=== PATIENT | male | born 1945 | race Caucasian/White ===

== ENCOUNTER 2021-12-29 10:48 | Inpatient (IN) | payer OTHER, MEDICARE, SELFPAY ==
[2021-12-29] VITALS (47 sets, daily range): BP systolic 83–152; BP diastolic 56–104; PULSE 66–148; RESP 14–34; TEMP 35.6–36.2; O2SAT 84–100; BMI 26.4
--- NOTE | 2021-12-29 10:59 | XR_ITS ---
WS: [id number] Portable AP upright chest, 12/29/2021 Clinical Data: dyspnea Comparison: None. Findings: There is a patchy opacity in the left lower lobe which may represent consolidation, atelect asis and pleural reaction. There are small bilateral pleural effusions. The upper lobes are clear. Th e heart is normal. Monitor leads are on the chest wall. The pulmonary vascularity is not increased. XR/XR chest 1V portable [id number] Impression: 1. Patchy opacity in left lower lobe which may represent consolidation, atelect asis and pleural reaction. 2. Small bilateral pleural effusions.
--- NOTE | 2021-12-29 11:02 | ECG_ITS ---
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 Measurements Intervals [place] Rate: 77 P: MA: QRS: 51 QRSD: 131 T: -41 QT: 419 QTc: 474 Interpretive Statements ATRIAL FIBRILLATION INTRAVENTRICULAR CONDUCTION DELAY [130+ ms QRS DURATION] POSSIBLE LATERAL MYOCARDIAL INFARCTION , OF INDETERMINATE AGE [30 ms Q WAVE IN I/aVL/V5/V6] No previous ECG available for comparison Electronically Signed On 12-31-2021 15:49:11 CDT by Jeff Andres M.D. [id number]
[2021-12-29] MEDS: dexamethasone 4 mg/mL INJ 6 MG IVP (11:06)
[2021-12-29 11:18] LABS: Basophils % 0.2 %; Eosinophils % 0.1 %; Hematocrit 45.2 % (42.0-52.0); Hemoglobin 15.1 g/dL (11.7-16.6); Lymphocytes % 5.1 %; Mean Corpuscular HGB Conc 33.4 g/dL (30.0-36.0); Mean Corpuscular Hemoglobin 30.9 pg (28.0-34.0); Mean Corpuscular Volume 92.4 fl (80-94); Monocytes # 1.5 10^3/uL (0.2-0.9); Monocytes % 7.8 %; Neutrophils # 16.36 10^3/uL (1.8-7.7); Neutrophils % 86.2 %; Nucleated Red Blood Cells % 0 %; Platelet Count 719 10^3/cmm (130-400); Red Blood Count 4.89 10^6/uL (4.1-5.3); Red Cell Distribution Width 12.8 % (12.1-15.1)
[2021-12-29 11:24] LABS: ABG PCO2 44.4 mmHg (35-45); ABG PH Result 7.37 (7.35-7.45); Arterial Blood Gas Hematocrit 44.3 % (42-52); Base Excess ABG 0.3 mmol/L (-2.0-2.0); Blood Gas Allen Test Pos; Blood Gas Operator Identificat glc; Blood Gas Sample Site Radial, right; Blood Gas Sample Type Arterial; HCO3 ABG 25.9 mmol/L (22-26); Oxygen Device BIPAP
[2021-12-29 11:42] LABS: Lactic Sepsis W/Reflex 5.8 mmol/L (0.5-2.2)
--- NOTE | 2021-12-29 11:42 | PC.PHAR ---
pt states he takes care of his own medications-[place] metoprol[place] tartrate 100mg take 50mg po bid-pt states he just takes 50mg (half-tab)qam-notes are made in the pharmacy comments
[2021-12-29 11:44] LABS: Troponin(5th) Baseline 117 ng/L (0-15)
[2021-12-29 11:47] LABS: D Dimer 2.85 ug/mIFEU (0-0.59)
--- NOTE | 2021-12-29 11:52 | CT_ITS ---
WS: [id number] CT CHEST ANGIOGRAPHY WITH REFORMATS HISTORY: elevated d dimer, hypoxia TECHNIQUE: Contiguous axial images are obtained through the chest during arterial injection of intrav enous contrast. Images are reconstructed to evaluate the pulmonary arteries. MIP imaging also reviewe d. All CT scans at [facility] use at least one of these dose optimization techniques: automat ed exposure control; mA and/or kV adjustment per patient size (includes targeted exams where dose is matched to clinical indication); or iterative reconstruction. CONTRAST: Omnipaque 300; 86 mL IV. DLP: 625.88 mGy.cm COMPARISON: None available. Good opacification of the pulmonary arteries. No filling defect or pulmonary embolism. Pulmonary kristin ry size is normal. Atherosclerosis of the thoracic aorta with no aneurysm. No pericardial effusion. N o RIGHT heart strain. There is mild enlargement of all 4 chambers. Tricuspid regurgitation into hepat ic veins. Mild to moderate layering bilateral pleural effusions. No significant mediastinal or hilar adenopathy . Partial atelectasis at the lung bases due to the effusions. Very mild groundglass attenuation in th e RIGHT upper, RIGHT middle and RIGHT lower lobes probably due to pneumonitis. Partial atelectasis at the lingula. No pneumothorax. No adrenal mass. No abnormality noted in the visualized upper abdominal structures. CT/CT angio chest PE protcl [id number] IMPRESSION: 1. No pulmonary embolism. 2. Small to moderate bilateral pleural effusions. 3. Very mild subsegmental pneumonitis in the RIGHT middle, upper and lower lob es. 4. Partial atelectasis lingula. 5. Tricuspid regurgitation into hepatic veins.
[2021-12-29 11:57] LABS: NT Pro B Type Natriuretic Pept 4947 pg/mL (0-450); Procalcitonin 0.06 ng/mL (0-0.5)
[2021-12-29 12:08] LABS: Alanine Aminotransferase 35 U/L (0-41); Albumin Level 4.3 g/dL (3.5-5.2); Alkaline Phosphatase 84 IU/L (40-130); Anion Gap 26.9 (5-19); Aspartate Amino Transferase 63 U/L (0-40); Blood Urea Nitrogen 26 mg/dL (8-23); Calcium 10.2 mg/dL (8.5-10.5); Carbon Dioxide 21 mmol/L (22-29); Chloride 82 mmol/L (98-107); Glucose 150 mg/dL (65-115); Osmolality Calculated 268 mOsm/kg (285-295); Potassium 4.9 mmol/L (3.5-5.1); Sodium 125 mmol/L (136-145); Total Bilirubin 1.2 mg/dL (0.15-1.2); Total Protein 7.3 g/dL (6.6-8.7)
--- NOTE | 2021-12-29 12:13 | ED_ITS ---
HPI - SOB/Dyspnea General: Chief Complaint: Shortness of Breath/Dyspnea Stated Complaint: Diff breathing taking heart meds Time Seen by Provider: 12/29/21 10:59 Source: patient Mode of arrival: EMS History of Present Illness: HPI Narrative: 68-year-old male presents emergency room complaining of significant shortness of breath nonproductive cough. States his symptoms began about 9 days ago progressively worse in the last 2 days have gotten very severe. He denies any diarrhea he has not had any fever sweats chills or myalgias. Denies any anosmia. He is not having any chest pain at this time he does states he has a sensation of palpitations and rapid heart rate. No vomiting or diarrhea no dysuria urgency or frequency. He has generally felt very weak. He has a history of COPD and congestive heart failure. On arrival here his oxygen sats are in the 70% range on 2 L improved with a simple mask at 6 L/min. MD elicited complaint: shortness of breath and cough Pertinent past history: COPD and congestive heart failure Timing: constant Severity: severe Exacerbating factors: nothing Relieving factors: nothing Known history of: COPD and congestive heart failure Associated symptoms: Deny abdominal pain, chest congestion, chest pain, cough, diaphoresis, dizziness, extremity pain, fever(s), hemoptysis, lightheadedness, myalgias, nausea, orthopnea, palpitations, paresthesias, polydipsia, polyuria, rash, sense of impending doom, syncope or vomiting Treatment prior to arrival: none Review of Systems Const: Denies: fever(s) or diaphoresis ENMT: Denies: throat pain, ear or mastoid pain, nasal discharge or nasal congestion Card: Denies: chest pain, palpitations, lightheadedness, syncope or orthopnea Resp: Denies: hemoptysis or chest congestion GI: Denies: abdominal pain, nausea or vomiting : Denies: flank pain, dysuria, urinary frequency or urinary urgency Musc: Denies: extremity pain Skin/Breast: Denies: rash or pruritus Neuro: Denies: dizziness Endo: Denies: polyuria or polydipsia PFS ED PFSH: Medical History CAD (coronary artery disease) Congestive heart failure COPD (chronic obstructive pulmonary disease) Obesity Surgical History History of heart artery stent History of hernia surgery Family History Father CAD (coronary artery disease) Mother Old age Social History Smoking and tobacco status: current every day smoker cigarettes [ Other cigarette details: Patient reports quitting smoking with onset of symptoms of this illness] Alcohol intake: never Physical Exam Const: COMMON NORMALS: patient oriented x3 GENERAL APPEARANCE: cooperative and comfortable NUTRITIONAL APPEARANCE: overweight ORIENTATION/CONSCIOUSNESS: Yes awake, Yes oriented to person, Yes oriented to place and Yes oriented to time HENMT: COMMON NORMALS: normocephalic, atraumatic and hearing grossly normal bi laterally HEAD & SCALP: normocephalic and atraumatic Resp: AUSCULTATION: crackles, rhonchi and wheezes Cardio: RATE: tachycardic RHYTHM: abnormal rhythm irregularly irregular GI: COMMON NORMALS: Soft to palpation and No hepatosplenomegaly present AUSCULTATION: Yes normoactive bowel sounds PALPATION: Yes Soft to palpation, No Tenderness to palpation present (GI), No Guarding due to palpation present (GI) and Yes No hepatosplenomegaly present Extremity: COMMON NORMALS: normal to inspection, capillary refill normal, no clubbing, cyanosis or edema, no calf tenderness and no pedal edema GENERAL: Yes edema Neuro: COMMON NORMALS: patient oriented x3 SENSORIUM/ORIENTATION: Yes oriented to person, Yes oriented to place and Yes oriented to time Skin: COMMON NORMALS: no rashes or lesions noted GENERAL SKIN EXAM: no rashes or lesions noted Course Vital Signs: Vital signs: Vital Signs Temperature 96.7 F L 01/02/22 07:00 Pulse Rate 96 01/02/22 14:00 Respiratory Rate 19 H 01/02/22 12:00 Blood Pressure 136/93 01/02/22 12:00 Pulse Oximetry 86 L 01/02/22 12:00 MDM - SOB/Dyspnea Medical Decision Making Positive delta troponin of 75. Symptoms could be strain from heart failure and A. fib but will admit him to evaluate further. He may have an underlying cardiac cause he does have a history of previous stenting. He is currently on a Cardizem drip and his rate has become controlled. His D-dimer is elevated but we have cannot perform a CTA of his chest because of his creatinine. Discussed with hospitalist orders written will admit he has been charted on Lovenox. Medical Records I reviewed the patient's medical records. Lab Data I reviewed the patient's lab results. : 01/02/22 03:30 01/02/22 03:30 Labs/Radiology: Radiology Impressions Chest CTA 12/29/21 11:52 IMPRESSION: 1. No pulmonary embolism. 2. Small to moderate bilateral pleural effusions. 3. Very mild subsegmental pneumonitis in the RIGHT middle, upper and lower lobes. 4. Partial atelectasis lingula. 5. Tricuspid regurgitation into hepatic veins. Venous Duplex 12/29/21 14:48 IMPRESSION: 1. No evidence for deep vein thrombosis. 2. Subcutaneous soft tissue edema in the bilateral lower legs. Thoracentesis Ultrasound 01/01/22 00:00 IMPRESSION: Uncomplicated ultrasound-guided thoracentesis. Chest X-Ray 01/02/22 13:51 Impression: Placement of a small left chest tube at base of left pleural space with improvement of basilar left pneumothorax. Laboratory Results WBC 19.0 10^3/uL (4.0-10.0) H 12/29/21 11:04 RBC 4.89 10^6/uL (4.1-5.3) 12/29/21 11:04 Hgb 15.1 g/dL (11.7-16.6) 12/29/21 11:04 Hct 45.2 % (42.0-52.0) 12/29/21 11:04 MCV 92.4 fl (80-94) 12/29/21 11:04 MCH 30.9 pg (28.0-34.0) 12/29/21 11:04 MCHC 33.4 g/dL (30.0-36.0) 12/29/21 11:04 RDW 12.8 % (12.1-15.1) 12/29/21 11:04 Plt Count 719 10^3/cmm (130-400) H 12/29/21 11:04 MPV 9.0 fL (7.4-10.4) 12/29/21 11:04 Neut % (Auto) 86.2 % 12/29/21 11:04 Lymph % (Auto) 5.1 % 12/29/21 11:04 [place] % (Auto) 7.8 % 12/29/21 11:04 Eos % (Auto) 0.1 % 12/29/21 11:04 Baso % (Auto) 0.2 % 12/29/21 11:04 Neut # (Auto) 16.36 10^3/uL (1.8-7.7) H 12/29/21 11:04 Lymph # (Auto) 1.0 10^3/uL (0.8-4.8) 12/29/21 11:04 [place] # (Auto) 1.5 10^3/uL (0.2-0.9) H 12/29/21 11:04 Eos # (Auto) 0.0 10^3/uL (0.0-0.8) 12/29/21 11:04 Baso # (Auto) 0.0 10^3/uL (0.0-0.1) 12/29/21 11:04 Nucleated RBC % (auto) 0 % 12/29/21 11:04 Nucleated RBCs # 0.0 /100WBC 12/29/21 11:04 D-Dimer 2.85 ug/mIFEU (0-0.59) H 12/29/21 11:04 Specimen Type Arterial 12/29/21 11:15 Sample Site Radial, right 12/29/21 11:15 ABG pH 7.37 (7.35-7.45) 12/29/21 11:15 ABG pCO2 44.4 mmHg (35-45) 12/29/21 11:15 ABG pO2 323.0 mmHg (80.0-100.0) H 12/29/21 11:15 ABG HCO3 25.9 mmol/L (22-26) 12/29/21 11:15 ABG Base Excess 0.3 mmol/L (-2.0-2.0) 12/29/21 11:15 Damon Test Pos 12/29/21 11:15 Hematocrit 44.3 % (42-52) 12/29/21 11:15 O2 Delivery Device Bipap 12/29/21 11:15 FiO2 70.0 % 12/29/21 11:15 Operation Shift Supervisor ID glc 12/29/21 11:15 Sodium 125 mmol/L (136-145) L 12/29/21 10:59 Potassium 4.9 mmol/L (3.5-5.1) 12/29/21 10:59 Chloride 82 mmol/L (98-107) L 12/29/21 10:59 Carbon Dioxide 21 mmol/L (22-29) L 12/29/21 10:59 Anion Gap 26.9 (5-19) H 12/29/21 10:59 BUN 26 mg/dL (8-23) H 12/29/21 10:59 Creatinine 0.9 mg/dL (0.7-1.2) 12/29/21 10:59 GFR Calculation Not Reportable 12/29/21 10:59 Glucose 150 mg/dL (65-115) H 12/29/21 10:59 Estimat Average Glucose 105 12/29/21 11:04 Hemoglobin A1c 5.3 % (4.0-6.0) 12/29/21 11:04 Calculated Osmolality 268 mOsm/kg (285-295) L 12/29/21 10:59 Lactic Acid 5.8 mmol/L (0.5-2.2) H* 12/29/21 11:04 Lactic Acid (Sepsis) 2.4 mmol/L (0.5-2.2) H 12/29/21 13:43 Calcium 10.2 mg/dL (8.5-10.5) 12/29/21 10:59 Magnesium 1.9 mg/dL (1.7-2.3) 12/29/21 13:05 Total Bilirubin 1.2 mg/dL (0.15-1.2) 12/29/21 10:59 AST 63 U/L (0-40) H 12/29/21 10:59 ALT 35 U/L (0-41) 12/29/21 10:59 Alkaline Phosphatase 84 IU/L (40-130) 12/29/21 10:59 Troponin T Baseline 117 ng/L (0-15) H* 12/29/21 11:04 Troponin T 120 Minute 192.6 ng/L (0-15) H 12/29/21 13:05 Delta Troponin T 75.6 ABS# (0-10) H* 12/29/21 13:05 C-Reactive Protein 52.0 mg/L (0.0-4.9) H 12/29/21 10:59 NT-Pro-B Natriuret Pep 4947 pg/mL (0-450) H 12/29/21 10:59 Total Protein 7.3 g/dL (6.6-8.7) 12/29/21 10:59 Albumin 4.3 g/dL (3.5-5.2) 12/29/21 10:59 Globulin 3.0 g/dL (1.3-4.6) 12/29/21 10:59 Triglycerides 52 mg/dL (0-150) 12/29/21 13:05 Cholesterol 136 mg/dL (0-200) 12/29/21 13:05 LDL Cholesterol, Calc 84 mg/dL (50-129) 12/29/21 13:05 HDL Cholesterol 42 mg/dL (60-100) L 12/29/21 13:05 LDL/HDL Ratio 2.00 RATIO (0.00-3.22) 12/29/21 13:05 Cholesterol/HDL Ratio 3.24 mg/dL (1.0-5.00) 12/29/21 13:05 Procalcitonin 0.06 ng/mL (0-0.5) 12/29/21 10:59 TSH 1.09 uIU/mL (0.27-4.20) 12/29/21 13:05 Coronavirus 229E (PCR) Not detected (NOT DETECT) 12/29/21 11:04 SARS-CoV-2 (PCR) Not detected (NOT DETECT) 12/29/21 11:04 Discharge Plan Discharge Patient Disposition: Admitted As Inpatient Admit Provider: Jaun Felix Clinical Impression: Acute and chronic respiratory failure with hypoxia, NSTEMI (non-ST elevated myocardial infarction), Atrial fibrillation, Acute kidney failure, Congestive heart failure, COPD (chronic obstructive pulmonary disease), CAD (coronary artery disease), Hyponatremia Condition: Stable Coding Level of Care Code ED Web Master for Ayang Fwd Exam Detailed
[2021-12-29] MEDS: levofloxacin-dextrose 5 % 750 MG/150 ML PREMIX 100 MG IV (12:28)
[2021-12-29 12:56] LABS: Reflex Lactate Order REFLEX LACTIC ORDERD
--- NOTE | 2021-12-29 13:02 | ECG_ITS ---
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 Measurements Intervals [place] Rate: 78 P: NC: QRS: 53 QRSD: 130 T: 265 QT: 401 QTc: 457 Interpretive Statements ATRIAL FIBRILLATION POSSIBLE LATERAL MYOCARDIAL INFARCTION , PROBABLY OLD [30 ms Q WAVE IN I/aVL/V5/V6] ST DEVIATION AND MODERATE T-WAVE ABNORMALITY, CONSIDER INFERIOR ISCHEMIA [-0.1+ mV T-WAVE IN II/aVF] Compared to ECG 12/29/2021 12:08:49 T-wave abnormality now present Possible ischemia now present Intraventricular conduction delay no longer present Myocardial infarct finding still present Electronically Signed On 12-31-2021 15:56:13 CDT by Jeff Andres M.D. [id number]
[2021-12-29 13:53] LABS: Troponin 5 2HR 192.6 ng/L (0-15); Troponin 5 2HR Delta 75.6 ABS# (0-10)
[2021-12-29 14:07] LABS: Lactic Acid level (Lactate) 2.4 mmol/L (0.5-2.2)
[2021-12-29] MEDS: enoxaparin 100 mg/mL Syringe 90 MG SUBCUT (14:12)
[2021-12-29 14:13] LABS: Adenovirus Not Detected (NOT DETECT); Chlamydia Pneumoniae Not Detected (NOT DETECT); Coronavirus 229E,HKU1,NL63,OC4 Not Detected (NOT DETECT); Human Metapneumovirus Not Detected (NOT DETECT); Human Rhinovirus/Enterovirus Not Detected (NOT DETECT); Influenza A Not Detected (NOT DETECT); Influenza A H1 Not Detected (NOT DETECT); Influenza A H1-2009 Not Detected (NOT DETECT); Influenza A H3 Not Detected (NOT DETECT); Influenza B Not Detected (NOT DETECT); Mycoplasma Pneumoniae Not Detected (NOT DETECT); Parainfluenza Virus Type 1 Not Detected (NOT DETECT); Parainfluenza Virus Type 2 Not Detected (NOT DETECT); Parainfluenza Virus Type 3 Not Detected (NOT DETECT); Parainfluenza Virus Type 4 Not Detected (NOT DETECT); Respiratory Syncytial Virus A Not Detected (NOT DETECT); Respiratory Syncytial Virus B Not Detected (NOT DETECT); SARS-COV-2 Not Detected (NOT DETECT)
--- NOTE | 2021-12-29 14:48 | USR_ITS ---
PROCEDURE INFORMATION: Exam: US Duplex Lower Extremity Veins, Bilateral Exam date and time: 12/29/2021 2:48 PM Age: 76 years old Clinical indication: Edema, localized and other: SOB; Lower extremity, bilateral; Additional info: Dvt TECHNIQUE: Imaging protocol: Real-time Duplex ultrasound of the bilateral extremities with 2-D hernandez scale, color Doppler flow and spectral waveform analysis with image documentation. Complete exam focused on the bilateral lower extremity veins. COMPARISON: No relevant prior studies available. FINDINGS: Right deep veins: Unremarkable. The common femoral, femoral, proximal profunda femoral and popliteal veins are patent without thrombus. Normal Doppler waveforms. Normal compressibility and/or augmentation response. Right superficial veins: Saphenofemoral junction is patent without thrombus. Left deep veins: Unremarkable. The common femoral, femoral, proximal profunda femoral and popliteal veins are patent without thrombus. Normal Doppler waveforms. Normal compressibility and/or augmentation response. Left superficial veins: Saphenofemoral junction is patent without thrombus. Soft tissues: Soft tissue edema in the right and left calves. US/[place] [id number] IMPRESSION: 1. No evidence for deep vein thrombosis. 2. Subcutaneous soft tissue edema in the bilateral lower legs.
--- NOTE | 2021-12-29 14:48 | USCV_ITS ---
Nitin Florentino Age: 76 Gender: M : 1945 Exam Date: 12/29/2021 16:04 Ordering Phys: Jaun Felix MD Technologist: Nell Pascual Exam Location: [facility] Indication: SOB WITH SWOLLEN LEGS BP: / HR: 107 Rhythm: Sinus Technical Quality: Adequate MEASUREMENTS (Male / Female) Normal Values 2D ECHO LV Chamber Size 3.5 cm RV Chamber Size 4.3 cm LVOT Diameter 2.0 cm LV Ejection Fraction MOD 2C 61.0 % LV Ejection Fraction 2C AL 61.6 % LA Diameter 5.2 cm LA Width 3.3 cm LA Height 5.1 cm RA Width 4.2 cm RA Height 5.6 cm Aorta at Sinotubular Diameter 3.5 cm M-MODE Aortic Annulus Diameter 2.2 cm LA Ao Ratio MM 2.6 MV E Point Septal Separation 0.6 cm DOPPLER AV Peak Velocity 236.0 cm/s LVOT Peak Velocity 74.0 cm/s AV Area Cont Eq vti 1.1 cm squared AV Area Cont Eq pk 1.0 cm squared MV Area PHT 5.6 cm squared MV E' Velocity 59.0 cm/s Mitral E to MV E' Ratio 10.0 Mitral E to LV E' Lateral Ratio 7.8 Mitral E to LV E' Septal Ratio 13.8 TR Peak Velocity 260.6 cm/s TR Peak Gradient 27.2 mmHg TR Mean Velocity 192.8 cm/s TR Mean Gradient 16.6 mmHg TR Velocity Time Integral 59.6 cm TV Peak E Velocity 81.0 cm/s PV Peak Velocity 105.0 cm/s RV Acceleration Time 0.2 s RV Ejection Time 0.3 s RV AcT/ET 0.5 FINDINGS Left Ventricle Normal LV systolic size. LV systolic function is grossly mildly reduced. Diastolic function is indeterminate because of atrial fibrillation Right Ventricle The right ventricle is normal in size and function. Right Atrium The right atrium is normal in size. Left Atrium The left atrium is normal in size. Mitral Valve Moderate mitral annular calcification without significant stenosis or prolapse. There is no mitral regurgitation. Aortic Valve Aortic valve is thickened. Mild aortic stenosis is seen. Aortic valve area is 1.06 cm squared with mean gradient across the aortic valve of 12.1 mmHg. There is no aortic regurgitation. Tricuspid Valve Structurally normal tricuspid valve without significant stenosis. Mild tricuspid regurgitation. Pulmonary artery systolic pressure is normal. Pulmonic Valve Not well-visualized Pericardium Normal pericardium without effusion. Aorta Aortic root was mildly dilated CONCLUSIONS Technically limited quality echocardiogram because of poor ultrasonic windows. Grossly LV systolic function is mildly reduced Diastolic function is indeterminate because of atrial fibrillation Moderate mitral annular calcification is seen. Aortic valve is thickened. Mild aortic stenosis is noted. Aortic valve area is 1.06 cm squared with mean gradient across the aortic valve of 12.1 mmHg. Mild tricuspid regurgitation. Aortic root is dilated No comparison studies are available. Recommend repeating limited echo with contrast once heart rate is better controlled to accurately assess LV systolic function and wall motion Jeff Andres MD (Electronically Signed) Final Date: 29 December 2021 17:12 S
--- NOTE | 2021-12-29 14:57 | P.HP_ITS ---
Providers/Chief Complaint Chief Complaint: Diff breathing taking heart meds History of Present Illness Nitin Florentino is a 76 year old male with a past medical history of CAD status post stenting, history of COPD, history of smoking, history of hypertension, who presents to [facility] from the [place] due to complaints of shortness of breath. Patient tells that he lives near [place], for about [place] of [facility], recently he has been noticing that he is been experiencing increased shortness of breath with exertion, with bilateral extremity edema, he tells me he has chronic lower extreme edema but recently it has been worsening, reports orthopnea, paroxysmal nocturnal dyspnea, has not received COVID vaccines, denies any fevers, does have a cough, no known exposure to COVID-19, in the emergency room he was noted to have acute hypoxic respiratory failure, placed on 70% BiPAP, elevated troponins, elevated D-dimer, who was supposed to have a CT angiogram, when they tried to lie him back flat for CT angio he became short of breath, the chest was aborted, he is back in the emergency room, Covid came back negative, on 50% BiPAP, telling me that he feels a lot better, he also had A. fib with RVR, placed on Cardizem drip, currently at 5, heart rates in the 100s, normotensive, tell me that he feels a lot better he is also received Lasix therapy, hospitalist team was called for admission Review of Systems Const: Denies: fever(s), chills, fatigue or malaise Eyes: Denies: blurry vision ENMT: Denies: nasal congestion Resp: Denies: productive cough GI: Denies: abdominal pain, nausea, vomiting, hematemesis or hematochezia : Denies: flank pain, difficulty urinating, dysuria or urinary frequency Musc: Denies: neck pain or back pain Skin/Breast: Denies: rash Neuro: Denies: headache(s) or vertigo Medications/Allergies Home Medications Medication Instructions Recorded Confirmed Last Taken Type Vitamin B-12 1 tab PO .OCCASIONALLY 12/29/21 12/29/21 Unknown History albuterol sulfate 90 mcg/actuation 2 puff INHALATION QID PRN 12/29/21 12/29/21 Unknown History aerosol inhaler (ProAir HFA) aspirin 325 mg tablet 325 mg PO QAM 12/29/21 12/29/21 12/29/21 07:00 History calcium carbonate 550 mg-magnesium 2 tab PO Q4H PRN 12/29/21 12/29/21 Unknown History hydroxide 110 mg chewable tablet cholecalciferol (vitamin D3) 25 25 mcg PO QAM 12/29/21 12/29/21 12/29/21 07:00 History mcg (1,000 unit) tablet (Vitamin D3) hydrochlorothiazide 25 mg tablet 25 mg PO QAM 12/29/21 12/29/21 12/29/21 07:00 History metoprolol tartrate 100 mg tablet 50 mg PO QAM 12/29/21 12/29/21 12/29/21 07:00 History see pharmacy comment sildenafil 100 mg tablet 50 mg PO PRN PRN 12/29/21 12/29/21 Unknown History Allergies Allergy/AdvReac Type Severity Reaction Status Date / Time lisinopril Allergy Unknown Verified 12/29/21 11:34 PFSH Acute PFSH: Medical History (Updated 12/29/21 @ 15:10 by Jaun Felix MD) CAD (coronary artery disease) Congestive heart failure COPD (chronic obstructive pulmonary disease) Obesity Surgical History (Updated 12/29/21 @ 15:01 by Jaun Felix MD) History of heart artery stent History of hernia surgery Family History (Updated 12/29/21 @ 15:02 by Jaun Felix MD) Father CAD (coronary artery disease) Mother Old age Social History (Updated 12/29/21 @ 12:16 by Pedro Linn DO) Smoking and tobacco status: current every day smoker cigarettes [ Other cigarette details: Patient reports quitting smoking with onset of symptoms of this illness] Alcohol intake: never Vitals/I&O/Wt Last Vital Signs Temp 96.0 F L 12/29/21 11:03 Pulse 80 12/29/21 13:48 Resp 18 12/29/21 13:48 BP 117/97 12/29/21 13:48 Pulse Ox 100 12/29/21 13:48 Weight last 48 hrs Weight 90.718 kg Physical Exam Const: COMMON NORMALS: no acute distress and patient oriented x3 HENMT: COMMON NORMALS: normocephalic HEAD & SCALP: normocephalic Eye: COMMON NORMALS: Equal, round and reactive pupils present and EOMs intact bilaterally Neck/C-Spine: COMMON NORMALS: no lymphadenopathy OTHER: JVD, 7 cm Lymph: LYMPHATIC: no lymphadenopathy noted Chest: COMMONS NORMALS: normal inspection of the chest Resp: COMMON NORMALS: normal respiratory effort, No retractions and No use of accessory muscles AUSCULTATION: diminished lung sounds diffuse Cardio: COMMON NORMALS: no JVD, S1 normal heart sound present and S2 normal heart sound present RATE: tachycardic RHYTHM: regular rhythm and abnormal rhythm irregularly irregular HEART SOUNDS: S1 normal heart sound present and S2 normal heart sound present GI: COMMON NORMALS: Normal to inspection, nondistended, normoactive bowel sounds present, Soft to palpation, non-tender, No hepatosplenomegaly present, no masses and no bruits PALPATION: Yes Soft to palpation and Yes No hepatosplenomegaly present Extremity: COMMON NORMALS: capillary refill normal and no calf tenderness NARRATIVE EXTREMITY EXAM: 2+ pitting edema Neuro: COMMON NORMALS: patient oriented x3 Psych: COMMON NORMALS: mental status grossly normal Skin: COMMON NORMALS: no jaundice Data : 12/29/21 11:04 12/29/21 10:59 Micro: Microbiology 12/29/21 11:13 Blood Culture - Preliminary Blood SPECIMEN COLLECTED 12/29/21 11:13 Blood Culture - Preliminary Blood SPECIMEN COLLECTED A&P Assessment and plan (1) CAD (coronary artery disease): Status: Acute (2) Obesity: Status: Acute (3) Congestive heart failure: Status: Acute (4) COPD (chronic obstructive pulmonary disease): Status: Acute (5) Acute and chronic respiratory failure with hypoxia: Status: Acute (6) NSTEMI (non-ST elevated myocardial infarction): Status: Acute (7) Pneumonia: Status: Acute (8) Acute heart failure: Status: Acute (9) Pulmonary edema: Status: Acute (10) Hyponatremia: Status: Acute (11) Lactic acidosis: Status: Acute (12) Sepsis: Status: Acute Plan Acute hypoxic respiratory failure -Multifactorial from CHF, pneumonia, atrial fibrillation Plan -Admit to ICU -Continue BiPAP, BiPAP schedule during the night -Monitor respiratory status closely -Bumex 1 mg every 12 hours, metolazone therapy -Patel catheter placement, monitor I's and O's -Fluid restrictions 1200 cc -Blood cultures, urine bacterial antigens, MRSA -Zosyn for pneumonia -Vancomycin for pneumonia, de-escalate based on MRSA -Cardiac echocardiogram -Does have elevated D-dimer, cannot perform CT angiogram, venous ultrasound for DVT, for now cover for possible pulmonary emboli, Lovenox 1 mg/kg every 12 hours -Full code -Lovenox for DVT prophylaxis A. fib with RVR -New onset -Continue Cardizem drip, transition to Cardizem 30 every 6 -Add metoprolol 25 twice daily -Lovenox as above -Cardiac echocardiogram -TSH, mag NSTEMI -Elevated troponin likely secondary to respiratory failure, A. fib, however cannot rule out underlying cardiac etiology -Underlying CAD status post stenting x1 -No chest pain complaints -Baseline troponin 117, 120-minute 192, 75.6 -EKG A. fib with RVR, nonspecific ST-T wave changes -Aspirin, statin, therapeutic Lovenox, metoprolol -Cardiac echocardiogram -Serial troponin, serial EKGs, telemetry monitoring -We will consider consulting cardiology based on clinical progress History of heart failure, unknown if systolic or diastolic, will do cardiac echocardiogram History of COPD, not in exacerbation, DuoNeb, budesonide Pneumonia, with sepsis, as above, leukocytosis elevated lactic acid Hyponatremia likely secondary to heart failure, continue diuresis Lactic acidosis secondary to pneumonia, Attestations Medical Necessity Statement*: Patient requires hospitalization, inpatient, greater than 2 midnights, for acute hypoxic respiratory failure, CHF exacerbation, elevated troponins, elevated D-dimer, pneumonia Coding Level of Care Code Acute 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
[2021-12-29] MEDS: iohexol 350 mg/mL 100 mL Btl IV (15:28)
[2021-12-29 15:36] LABS: Chol HDL Ratio 3.24 mg/dL (1.0-5.00); Cholesterol 136 mg/dL (0-200); HDL Cholesterol 42 mg/dL (60-100); LDL Cholesterol Calculated 84 mg/dL (50-129); Magnesium 1.9 mg/dL (1.7-2.3); Thyroid Stimulating Hormone 1.09 uIU/mL (0.27-4.20); Triglycerides 52 mg/dL (0-150)
[2021-12-29] MEDS: pantoprazole 40 mg SDV IVP (15:50)
[2021-12-29] MEDS: piperacillin-tazobactam 3.375 GM in sodium chloride 0.9% (plus) 50 ML IV (15:50)
[2021-12-29] MEDS: dilTIAZem 30 mg Tablet PO ×2 (15:53→22:08)
[2021-12-29] MEDS: metOLazone 5 MG Tablet 10 MG PO (15:53)
[2021-12-29 16:09] LABS: Estmated Average Glucose 105; Hemoglobin A1C 5.3 % (4.0-6.0)
[2021-12-29] MEDS: ipratropium-albuterol 3 mL Neb INHALATION ×2 (17:02→21:06)
--- NOTE | 2021-12-29 17:02 | ECG_ITS ---
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 Measurements Intervals [place] Rate: 127 P: [place]: QRS: 28 QRSD: 134 T: 242 QT: 329 QTc: 479 Interpretive Statements ATRIAL FIBRILLATION WITH RAPID VENTRICULAR RESPONSE INTRAVENTRICULAR CONDUCTION DELAY [130+ ms QRS DURATION] ANTEROLATERAL MYOCARDIAL INFARCTION , OF INDETERMINATE AGE [40+ ms Q WAVE IN I/aVL/V3-V6] No previous ECG available for comparison Electronically Signed On 12-31-2021 15:56:20 CDT by Jeff Andres M.D. [id number]
--- NOTE | 2021-12-29 17:15 | PC.NURSE ---
report to Wilfrid nurse in ICU
[2021-12-29 17:28] LABS: Troponin 5 6HR 200.2 ng/L (0-15); Troponin 5 6HR Delta 83.2 ng/L (0-12)
[2021-12-29] MEDS: bumetanide 0.25 mg/mL SDV 10 mL 1 MG IVP (18:24)
[2021-12-29] MEDS: metoprolol tartrate 25 mg Tablet PO (20:36)
[2021-12-29] MEDS: vancomycin 1,250 MG/250 ML PIGGYBACK 200 MG IV (20:36)
[2021-12-29] MEDS: atorvastatin 40 mg Tablet PO (20:36)
[2021-12-29] MEDS: budesonide 0.5 mg/2 mL Neb INHALATION (21:06)
--- NOTE | 2021-12-29 21:58 | ECG_ITS ---
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 Measurements Intervals [place] Rate: 91 P: DC: QRS: 16 QRSD: 126 T: -13 QT: 422 QTc: 521 Interpretive Statements ATRIAL FIBRILLATION WITH ABERRANT CONDUCTION OR VENTRICULAR PREMATURE COMPLEXES PROBABLE SEPTAL MYOCARDIAL INFARCTION , PROBABLY OLD [35 ms Q WAVE IN V1/V2] INTERPRETATION BASED ON A DEFAULT AGE OF 40 YEARS Compared to ECG 12/29/2021 13:01:35 Ventricular premature complex(es) now present Aberrant conduction of supraventricular beat(s) now present T-wave abnormality no longer present Possible ischemia no longer present Myocardial infarct finding still present Electronically Signed On 12-31-2021 15:55:25 CDT by Jeff Andres M.D. [id number]
[2021-12-30] VITALS (48 sets, daily range): BP systolic 86–134; BP diastolic 56–87; PULSE 63–113; RESP 14–24; TEMP 36.3–36.9; O2SAT 93–100
[2021-12-30] MEDS: piperacillin-tazobactam 3.375 GM in sodium chloride 0.9% (plus) 50 ML IV ×4 (00:51→23:56)
[2021-12-30] MEDS: enoxaparin 100 mg/mL Syringe 90 MG SUBCUT ×2 (02:22→15:19)
[2021-12-30] MEDS: dilTIAZem 30 mg Tablet PO ×4 (04:18→22:01)
[2021-12-30 05:18] LABS: ABG PCO2 40.5 mmHg (35-45); ABG PH Result 7.47 (7.35-7.45); Arterial Blood Gas Hematocrit 37.8 % (42-52); Base Excess ABG 5.5 mmol/L (-2.0-2.0); Blood Gas Allen Test Pos; Blood Gas Sample Site Radial, right; Blood Gas Sample Type Arterial; HCO3 ABG 29.6 mmol/L (22-26); Oxygen Device BIPAP; PO2 ABG 83.5 mmHg (80.0-100.0)
[2021-12-30 05:32] LABS: Basophils % 0.1 %; Hematocrit 36.1 % (42.0-52.0); Hemoglobin 12.5 g/dL (11.7-16.6); Lymphocytes % 6.1 %; Mean Corpuscular HGB Conc 34.6 g/dL (30.0-36.0); Mean Corpuscular Hemoglobin 30.8 pg (28.0-34.0); Mean Corpuscular Volume 88.9 fl (80-94); Mean Platelet Volume 8.9 fL (7.4-10.4); Neutrophils # 13.16 10^3/uL (1.8-7.7); Neutrophils % 81.1 %; Nucleated Red Blood Cells % 0 %; Platelet Count 572 10^3/cmm (130-400); Red Blood Count 4.06 10^6/uL (4.1-5.3); Red Cell Distribution Width 12.7 % (12.1-15.1); White Blood Count 16.2 10^3/uL (4.0-10.0)
[2021-12-30 05:48] LABS: Lactic Sepsis W/Reflex 1.2 mmol/L (0.5-2.2)
[2021-12-30 05:52] LABS: D Dimer 1.17 ug/mIFEU (0-0.59)
[2021-12-30 06:05] LABS: Alanine Aminotransferase 26 U/L (0-41); Albumin Level 3.3 g/dL (3.5-5.2); Alkaline Phosphatase 57 IU/L (40-130); Anion Gap 16.1 (5-19); Aspartate Amino Transferase 53 U/L (0-40); Blood Urea Nitrogen 28 mg/dL (8-23); Calcium 9.2 mg/dL (8.5-10.5); Carbon Dioxide 28 mmol/L (22-29); Chloride 88 mmol/L (98-107); Globulin 2.8 g/dL (1.3-4.6); Glucose 111 mg/dL (65-115); Magnesium 1.8 mg/dL (1.7-2.3); NT Pro B Type Natriuretic Pept 4551 pg/mL (0-450); Osmolality Calculated 272 mOsm/kg (285-295); Phosphorus 3.3 mg/dL (2.5-4.5); Potassium 4.1 mmol/L (3.5-5.1); Sodium 128 mmol/L (136-145); Total Bilirubin 0.9 mg/dL (0.15-1.2); Total Protein 6.1 g/dL (6.6-8.7)
[2021-12-30 06:12] LABS: Troponin T (5th) Once 366 ng/L (0-15)
--- NOTE | 2021-12-30 07:00 | XRR_ITS ---
PROCEDURE INFORMATION: Exam: XR Chest Exam date and time: 12/30/2021 7:00 AM Age: 76 years old Clinical indication: Shortness of breath; Patient HX: F/u for pneumonia. History of copd and chf. ; Additional info: SOB TECHNIQUE: Imaging protocol: XR of the chest. Views: 1 view. COMPARISON: CR XR chest 1V portable [id number] 12/29/2021 11:12 AM FINDINGS: Lungs: Left lower lobe airspace opacity. Pleural spaces: Small bilateral pleural effusions, left greater than right. No pneumothorax. Heart/Mediastinum: Unremarkable. No cardiomegaly. Bones/joints: Unremarkable. XR/XR chest 1V portable [id number] IMPRESSION: Small bilateral pleural effusions with left lower lobe airspace opacity, which may reflect atelectasis versus pneumonia.
[2021-12-30] MEDS: bumetanide 0.25 mg/mL SDV 10 mL 1 MG IVP ×2 (07:11→20:00)
[2021-12-30] MEDS: vancomycin 1,250 MG/250 ML PIGGYBACK 200 MG IV ×2 (07:50→20:00)
--- NOTE | 2021-12-30 07:54 | USCV_ITS ---
Nitin Florentino Age: 76 Gender: M : 1945 Exam Date: 12/30/2021 10:13 Ordering Phys: Jaun Felix MD Technologist: Lilian Parra [place] [facility] [place]: Ejection fraction BP: 100 / 72 HR: 92 Rhythm: Sinus Technical Quality: Adequate MEASUREMENTS (Male / Female) Normal Values 2D ECHO LV Ejection Fraction MOD 2C 28.5 % LV Ejection Fraction 2C AL 27.3 % FINDINGS Left Ventricle Right Ventricle Right Atrium Left Atrium Mitral Valve Aortic Valve Tricuspid Valve Pulmonic Valve Pericardium Aorta CONCLUSIONS This is a limited echocardiogram performed to assess LV systolic function Limited echocardiogenic windows LV systolic function is grossly normal. Regional wall motion abnormalities can not be assessed accurately Jeff Andres MD (Electronically Signed) Final Date: 30 December 2021 12:02 S
[2021-12-30] MEDS: budesonide 0.5 mg/2 mL Neb INHALATION ×2 (08:24→20:20)
[2021-12-30] MEDS: ipratropium-albuterol 3 mL Neb INHALATION ×4 (08:24→20:20)
[2021-12-30] MEDS: metoprolol tartrate 25 mg Tablet PO ×2 (09:01→20:00)
[2021-12-30] MEDS: aspirin 81 mg EC Tablet PO (09:01)
[2021-12-30] MEDS: midodrine 5 mg TABLET 10 MG PO ×3 (09:01→20:00)
[2021-12-30] MEDS: perflutren protein-a microsphr 0.22 mg/mL SDV 3 mL IV (10:26)
[2021-12-30 10:54] LABS: Bacillus cereus group Not Detected (NOT DETECT); Bacillus subtillis group Not Detected (NOT DETECT); Corynebacterium Not Detected (NOT DETECT); Cutibacterium acnes (P.acnes) Not Detected (NOT DETECT); Enterococcus Not Detected (NOT DETECT); Enterococcus faecalis Not Detected (NOT DETECT); Enterococcus faecium Not Detected (NOT DETECT); Lactobacillus species Not Detected (NOT DETECT); Listeria Not Detected (NOT DETECT); Listeria monocytogenes Not Detected (NOT DETECT); Micrococcus Not Detected (NOT DETECT); Pan Candida Not Detected (NOT DETECT); Pan Gram-Negative Not Detected (NOT DETECT); Staphylococcus epidermidis Not Detected (NOT DETECT); Staphylococcus lugdunensis Not Detected (NOT DETECT); Staphylococcus species Detected (NOT DETECT); Streptococcus agalactiae Not Detected (NOT DETECT); Streptococcus anginosus group Not Detected (NOT DETECT); Streptococcus pneumoniae Not Detected (NOT DETECT); Streptococcus pyogenes Not Detected (NOT DETECT); Streptococcus species Not Detected (NOT DETECT); mecA Not Detected (NOT DETECT); mecC Not Detected (NOT DETECT)
--- NOTE | 2021-12-30 12:08 | P.CONIM_ITS ---
Providers/Reason For Consult Consulting Physician/Specialty*: Jeff Andres MD/Cardiology Reason for Consult*: NSTEMI Requesting Physician: Dr Felix Attending Physician: Jaun Felix MD History of Present Illness History of Present Illness Nitin Florentino is a 76 year old male with past medical history of coronary artery disease status post PCI to RCA several years ago, history of COPD, history of smoking, hypertension who presented to the hospital with complaints of shortness of breath. Patient has been having increasing shortness of breath for the last 1 to 2 weeks. He has also noticed orthopnea, and palpitations. He says he has a known history of A. fib. Today he is 3 L of oxygen. Resting comfortably. Needed BiPAP earlier. Cardiology was consulted as patient had significant elevation of troponin which trended up to 366. According to patient with his shortness of breath he is also experiencing on and off chest pressure. His NT-ProBNP is elevated. Review of Systems Narrative: CONSTITUTIONAL: No fever chills weight loss or gain or night sweats. [] HEENT: Normocephalic, atraumatic.[] RESPIRATORY: No cough, sputum, hemoptysis or wheezing.[] CARDIOVASCULAR: No shortness of breath, chest pain, PND, orthopnea, lower extremity edema, presyncope or syncope. [] GI: no nausea vomiting diarrhea. 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 [] MUSCULOSKELETAL: No knee or joint pain or rashes. [] Medications/Allergies Home Medications Medication Instructions Recorded Confirmed Last Taken Type Vitamin B-12 1 tab PO .OCCASIONALLY 12/29/21 12/29/21 Unknown History albuterol sulfate 90 mcg/actuation 2 puff INHALATION QID PRN 12/29/21 12/29/21 Unknown History aerosol inhaler (ProAir HFA) aspirin 325 mg tablet 325 mg PO QAM 12/29/21 12/29/21 12/29/21 07:00 History calcium carbonate 550 mg-magnesium 2 tab PO Q4H PRN 12/29/21 12/29/21 Unknown History hydroxide 110 mg chewable tablet cholecalciferol (vitamin D3) 25 25 mcg PO QAM 12/29/21 12/29/21 12/29/21 07:00 History mcg (1,000 unit) tablet (Vitamin D3) hydrochlorothiazide 25 mg tablet 25 mg PO QAM 12/29/21 12/29/21 12/29/21 07:00 History metoprolol tartrate 100 mg tablet 50 mg PO QAM 12/29/21 12/29/21 12/29/21 07:00 History see pharmacy comment sildenafil 100 mg tablet 50 mg PO PRN PRN 12/29/21 12/29/21 Unknown History Allergies Allergy/AdvReac Type Severity Reaction Status Date / Time lisinopril Allergy Unknown Verified 12/29/21 11:34 Current Medications Generic Name Dose Route Start Last Admin Trade Name Freq PRN Reason Stop Dose Admin Albuterol/Ipratropium 3 ml 12/29/21 16:00 12/30/21 11:32 Ipratropium-Albuterol 3 Ml Neb INHALATION 3 ml QID.RESPIRATORY DEVON Administration Aspirin 81 mg 12/30/21 09:00 12/30/21 09:01 Aspirin 81 Mg Ec Tablet PO 81 mg DAILY DEVON Administration Atorvastatin Calcium 40 mg 12/29/21 21:00 12/29/21 20:36 Atorvastatin 40 Mg Tablet PO 40 mg BEDTIME DEVON Administration Budesonide 0.5 mg 12/29/21 20:00 12/30/21 08:24 Budesonide 0.5 Mg/2 Ml Neb INHALATION 0.5 mg BID.RESPIRATORY DEVON Administration Bumetanide 1 mg 12/29/21 18:30 12/30/21 07:11 Bumetanide 0.25 Mg/Ml Sdv 10 Ml IVP 1 mg Q12H DEVON Administration Diltiazem HCl 30 mg 12/29/21 16:00 12/30/21 10:31 Diltiazem 30 Mg Tablet PO 30 mg Q6H DEVON Administration Enoxaparin Sodium 90 mg 12/30/21 02:00 12/30/21 02:22 Enoxaparin 100 Mg/Ml Syringe 1 mg/kg (90 mg) 90 mg SUBCUT Administration Q12H DEVON Diltiazem HCl 125 mg/ Sodium 125 mls @ 0 mls/hr 12/29/21 11:15 12/29/21 19:32 Chloride IV Infused .Q0M DEVON Titration Protocol Per Protocol Piperacillin Sod/Tazobactam 50 mls @ 12.5 mls/hr 12/29/21 16:00 12/30/21 09:01 Sod 3.375 gm/ Sodium Chloride IV 12.5 mls/hr Q8H DEVON Administration Protocol Vancomycin/PEG/NADA/Lysine/Water 1,250 mg in 250 mls @ 200 mls/hr 12/29/21 20:00 12/30/21 09:05 Vancocin IV Infused Q12H DEVON Infusion Metoprolol Tartrate 25 mg 12/29/21 21:00 12/30/21 09:01 Metoprolol Tartrate 25 Mg Tablet PO 25 mg BID@0900,2100 DEVON Administration Midodrine 10 mg 12/30/21 08:00 12/30/21 09:01 Midodrine 5 Mg Tablet PO 10 mg Q6H DEVON Administration Pantoprazole Sodium 40 mg 12/29/21 16:30 12/29/21 15:50 Pantoprazole 40 Mg Sdv IVP 40 mg Q24H DEVON Administration PFSH Acute PFSH: Medical History CAD (coronary artery disease) Congestive heart failure COPD (chronic obstructive pulmonary disease) Obesity Surgical History History of heart artery stent History of hernia surgery Family History Father CAD (coronary artery disease) Mother Old age Social History Smoking and tobacco status: current every day smoker cigarettes [ Other cigarette details: Patient reports quitting smoking with onset of symptoms of this illness] Alcohol intake: never Vitals/I&O/Wt Last Vital Signs Temp 97.6 F 12/30/21 08:00 Pulse 63 12/30/21 11:32 Resp 18 12/30/21 11:32 BP 117/84 12/30/21 08:00 Pulse Ox 99 12/30/21 11:32 12/29/21 12/30/21 12/30/21 22:59 06:59 14:59 Intake Total 538.0 / 538.0 100 / 638.0 368 / 368 Output Total 1200 / 1200 400 / 1600 1300 / 1300 Balance -662.0 / -662.0 -300 / -962.0 -932 / -932 Weight last 48 hrs Weight 200 lb Physical Exam Narrative: GENERAL: Patient is alert, awake and oriented x3. [] NECK: No jugular vein distension. [] HEENT: No cyanosis. No icterus. No pallor. [] HEART: Irregularly irregular, Tachycardia, S1, S2 LUNGS: Clear to auscultate bilaterally. [] ABDOMEN: Soft, nontender and nondistended. Positive bowel sounds. No guarding, rebound or tenderness. [] CENTRAL NERVOUS SYSTEM: Grossly nonfocal. [] EXTREMITIES: Lower extremities with 2+ edema bilaterally. Pulses palpable in the lower extremities, both dorsalis pedis and posterior tibial. [] Urinary Catheter Management: Patel: Cath Placed During This Visit: yes Reason for Continuing Indwelling Catheter: Accurate Measurement of Urinary Output in Critically Ill Patients Urinary Catheter Date of Insertion: 12/29/21 Urinary Catheter Time of Insertion: 16:00 Data : 12/31/21 03:43 12/31/21 03:43 Micro: Microbiology 12/29/21 11:13 Blood Culture - Preliminary Blood Staphylococcus species 12/29/21 11:13 Blood Culture - Preliminary Blood 12/29/21 16:05 Legionella Urinary Antigen - Final Urine Catheterized A&P Assessment and plan (1) Sepsis: Status: Acute (2) Lactic acidosis: Status: Acute (3) Pulmonary edema: Status: Acute (4) Acute heart failure: Status: Acute (5) NSTEMI (non-ST elevated myocardial infarction): Status: Acute (6) CAD (coronary artery disease): Status: Acute (7) COPD (chronic obstructive pulmonary disease): Status: Acute (8) Atrial fibrillation: Status: Acute Plan Patient has presented with sepsis, congestive heart failure, pulmonary edema, non-ST elevation DC and atrial fibrillation with RVR. Continue anticoagulation. Continue aspirin. Patient will need coronary angiogram with possible percutaneous coronary intervention. I have discussed in detail the risks and benefits of the procedure and the patient agrees to it. We will tentatively plan for tomorrow if his breathing status improves Possible pneumonia and sepsis. Treatment per primary team. Echocardiogram is limited quality because of poor ultrasonic windows. It shows mildly decreased to normal EF. Keep n.p.o. past midnight. Continue Bumex Strict I&O's Thank you for involving us with care of this patient. We will continue to follow. 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
--- NOTE | 2021-12-30 15:05 | PM.PN ---
Subjective Subjective: Patient was seen this morning, currently on 3 L, he tells me that he is feeling a lot better, less short of breath, continues to have lower extremity edema, no fevers overnight, no lightheadedness, dizziness, no chest pain Vitals/I&O/Wt Last Vital Signs Temp 97.6 F 12/30/21 08:00 Pulse 94 12/30/21 14:00 Resp 21 H 12/30/21 14:00 BP 116/81 12/30/21 14:00 Pulse Ox 95 12/30/21 14:00 12/30/21 12/30/21 12/30/21 06:59 14:59 22:59 Intake Total 100 / 638.0 718 / 718 Output Total 400 / 1600 1300 / 1300 Balance -300 / -962.0 -582 / -582 Weight last 48 hrs Weight 90.718 kg Physical Exam Const: COMMON NORMALS: no acute distress and patient oriented x3 Resp: COMMON NORMALS: normal respiratory effort, No retractions, No use of accessory muscles and clear to auscultation bilaterally AUSCULTATION: clear to auscultation bilaterally Cardio: COMMON NORMALS: regular rate, regular rhythm, S1 normal heart sound present and S2 normal heart sound present RATE: regular rate RHYTHM: regular rhythm HEART SOUNDS: S1 normal heart sound present and S2 normal heart sound present GI: COMMON NORMALS: Normal to inspection, nondistended, normoactive bowel sounds present, Soft to palpation, non-tender and No hepatosplenomegaly present PALPATION: Yes Soft to palpation and Yes No hepatosplenomegaly present Extremity: COMMON NORMALS: capillary refill normal, no clubbing, cyanosis or edema and no calf tenderness Neuro: COMMON NORMALS: patient oriented x3 Psych: COMMON NORMALS: mental status grossly normal Skin: NARRATIVE SKIN EXAM: 2+ pitting edema bilateral extremity Urinary Catheter Management: Patel: Cath Placed During This Visit: yes Reason for Continuing Indwelling Catheter: Accurate Measurement of Urinary Output in Critically Ill Patients Urinary Catheter Date of Insertion: 12/29/21 Urinary Catheter Time of Insertion: 16:00 Data : 12/30/21 05:08 12/30/21 05:08 Micro: Microbiology 12/29/21 16:05 MRSA Culture - Final Nose 12/29/21 16:05 Bacterial Antigens - Final Urine,Clean Catch 12/29/21 11:13 Blood Culture - Preliminary Blood Staphylococcus species 12/29/21 11:13 Blood Culture - Preliminary Blood 12/29/21 16:05 Legionella Urinary Antigen - Final Urine Catheterized A&P Assessment and plan (1) CAD (coronary artery disease): Status: Acute (2) Obesity: Status: Acute (3) Congestive heart failure: Status: Acute (4) COPD (chronic obstructive pulmonary disease): Status: Acute (5) Acute and chronic respiratory failure with hypoxia: Status: Acute (6) NSTEMI (non-ST elevated myocardial infarction): Status: Acute (7) Pneumonia: Status: Acute (8) Acute heart failure: Status: Acute (9) Pulmonary edema: Status: Acute (10) Hyponatremia: Status: Acute (11) Lactic acidosis: Status: Acute (12) Sepsis: Status: Acute Plan Acute hypoxic respiratory failure -Multifactorial from CHF, pneumonia, atrial fibrillation Plan -Admit to ICU -Continue BiPAP, BiPAP schedule during the night -Monitor respiratory status closely -Bumex 1 mg every 12 hours, metolazone therapy -Patel catheter placement, monitor I's and O's -Fluid restrictions 1200 cc -Blood cultures positive for staphylococcal species, urine bacterial antigens negative, Legionella negative, MRSA nares negative -Zosyn for pneumonia -Vancomycin for pneumonia, de-escalate to 2 out of 4 positive staphylococcal species and blood cultures, -CT angiogram negative for pulmonary emboli, venous ultrasound negative for DVT -Full code -Lovenox for DVT prophylaxis A. fib with RVR -New onset -Cardizem 30 every 6 -Add metoprolol 25 twice daily -Lovenox as above NSTEMI -Elevated troponin likely secondary to respiratory failure, A. fib, however cannot rule out underlying cardiac etiology -Underlying CAD status post stenting x1 -No chest pain complaints -Baseline troponin 117, 120-minute 192, 75.6, 366 -EKG A. fib with RVR, nonspecific ST-T wave changes -Aspirin, statin, therapeutic Lovenox, metoprolol -Cardiac echocardiogram left ventricle systolic function grossly normal -Serial troponin, serial EKGs, telemetry monitoring -Cardiology consulted -N.p.o. midnight -Plans on cardiac catheterization tomorrow morning History of heart failure, likely combination of systolic diastolic as above History of COPD, not in exacerbation, DuoNeb, budesonide Pneumonia, with sepsis, as above, leukocytosis elevated lactic acid Hyponatremia likely secondary to heart failure, continue diuresis Lactic acidosis secondary to pneumonia, Attestations Medical Necessity Statement*: Patient requires hospitalization for CHF exacerbation, systolic and diastolic, NSTEMI, pneumonia, lactic acidosis, acute respiratory failure Critical Care Time: 35 Coding Level of Care Code Acute Cath Lab Technologist for [facility] Fwd Diagnoses CAD (coronary artery disease) I25.10 Obesity E66.9 Congestive heart failure I50.9 COPD (chronic obstructive pulmonary disease) J44.9 Acute and chronic respiratory failure with hypoxia J96.21 NSTEMI (non-ST elevated myocardial infarction) I21.4 Pneumonia J18.9 Acute heart failure I50.9 Pulmonary edema J81.1 Hyponatremia E87.1 Lactic acidosis E87.2 Sepsis A41.9
[2021-12-30] MEDS: metOLazone 5 MG Tablet 10 MG PO (15:19)
[2021-12-30] MEDS: pantoprazole 40 mg SDV IVP (16:29)
[2021-12-30 19:36] LABS: Vancomycin Trough 9.3 ug/mL (10-15)
[2021-12-30] MEDS: atorvastatin 40 mg Tablet PO (20:00)
[2021-12-31] VITALS (36 sets, daily range): BP systolic 83–152; BP diastolic 64–105; PULSE 70–148; RESP 14–26; TEMP 36.4–36.8; O2SAT 90–100
[2021-12-31] MEDS: midodrine 5 mg TABLET 10 MG PO ×4 (04:00→19:46)
[2021-12-31] MEDS: dilTIAZem 30 mg Tablet PO ×2 (04:00→09:23)
[2021-12-31 04:35] LABS: Basophils % 0.1 %; Eosinophils % 0.1 %; Hematocrit 36.6 % (42.0-52.0); Hemoglobin 12.6 g/dL (11.7-16.6); Lymphocytes # 1.6 10^3/uL (0.8-4.8); Lymphocytes % 7.9 %; Mean Corpuscular HGB Conc 34.4 g/dL (30.0-36.0); Mean Corpuscular Hemoglobin 30.7 pg (28.0-34.0); Mean Corpuscular Volume 89.3 fl (80-94); Mean Platelet Volume 9.2 fL (7.4-10.4); Monocytes # 2.5 10^3/uL (0.2-0.9); Monocytes % 11.9 %; Neutrophils # 16.32 10^3/uL (1.8-7.7); Neutrophils % 79.1 %; Nucleated Red Blood Cells % 0 %; Platelet Count 635 10^3/cmm (130-400); Red Cell Distribution Width 12.9 % (12.1-15.1); White Blood Count 20.6 10^3/uL (4.0-10.0)
[2021-12-31 04:44] LABS: Partial Thromboplastin Time 41.4 SECONDS (23.9-36.7)
[2021-12-31 04:51] LABS: Alanine Aminotransferase 31 U/L (0-41); Albumin Level 3.5 g/dL (3.5-5.2); Alkaline Phosphatase 64 IU/L (40-130); Aspartate Amino Transferase 36 U/L (0-40); Blood Urea Nitrogen 30 mg/dL (8-23); Calcium 8.7 mg/dL (8.5-10.5); Carbon Dioxide 31 mmol/L (22-29); Chloride 87 mmol/L (98-107); Creatinine Clr Calc Pharmacy 60.4408; Globulin 2.5 g/dL (1.3-4.6); Glucose 102 mg/dL (65-115); Magnesium 1.9 mg/dL (1.7-2.3); Osmolality Calculated 278 mOsm/kg (285-295); Phosphorus 3.6 mg/dL (2.5-4.5); Sodium 131 mmol/L (136-145); Total Bilirubin 0.9 mg/dL (0.15-1.2)
[2021-12-31 05:02] LABS: NT Pro B Type Natriuretic Pept 3945 pg/mL (0-450)
[2021-12-31] MEDS: morphine 4 mg/mL SDV 1 mL 2 MG IVP (06:01)
[2021-12-31] MEDS: vancomycin 1,250 MG/250 ML PIGGYBACK 200 MG IV ×2 (07:24→19:45)
[2021-12-31] MEDS: ipratropium-albuterol 3 mL Neb INHALATION ×4 (07:29→19:58)
[2021-12-31] MEDS: budesonide 0.5 mg/2 mL Neb INHALATION ×2 (07:29→19:58)
[2021-12-31] MEDS: bumetanide 0.25 mg/mL SDV 10 mL 1 MG IVP ×2 (08:24→16:14)
[2021-12-31] MEDS: aspirin 81 mg EC Tablet PO (08:25)
[2021-12-31] MEDS: metoprolol tartrate 25 mg Tablet PO ×2 (08:26→19:46)
[2021-12-31] MEDS: piperacillin-tazobactam 3.375 GM in sodium chloride 0.9% (plus) 50 ML IV ×3 (08:44→23:46)
--- NOTE | 2021-12-31 08:54 | XR_ITS ---
WS: [id number] Portable AP upright chest, 12/31/2021 Clinical Data: sob Comparison: Portable chest, 12/30/2021 Findings: The bilateral lower lobe opacities remain the same. There is a moderate left pleural effusi on probably a small right effusion. Atelectasis and possibly consolidation are also present in the lo wer lobes. The heart is normal. No pneumothorax is present. The aortic arch and descending thoracic a enma are minimally tortuous. Monitor leads are on the chest wall. XR/XR chest 1V portable [id number] Impression: 1. No change in bilateral lower lobe opacities which probably represent pleura l effusions and/or atelectasis. 2. Atherosclerosis
[2021-12-31] MEDS: metOLazone 5 MG Tablet 10 MG PO (09:23)
--- NOTE | 2021-12-31 10:01 | PM.PN ---
Subjective Subjective: Patient had episode of worsening shortness of breath this AM. He was put on BiPAP. wbc count has worsened Vitals/I&O/Wt Last Vital Signs Temp 98.3 F 12/31/21 04:00 Pulse 90 12/31/21 09:19 Resp 19 H 12/31/21 09:00 BP 123/94 12/31/21 09:00 Pulse Ox 94 12/31/21 09:19 12/30/21 12/31/21 12/31/21 21:59 06:59 14:59 Intake Total 768 / 768 Output Total 1300 / 1300 Balance -532 / -532 Weight last 48 hrs Weight 200 lb Physical Exam Narrative: GENERAL: Patient is alert, awake and oriented x3. [] NECK: No jugular vein distension. [] HEENT: No cyanosis. No icterus. No pallor. [] HEART: Irregularly irregular, Tachycardia, S1, S2 LUNGS: has bilateral crackles ABDOMEN: Soft, nontender and nondistended. Positive bowel sounds. No guarding, rebound or tenderness. [] CENTRAL NERVOUS SYSTEM: Grossly nonfocal. [] EXTREMITIES: Lower extremities with 2+ edema bilaterally. Pulses palpable in the lower extremities, both dorsalis pedis and posterior tibial. [] Urinary Catheter Management: Patel: Cath Placed During This Visit: yes Reason for Continuing Indwelling Catheter: Accurate Measurement of Urinary Output in Critically Ill Patients Urinary Catheter Date of Insertion: 12/29/21 Urinary Catheter Time of Insertion: 16:00 Data : 12/31/21 03:43 12/31/21 03:43 Micro: Microbiology 12/30/21 16:33 Blood Culture - Preliminary Blood SPECIMEN COLLECTED 12/30/21 16:25 Blood Culture - Preliminary Blood SPECIMEN COLLECTED 12/29/21 16:05 MRSA Culture - Final Nose 12/29/21 16:05 Bacterial Antigens - Final Urine,Clean Catch 12/29/21 11:13 Blood Culture - Preliminary Blood Staphylococcus species 12/29/21 11:13 Blood Culture - Preliminary Blood A&P Assessment and plan (1) Sepsis: Status: Acute (2) Lactic acidosis: Status: Acute (3) Pulmonary edema: Status: Acute (4) Acute heart failure: Status: Acute (5) NSTEMI (non-ST elevated myocardial infarction): Status: Acute (6) CAD (coronary artery disease): Status: Acute (7) COPD (chronic obstructive pulmonary disease): Status: Acute (8) Atrial fibrillation: Status: Acute Plan Patient has presented with sepsis, congestive heart failure, pulmonary edema, non-ST elevation [place] and atrial fibrillation with RVR. Continue anticoagulation. Continue aspirin. Patient will need coronary angiogram with possible percutaneous coronary intervention. I have discussed in detail the risks and benefits of the procedure and the patient agrees to it. Plan was for the procedure today, however, he had worsening shortness of breath and increased WBC count Continue IV bumex. Adding Metolazone 2.5mg today. Will start IV amiodarone as his heart rates are uncontrolled Echocardiogram is limited quality because of poor ultrasonic windows. It shows mildly decreased to normal EF. Keep n.p.o. past midnight. Strict I&O's Antibiotic treatment per primary team Thank you for involving us with care of this patient. We will continue to follow. Please call with questions Attestations Medical Necessity Statement*: Care expected to cross 2 midnights. Coding Level of Care Code Acute Psychiatric Social Worker Supervisor for [facility] Diagnoses Sepsis A41.9 Lactic acidosis E87.2 Pulmonary edema J81.1 Acute heart failure I50.9 NSTEMI (non-ST elevated myocardial infarction) I21.4 CAD (coronary artery disease) I25.10 COPD (chronic obstructive pulmonary disease) J44.9 Atrial fibrillation I48.91
--- NOTE | 2021-12-31 10:59 | P.PN_ITS ---
Subjective Subjective: Patient was seen this morning, at roughly 5 AM, he episodes of worsening shortness of breath, requiring placement back on the BiPAP, he tells me he felt very short of breath, no chest pain, no palpitations, no fevers overnight, he is on BiPAP, feeling better, currently A. fib heart rates in the 120s, Vitals/I&O/Wt Last Vital Signs Temp 98.3 F 12/31/21 04:00 Pulse 90 12/31/21 09:19 Resp 19 H 12/31/21 09:00 BP 123/94 12/31/21 09:00 Pulse Ox 94 12/31/21 09:19 12/30/21 12/31/21 12/31/21 21:59 06:59 14:59 Intake Total 768 / 768 Output Total 1300 / 1300 Balance -532 / -532 Weight last 48 hrs Weight 90.718 kg Physical Exam Const: COMMON NORMALS: no acute distress and patient oriented x3 Resp: COMMON NORMALS: normal respiratory effort, No retractions and No use of accessory muscles AUSCULTATION: crackles and wheezes Cardio: COMMON NORMALS: S1 normal heart sound present and S2 normal heart sound present RATE: tachycardic RHYTHM: abnormal rhythm irregularly irregular HEART SOUNDS: S1 normal heart sound present and S2 normal heart sound present GI: COMMON NORMALS: Normal to inspection, nondistended, normoactive bowel sounds present, Soft to palpation, non-tender and No hepatosplenomegaly present PALPATION: Yes Soft to palpation and Yes No hepatosplenomegaly present Neuro: COMMON NORMALS: patient oriented x3 Psych: COMMON NORMALS: mental status grossly normal Urinary Catheter Management: Patel: Cath Placed During This Visit: yes Reason for Continuing Indwelling Catheter: Accurate Measurement of Urinary Output in Critically Ill Patients Urinary Catheter Date of Insertion: 12/29/21 Urinary Catheter Time of Insertion: 16:00 Data : 12/31/21 03:43 12/31/21 03:43 Micro: Microbiology 12/30/21 16:33 Blood Culture - Preliminary Blood SPECIMEN COLLECTED 12/30/21 16:25 Blood Culture - Preliminary Blood SPECIMEN COLLECTED 12/29/21 16:05 MRSA Culture - Final Nose 12/29/21 16:05 Bacterial Antigens - Final Urine,Clean Catch 12/29/21 11:13 Blood Culture - Preliminary Blood Staphylococcus species 12/29/21 11:13 Blood Culture - Preliminary Blood A&P Assessment and plan (1) CAD (coronary artery disease): Status: Acute (2) Obesity: Status: Acute (3) Congestive heart failure: Status: Acute (4) COPD (chronic obstructive pulmonary disease): Status: Acute (5) Acute and chronic respiratory failure with hypoxia: Status: Acute (6) NSTEMI (non-ST elevated myocardial infarction): Status: Acute (7) Pneumonia: Status: Acute (8) Acute heart failure: Status: Acute (9) Pulmonary edema: Status: Acute (10) Hyponatremia: Status: Acute (11) Lactic acidosis: Status: Acute (12) Sepsis: Status: Acute Plan Acute hypoxic respiratory failure -Multifactorial from CHF, pneumonia, atrial fibrillation Plan -Admit to ICU -Continue BiPAP, BiPAP schedule during the night -Monitor respiratory status closely -Bumex increased to 1 mg every 8 hours, metolazone therapy as needed, serum sodium improving with diuresis, so far -3.5 L -Add Solu-Medrol given wheezing, history of smoking -Patel catheter placement, monitor I's and O's -Fluid restrictions 1200 cc -Blood cultures positive for staphylococcal species, urine bacterial antigens negative, Legionella negative, MRSA nares negative -Zosyn for pneumonia -Vancomycin for pneumonia, de-escalate to 2 out of 4 positive staphylococcal species and blood cultures, -CT angiogram negative for pulmonary emboli, venous ultrasound negative for DVT -Full code -Lovenox for DVT prophylaxis A. fib with RVR -New onset -Cardizem 30 every 6 -Add amiodarone drip -Lovenox as above NSTEMI -Elevated troponin likely secondary to respiratory failure, A. fib, however cannot rule out underlying cardiac etiology -Underlying CAD status post stenting x1 -No chest pain complaints -Baseline troponin 117, 120-minute 192, 75.6, 366 -EKG A. fib with RVR, nonspecific ST-T wave changes -Aspirin, statin, therapeutic Lovenox, metoprolol -Cardiac echocardiogram left ventricle systolic function grossly normal -Serial troponin, serial EKGs, telemetry monitoring -Cardiology consulted -Plans on cardiac catheterization History of heart failure, likely combination of systolic diastolic as above History of COPD, solumderol, DuoNeb, budesonide Pneumonia, with sepsis, as above, leukocytosis elevated lactic acid Hyponatremia likely secondary to heart failure, continue diuresis Lactic acidosis secondary to pneumonia, Attestations Medical Necessity Statement*: Patient requires hospitalization for acute hypoxic respiratory failure, pneumonia, CHF exacerbation, COPD exacerbation, NSTEMI, critical care time spent over 55 minutes Coding Level of Care Code Acute Master Ocean for [facility] Fwd Diagnoses CAD (coronary artery disease) I25.10 Obesity E66.9 Congestive heart failure I50.9 COPD (chronic obstructive pulmonary disease) J44.9 Acute and chronic respiratory failure with hypoxia J96.21 NSTEMI (non-ST elevated myocardial infarction) I21.4 Pneumonia J18.9 Acute heart failure I50.9 Pulmonary edema J81.1 Hyponatremia E87.1 Lactic acidosis E87.2 Sepsis A41.9
[2021-12-31] MEDS: magnesium sulfate premix 2 GM/50 ML PIGGYBACK IV (11:30)
[2021-12-31] MEDS: lidocaine 1% 5 ML in potassium chloride premix 100 ML 25 ML IV (12:24)
--- NOTE | 2021-12-31 12:53 | PC.NURSE ---
replacement mag and k given this am has noted to have increased dypnea this am early has increase urine output now off bipap at this time at bedside
[2021-12-31] MEDS: enoxaparin 100 mg/mL Syringe 90 MG SUBCUT (14:42)
[2021-12-31] MEDS: pantoprazole 40 mg SDV IVP (16:14)
[2021-12-31] MEDS: atorvastatin 40 mg Tablet PO (19:46)
[2022-01-01] VITALS (35 sets, daily range): BP systolic 93–170; BP diastolic 72–127; PULSE 72–150; RESP 13–29; TEMP 36.3–36.6; O2SAT 90–98
--- NOTE | 2022-01-01 | US_ITS ---
WS: [id number] ULTRASOUND-GUIDED THORACENTESIS CLINICAL INFORMATION: left pleural effusion COMPARISON: None. PROCEDURE: Informed consent: The risks, benefits, and alternatives of the procedure were discussed with the michelle ent. Verbal and written consent was obtained. Timeout: A timeout was performed to confirm the correct patient, procedure, and site. Site: LEFT chest Preparation: A suitable skin site was identified. The patient was prepped and draped in usual sterile fashion. Lidocaine 1% was used for local anesthesia. Catheter: 4 [place] One-Step catheter. Fluid Volume: 650 ml Color: Bloody dark red. Requesting fluid sent to the laboratory for further analysis. Complications: No pneumothorax on the p ortable radiograph post thoracentesis. US/ thoracentesis [id number] IMPRESSION: Uncomplicated ultrasound-guided thoracentesis.
[2022-01-01] MEDS: bumetanide 0.25 mg/mL SDV 10 mL 1 MG IVP ×2 (00:11→18:00)
[2022-01-01 04:58] LABS: Basophils % 0.2 %; Hemoglobin 12.9 g/dL (11.7-16.6); Lymphocytes # 0.9 10^3/uL (0.8-4.8); Lymphocytes % 4.3 %; Mean Corpuscular HGB Conc 33.9 g/dL (30.0-36.0); Mean Corpuscular Hemoglobin 30.9 pg (28.0-34.0); Mean Corpuscular Volume 91.1 fl (80-94); Monocytes # 1.9 10^3/uL (0.2-0.9); Monocytes % 9.7 %; Neutrophils # 16.79 10^3/uL (1.8-7.7); Neutrophils % 85.1 %; Nucleated Red Blood Cells % 0 %; Platelet Count 624 10^3/cmm (130-400); Red Blood Count 4.17 10^6/uL (4.1-5.3); Red Cell Distribution Width 13.1 % (12.1-15.1); White Blood Count 19.7 10^3/uL (4.0-10.0)
[2022-01-01 05:13] LABS: INR 1.05 (0.8-1.2)
[2022-01-01 05:19] LABS: Alanine Aminotransferase 36 U/L (0-41); Albumin Level 3.6 g/dL (3.5-5.2); Alkaline Phosphatase 59 IU/L (40-130); Anion Gap 16.8 (5-19); Aspartate Amino Transferase 28 U/L (0-40); Blood Urea Nitrogen 34 mg/dL (8-23); Calcium 8.8 mg/dL (8.5-10.5); Carbon Dioxide 31 mmol/L (22-29); Chloride 86 mmol/L (98-107); Globulin 2.8 g/dL (1.3-4.6); Glucose 138 mg/dL (65-115); Magnesium 2.1 mg/dL (1.7-2.3); Osmolality Calculated 282 mOsm/kg (285-295); Phosphorus 5.2 mg/dL (2.5-4.5); Sodium 131 mmol/L (136-145); Total Bilirubin 0.9 mg/dL (0.15-1.2); Total Protein 6.4 g/dL (6.6-8.7)
[2022-01-01 05:32] LABS: NT Pro B Type Natriuretic Pept 5698 pg/mL (0-450)
[2022-01-01 05:36] LABS: Potassium 2.8 mmol/L (3.5-5.1)
--- NOTE | 2022-01-01 07:00 | XRR_ITS ---
PROCEDURE INFORMATION: Exam: XR Chest Exam date and time: 01/01/2022 7:00 AM Age: 76 years old Clinical indication: Shortness of breath; Additional info: SOB TECHNIQUE: Imaging protocol: XR of the chest. Views: 1 view. COMPARISON: CR XR chest 1V portable [id number] 12/31/2021 9:05 AM FINDINGS: Lungs: There is redistribution and indistinctness of the pulmonary vasculature, in association with haziness of the lungs and small bilateral pleural effusions, which in the setting of cardiomegaly is consistent with pulmonary edema. Pneumonia should be excluded clinically. No pneumothorax. Pleural spaces: See Lungs finding. Heart/Mediastinum: Stable cardiomediastinal silhouette. Bones/joints: Unremarkable. XR/XR chest 1V portable [id number] IMPRESSION: Imaging findings of pulmonary edema with small bilateral pleural effusions. Pneumonia should be excluded clinically.
[2022-01-01] MEDS: budesonide 0.5 mg/2 mL Neb INHALATION ×2 (07:53→20:16)
[2022-01-01] MEDS: ipratropium-albuterol 3 mL Neb INHALATION ×3 (07:53→20:15)
[2022-01-01] MEDS: vancomycin 1,250 MG/250 ML PIGGYBACK 200 MG IV (08:28)
[2022-01-01] MEDS: amiodarone 200 mg Tablet 400 MG PO (08:28)
[2022-01-01] MEDS: aspirin 81 mg EC Tablet PO (08:28)
[2022-01-01] MEDS: metoprolol tartrate 25 mg Tablet PO ×2 (08:28→20:47)
[2022-01-01] MEDS: lidocaine 1% 5 ML in potassium chloride premix 100 ML 25 ML IV ×2 (08:29→14:02)
[2022-01-01] MEDS: piperacillin-tazobactam 3.375 GM in sodium chloride 0.9% (plus) 50 ML IV ×2 (10:22→15:51)
--- NOTE | 2022-01-01 10:45 | PC.CHAP ---
Pastoral Care Encounter/Spiritual Assessment Type of Contact [] Declined acting instructor visit [] Patient/Family/Request visit [] Outpatient visit [] Follow-up visit [] Physician referral [] Code/Alert [x] Routine visit [] Staff referral [] Actively dying [] Patient sleeping [] Family support [] [] Out of room [] Palliative care [] [x] Receiving care in room [] Pre-surgical visit [] Trauma [] Long length of stay [x] ICU visit [] Other: Relational/Emotional Strength [] Patient feels connected with others/family/visitors/staff [] Distress [] Loneliness/isolation [] Abandonment Spirituality of Patient [] Person of [place] [] Attends Congregational of their [place] [] Believes in Prayer [] Reads Bible or Latter-Day materials [] There are Spiritual issues to be addressed Fishing Lure Assembler Interventions [x] Prayer [] Active listening [] Non-anxious presence [] Spiritual/emotional support [] Crisis/trauma care [] Spiritual counseling [] Bereavement support [] Provided bereavement packet [] Provided Bible/devotional materials [] Provided toy/stuffed animal, coloring book to patient or family member [] Provided Communion [] Anointing/[place] [] Salvation [x] Completed spiritual assessment [] Other: Impact on Illness or Injury [] Angry [] Fearful [] Anxious [] Often cries [] Exhaustion [] Unable to work [] Unable to attend pentecostalism [] Unable to walk/stand [] Unable to read [] Unable to drive [] Unable to eat/drink [] Unable to sleep [] Unable to be with family [] Patient intubated [] Other: Summary Time spent with patient
--- NOTE | 2022-01-01 11:33 | PM.PN ---
Subjective Subjective: Patient was seen this morning, he tells me that he feels significantly better, his edema is improved his breathing is improved he is on 3 L, no nausea, no vomiting, no chest pain Vitals/I&O/Wt Last Vital Signs Temp 97.4 F L 01/01/22 04:17 Pulse 96 01/01/22 09:00 Resp 16 01/01/22 09:00 BP 165/108 01/01/22 09:00 Pulse Ox 94 01/01/22 09:00 12/31/21 01/01/22 01/01/22 22:59 06:59 14:59 Intake Total 1105 / 2073 50 / 2123 400 / 400 Output Total 4800 / 6100 1300 / 7400 Balance -3695 / -4027 -1250 / -5277 400 / 400 Physical Exam Const: COMMON NORMALS: no acute distress and patient oriented x3 Resp: COMMON NORMALS: normal respiratory effort, No retractions and No use of accessory muscles AUSCULTATION: wheezes Cardio: COMMON NORMALS: regular rate, regular rhythm, S1 normal heart sound present and S2 normal heart sound present RATE: regular rate RHYTHM: regular rhythm HEART SOUNDS: S1 normal heart sound present and S2 normal heart sound present GI: COMMON NORMALS: Normal to inspection, nondistended, normoactive bowel sounds present, Soft to palpation, non-tender and No hepatosplenomegaly present PALPATION: Yes Soft to palpation and Yes No hepatosplenomegaly present Extremity: COMMON NORMALS: no pedal edema Neuro: COMMON NORMALS: patient oriented x3 Psych: COMMON NORMALS: mental status grossly normal Urinary Catheter Management: Patel: Cath Placed During This Visit: yes Reason for Continuing Indwelling Catheter: Accurate Measurement of Urinary Output in Critically Ill Patients Urinary Catheter Date of Insertion: 12/29/21 Urinary Catheter Time of Insertion: 16:00 Data : 01/01/22 04:39 01/01/22 04:39 Micro: Microbiology 12/29/21 11:13 Blood Culture - Preliminary Blood Staphylococcus species 12/30/21 16:33 Blood Culture - Preliminary Blood NEGATIVE TO DATE 12/30/21 16:25 Blood Culture - Preliminary Blood NEGATIVE TO DATE A&P Assessment and plan (1) CAD (coronary artery disease): Status: Acute (2) Obesity: Status: Acute (3) Congestive heart failure: Status: Acute (4) COPD (chronic obstructive pulmonary disease): Status: Acute (5) Acute and chronic respiratory failure with hypoxia: Status: Acute (6) NSTEMI (non-ST elevated myocardial infarction): Status: Acute (7) Pneumonia: Status: Acute (8) Acute heart failure: Status: Acute (9) Pulmonary edema: Status: Acute (10) Hyponatremia: Status: Acute (11) Lactic acidosis: Status: Acute (12) Sepsis: Status: Acute Plan Acute hypoxic respiratory failure -Multifactorial from CHF, pneumonia, atrial fibrillation Plan -Admit to ICU -Continue BiPAP, BiPAP schedule during the night -Monitor respiratory status closely -Diuresed over 7.7 L -Decrease diuretic therapy, 1 dose of Bumex metolazone, potassium replacement at 6 PM today -Replace potassium -Add Solu-Medrol given wheezing, history of smoking -Patel catheter placement, monitor I's and O's -Fluid restrictions 1200 cc -WBC 19.6, blood cultures cultures positive for staphylococcal species, urine bacterial antigens negative, Legionella negative, MRSA nares negative, likely contamination, repeat blood cultures negative -Zosyn for pneumonia -Vancomycin for pneumonia, line to to 2 out of 4 positive staphylococcal species and blood cultures, likely contamination, -CT angiogram negative for pulmonary emboli, venous ultrasound negative for DVT -Full code -Lovenox for DVT prophylaxis JHONNY, likely secondary to diuresis, contrast, will decrease diuresis today A. fib with RVR -New onset -Off amiodarone drip -Amiodarone 400 mg once a day, metoprolol 25 twice daily -Lovenox as above NSTEMI -Elevated troponin likely secondary to respiratory failure, A. fib, however cannot rule out underlying cardiac etiology -Underlying CAD status post stenting x1 -No chest pain complaints -Baseline troponin 117, 120-minute 192, 75.6, 366 -EKG A. fib with RVR, nonspecific ST-T wave changes -Aspirin, statin, therapeutic Lovenox, metoprolol -Cardiac echocardiogram left ventricle systolic function grossly normal -Serial troponin, serial EKGs, telemetry monitoring -Cardiology consulted -Plans on cardiac catheterization once creatinine stabilizes History of heart failure, likely combination of systolic diastolic as above History of COPD, solumderol, DuoNeb, budesonide Pneumonia, with sepsis, as above, leukocytosis elevated lactic acid Hyponatremia likely secondary to heart failure, continue diuresis Lactic acidosis secondary to pneumonia, Attestations Medical Necessity Statement*: Patient requires hospitalization for CHF exacerbation, systolic diastolic, COPD exacerbation, pneumonia, NSTEMI, Time Spent in Patient Care: 35 minutes Coding Level of Care Code Acute Sustainable Design Consultant for g Fwd Diagnoses CAD (coronary artery disease) I25.10 Obesity E66.9 Congestive heart failure I50.9 COPD (chronic obstructive pulmonary disease) J44.9 Acute and chronic respiratory failure with hypoxia J96.21 NSTEMI (non-ST elevated myocardial infarction) I21.4 Pneumonia J18.9 Acute heart failure I50.9 Pulmonary edema J81.1 Hyponatremia E87.1 Lactic acidosis E87.2 Sepsis A41.9
--- NOTE | 2022-01-01 13:08 | XR_ITS ---
WS: [id number] XR chest 1V portable [id number] REASON FOR EXAM: dyspnea/cough FINDINGS: Bilateral pleural effusions. Dense, presumed atelectatic, opacity in the left lower lung. Interstitial opacities are seen in the right lower lung field. No pneumothorax. XR/XR chest 1V portable [id number] IMPRESSION: The effusions appear somewhat smaller than on the examination of 03 19 2. This could be due to more upright positioning and/or post thoracentesis.
--- NOTE | 2022-01-01 13:33 | PM.PN ---
Subjective Subjective: Patient's heart rate control is better today. Creatinine has worsened today. Vitals/I&O/Wt Last Vital Signs Temp 97.4 F L 01/01/22 04:17 Pulse 136 H 01/01/22 13:00 Resp 25 H 01/01/22 13:00 BP 137/114 01/01/22 12:00 Pulse Ox 97 01/01/22 13:00 12/31/21 01/01/22 01/01/22 22:59 06:59 14:59 Intake Total 1105 / 2073 50 / 2123 505 / 505 Output Total 4800 / 6100 1300 / 7400 Balance -3695 / -4027 -1250 / -5277 505 / 505 Physical Exam Narrative: GENERAL: Patient is alert, awake and oriented x3. [] NECK: No jugular vein distension. [] HEENT: No cyanosis. No icterus. No pallor. [] HEART: Irregularly irregular, Tachycardia, S1, S2 LUNGS: has bilateral crackles ABDOMEN: Soft, nontender and nondistended. Positive bowel sounds. No guarding, rebound or tenderness. [] CENTRAL NERVOUS SYSTEM: Grossly nonfocal. [] EXTREMITIES: Lower extremities with 2+ edema bilaterally. Pulses palpable in the lower extremities, both dorsalis pedis and posterior tibial. [] Urinary Catheter Management: Patel: Cath Placed During This Visit: yes Reason for Continuing Indwelling Catheter: Accurate Measurement of Urinary Output in Critically Ill Patients Urinary Catheter Date of Insertion: 12/29/21 Urinary Catheter Time of Insertion: 16:00 Data : 01/02/22 03:30 01/02/22 03:30 Micro: Microbiology 12/29/21 11:13 Blood Culture - Preliminary Blood Staphylococcus species 12/30/21 16:33 Blood Culture - Preliminary Blood NEGATIVE TO DATE 12/30/21 16:25 Blood Culture - Preliminary Blood NEGATIVE TO DATE A&P Assessment and plan (1) Sepsis: Status: Acute (2) Lactic acidosis: Status: Acute (3) Pulmonary edema: Status: Acute (4) Acute heart failure: Status: Acute (5) NSTEMI (non-ST elevated myocardial infarction): Status: Acute (6) CAD (coronary artery disease): Status: Acute (7) COPD (chronic obstructive pulmonary disease): Status: Acute (8) Atrial fibrillation: Status: Acute Plan Patient has presented with sepsis, congestive heart failure, pulmonary edema, non-ST elevation AL and atrial fibrillation with RVR. Continue anticoagulation. Continue aspirin. Patient will need coronary angiogram with possible percutaneous coronary intervention. I have discussed in detail the risks and benefits of the procedure and the patient agrees to it. Procedure was postponed secondary to worsening WBC count and shortness of breath. Patient is unable to lay down flat. He will need continued diuresis before we can perform coronary angiogram. He has been negative for more than 5 L over the last 24 hours. Creatinine has worsened. We will hold morning dose of diuretics. Echocardiogram is limited quality because of poor ultrasonic windows. It shows mildly decreased to normal EF. Strict I&O's Antibiotic treatment per primary team Thank you for involving us with care of this patient. We will continue to follow. Please call with questions Attestations Medical Necessity Statement*: Care expected to cross 2 midnights. Coding Level of Care Code Acute Medical Technologist Prn for [facility] Fwd Diagnoses Sepsis A41.9 Lactic acidosis E87.2 Pulmonary edema J81.1 Acute heart failure I50.9 NSTEMI (non-ST elevated myocardial infarction) I21.4 CAD (coronary artery disease) I25.10 COPD (chronic obstructive pulmonary disease) J44.9 Atrial fibrillation I48.91
[2022-01-01 13:57] LABS: Body Fluid Polynuclear #Cells 2.607; Body Fluid WBC 3496 /uL; Monocytes # Body Fluid 0.889
[2022-01-01 14:04] LABS: Hematocrit Body Fluid 37.1 %
[2022-01-01 14:06] LABS: Apprearance, Body Fluid BLOODY; Color, Body Fluid RED; PATH Referral YES
--- NOTE | 2022-01-01 15:28 | PC.SOCIAL ---
Pg 2 IMM Explained to pt Pg 2 IMM. No questions voiced. Provided pt a copy. Initialed, dated, & timed a copy & placed in chart.
[2022-01-01] MEDS: pantoprazole 40 mg SDV IVP (15:50)
[2022-01-01] MEDS: morphine 4 mg/mL SDV 1 mL 2 MG IVP (15:51)
[2022-01-01 16:26] LABS: Albumin Body Fluid 2.2 g/dL; Creatinine Body Fluid 0.83 (0.7-1.2); Total Protein Pleural Fluid 3.8 g/dL; Triglycerides, Pleural Fluid 66 mg/dL
[2022-01-01 16:27] LABS: LDH Pleural Fluid 1100 U/L
--- NOTE | 2022-01-01 17:36 | PC.NURSE ---
Report called to BENNY Alonzo. Patient and belongings taken to [facility] 101-1. Family already notified.
[2022-01-01] MEDS: potassium chloride ER 20 mEq Tablet 40 MEQ PO (17:49)
[2022-01-01] MEDS: metOLazone 5 MG Tablet PO (17:49)
--- NOTE | 2022-01-01 18:34 | PC.NURSE ---
Patient weighs 217.1lbs per bed scale
[2022-01-01 20:09] LABS: Vancomycin Trough 32.1 ug/mL (10-15)
[2022-01-01] MEDS: atorvastatin 40 mg Tablet PO (20:47)
[2022-01-02] VITALS (31 sets, daily range): BP systolic 102–147; BP diastolic 74–112; PULSE 84–116; RESP 12–29; TEMP 35.9–36; O2SAT 83–99
[2022-01-02] MEDS: piperacillin-tazobactam 3.375 GM in sodium chloride 0.9% (plus) 50 ML IV ×3 (00:08→15:35)
[2022-01-02 04:23] LABS: Basophils % 0.1 %; Hematocrit 38.1 % (42.0-52.0); Hemoglobin 12.6 g/dL (11.7-16.6); Lymphocytes # 0.8 10^3/uL (0.8-4.8); Lymphocytes % 3.6 %; Mean Corpuscular HGB Conc 33.1 g/dL (30.0-36.0); Mean Corpuscular Hemoglobin 30.4 pg (28.0-34.0); Mean Platelet Volume 9.1 fL (7.4-10.4); Monocytes % 9.6 %; Neutrophils # 18.05 10^3/uL (1.8-7.7); Neutrophils % 85.7 %; Nucleated Red Blood Cells % 0 %; Platelet Count 638 10^3/cmm (130-400); Red Blood Count 4.14 10^6/uL (4.1-5.3); Red Cell Distribution Width 13.2 % (12.1-15.1); White Blood Count 21.1 10^3/uL (4.0-10.0)
[2022-01-02 04:45] LABS: Alanine Aminotransferase 38 U/L (0-41); Albumin Level 3.5 g/dL (3.5-5.2); Alkaline Phosphatase 60 IU/L (40-130); Anion Gap 18.1 (5-19); Aspartate Amino Transferase 25 U/L (0-40); Blood Urea Nitrogen 52 mg/dL (8-23); C Reactive Protein 51.4 mg/L (0.0-4.9); Carbon Dioxide 32 mmol/L (22-29); Chloride 89 mmol/L (98-107); Globulin 3.4 g/dL (1.3-4.6); Glucose 134 mg/dL (65-115); Magnesium 2.3 mg/dL (1.7-2.3); Osmolality Calculated 296 mOsm/kg (285-295); Phosphorus 4.8 mg/dL (2.5-4.5); Potassium 4.1 mmol/L (3.5-5.1); Sodium 135 mmol/L (136-145); Total Bilirubin 0.7 mg/dL (0.15-1.2); Total Protein 6.9 g/dL (6.6-8.7)
[2022-01-02 04:56] LABS: NT Pro B Type Natriuretic Pept 6987 pg/mL (0-450)
[2022-01-02] MEDS: metoprolol tartrate 1 mg/1 mL SDV 5 mL 5 MG IVP (06:31)
[2022-01-02] MEDS: morphine 4 mg/mL SDV 1 mL IVP (06:40)
[2022-01-02 06:57] LABS: Vancomycin Random 23.4 ug/mL (20.0-40.0)
--- NOTE | 2022-01-02 07:00 | XR_ITS ---
WS: [id number] XR chest 1V portable [id number] REASON FOR EXAM: sob FINDINGS: Compared to the previous examination of 01/01/2022 there is continued resolving of the consolidative d ensity in both lower lobes and the pleural effusions. Moderate residual remains. No new findings. XR/XR chest 1V portable [id number] IMPRESSION: Improving chest abnormality.
--- NOTE | 2022-01-02 07:04 | PC.NURSE ---
Versed pulled on shift supervisor and no longer needed for patient. Wasted in pyxis witnessed by Fiordaliza ZAPATA.
--- NOTE | 2022-01-02 07:04 | PC.NURSE ---
Patient arrived to ICU from [facility] at approximately 0650. Currently on bipap sats at 94% resp rate at 16. NSR 92.
--- NOTE | 2022-01-02 07:11 | PC.NURSE ---
Addendum entered by Anila Michaud RN 01/02/22 07:36: 0615 Patient noted to have a rapid heart rate. Upon physical examination patient is dyspneic and complains of chest pain. Rapid response called. Patient received EKG showing atrial fibrillation with rapid ventricular response at 0625, morphine (received 0638) and metoprolol (promptly after obtaining blood pressure at 0640, blood pressure being 152/120 at 0636), per hospitalist. Vitals monitored throughout. Patient placed on bipap and transferred to ICU. Original Note: 0615 Patient noted to have a rapid heart rate. Upon examination patient is dyspneic and complains of chest pain. Rapid response called. Patient received EKG, morphine and metoprolol, per hospitalist. Transferred to ICU.
--- NOTE | 2022-01-02 07:19 | W.PM.EVENTAC ---
Event Note Event Note: Rapid response was called around 650 in the morning due to acute distress, chest pain, and with to be tachycardic in the 150s-160s with Maurice argueta with RVR. He had just finished having an x-ray shortly before for which he says he was repositioned. He was placed on nonrebreather oxygen. Breathing sounds were difficult to hear, with poor air entry bilaterally, worse on the left, although review of the image of the x-ray he had just had did not reveal any signs of tension pneumothorax. I do not see any pneumothorax, radiology read is pending. He was placed on nonrebreather oxygen mask. Blood pressure was difficult to obtain and preparations were being made for DC cardioversion for unstable tachycardia with KevinNery kendall with RVR, however, heart rates showed some mild improvement in blood pressure noted in 150s systolic over 120s diastolic, he was given 5 mg IV metoprolol, 4 mg IV morphine for chest pain. EKG did not reveal ST elevation. Intraventricular conduction delay noted which appears to been intermittent during this hospitalization. With metoprolol his heart rate came down to around 105. He is started on BiPAP and breathing treatment. He is being moved to ICU. Trop and EKG series is ordered. I called his on the number listed by could not reach her to discuss the change in condition. Updated cardiology,
[2022-01-02 07:24] LABS: Troponin(5th) Baseline 338 ng/L (0-15)
[2022-01-02] MEDS: budesonide 0.5 mg/2 mL Neb INHALATION ×2 (07:31→20:42)
[2022-01-02] MEDS: ipratropium-albuterol 3 mL Neb INHALATION ×4 (07:31→20:42)
[2022-01-02] MEDS: amiodarone 200 mg Tablet 400 MG PO ×2 (08:01→20:02)
[2022-01-02] MEDS: aspirin 81 mg EC Tablet PO (08:01)
[2022-01-02] MEDS: metoprolol tartrate 25 mg Tablet PO ×2 (08:01→08:56)
--- NOTE | 2022-01-02 08:03 | PC.OT ---
OT TREATMENT HELD DUE TO RAPID RESPONSE CALLED THIS MORNING AND PATIENT TRANSFERRED BACK TO ICU
--- NOTE | 2022-01-02 08:22 | PM.PN ---
Subjective Subjective: Patient was found to have hemothorax and is s/p thoracentesis yesterday. Still has shortness of breath Vitals/I&O/Wt Last Vital Signs Temp 96.7 F L 01/02/22 07:00 Pulse 92 01/02/22 08:00 Resp 14 01/02/22 08:00 BP 109/89 01/02/22 08:00 Pulse Ox 94 01/02/22 08:00 01/01/22 01/02/22 01/02/22 22:59 06:59 14:59 Intake Total 255 / 810 50 / 860 60 / 60 Output Total 800 / 800 400 / 1200 Balance -545 / 10 -350 / -340 60 / 60 Physical Exam Narrative: GENERAL: Patient is alert, awake and oriented x3. [] NECK: No jugular vein distension. [] HEENT: No cyanosis. No icterus. No pallor. [] HEART: Irregularly irregular, S1, S2 LUNGS: has bilateral crackles ABDOMEN: Soft, nontender and nondistended. Positive bowel sounds. No guarding, rebound or tenderness. [] CENTRAL NERVOUS SYSTEM: Grossly nonfocal. [] EXTREMITIES: Lower extremities with 2+ edema bilaterally. Pulses palpable in the lower extremities, both dorsalis pedis and posterior tibial. [] Urinary Catheter Management: Patel: Cath Placed During This Visit: yes Reason for Continuing Indwelling Catheter: Accurate Measurement of Urinary Output in Critically Ill Patients Urinary Catheter Date of Insertion: 12/29/21 Urinary Catheter Time of Insertion: 16:00 Data : 01/03/22 02:49 01/03/22 02:49 Micro: Microbiology 01/01/22 13:15 Gram Stain - Final Pleural Fluid 12/29/21 11:13 Blood Culture - Preliminary Blood Staphylococcus species A&P Assessment and plan (1) Sepsis: Status: Acute (2) Lactic acidosis: Status: Acute (3) Pulmonary edema: Status: Acute (4) Acute heart failure: Status: Acute (5) NSTEMI (non-ST elevated myocardial infarction): Status: Acute (6) CAD (coronary artery disease): Status: Acute (7) COPD (chronic obstructive pulmonary disease): Status: Acute (8) Atrial fibrillation: Status: Acute Plan Patient has presented with sepsis, congestive heart failure, pulmonary edema, non-ST elevation [place] and atrial fibrillation with RVR. Was found to have a hemothorax yesterday and underwent thoracentesis Hold anticoagulation We will hold off on coronary angiogram Hold diuretics for now. For atrial fibrillation, rate control stretegy Echocardiogram is limited quality because of poor ultrasonic windows. It shows mildly decreased to normal EF. Strict I&O's Antibiotic treatment per primary team Thank you for involving us with care of this patient. We will continue to follow. Please call with questions Attestations Medical Necessity Statement*: Care expected to cross 2 midnights. Coding Level of Care Code Acute Beet Topper for [facility] Fwd Diagnoses Sepsis A41.9 Lactic acidosis E87.2 Pulmonary edema J81.1 Acute heart failure I50.9 NSTEMI (non-ST elevated myocardial infarction) I21.4 CAD (coronary artery disease) I25.10 COPD (chronic obstructive pulmonary disease) J44.9 Atrial fibrillation I48.91
--- NOTE | 2022-01-02 08:51 | ECG_ITS ---
[facility] Test Date: 2022-01-02 Pat Name: Nitin Florentino Department: Room: ICU07 Gender: Male Duplicate Maker: : 1945 Requested By: Ad Mayorga Order Number: [id number] Reading MD: Jeff Andres M.D. Measurements Intervals [place] Rate: 87 P: AL: QRS: 0 QRSD: 140 T: 102 QT: 406 QTc: 489 Interpretive Statements ATRIAL FIBRILLATION INTRAVENTRICULAR CONDUCTION DELAY [130+ ms QRS DURATION] Compared to ECG 01/02/2022 07:37:46 Ventricular premature complex(es) no longer present Aberrant conduction of supraventricular beat(s) no longer present Electronically Signed On 01-03-2022 20:25:19 CDT by Jeff Andres M.D. [id number]
--- NOTE | 2022-01-02 08:59 | PC.NURSE ---
Dr. Andres and Isidro rounded this morning, increased metoprolol to 50mg BID.
[2022-01-02 11:28] LABS: Troponin 5 2HR 344.9 ng/L (0-15); Troponin 5 2HR Delta 6.9 ABS# (0-10)
--- NOTE | 2022-01-02 12:51 | ECG_ITS ---
[facility] Test Date: 2022-01-02 Pat Name: Nitin Florentino Department: Room: ICU07 Gender: Male Quality Control Representative: : 1945 Requested By: Ad Mayorga Order Number: [id number] Noemi MD: Jeff Andres M.D. Measurements Intervals [place] Rate: 86 P: MD: QRS: 1 QRSD: 132 T: 150 QT: 398 QTc: 478 Interpretive Statements ATRIAL FIBRILLATION WITH ABERRANT CONDUCTION OR VENTRICULAR PREMATURE COMPLEXES INTRAVENTRICULAR CONDUCTION DELAY [130+ ms QRS DURATION] Compared to ECG 12/29/2021 21:49:08 Intraventricular conduction delay now present Myocardial infarct finding no longer present Electronically Signed On 01-03-2022 20:26:13 CDT by Jeff Andres M.D. [id number]
--- NOTE | 2022-01-02 13:51 | XR_ITS ---
WS: [id number] Portable AP upright chest, 01/02/2022, 1429 hours. Clinical Data: chest tube placement Comparison: Portable chest, 01/02/2022, 0607 hours. Findings: There is a small left chest tube placed in the base of the left lower thorax. A small left pneumothorax is still present but has improved. There is patchy opacity in the right lung base which may represent atelectasis, effusion and consolidation. The heart is enlarged. There are monitor leads on the chest wall. XR/XR chest 1V portable [id number] Impression: Placement of a small left chest tube at base of left pleural space with improve ment of basilar left pneumothorax.
[2022-01-02] MEDS: lidocaine 1% INJ 20 mL SUBCUT (14:24)
--- NOTE | 2022-01-02 14:38 | P.CONIM_ITS ---
Providers/Reason For Consult Consulting Physician/Specialty*: Chris James MD / Pulmonary Critical Care Reason for Consult*: Acute hypoxic respiratory failure in patient with a left hemothorax/CHF exacerbation Requesting Physician: Jaun Felix MD Attending Physician: Jaun Felix MD History of Present Illness History of Present Illness Nitin Florentino is a 76 year old male With past medical history of CAD s/p stenting, COPD, history of smoking, hypertension presented to [facility] from [place] due to worsening shortness of breath especially on exertion and bilateral lower extremity edema. In the ER, Patient was placed on BiPAP FiO2 70%, elevated troponins, elevated D-dimer,Started on Cardizem drip for A. fib RVR and treated with Lasix. Patient was admitted to ICU, placed on Bumex 1 mg every 12 hours and metolazone, started on vancomycin and Zosyn. Initial echocardiogram revealed medical cardiogenic views showed possible normal LV function. Cardiology plan to do coronary angiogram with possible PCI. Patient developed acute renal failure on diuresis and subsequently plan for angiogram is on hold.Patient underwent thoracentesis yesterday 01/01/2022 650 cc of dark red blood was drained. Chest x-ray showed still showed bilateral pleural effusions. Pulmonary consult requested for hemodialysis. Spoke with patient and at bedside-they endorse history of fall on 022; upon review of CTA 12/29/2021-there is a rib fracture noted on left seventh rib and healed old fracture on left sixth rib. Complained of pain on left side of the chest and difficulty breathing despite being on 2 L nasal cannula and saturating 93%. Smoked cigars since age 12. Labs and imaging reviewed. Review of Systems General: Reports: 10 or more systems reviewed and unremarkable except in HPI and below Medications/Allergies Home Medications Medication Instructions Recorded Confirmed Last Taken Type Vitamin B-12 1 tab PO .OCCASIONALLY 12/29/21 12/29/21 Unknown History albuterol sulfate 90 mcg/actuation 2 puff INHALATION QID PRN 12/29/21 12/29/21 Unknown History aerosol inhaler (ProAir HFA) aspirin 325 mg tablet 325 mg PO QAM 12/29/21 12/29/21 12/29/21 07:00 History calcium carbonate 550 mg-magnesium 2 tab PO Q4H PRN 12/29/21 12/29/21 Unknown History hydroxide 110 mg chewable tablet cholecalciferol (vitamin D3) 25 25 mcg PO QAM 12/29/21 12/29/21 12/29/21 07:00 History mcg (1,000 unit) tablet (Vitamin D3) hydrochlorothiazide 25 mg tablet 25 mg PO QAM 12/29/21 12/29/21 12/29/21 07:00 History metoprolol tartrate 100 mg tablet 50 mg PO QAM 12/29/21 12/29/21 12/29/21 07:00 History see pharmacy comment sildenafil 100 mg tablet 50 mg PO PRN PRN 12/29/21 12/29/21 Unknown History Allergies Allergy/AdvReac Type Severity Reaction Status Date / Time lisinopril Allergy Unknown Verified 12/29/21 11:34 Current Medications Generic Name Dose Route Start Last Admin Trade Name Freq PRN Reason Stop Dose Admin Albuterol/Ipratropium 3 ml 12/29/21 16:00 01/02/22 11:59 Ipratropium-Albuterol 3 Ml Neb INHALATION 3 ml QID.RESPIRATORY DEVON Administration Amiodarone HCl 400 mg 01/02/22 08:00 01/02/22 08:01 Amiodarone 200 Mg Tablet PO 400 mg Q12H DEVON Administration Aspirin 81 mg 12/30/21 09:00 01/02/22 08:01 Aspirin 81 Mg Ec Tablet PO 81 mg DAILY DEVON Administration Atorvastatin Calcium 40 mg 12/29/21 21:00 01/01/22 20:47 Atorvastatin 40 Mg Tablet PO 40 mg BEDTIME DEVON Administration Budesonide 0.5 mg 12/29/21 20:00 01/02/22 07:31 Budesonide 0.5 Mg/2 Ml Neb INHALATION 0.5 mg BID.RESPIRATORY DEVON Administration Enoxaparin Sodium 90 mg 12/30/21 02:00 01/01/22 13:19 Enoxaparin 100 Mg/Ml Syringe 1 mg/kg (90 mg) Not Given SUBCUT Q12H DEVON Piperacillin Sod/Tazobactam 50 mls @ 12.5 mls/hr 12/29/21 16:00 01/02/22 11:46 Sod 3.375 gm/ Sodium Chloride IV Infused Q8H DEVON Infusion Protocol Vancomycin/PEG/NADA/Lysine/Water 1,250 mg in 250 mls @ 200 mls/hr 12/29/21 20:00 01/01/22 20:13 Vancocin IV Not Given Q12H DEVON Methylprednisolone Sodium Succinate 40 mg 01/01/22 18:00 01/02/22 05:11 Methylprednisolone Sod Succ 40 Mg/Ml Inj IVP 40 mg Q12H DEVON Administration Metoprolol Tartrate 50 mg 01/02/22 09:00 01/02/22 08:37 Metoprolol Tartrate 50 Mg Tablet PO Not Given BID@0900,2100 DEVON Morphine Sulfate 2 mg 12/29/21 14:52 01/01/22 15:51 Morphine 4 Mg/Ml Sdv 1 Ml IVP 2 mg Q4H PRN Administration SEVERE PAIN Pantoprazole Sodium 40 mg 12/29/21 16:30 01/01/22 15:50 Pantoprazole 40 Mg Sdv IVP 40 mg Q24H DEVON Administration PFSH Acute PFSH: Medical History CAD (coronary artery disease) Congestive heart failure COPD (chronic obstructive pulmonary disease) Obesity Surgical History History of heart artery stent History of hernia surgery Family History Father CAD (coronary artery disease) Mother Old age Social History Smoking and tobacco status: current every day smoker cigarettes [ Other ciga rette details: Patient reports quitting smoking with onset of symptoms of this illness] Alcohol intake: never Vitals/I&O/Wt Last Vital Signs Temp 96.7 F L 01/02/22 07:00 Pulse 90 01/02/22 12:00 Resp 19 H 01/02/22 12:00 BP 136/93 01/02/22 12:00 Pulse Ox 86 L 01/02/22 12:00 01/01/22 01/02/22 01/02/22 22:59 06:59 14:59 Intake Total 255 / 810 50 / 860 110 / 110 Output Total 800 / 800 400 / 1200 Balance -545 / 10 -350 / -340 110 / 110 Physical Exam Narrative: General: alert, NAD HEENT: conj clear, EOMI, PERRL, mmm, Neck: supple, no meningismus Heme: no cervical LAP Pulmonary: Tender on palpation on left side, reduced breath sounds bilateral bases Cardiovascular: rrr, nl s1s2, no mrg Abdomen: soft, nt, nd, no r/g, bs+ Extremities: pulses +, 2+ pitting pedal edema, no c/c : no CVA tenderness Skin: intact, no rash MSK: no back or neck pain Neurologic: grossly intact Urinary Catheter Management: Patel: Cath Placed During This Visit: yes Reason for Continuing Indwelling Catheter: Accurate Measurement of Urinary Output in Critically Ill Patients Urinary Catheter Date of Insertion: 12/29/21 Urinary Catheter Time of Insertion: 16:00 Data : 01/02/22 03:30 01/02/22 03:30 Other Labs: Radiology Impressions Chest CTA 12/29/21 11:52 IMPRESSION: 1. No pulmonary embolism. 2. Small to moderate bilateral pleural effusions. 3. Very mild subsegmental pneumonitis in the RIGHT middle, upper and lower lobes. 4. Partial atelectasis lingula. 5. Tricuspid regurgitation into hepatic veins. Venous Duplex 12/29/21 14:48 IMPRESSION: 1. No evidence for deep vein thrombosis. 2. Subcutaneous soft tissue edema in the bilateral lower legs. Thoracentesis Ultrasound 01/01/22 00:00 IMPRESSION: Uncomplicated ultrasound-guided thoracentesis. Chest X-Ray 01/02/22 13:51 Impression: Placement of a small left chest tube at base of left pleural space with improvement of basilar left pneumothorax. Renal Ultrasound 01/02/22 15:42 IMPRESSION: 1. No hydronephrosis in either kidney. 2. Patel catheter. 3. Aorta not visualized. 4. Cortical lobulation LEFT kidney mid aspect measuring 2.3 x 2.2 x 2.0 cm is indeterminant. This can be further evaluated with CT abdomen pelvis. Laboratory Results WBC 21.1 10^3/uL (4.0-10.0) H 01/02/22 03:30 RBC 4.14 10^6/uL (4.1-5.3) 01/02/22 03:30 Hgb 12.6 g/dL (11.7-16.6) 01/02/22 03:30 Hct 38.1 % (42.0-52.0) L 01/02/22 03:30 MCV 92.0 fl (80-94) 01/02/22 03:30 MCH 30.4 pg (28.0-34.0) 01/02/22 03:30 MCHC 33.1 g/dL (30.0-36.0) 01/02/22 03:30 RDW 13.2 % (12.1-15.1) 01/02/22 03:30 Plt Count 638 10^3/cmm (130-400) H 01/02/22 03:30 MPV 9.1 fL (7.4-10.4) 01/02/22 03:30 Neut % (Auto) 85.7 % 01/02/22 03:30 Lymph % (Auto) 3.6 % 01/02/22 03:30 [place] % (Auto) 9.6 % 01/02/22 03:30 Eos % (Auto) 0.0 % 01/02/22 03:30 Baso % (Auto) 0.1 % 01/02/22 03:30 Neut # (Auto) 18.05 10^3/uL (1.8-7.7) H 01/02/22 03:30 Lymph # (Auto) 0.8 10^3/uL (0.8-4.8) 01/02/22 03:30 [place] # (Auto) 2.0 10^3/uL (0.2-0.9) H 01/02/22 03:30 Eos # (Auto) 0.0 10^3/uL (0.0-0.8) 01/02/22 03:30 Baso # (Auto) 0.0 10^3/uL (0.0-0.1) 01/02/22 03:30 Nucleated RBC % (auto) 0 % 01/02/22 03:30 Nucleated RBCs # 0.0 /100WBC 01/02/22 03:30 Differential Comment Yes 01/01/22 13:15 PT 14.00 SECONDS (12.1-14.9) 01/01/22 04:39 INR 1.05 (0.8-1.2) 01/01/22 04:39 APTT 41.4 SECONDS (23.9-36.7) H 12/31/21 03:43 D-Dimer 1.17 ug/mIFEU (0-0.59) H 12/30/21 05:08 Specimen Type Arterial 12/30/21 05:00 Sample Site Radial, right 12/30/21 05:00 ABG pH 7.47 (7.35-7.45) H 12/30/21 05:00 ABG pCO2 40.5 mmHg (35-45) 12/30/21 05:00 ABG pO2 83.5 mmHg (80.0-100.0) 12/30/21 05:00 ABG HCO3 29.6 mmol/L (22-26) H 12/30/21 05:00 ABG Base Excess 5.5 mmol/L (-2.0-2.0) H 12/30/21 05:00 Damon Test Pos 12/30/21 05:00 Hematocrit 37.8 % (42-52) L 12/30/21 05:00 O2 Delivery Device Bipap 12/30/21 05:00 FiO2 30.0 % 12/30/21 05:00 Developmental Mathematics Professor ID Hinja 12/30/21 05:00 Sodium 135 mmol/L (136-145) L 01/02/22 03:30 Potassium 4.1 mmol/L (3.5-5.1) 01/02/22 03:30 Chloride 89 mmol/L (98-107) L 01/02/22 03:30 Carbon Dioxide 32 mmol/L (22-29) H 01/02/22 03:30 Anion Gap 18.1 (5-19) 01/02/22 03:30 BUN 52 mg/dL (8-23) H 01/02/22 03:30 Creatinine 1.8 mg/dL (0.7-1.2) H 01/02/22 03:30 GFR Calculation Not Reportable 01/02/22 03:30 Glucose 134 mg/dL (65-115) H 01/02/22 03:30 Estimat Average Glucose 105 12/29/21 11:04 Hemoglobin A1c 5.3 % (4.0-6.0) 12/29/21 11:04 Calculated Osmolality 296 mOsm/kg (285-295) H 01/02/22 03:30 Lactic Acid 1.2 mmol/L (0.5-2.2) 12/30/21 05:08 Lactic Acid (Sepsis) 2.4 mmol/L (0.5-2.2) H 12/29/21 13:43 Uric Acid 9.4 mg/dL (3.4-7.0) H 01/02/22 14:32 Calcium 10.0 mg/dL (8.5-10.5) 01/02/22 03:30 Phosphorus 4.8 mg/dL (2.5-4.5) H 01/02/22 03:30 Magnesium 2.3 mg/dL (1.7-2.3) 01/02/22 03:30 Total Bilirubin 0.7 mg/dL (0.15-1.2) 01/02/22 03:30 AST 25 U/L (0-40) 01/02/22 03:30 ALT 38 U/L (0-41) 01/02/22 03:30 Alkaline Phosphatase 60 IU/L (40-130) 01/02/22 03:30 Creatine Kinase 54 U/L (39-308) 01/02/22 14:32 Troponin T Gen 5 ng/L 366 ng/L (0-15) H* 12/30/21 05:08 Troponin T Baseline 338 ng/L (0-15) H* 01/02/22 06:30 Troponin T 120 Minute 344.9 ng/L (0-15) H 01/02/22 08:30 Delta Troponin T 6.9 ABS# (0-10) 01/02/22 08:30 Troponin T Hi Sens 6Hr 343.2 ng/L (0-15) H 01/02/22 14:32 Troponin T Hi Sens 6Hr Delta 5.2 ng/L (0-12) 01/02/22 14:32 C-Reactive Protein 51.4 mg/L (0.0-4.9) H 01/02/22 03:30 NT-Pro-B Natriuret Pep 6987 pg/mL (0-450) H 01/02/22 03:30 Total Protein 6.9 g/dL (6.6-8.7) 01/02/22 03:30 Albumin 3.5 g/dL (3.5-5.2) 01/02/22 03:30 Globulin 3.4 g/dL (1.3-4.6) 01/02/22 03:30 Triglycerides 52 mg/dL (0-150) 12/29/21 13:05 Cholesterol 136 mg/dL (0-200) 12/29/21 13:05 LDL Cholesterol, Calc 84 mg/dL (50-129) 12/29/21 13:05 HDL Cholesterol 42 mg/dL (60-100) L 12/29/21 13:05 LDL/HDL Ratio 2.00 RATIO (0.00-3.22) 12/29/21 13:05 Cholesterol/HDL Ratio 3.24 mg/dL (1.0-5.00) 12/29/21 13:05 Procalcitonin 0.06 ng/mL (0-0.5) 12/29/21 10:59 TSH 1.09 uIU/mL (0.27-4.20) 12/29/21 13:05 Urine Color Yellow (Yellow) 01/02/22 15:50 Urine Appearance Hazy (CLEAR) A 01/02/22 15:50 Urine pH 5 (5-7) 01/02/22 15:50 Ur Specific [place] 1.020 (1.005-1.030) 01/02/22 15:50 Urine Protein Neg (Negative) 01/02/22 15:50 Urine Glucose (UA) Norm (Normal) 01/02/22 15:50 Urine Ketones Negative (Negative) 01/02/22 15:50 Urine Blood 2+ (Negative) H 01/02/22 15:50 Urine Nitrate Negative (Negative) 01/02/22 15:50 Urine Bilirubin Neg (Negative) 01/02/22 15:50 Urine Urobilinogen Neg mg/dL (Negative) 01/02/22 15:50 Ur Leukocyte Esterase Negative (Negative) 01/02/22 15:50 Urine RBC 5-10 /hpf (0-2) H 01/02/22 15:50 Urine WBC 0-4 /hpf (0-5) H 01/02/22 15:50 Ur Squamous Epith Cells Rare /hpf (0-5) 01/02/22 15:50 Uric Acid Crystals 0-4 /hpf 01/02/22 15:50 Amorphous Sediment Not Reportable 01/02/22 15:50 Urine Bacteria Trace /hpf (NONE) 01/02/22 15:50 Fluid Color Red 01/01/22 13:15 Fluid Appearance Bloody 01/01/22 13:15 Fluid WBC 3496 /uL 01/01/22 13:15 Fluid RBC 3671.000 10^3/uL 01/01/22 13:15 Fluid Hematocrit 37.1 % 01/01/22 13:15 Fld Polynuclear WBCs # 2.607 01/01/22 13:15 Fld Polynuclear WBCs % 74.600 % 01/01/22 13:15 Fl Mononucl WBCs #(Auto) 0.889 01/01/22 13:15 Fl Mononuclear % Auto 25.400 % 01/01/22 13:15 Fluid Albumin 2.2 g/dL 01/01/22 13:15 Fluid Creatinine 0.83 (0.7-1.2) 01/01/22 13:15 Pleural pH TNP 01/01/22 13:15 Pleural Total Protein 3.8 g/dL 01/01/22 13:15 Pleural LDH 1100 U/L 01/01/22 13:15 Pleural Glucose 61.0 mg/dL 01/01/22 13:15 Pleural Amylase 24.0 U/L 01/01/22 13:15 Pleural Triglycerides 66 mg/dL 01/01/22 13:15 Vancomycin Trough 32.1 ug/mL (10-15) H* 01/01/22 19:31 Random Vancomycin 23.4 ug/mL (20.0-40.0) 01/02/22 06:30 Coronavirus 229E (PCR) Not detected (NOT DETECT) 12/29/21 11:04 SARS-CoV-2 (PCR) Not detected (NOT DETECT) 12/29/21 11:04 Micro: Microbiology 01/01/22 13:15 Gram Stain - Final Pleural Fluid Body Fluid Culture - Preliminary A&P Assessment and plan (1) Atrial fibrillation: Status: Acute (2) Sepsis: Status: Acute (3) Acute heart failure: Status: Acute (4) CAD (coronary artery disease): Status: Acute (5) Acute and chronic respiratory failure with hypoxia: Status: Acute (6) NSTEMI (non-ST elevated myocardial infarction): Status: Acute (7) Congestive heart failure: Status: Acute (8) COPD (chronic obstructive pulmonary disease): Status: Acute (9) Traumatic hemothorax: Status: Acute (10) Bacteremia due to Staphylococcus: Status: Acute Plan # Left hemothorax-secondary to traumatic left rib fracture due to mechanical fall 1 day prior to admission -IR drain 650 cc dark red blood yesterday; pleural fluid analysis predominantly RBC 3671, fluid hematocrit 37, neutrophil predominant 74%, pleural fluid total protein 3.8, LDH 1100, glucose 61-exudative in nature -Today bedside ultrasound showed significant left pleural effusion-I placed 14 [place] pigtail and drained almost 1800cc of dark bloody fluid; good tidaling; no air leak -Postprocedure x-ray chest-left lung expanded well with no evidence of trapped lung -I will leave the chest tube under waterseal overnight and tomorrow morning-I will clamp and plan to remove pigtail in next 24 to 48 hours if there is no reaccumulation #Acute hypoxic respiratory failure-requiring 2 L oxygen-hemothorax/pulmonary edema due to CHF/atrial fibrillation/NSTEMI -Currently on aspirin 81 mg daily, atorvastatin 40 mg p.o. at bedtime, metoprolol 50 mg p.o. twice daily and amiodarone 400 mg p.o. twice daily -Not on anticoagulation due to hemothorax -Significantly elevated troponin with insignificant delta after 2 hours and 6 hours -Cardiology deferred coronary angiogram and possible PCI and will creatinine is better and hemothorax resolves as patient may need antiplatelets postprocedure -Continue cardiac monitoring Number -Currently on DuoNeb nebulization and desonide nebulization scheduled -On methylprednisone 40 every 12 -Recommended to taper over the next 3 days -Discharge with Spiriva 2 puffs daily -PFTs as outpatient #Acute renal failure-secondary to contrast-induced nephropathy, renal hypop erfusion due to cardiorenal syndrome -So far net -10 L since admission & -1800 cc today morning -Hold diuretics for now as patient is making good urine output -Continue to monitor electrolytes, renal functions, input output -Renal on board; appreciate recommendations-urine electrolytes pending #Staph bacteremia 3/4 bottles on 2currently on vancomycin -Currently on vancomycin-trough level in 2-currently held -Also on Zosyn for broader coverage, cultures negative so far -Repeat blood cultures pending from 01/01/2022 -Monitor WBC, fever -Hemothorax evacuated-so 1 less thing to worry about Recommendations conveyed to hospitalist, RN, RT taking care of the patient -Medical condition and management explained in detail to the patient, his , his son at bedside-the verbalized understanding and agreed with the plan Consult Attestations Medical Necessity Statement: #Acute hypoxic respiratory failure-Require close ICU monitoring post pigtail placement for left hemothorax, and ongoing NSTEMI/CHF/A. fib RVR Time Spent in Patient Care: Greater than 35 minutes (>than 50% of time spent in counselling and/or direct pt care on unit) . Critical Care Time: The high probability of a clinically significant, sudden or life threatening deterioration of the patient's [pulmonary, cardiac, renal system(s) required my full and direct attention, intervention and personal management. The critical care time is as shown. This time is in addition to time spent performing any reported procedures but includes the following: [x] Data and vital sign review and interpretation [x] Patient assessment, examination and intervention [x] Documentation [x] Medication orders and management Critical Care Time (min): 70 Coding Level of Care Code New Pt Acute Associate Software Engineer for Chg Fwd Patient Type New History Comprehensive Exam Comprehensive Medical Decision Making High Complexity Diagnoses Atrial fibrillation I48.91 Sepsis A41.9 Acute heart failure I50.9 CAD (coronary artery disease) I25.10 Acute and chronic respiratory failure with hypoxia J96.21 NSTEMI (non-ST elevated myocardial infarction) I21.4 Congestive heart failure I50.9 COPD (chronic obstructive pulmonary disease) J44.9 Traumatic hemothorax S27.1XXA Bacteremia due to Staphylococcus R78.81; B95.8 Time Spent (min) 70
--- NOTE | 2022-01-02 14:38 | P.PCN_ITS ---
Procedure/Consent Time out: Time Out Performed: Yes Consent: Consent for Procedure: Consent obtained from patient, Risks & Benefits reviewed and Agrees to proceed with procedure Procedure Narrative: Name of the procedure: Left-sided chest tube placement under ultrasound guidance. Indication: Hemothorax Director Of Email Marketing(s): Chris James MD Consent: Signed by patient. Placed in chart Anesthesia: 15 cc 1% lidocaine without epinephrine Description of the procedure: An ultrasound was performed and a moderate to large left-sided pleural effusion was identified. A safe fluid pocket was identified with the ultrasound guidance and marked. The skin, subcutaneous tissue and the pleura was anesthetized with 1% lidocaine. Needle was advanced till flash back was noted. 10 cc dark bloody fluid was noted. Using Seldinger technique the chest tube was put in. Catheter was connected to -20 cm H2O suction. The chest tube was secured with suture and transparent dressing. 1800 cc of d ark bloody-colored fluid was obtained. Samples were not sent today as they were sent yesterday by IR Complications: None. Ultrasound guidance used: Yes EBL: 5-10 cc Complications: None; patient tolerated procedure well PCXR: Placement of a small left chest tube at base of left pleural space with improvement of basilar left hemothorax Acute Procedures Epistaxis Control: Time out performed: Yes
--- NOTE | 2022-01-02 14:49 | PC.NURSE ---
Dr. Hurtado insertered 14F chest tube to left lung. Currently hooked to water seal only. Verified by xray.
[2022-01-02 15:23] LABS: Troponin 5 6HR 343.2 ng/L (0-15); Troponin 5 6HR Delta 5.2 ng/L (0-12)
[2022-01-02] MEDS: pantoprazole 40 mg SDV IVP (15:35)
--- NOTE | 2022-01-02 15:40 | P.CONIM_ITS ---
Providers/Reason For Consult Consulting Physician/Specialty*: Nephrology Reason for Consult*: JHONNY Attending Physician: Jaun Felix MD History of Present Illness History of Present Illness Thank for consultation, today had the pleasure reviewing this very pleasant 76-year-old gentleman for evaluation of acute kidney injury. Initially presented with shortness of breath back on 12/29/2021, and has been plagued with orthopnea, fluid overload, CHF over the last few days complicated by atrial fibrillation with RVR. On presentation on 12/29 he had a CTA of the lungs which did not demonstrate pulmonary embolism but did demonstrate small to moderate bilateral pleural effusions. Troponin elevated on admission. Is been followed by cardiology with plans for coronary angiogram, however, due to leukocytosis, increasing requirement for oxygen this is being deferred. Underwent thoracentesis, and does feel significant improvement following the thoracentesis. He is currently comfortable on nasal cannula oxygen. His breathing is the best it has been now since admission. His blood pressure and pulse is also stable now. He still has some lower extremity edema, however, it is improved since admission. Is received intermittent boluses of diuretics since hospitalization. He reports no known history of acute or chronic kidney disease, is never seen a videographer required dialysis. On admission serum creatinine 0.9 mg/dL, incr easing to 1.2 on 12/31, 1.5 yesterday and 1.8 mg/dL today. Urine output has been robust producing 1200 mL of urine over the last 24 hours. He is currently on combination vancomycin and Zosyn. Vanco trough 32.1 yesterday morning. With no other potential nephrotoxic exposures. Review of Systems Narrative: 12 point review of systems completed per HPI and subjective assessment, this includes Constitutional: Weakness, fatigue Respiratory: No SOB on exertion, comfortable at rest CardioVasc: No chest pain, palpitations Gastrointestinal: No nausea, no vomiting Neurological: No seizures, no AMS Derm: No new rashes, lesions or wounds Immunological: No seasonal and no food allergies Medications/Allergies Home Medications Medication Instructions Recorded Confirmed Last Taken Type Vitamin B-12 1 tab PO .OCCASIONALLY 12/29/21 12/29/21 Unknown History albuterol sulfate 90 mcg/actuation 2 puff INHALATION QID PRN 12/29/21 12/29/21 Unknown History aerosol inhaler (ProAir HFA) aspirin 325 mg tablet 325 mg PO QAM 12/29/21 12/29/21 12/29/21 07:00 History calcium carbonate 550 mg-magnesium 2 tab PO Q4H PRN 12/29/21 12/29/21 Unknown History hydroxide 110 mg chewable tablet cholecalciferol (vitamin D3) 25 25 mcg PO QAM 12/29/21 12/29/21 12/29/21 07:00 History mcg (1,000 unit) tablet (Vitamin D3) hydrochlorothiazide 25 mg tablet 25 mg PO QAM 12/29/21 12/29/21 12/29/21 07:00 History metoprolol tartrate 100 mg tablet 50 mg PO QAM 12/29/21 12/29/21 12/29/21 07:00 History see pharmacy comment sildenafil 100 mg tablet 50 mg PO PRN PRN 12/29/21 12/29/21 Unknown History Allergies Allergy/AdvReac Type Severity Reaction Status Date / Time lisinopril Allergy Unknown Verified 12/29/21 11:34 Current Medications Generic Name Dose Route Start Last Admin Trade Name Freq PRN Reason Stop Dose Admin Albuterol/Ipratropium 3 ml 12/29/21 16:00 01/02/22 11:59 Ipratropium-Albuterol 3 Ml Neb INHALATION 3 ml QID.RESPIRATORY DEVON Administration Amiodarone HCl 400 mg 01/02/22 08:00 01/02/22 08:01 Amiodarone 200 Mg Tablet PO 400 mg Q12H DEVON Administration Aspirin 81 mg 12/30/21 09:00 01/02/22 08:01 Aspirin 81 Mg Ec Tablet PO 81 mg DAILY DEVON Administration Atorvastatin Calcium 40 mg 12/29/21 21:00 01/01/22 20:47 Atorvastatin 40 Mg Tablet PO 40 mg BEDTIME DEVON Administration Budesonide 0.5 mg 12/29/21 20:00 01/02/22 07:31 Budesonide 0.5 Mg/2 Ml Neb INHALATION 0.5 mg BID.RESPIRATORY DEVON Administration Enoxaparin Sodium 90 mg 12/30/21 02:00 01/01/22 13:19 Enoxaparin 100 Mg/Ml Syringe 1 mg/kg (90 mg) Not Given SUBCUT Q12H DEVON Piperacillin Sod/Tazobactam 50 mls @ 12.5 mls/hr 12/29/21 16:00 01/02/22 15:35 Sod 3.375 gm/ Sodium Chloride IV 12.5 mls/hr Q8H DEVON Administration Protocol Vancomycin/PEG/NADA/Lysine/Water 1,250 mg in 250 mls @ 200 mls/hr 12/29/21 20:00 01/01/22 20:13 Vancocin IV Not Given Q12H DEVON Methylprednisolone Sodium Succinate 40 mg 01/01/22 18:00 01/02/22 05:11 Methylprednisolone Sod Succ 40 Mg/Ml Inj IVP 40 mg Q12H DEVON Administration Metoprolol Tartrate 50 mg 01/02/22 09:00 01/02/22 08:37 Metoprolol Tartrate 50 Mg Tablet PO Not Given BID@0900,2100 DEVON Morphine Sulfate 2 mg 12/29/21 14:52 01/01/22 15:51 Morphine 4 Mg/Ml Sdv 1 Ml IVP 2 mg Q4H PRN Administration SEVERE PAIN Pantoprazole Sodium 40 mg 12/29/21 16:30 01/02/22 15:35 Pantoprazole 40 Mg Sdv IVP 40 mg Q24H DEVON Administration PFSH Acute PFSH: Medical History CAD (coronary artery disease) Congestive heart failure COPD (chronic obstructive pulmonary disease) Obesity Surgical History History of heart artery stent History of hernia surgery Family History Father CAD (coronary artery disease) Mother Old age Social History Smoking and tobacco status: current every day smoker cigarettes [ Other cigarette details: Patient reports quitting smoking with onset of symptoms of this illness] Alcohol intake: never Vitals/I&O/Wt Last Vital Signs Temp 96.7 F L 01/02/22 07:00 Pulse 96 01/02/22 14:00 Resp 19 H 01/02/22 12:00 BP 136/93 01/02/22 12:00 Pulse Ox 86 L 01/02/22 12:00 01/02/22 01/02/22 01/02/22 06:59 14:59 22:59 Intake Total 50 / 860 230 / 230 Output Total 400 / 1200 1750 / 1750 Balance -350 / -340 230 / 230 -1750 / -1520 Physical Exam Narrative: Constitutional: Awake, comfortable HEENT: Wet mucosa, no jvp, non icteric Lungs: Bilaterally diminished without discernible wheeze, rales in all lung zones CVS: S1 S2, no murmurs Abdo: Soft, BS ok Ext 4: 2-3+ edema, peripheral perfusion with no cyanosis Neurological: Grossly non-focal Urinary Catheter Management: Patel: Cath Placed During This Visit: yes Reason for Continuing Indwelling Catheter: Accurate Measurement of Urinary Output in Critically Ill Patients Urinary Catheter Date of Insertion: 12/29/21 Urinary Catheter Time of Insertion: 16:00 Data : 01/02/22 03:30 01/02/22 03:30 Micro: Microbiology 12/29/21 11:13 Blood Culture - Final Blood Staph capitis sub ureolyticus Corynebacterium species 12/29/21 11:13 Blood Culture - Final Blood Staph capitis sub ureolyticus Corynebacterium species 01/01/22 13:15 Gram Stain - Final Pleural Fluid Body Fluid Culture - Preliminary A&P Assessment and plan (1) Acute kidney failure: Status: Acute Plan 1. Acute kidney injury Possible etiologies include contrast nephropathy, hemodynamic instability causing renal hypoperfusion, vancomycin associated acute tubular injury. At this time defer additional diuretic/IV hydration We will check renal sonogram, urinalysis with fractional excretion of sodium/urea, CPK, uric acid. No indication for renal replacement therapy Strict I's and O's Dose medication for GFR less than 15 2. Chemistry Elevated bicarb with last ABG performed on the demonstrates slight metaboli c alkalosis. We will continue to monitor this for the time being otherwise serum chemistry looks pretty good. 3. Hemodynamics Atrial fibrillation RVR throughout the hospitalization currently being controlled with amiodarone and metoprolol. Defer to cardiology. 4. STEMI Pending angiogram when more stable cardiology. Currently on aspirin, metoprolol. 5. Empirical therapy for pneumonia 6. Pleural effusions S/p chest tube; mgmt per Pulmonary Thank you for consultation, as always a pleasure to follow these patients with you Ritchie Kamara MD Nephrology [phone] Patient seen and examined via telemedicine, with the assistance of the bedside RN > 25 min spent in evaluation and mgmt of patient Coding Level of Care Code Acute Patient Account Representative for Chg Fwd Diagnoses Acute kidney failure N17.9
--- NOTE | 2022-01-02 15:42 | US_ITS ---
WS: [id number] ULTRASOUND RENAL TECHNIQUE: Ultrasound examination of both kidneys. CLINICAL INFORMATION: renal failure COMPARISON: None. FINDINGS: RIGHT: Right kidney is normal in size and appearance. Echogenicity: Normal. Cortical thickness: 1.5 cm; Normal. Hydronephrosis: None. Perinephric fluid: None. Right kidney measures: 8.3 cm x 5.0 cm x 5.2 cm. LEFT:Cortical lobulation LEFT kidney mid aspect measuring 2.3 x 2.2 x 2.0 cm is indeterminant and keene s not appear cystic. No significant vascularity. This can be further evaluated with CT abdomen pelvi s. Left kidney is normal in size and appearance. Echogenicity: Normal. Cortical thickness: 1.4 cm; Normal. Hydronephrosis: None. Perinephric fluid: None. Left kidney measures: 10.2 cm x 4.6 cm x 5.1 cm. Aorta not visualized. Patel catheter. Gallbladder sludge incidentally visualized. US/US renal BI* [id number] IMPRESSION: 1. No hydronephrosis in either kidney. 2. Patel catheter. 3. Aorta not visualized. 4. Cortical lobulation LEFT kidney mid aspect measuring 2.3 x 2.2 x 2.0 cm is indeterminant. This can be further evaluated with CT abdomen pelvis.
[2022-01-02 16:14] LABS: Creatine Phosphokinase 54 U/L (39-308); Uric Acid 9.4 mg/dL (3.4-7.0)
[2022-01-02 17:43] LABS: Bilirubin Urine Neg (Negative); Blood Urine 2+ (Negative); Glucose Urine UA Norm (Normal); Ketones Urine Negative (Negative); Leukocyte Esterase Urine Negative (Negative); Nitrate Urine Negative (Negative); Protein Urine Neg (Negative); Squamous Epithelial Cell Urine RARE /hpf (0-5); Urine Appearance Hazy (CLEAR); Urine Color Yellow (Yellow); Urobilinogen Urine Neg (Negative); WBC Urine 0-4 /hpf (0-5); pH Urine 5 (5-7)
[2022-01-02 17:44] LABS: Add Urine Culture? No; Bacteria Urine TRACE /hpf; Uric Acid Crystals Urine 0-4 /hpf
--- NOTE | 2022-01-02 17:48 | PM.PN ---
Subjective Subjective: Patient was seen this morning, currently in ICU, roughly 6 this morning, rapid response was called due to Maurice argueta with RVR, increased respiratory distress, currently seen on 3 L, he tells me that he feels weak, feels short of breath, he tells me that on Saturday he fell, and hit the left side of his chest against the ground, he had a thoracocentesis yesterday which had 650 cc of bloody output, denies any bloody cough, Vitals/I&O/Wt Last Vital Signs Temp 96.7 F L 01/02/22 07:00 Pulse 90 01/02/22 16:27 Resp 16 01/02/22 16:26 BP 102/82 01/02/22 16:00 Pulse Ox 94 01/02/22 16:26 01/02/22 01/02/22 01/02/22 06:59 14:59 22:59 Intake Total 50 / 860 230 / 230 100 / 330 Output Total 400 / 1200 2130 / 2130 Balance -350 / -340 230 / 230 -2030 / -1800 Physical Exam Const: COMMON NORMALS: no acute distress and patient oriented x3 Resp: COMMON NORMALS: normal respiratory effort, No retractions and No use of accessory muscles AUSCULTATION: crackles and wheezes Cardio: COMMON NORMALS: regular rate, regular rhythm, S1 normal heart sound present and S2 normal heart sound present RATE: regular rate RHYTHM: regular rhythm HEART SOUNDS: S1 normal heart sound present and S2 normal heart sound present GI: COMMON NORMALS: Normal to inspection, nondistended, normoactive bowel sounds present, Soft to palpation, non-tender, No hepatosplenomegaly present and no masses PALPATION: Yes Soft to palpation and Yes No hepatosplenomegaly present Extremity: COMMON NORMALS: no pedal edema Neuro: COMMON NORMALS: patient oriented x3 Psych: COMMON NORMALS: mental status grossly normal Urinary Catheter Management: Patel: Cath Placed During This Visit: yes Reason for Continuing Indwelling Catheter: Accurate Measurement of Urinary Output in Critically Ill Patients Urinary Catheter Date of Insertion: 12/29/21 Urinary Catheter Time of Insertion: 16:00 Data : 01/02/22 03:30 01/02/22 03:30 Micro: Microbiology 01/01/22 13:15 Mycobacterial Smear - Preliminary Body Fluids - Pleura 12/29/21 11:13 Blood Culture - Final Blood Staph capitis sub ureolyticus Corynebacterium species 12/29/21 11:13 Blood Culture - Final Blood Staph capitis sub ureolyticus Corynebacterium species 01/01/22 13:15 Gram Stain - Final Pleural Fluid Body Fluid Culture - Preliminary A&P Assessment and plan (1) Bacteremia due to Staphylococcus: Status: Acute (2) Traumatic hemothorax: Status: Acute (3) Acute kidney failure: Status: Acute (4) Atrial fibrillation: Status: Acute (5) Sepsis: Status: Acute (6) Lactic acidosis: Status: Acute (7) Hyponatremia: Status: Acute (8) Pulmonary edema: Status: Acute (9) Acute heart failure: Status: Acute (10) NSTEMI (non-ST elevated myocardial infarction): Status: Acute (11) Acute and chronic respiratory failure with hypoxia: Status: Acute (12) CAD (coronary artery disease): Status: Acute (13) Obesity: Status: Acute (14) Congestive heart failure: Status: Acute (15) COPD (chronic obstructive pulmonary disease): Status: Acute (16) Pneumonia: Status: Acute Plan Traumatic hemothorax on the left -Patient fell on Saturday -On admission was placed on Lovenox for NSTEMI -Status post thoracocentesis 01/01/2022 650 cc dark red blood, no growth so far -Status post chest tube placement, small left, over 1100 cc of dark red blood -Pulmonary consulted managing -Continue to monitor output, currently to suction -Daily chest x-rays -Monitor cultures, for possible infection, continue antibiotics as below -Anticoagulation relatively contraindicated Acute hypoxic respiratory failure -Multifactorial from CHF, pneumonia, atrial fibrillation, traumatic hemothorax on left Plan -Continue ICU admission -Continue BiPAP, BiPAP schedule during the night -Monitor respiratory status closely -Diuresed over 8 L -Creatinine 1.8, hold off on diuresis for today -Replace potassium -Continue Solu-Medrol l given wheezing, history of smoking -Patel catheter placement, monitor I's and O's -Fluid restrictions 1200 cc -WBC 21.1, blood cultures cultures positive for staphylococcal species, urine bacterial antigens negative, Legionella negative, MRSA nares negative, likely contamination, repeat blood cultures negative. However is on steroids, has a traumatic left hemothorax, -Zosyn for pneumonia -Vancomycin for pneumonia, line to to 2 out of 4 positive staphylococcal species and blood cultures, likely contamination, -CT angiogram negative for pulmonary emboli, venous ultrasound negative for DVT -Elevated Vanco trough, currently vancomycin on hold -Full code -Lovenox for DVT prophylaxis JHONNY, likely secondary to diuresis, contrast, hold diuresis, nephrology consulted A. fib with RVR -New onset -Off amiodarone drip -Amiodarone 400 mg once a day, metoprolol 50 twice daily -Lovenox as above NSTEMI -Elevated troponin likely secondary to respiratory failure, A. fib, however cannot rule out underlying cardiac etiology -Underlying CAD status post stenting x1 -No chest pain complaints -Baseline troponin 117, 120-minute 192, 75.6, 366 -EKG A. fib with RVR, nonspecific ST-T wave changes -Aspirin, statin, metoprolol -Therapeutic anticoagulation currently on hold given hemothorax -Cardiac echocardiogram left ventricle systolic function grossly normal -Serial troponin, serial EKGs, telemetry monitoring -Cardiology consulted -Plans on cardiac catheterization plans on hold History of heart failure, likely combination of systolic diastolic as above History of COPD, solumderol, DuoNeb, budesonide Pneumonia, with sepsis, as above, leukocytosis elevated lactic acid Hyponatremia likely secondary to heart failure, continue diuresis Lactic acidosis secondary to pneumonia, Attestations Medical Necessity Statement*: Patient requires hospitalization for traumatic left hemothorax, requiring chest tube placement, CHF exacerbation, NSTEMI, pneumonia, pulmonary edema, respiratory failure, critical care time spent over 55 minutes Critical Care Time: 55 Coding Level of Care Code Acute Profile Mill Operator Tape Control for [facility] Fwd Diagnoses Bacteremia due to Staphylococcus R78.81; B95.8 Traumatic hemothorax S27.1XXA Acute kidney failure N17.9 Atrial fibrillation I48.91 Sepsis A41.9 Lactic acidosis E87.2 Hyponatremia E87.1 Pulmonary edema J81.1 Acute heart failure I50.9 NSTEMI (non-ST elevated myocardial infarction) I21.4 Acute and chronic respiratory failure with hypoxia J96.21 CAD (coronary artery disease) I25.10 Obesity E66.9 Congestive heart failure I50.9 COPD (chronic obstructive pulmonary disease) J44.9 Pneumonia J18.9
--- NOTE | 2022-01-02 17:58 | PC.NURSE ---
New atrium placed earlier this shift by Dr. Hurtado. Suction set to low with verbal orders to call Dr. Hurtado at 1800 with output update. Called Dr. Hurtado and reported output of 80mL and received verbal orders to change suction to water seal only. Tidaling present with breathing, no air leaks present at this time.
[2022-01-02 18:19] LABS: Hematocrit 41.3 % (42.0-52.0); Hemoglobin 12.9 g/dL (11.7-16.6); Mean Corpuscular HGB Conc 31.2 g/dL (30.0-36.0); Mean Corpuscular Hemoglobin 30.8 pg (28.0-34.0); Mean Corpuscular Volume 98.6 fl (80-94); Platelet Count 613 10^3/cmm (130-400); Red Blood Count 4.19 10^6/uL (4.1-5.3); Red Cell Distribution Width 13.5 % (12.1-15.1)
[2022-01-02 18:31] LABS: Urine Creatinine 124 mg/dL (39-259); Urine Protein Random 14 mg/dL
[2022-01-02 18:33] LABS: UPRO/UCREAT Ratio 0.11 mg/mg CR; Urea Nitrogen,Urine Random 618 mg/dL; Urine Random Sodium 18 mmol/L
[2022-01-02 18:56] LABS: Absolute Segmented Neutrophil 24.9 10/cmm (1.6-7.1); Eosinophils 0 %; Lymphocytes 2 %; Lymphocytes Absolute 0.6 10^3/cmm (1.2-3.4); Monocytes Absolute 2.5 10^3/cmm (0.1-0.6); Segmented Neutrophils 89 %; Total Cells Counted 100 (0-100)
[2022-01-02 18:57] LABS: Absolute Neutrophil 24.9 10^3/cmm (1.4-6.5); Platelet Estimate Increased (Normal)
[2022-01-02] MEDS: metoprolol tartrate 50 mg Tablet PO (20:02)
[2022-01-02] MEDS: atorvastatin 40 mg Tablet PO (20:02)
[2022-01-03] VITALS (31 sets, daily range): BP systolic 99–149; BP diastolic 78–123; PULSE 76–105; RESP 12–23; TEMP 36.7–36.9; O2SAT 93–100
[2022-01-03] MEDS: piperacillin-tazobactam 3.375 GM in sodium chloride 0.9% (plus) 50 ML IV ×4 (00:43→23:16)
[2022-01-03 03:26] LABS: Basophils % 0.1 %; Hematocrit 37.3 % (42.0-52.0); Hemoglobin 12.4 g/dL (11.7-16.6); Lymphocytes # 0.8 10^3/uL (0.8-4.8); Lymphocytes % 3.4 %; Mean Corpuscular HGB Conc 33.2 g/dL (30.0-36.0); Mean Corpuscular Hemoglobin 30.4 pg (28.0-34.0); Mean Corpuscular Volume 91.4 fl (80-94); Mean Platelet Volume 9.2 fL (7.4-10.4); Monocytes # 2.1 10^3/uL (0.2-0.9); Monocytes % 9.7 %; Neutrophils # 18.64 10^3/uL (1.8-7.7); Neutrophils % 85.7 %; Nucleated Red Blood Cells % 0 %; Platelet Count 583 10^3/cmm (130-400); Red Blood Count 4.08 10^6/uL (4.1-5.3); Red Cell Distribution Width 13.2 % (12.1-15.1); White Blood Count 21.8 10^3/uL (4.0-10.0)
[2022-01-03 03:44] LABS: Alanine Aminotransferase 36 U/L (0-41); Albumin Level 3.2 g/dL (3.5-5.2); Alkaline Phosphatase 52 IU/L (40-130); Anion Gap 14.3 (5-19); Aspartate Amino Transferase 19 U/L (0-40); Blood Urea Nitrogen 55 mg/dL (8-23); C Reactive Protein 52.4 mg/L (0.0-4.9); Calcium 9.5 mg/dL (8.5-10.5); Carbon Dioxide 31 mmol/L (22-29); Chloride 93 mmol/L (98-107); Globulin 2.7 g/dL (1.3-4.6); Glucose 132 mg/dL (65-115); Magnesium 2.3 mg/dL (1.7-2.3); Osmolality Calculated 297 mOsm/kg (285-295); Phosphorus 3.5 mg/dL (2.5-4.5); Potassium 3.3 mmol/L (3.5-5.1); Sodium 135 mmol/L (136-145); Total Bilirubin 0.6 mg/dL (0.15-1.2); Total Protein 5.9 g/dL (6.6-8.7)
[2022-01-03 03:49] LABS: NT Pro B Type Natriuretic Pept 5691 pg/mL (0-450)
[2022-01-03] MEDS: vancomycin 1,250 MG/250 ML PIGGYBACK 200 MG IV (05:32)
--- NOTE | 2022-01-03 07:00 | XRR_ITS ---
PROCEDURE INFORMATION: Exam: XR Chest Exam date and time: 01/03/2022 7:00 AM Age: 76 years old Clinical indication: Shortness of breath; Patient HX: F/u for pleural effusion with small pneumothorax. Left chest tube in place. ; Additional info: SOB TECHNIQUE: Imaging protocol: XR of the chest. Views: 1 view. COMPARISON: CR XR chest 1V portable [id number] 01/02/2022 2:01 PM FINDINGS: The thorax is partially obscured by overlying EKG leads and patch. Tubes, catheters and devices: Left pleural catheter. Lungs: COPD, interstitial prominence, and asymmetric bibasilar airspace disease. Pleural spaces: Right pleural effusion. No significant left pneumothorax. Heart/Mediastinum: Cardiac silhouette upper limits of normal size. Bones/joints: Degenerative change. XR/XR chest 1V portable [id number] IMPRESSION: 1. COPD, interstitial prominence, and asymmetric bibasilar airspace disease. 2. Right pleural effusion.
[2022-01-03] MEDS: budesonide 0.5 mg/2 mL Neb INHALATION ×2 (07:31→20:06)
[2022-01-03] MEDS: ipratropium-albuterol 3 mL Neb INHALATION ×4 (07:31→20:06)
[2022-01-03] MEDS: aspirin 81 mg EC Tablet PO (08:18)
[2022-01-03] MEDS: amiodarone 200 mg Tablet 400 MG PO ×2 (08:19→20:33)
[2022-01-03] MEDS: metoprolol tartrate 50 mg Tablet PO ×2 (08:20→20:33)
--- NOTE | 2022-01-03 08:49 | PC.SOCIAL ---
IMM update IMM not updated as patient isn't expected to dc in the next 24-48 hours.
--- NOTE | 2022-01-03 08:50 | PM.PN ---
Subjective Subjective: Patient was seen and examined this morning, says that the shortness of breath is improved, 14 Icelandic pigtail catheter, in place. AM and evening chest x-ray reviewed. His other vitals and labs have been reviewed. Medications: Medication Review Details: Generic Name Dose Route Start Last Admin Trade Name Tino PRN Reason Stop Dose Admin Albuterol/Ipratrop ium 3 ml 12/29/21 16:00 01/03/22 15:34 Ipratropium-Albu terol 3 Ml Neb INHALATION 3 ml QID.RESPIRATORY S CH Administration Amiodarone HCl 400 mg 01/02/22 08:00 01/03/22 08:19 Amiodarone 200 M g Tablet PO 400 mg Q12H DEVON Administration Aspirin 81 mg 12/30/21 09:00 01/03/22 08:18 Aspirin 81 Mg Ec Tablet PO 81 mg DAILY DEVON Administration Atorvastatin Calci um 40 mg 12/29/21 21:00 01/02/22 20:02 Atorvastatin 40 Mg Tablet PO 40 mg BEDTIME DEVON Administration Budesonide 0.5 mg 12/29/21 20:00 01/03/22 07:31 Budesonide 0.5 M g/2 Ml Neb INHALATION 0.5 mg BID.RESPIRATORY S CH Administration Enoxaparin Sodium 90 mg 12/30/21 02:00 01/01/22 13:19 Enoxaparin 100 M g/Ml Syringe 1 mg/kg (90 mg) Not Given SUBCUT Q12H DEVON Piperacillin Sod/T azobactam 50 mls @ 12.5 mls /hr 12/29/21 16:00 01/03/22 16:43 Sod 3.375 gm/ So dium Chloride IV 12.5 mls/hr Q8H DEVON Administration Protocol Vancomycin/PEG/NAD A/Lysine/Water 1,250 mg in 250 m ls @ 200 mls/hr 01/03/22 05:00 01/03/22 07:20 Vancocin IV Infused Q24H DEVON Infusion Methylprednisolone Sodium Succinate 40 mg 01/01/22 18:00 01/03/22 17:45 Methylprednisolo ne Sod Succ 40 Mg/ Ml Inj IVP 40 mg Q12H DEVON Administration Metoprolol Tartrat e 50 mg 01/02/22 09:00 01/03/22 08:20 Metoprolol Tartr ate 50 Mg Tablet PO 50 mg BID@0900,2100 DEVON Administration Morphine Sulfate 2 mg 12/29/21 14:52 01/03/22 17:44 Morphine 4 Mg/Ml Sdv 1 Ml IVP 2 mg Q4H PRN Administration SEVERE PAIN Pantoprazole Sodiu m 40 mg 12/29/21 16:30 01/03/22 16:43 Pantoprazole 40 Mg Sdv IVP 40 mg Q24H DEVON Administration Vitals/I&O/Wt Last Vital Signs Temp 98.4 F 01/03/22 04:00 Pulse 86 01/03/22 08:00 Resp 16 01/03/22 08:00 BP 134/100 01/03/22 08:00 Pulse Ox 97 01/03/22 08:00 01/02/22 01/03/22 01/03/22 22:59 06:59 14:59 Intake Total 450 / 680 50 / 730 250 / 250 Output Total 2430 / 2430 250 / 2680 Balance -1980 / -1750 -200 / -1950 250 / 250 Physical Exam Const: COMMON NORMALS: patient oriented x3 HENMT: COMMON NORMALS: normocephalic and atraumatic HEAD & SCALP: normocephalic and atraumatic Chest: CHEST: Yes Symmetrical chest wall rise Resp: COMMON NORMALS: clear to auscultation bilaterally EFFORT & INSPECTION: Yes symmetric chest movement AUSCULTATION: clear to auscultation bilaterally OTHER: Diminished air entry bilaterally Cardio: COMMON NORMALS: regular rate, regular rhythm, S1 normal heart sound present, S2 normal heart sound present, No gallops present (Cardio), No murmurs present (Cardio), No rub (Cardio) and Peripheral pulses 2+ throughout RATE: regular rate RHYTHM: regular rhythm HEART SOUNDS: S1 normal heart sound present and S2 normal heart sound present PERIPHERAL PULSES: Peripheral pulses 2+ throughout GI: COMMON NORMALS: Normal to inspection, nondistended, normoactive bowel sounds present, Soft to palpation, non-tender, No hepatosplenomegaly present and no masses AUSCULTATION: Yes normoactive bowel sounds PALPATION: Yes Soft to palpation and Yes No hepatosplenomegaly present RECTAL EXAM: Yes deferred Extremity: COMMON NORMALS: no clubbing, cyanosis or edema and no pedal edema Neuro: COMMON NORMALS: patient oriented x3 Urinary Catheter Management: Patel: Cath Placed During This Visit: yes Reason for Continuing Indwelling Catheter: Accurate Measurement of Urinary Output in Critically Ill Patients Urinary Catheter Date of Insertion: 12/29/21 Urinary Catheter Time of Insertion: 16:00 Data : 01/03/22 02:49 01/03/22 02:49 Micro: Microbiology 01/01/22 13:15 Mycobacterial Smear - Preliminary Body Fluids - Pleura 12/29/21 11:13 Blood Culture - Final Blood Staph capitis sub ureolyticus Corynebacterium species 12/29/21 11:13 Blood Culture - Final Blood Staph capitis sub ureolyticus Corynebacterium species 01/01/22 13:15 Gram Stain - Final Pleural Fluid Body Fluid Culture - Preliminary A&P Assessment and plan (1) Bacteremia due to Staphylococcus: Status: Acute (2) Traumatic hemothorax: Status: Acute (3) Acute kidney failure: Status: Acute (4) Atrial fibrillation: Status: Acute (5) Sepsis: Status: Acute (6) Lactic acidosis: Status: Acute (7) Hyponatremia: Status: Acute (8) Pulmonary edema: Status: Acute (9) Acute heart failure: Status: Acute (10) NSTEMI (non-ST elevated myocardial infarction): Status: Acute (11) Acute and chronic respiratory failure with hypoxia: Status: Acute (12) CAD (coronary artery disease): Status: Acute (13) Obesity: Status: Acute (14) Congestive heart failure: Status: Acute (15) COPD (chronic obstructive pulmonary disease): Status: Acute (16) Pneumonia: Status: Acute Plan Traumatic hemothorax on the left -Patient fell on Saturday -On admission was placed on Lovenox for NSTEMI -Status post thoracocentesis 01/01/2022 650 cc dark red blood, no growth so far -Status post chest tube placement, small left, over 1100 cc of dark red blood -Pulmonary consulted managing -Continue to monitor output, currently to suction -Daily chest x-rays -Monitor cultures, for possible infection, continue antibiotics as below -Anticoagulation relatively contraindicated Acute hypoxic respiratory failure -Multifactorial from CHF, pneumonia, atrial fibrillation, traumatic hemothorax on left Plan -Continue ICU admission -Continue BiPAP, BiPAP schedule during the night -Monitor respiratory status closely -Diuresed over 8 L -Creatinine 1.8, hold off on diuresis for today -Replace potassium -Continue Solu-Medrol l given wheezing, history of smoking -Patel catheter placement, monitor I's and O's -Fluid restrictions 1200 cc -WBC 21.1, blood cultures cultures positive for staphylococcal species, urine bacterial antigens negative, Legionella negative, MRSA nares negative, likely contamination, repeat blood cultures negative. However is on steroids, has a traumatic left hemothorax, -Zosyn for pneumonia -Vancomycin for pneumonia, line to to 2 out of 4 positive staphylococcal species and blood cultures, likely contamination, -CT angiogram negative for pulmonary emboli, venous ultrasound negative for DVT -Elevated Vanco trough, currently vancomycin on hold -Full code -Lovenox for DVT prophylaxis JHONNY, likely secondary to diuresis, contrast, hold diuresis, nephrology consulted A. fib with RVR -New onset -Off amiodarone drip -Amiodarone 400 mg once a day, metoprolol 50 twice daily -Lovenox as above NSTEMI -Elevated troponin likely secondary to respiratory failure, A. fib, however cannot rule out underlying cardiac etiology -Underlying CAD status post stenting x1 -No chest pain complaints -Baseline troponin 117, 120-minute 192, 75.6, 366 -EKG A. fib with RVR, nonspecific ST-T wave changes -Aspirin, statin, metoprolol -Therapeutic anticoagulation currently on hold given hemothorax -Cardiac echocardiogram left ventricle systolic function grossly normal -Serial troponin, serial EKGs, telemetry monitoring -Cardiology consulted -Plans on cardiac catheterization plans on hold History of heart failure, likely combination of systolic diastolic as above History of COPD, solumderol, DuoNeb, budesonide Pneumonia, with sepsis, as above, leukocytosis elevated lactic acid Hyponatremia likely secondary to heart failure, continue diuresis Lactic acidosis secondary to pneumonia, Attestations Medical Necessity Statement*: Patient is to be in hospital for management of above defined problems. Time Spent in Patient Care: Greater than 35 minutes (>than 50% of time spent in counselling and/or direct pt care on unit). Critical Care Time: 45 Other Attestations: The high probability of a clinically significant, sudden or life threatening deterioration of the patient's [] system(s) required my full and direct attention, intervention and personal management. The critical care time is as shown. This time is in addition to time spent performing any reported procedures but includes the following: [x] Data and vital sign review and interpretation [x] Patient assessment, examination and intervention [x] Documentation [x] Medication orders and management Coding Level of Care Code Acute Tire Finisher for Chg Fwd Exam Detailed Diagnoses Bacteremia due to Staphylococcus R78.81; B95.8 Traumatic hemothorax S27.1XXA Acute kidney failure N17.9 Atrial fibrillation I48.91 Sepsis A41.9 Lactic acidosis E87.2 Hyponatremia E87.1 Pulmonary edema J81.1 Acute heart failure I50.9 NSTEMI (non-ST elevated myocardial infarction) I21.4 Acute and chronic respiratory failure with hypoxia J96.21 CAD (coronary artery disease) I25.10 Obesity E66.9 Congestive heart failure I50.9 COPD (chronic obstructive pulmonary disease) J44.9 Pneumonia J18.9
--- NOTE | 2022-01-03 09:24 | PC.NURSE ---
Chest Tube clamped (0900) per Dr. Bean. Chest tube redressed and tidaling/fluctuating with respirations.
[2022-01-03] MEDS: morphine 4 mg/mL SDV 1 mL 2 MG IVP ×2 (10:46→17:44)
--- NOTE | 2022-01-03 11:31 | PM.PN ---
Subjective Subjective: Mr. Florentino is doing well today with no specific concerns. He still feels very weak, participating in therapy with physical and Occupational Therapy team. Breathing comfortably. Patel catheter remains in. Good urine output. Minimal extremity edema now. Vitals/I&O/Wt Last Vital Signs Temp 98.4 F 01/03/22 04:00 Pulse 91 01/03/22 11:04 Resp 18 01/03/22 11:04 BP 134/100 01/03/22 08:00 Pulse Ox 97 01/03/22 11:04 01/02/22 01/03/22 01/03/22 22:59 06:59 14:59 Intake Total 450 / 680 50 / 730 490 / 490 Output Total 2430 / 2430 250 / 2680 Balance -1980 / -1750 -200 / -1950 490 / 490 Physical Exam Narrative: Constitutional: Awake, comfortable HEENT: Wet mucosa, no jvp, non icteric Lungs: Bilaterally diminished without discernible wheeze, rales in all lung zones CVS: S1 S2, no murmurs Abdo: Soft, BS ok Ext 4: 2-3+ edema, peripheral perfusion with no cyanosis Neurological: Grossly non-focal Urinary Catheter Management: Patel: Cath Placed During This Visit: yes Reason for Continuing Indwelling Catheter: Accurate Measurement of Urinary Output in Critically Ill Patients Urinary Catheter Date of Insertion: 12/29/21 Urinary Catheter Time of Insertion: 16:00 Data : 01/03/22 02:49 01/03/22 02:49 Micro: Microbiology 01/01/22 13:15 Mycobacterial Smear - Preliminary Body Fluids - Pleura 12/29/21 11:13 Blood Culture - Final Blood Staph capitis sub ureolyticus Corynebacterium species 12/29/21 11:13 Blood Culture - Final Blood Staph capitis sub ureolyticus Corynebacterium species 01/01/22 13:15 Gram Stain - Final Pleural Fluid Body Fluid Culture - Preliminary A&P Assessment and plan (1) Acute kidney failure: Status: Acute Plan 1. Acute kidney injury Possible etiologies include contrast nephropathy, hemodynamic instability causing renal hypoperfusion, vancomycin associated acute tubular injury. Renal function improving nicely now. Continue to diuretics/IV hydration. Strict I's and O's Dose medication for GFR 30-60 2. Chemistry Low-dose potassium replacement 3. Hemodynamics Atrial fibrillation RVR throughout the hospitalization currently being controlled with amiodarone and metoprolol. Defer to cardiology. 4. STEMI Pending angiogram when more stable cardiology. Currently on aspirin, metoprolol. 5. Empirical therapy for pneumonia 6. Pleural effusions S/p chest tube; mgmt per Pulmonary Thank you for consultation, as always a pleasure to follow these patients with you Ritchie Kamara MD Nephrology [phone] Patient seen and examined via telemedicine, with the assistance of the bedside RN > 25 min spent in evaluation and mgmt of patient Attestations Medical Necessity Statement*: eval for JHONNY Coding Level of Care Code Acute Fifth Grade Teacher for Chg Fwd Diagnoses Acute kidney failure N17.9
--- NOTE | 2022-01-03 12:01 | PC.CHAP ---
Pastoral Care Encounter/Spiritual Assessment Type of Contact [] Declined train electronic technician visit [] Patient/Family/Request visit [] Outpatient visit [] Follow-up visit [] Physician referral [] Code/Alert [x Routine visit [] Staff referral [] Actively dying [] Patient sleeping [] Family support [] [] Out of room [] Palliative care [] [x] Receiving care in room [] Pre-surgical visit [] Trauma [] Long length of stay [x] ICU visit [] Other: Relational/Emotional Strength [] Patient feels connected with others/family/visitors/staff [] Distress [] Loneliness/isolation [] Abandonment Spirituality of Patient [] Person of [place] [] Attends Hoahaoism of their [place] [] Believes in Prayer [] Reads Bible or Mormon materials [] There are Spiritual issues to be addressed Helper Electrical Interventions [x] Prayer [] Active listening [] Non-anxious presence [] Spiritual/emotional support [] Crisis/trauma care [] Spiritual counseling [] Bereavement support [] Provided bereavement packet [] Provided Bible/devotional materials [] Provided toy/stuffed animal, coloring book to patient or family member [] Provided Communion [] Anointing/[place] [] Salvation [x] Completed spiritual assessment [] Other: Impact on Illness or Injury [] Angry [] Fearful [] Anxious [] Often cries [] Exhaustion [] Unable to work [] Unable to attend christianity [] Unable to walk/stand [] Unable to read [] Unable to drive [] Unable to eat/drink [] Unable to sleep [] Unable to be with family [] Patient intubated [] Other: Summary Time spent with patient
[2022-01-03] MEDS: potassium chloride ER 20 mEq Tablet PO (13:27)
[2022-01-03] MEDS: pantoprazole 40 mg SDV IVP (16:43)
--- NOTE | 2022-01-03 16:44 | XR_ITS ---
WS: [id number] XR chest 1V portable [id number] REASON FOR EXAM: Hemothorax F/U FINDINGS: Chest is unchanged compared to the previous examination of 01/03/2022 at 4:37 AM. Small bore chest tub e overlies the left lateral lower hemithorax. Overlying device artifacts limit the evaluation, howeve r no left pneumothorax is identified. Right pleural effusion and right lower lobe atelectasis unchanged. No new findings. XR/XR chest 1V portable [id number] IMPRESSION: Stable abnormal chest.
--- NOTE | 2022-01-03 19:23 | P.PN_ITS ---
Subjective Subjective: Patient is feeling better. No chest pain. Vitals/I&O/Wt Last Vital Signs Temp 98.4 F 01/03/22 04:00 Pulse 104 H 01/03/22 17:00 Resp 16 01/03/22 17:44 BP 134/91 01/03/22 17:00 Pulse Ox 100 01/03/22 17:44 01/03/22 01/03/22 01/03/22 06:59 14:59 22:59 Intake Total 50 / 730 780 / 780 440 / 1220 Output Total 250 / 2680 500 / 500 Balance -200 / -1950 780 / 780 -60 / 720 Physical Exam Narrative: GENERAL: Patient is alert, awake and oriented x3. [] NECK: No jugular vein distension. [] HEENT: No cyanosis. No icterus. No pallor. [] HEART: Irregularly irregular,? S1, S2 LUNGS: has bilateral crackles ABDOMEN: Soft, nontender and nondistended. Positive bowel sounds. No guarding, rebound or tenderness. [] CENTRAL NERVOUS SYSTEM: Grossly nonfocal. [] EXTREMITIES: Lower extremities with 2+ edema bilaterally. Pulses palpable in the lower extremities, both dorsalis pedis and posterior tibial. [] Urinary Catheter Management: Patel: Cath Placed During This Visit: yes Reason for Continuing Indwelling Catheter: Accurate Measurement of Urinary Output in Critically Ill Patients Urinary Catheter Date of Insertion: 12/29/21 Urinary Catheter Time of Insertion: 16:00 Data : 01/04/22 03:48 01/04/22 03:48 Micro: Microbiology 01/01/22 13:15 Gram Stain - Final Pleural Fluid Body Fluid Culture - Preliminary 01/01/22 13:15 Mycobacterial Smear - Preliminary Body Fluids - Pleura 12/29/21 11:13 Blood Culture - Final Blood Staph capitis sub ureolyticus Corynebacterium species 12/29/21 11:13 Blood Culture - Final Blood Staph capitis sub ureolyticus Corynebacterium species A&P Assessment and plan (1) Sepsis: Status: Acute (2) Lactic acidosis: Status: Acute (3) Pulmonary edema: Status: Acute (4) Acute heart failure: Status: Acute (5) NSTEMI (non-ST elevated myocardial infarction): Status: Acute (6) CAD (coronary artery disease): Status: Acute (7) COPD (chronic obstructive pulmonary disease): Status: Acute (8) Atrial fibrillation: Status: Acute (9) Traumatic hemothorax: Status: Acute Plan Patient has presented with sepsis, congestive heart failure, pulmonary edema, non-ST elevation CT and atrial fibrillation with RVR. Was found to have a hemothorax and had a chest tube. Hold anticoagulation We will hold off on coronary angiogram. He will require coronary evaluation but can be done as outpatient Hold diuretics for now. For atrial fibrillation, currently on PO amio and metoprolol Echocardiogram is limited quality because of poor ultrasonic windows. It shows mildly decreased to normal EF. Strict I&O's Antibiotic treatment per primary team Thank you for involving us with care of this patient. We will continue to [place]. Please call with questions Attestations Medical Necessity Statement*: Care expected to cross 2 midnights. Coding Level of Care Code Acute Firmware Developer for g Fwd Diagnoses Sepsis A41.9 Lactic acidosis E87.2 Pulmonary edema J81.1 Acute heart failure I50.9 NSTEMI (non-ST elevated myocardial infarction) I21.4 CAD (coronary artery disease) I25.10 COPD (chronic obstructive pulmonary disease) J44.9 Atrial fibrillation I48.91 Traumatic hemothorax S27.1XXA
[2022-01-03] MEDS: atorvastatin 40 mg Tablet PO (20:32)
[2022-01-03] MEDS: morphine 4 mg/mL SDV 1 mL IVP (20:57)
[2022-01-04] VITALS (32 sets, daily range): BP systolic 97–158; BP diastolic 74–112; PULSE 73–120; RESP 11–20; TEMP 36–37.2; O2SAT 88–98
[2022-01-04 04:12] LABS: Basophils % 0.1 %; Hematocrit 36.1 % (42.0-52.0); Hemoglobin 12.2 g/dL (11.7-16.6); Lymphocytes # 0.7 10^3/uL (0.8-4.8); Lymphocytes % 3.9 %; Mean Corpuscular HGB Conc 33.8 g/dL (30.0-36.0); Mean Corpuscular Volume 91.9 fl (80-94); Mean Platelet Volume 9.2 fL (7.4-10.4); Monocytes # 1.4 10^3/uL (0.2-0.9); Monocytes % 8.2 %; Neutrophils # 15.39 10^3/uL (1.8-7.7); Neutrophils % 87.1 %; Nucleated Red Blood Cells % 0 %; Platelet Count 513 10^3/cmm (130-400); Red Blood Count 3.93 10^6/uL (4.1-5.3); Red Cell Distribution Width 13.3 % (12.1-15.1); White Blood Count 17.6 10^3/uL (4.0-10.0)
[2022-01-04 04:39] LABS: Alanine Aminotransferase 39 U/L (0-41); Albumin Level 3.1 g/dL (3.5-5.2); Alkaline Phosphatase 51 IU/L (40-130); Anion Gap 11.8 (5-19); Aspartate Amino Transferase 25 U/L (0-40); Blood Urea Nitrogen 62 mg/dL (8-23); C Reactive Protein 53.9 mg/L (0.0-4.9); Calcium 9.3 mg/dL (8.5-10.5); Carbon Dioxide 31 mmol/L (22-29); Chloride 95 mmol/L (98-107); Globulin 2.8 g/dL (1.3-4.6); Glucose 140 mg/dL (65-115); Magnesium 2.3 mg/dL (1.7-2.3); Osmolality Calculated 298 mOsm/kg (285-295); Phosphorus 3.1 mg/dL (2.5-4.5); Potassium 3.8 mmol/L (3.5-5.1); Sodium 134 mmol/L (136-145); Total Bilirubin 0.6 mg/dL (0.15-1.2); Total Protein 5.9 g/dL (6.6-8.7)
[2022-01-04 04:45] LABS: NT Pro B Type Natriuretic Pept 4311 pg/mL (0-450)
[2022-01-04] MEDS: vancomycin 1,250 MG/250 ML PIGGYBACK 200 MG IV (05:07)
--- NOTE | 2022-01-04 07:11 | XRR_ITS ---
PROCEDURE INFORMATION: Exam: XR Chest Exam date and time: 01/04/2022 7:11 AM Age: 76 years old Clinical indication: Condition or disease; Lung condition and disease; Pleural effusion; Other: Not specified; Additional info: Left pleural effusion TECHNIQUE: Imaging protocol: XR of the chest. Views: 1 view. COMPARISON: CR (CHEST, ) 01/03/2022 4:56 PM FINDINGS: The thorax is partially obscured by overlying EKG leads and patch. Tubes, catheters and devices: Residual left pleural catheter. Lungs: COPD and interstitial prominence. Asymmetric right basilar airspace disease. Pleural spaces: Right pleural effusion partially obscuring the right hemidiaphragm. Heart/Mediastinum: Borderline cardiomegaly. Bones/joints: Degenerative change. XR/XR chest 1V portable [id number] IMPRESSION: COPD and asymmetric right basilar airspace/pleural disease.
[2022-01-04] MEDS: budesonide 0.5 mg/2 mL Neb INHALATION ×2 (08:13→19:56)
[2022-01-04] MEDS: ipratropium-albuterol 3 mL Neb INHALATION ×4 (08:13→19:56)
[2022-01-04] MEDS: amiodarone 200 mg Tablet 400 MG PO ×2 (08:39→20:12)
[2022-01-04] MEDS: aspirin 81 mg EC Tablet PO (08:39)
[2022-01-04] MEDS: morphine 4 mg/mL SDV 1 mL IVP ×3 (08:40→16:55)
[2022-01-04] MEDS: metoprolol tartrate 50 mg Tablet PO ×2 (08:40→20:12)
[2022-01-04] MEDS: piperacillin-tazobactam 3.375 GM in sodium chloride 0.9% (plus) 50 ML IV ×3 (08:41→23:59)
--- NOTE | 2022-01-04 09:30 | PC.NURSE ---
chest tube pulled by Dr. James. Vaseline gauze and dressing applied. Patient tolerated well.
--- NOTE | 2022-01-04 10:36 | PM.PN ---
Subjective Subjective: No new issues with Mr. Florentino today. He had a restless night and is now sleeping this morning. He is comfortable though. Hemodynamics reviewed, look good. Urine output looks robust as well. Medications: Medication Review Details: Generic Name Dose Route Start Last Admin Trade Name Tino PRN Reason Stop Dose Admin Albuterol/Ipratrop ium 3 ml 12/29/21 16:00 01/03/22 15:34 Ipratropium-Albu terol 3 Ml Neb INHALATION 3 ml QID.RESPIRATORY S CH Administration Amiodarone HCl 400 mg 01/02/22 08:00 01/03/22 08:19 Amiodarone 200 M g Tablet PO 400 mg Q12H DEVON Administration Aspirin 81 mg 12/30/21 09:00 01/03/22 08:18 Aspirin 81 Mg Ec Tablet PO 81 mg DAILY DEVON Administration Atorvastatin Calci um 40 mg 12/29/21 21:00 01/02/22 20:02 Atorvastatin 40 Mg Tablet PO 40 mg BEDTIME DEVON Administration Budesonide 0.5 mg 12/29/21 20:00 01/03/22 07:31 Budesonide 0.5 M g/2 Ml Neb INHALATION 0.5 mg BID.RESPIRATORY S CH Administration Enoxaparin Sodium 90 mg 12/30/21 02:00 01/01/22 13:19 Enoxaparin 100 M g/Ml Syringe 1 mg/kg (90 mg) Not Given SUBCUT Q12H DEVON Piperacillin Sod/T azobactam 50 mls @ 12.5 mls /hr 12/29/21 16:00 01/03/22 16:43 Sod 3.375 gm/ So dium Chloride IV 12.5 mls/hr Q8H DEVON Administration Protocol Vancomycin/PEG/NAD A/Lysine/Water 1,250 mg in 250 m ls @ 200 mls/hr 01/03/22 05:00 01/03/22 07:20 Vancocin IV Infused Q24H DEOVN Infusion Methylprednisolone Sodium Succinate 40 mg 01/01/22 18:00 01/03/22 17:45 Methylprednisolo ne Sod Succ 40 Mg/ Ml Inj IVP 40 mg Q12H DEVON Administration Metoprolol Tartrat e 50 mg 01/02/22 09:00 01/03/22 08:20 Metoprolol Tartr ate 50 Mg Tablet PO 50 mg BID@0900,2100 DEVON Administration Morphine Sulfate 2 mg 12/29/21 14:52 01/03/22 17:44 Morphine 4 Mg/Ml Sdv 1 Ml IVP 2 mg Q4H PRN Administration SEVERE PAIN Pantoprazole Sodiu m 40 mg 12/29/21 16:30 01/03/22 16:43 Pantoprazole 40 Mg Sdv IVP 40 mg Q24H DEVON Administration Vitals/I&O/Wt Last Vital Signs Temp 98.9 F 01/04/22 04:00 Pulse 85 01/04/22 10:00 Resp 12 01/04/22 10:00 BP 135/93 01/04/22 10:00 Pulse Ox 98 01/04/22 10:00 01/03/22 01/04/22 01/04/22 22:59 06:59 14:59 Intake Total 550 / 1330 300 / 1630 240 / 240 Output Total 635 / 635 600 / 1235 60 / 60 Balance -85 / 695 -300 / 395 180 / 180 Physical Exam Narrative: Constitutional: Resting comfortably HEENT: Wet mucosa, no jvp, non icteric Lungs: Bilaterally diminished without discernible wheeze, rales in all lung zones CVS: S1 S2, no murmurs Abdo: Soft, BS ok Ext 4: 2-3+ edema, peripheral perfusion with no cyanosis Neurological: Grossly non-focal Urinary Catheter Management: Patel: Cath Placed During This Visit: yes, but has since been removed by the nurse Reason for Continuing Indwelling Catheter: Does Not Meet Criteria Urinary Catheter Date of Insertion: 12/29/21 Urinary Catheter Time of Insertion: 16:00 Date Urinary Catheter Removed: 01/04/22 Time Urinary Catheter Discontinued: 00:30 Data : 01/04/22 03:48 01/04/22 03:48 Micro: Microbiology 01/01/22 13:15 Gram Stain - Final Pleural Fluid Body Fluid Culture - Preliminary A&P Assessment and plan (1) Acute kidney failure: Status: Acute Plan 1. Acute kidney injury Creatinine is now normal. I appreciate BUN is still elevated, however, his renal function remains very robust. Strict I's and O's Dose medication for GFR 30-60 2. Chemistry Minor noncritical aberration 3. Hemodynamics Atrial fibrillation RVR throughout the hospitalization currently being controlled with amiodarone and metoprolol. Defer to cardiology. 4. STEMI Pending angiogram when more stable cardiology. Currently on aspirin, metoprolol. 5. Empirical therapy for pneumonia 6. Pleural effusions S/p chest tube; mgmt per Pulmonary Acute renal issues have now resolved given jew of renal function with normalization of creatinine. With this in mind we will sign off his care at this time and follow his case peripherally. Thanks again for my involvement in his care, as always our team appreciates that. Ritchie Kamara MD Nephrology [phone] Patient seen and examined via telemedicine, with the assistance of the bedside RN > 25 min spent in evaluation and mgmt of patient Attestations Medical Necessity Statement*: eval for JHONNY Coding Level of Care Code Acute Dietitian Teaching for g Fwd Diagnoses Acute kidney failure N17.9
--- NOTE | 2022-01-04 14:44 | PC.OT ---
OT TREATMENT ATTEMPTED TWICE TODAY. 1ST ATTEMPT IN A.M. PATIENT HAD MULTIPLE VISITORS IN HIS ROOM AND I WAS ASKED TO COME BACK AT A LATER TIME. 2ND ATTEMPT IN P.M. PATIENT WAS SOUND ASLEEP. TREATMENT TO BE ATTEMPTED AGAIN AT A LATER TIME.
--- NOTE | 2022-01-04 15:30 | XRR_ITS ---
PROCEDURE INFORMATION: Exam: XR Chest Exam date and time: 01/04/2022 3:32 PM Age: 76 years old Clinical indication: Shortness of breath; Additional info: SOB TECHNIQUE: Imaging protocol: XR of the chest. Views: 1 view. COMPARISON: CR XR chest 1V portable [id number] 01/04/2022 7:17 AM FINDINGS: Lungs: There is interstitial congestion in the right lower lobe stable since prior examination. The right upper lobe and left lung are clear Pleural spaces: Unremarkable. No pleural effusion. No pneumothorax. Heart/Mediastinum: Unremarkable. No cardiomegaly. Bones/joints: Unremarkable. XR/XR chest 1V portable [id number] IMPRESSION: 1. Stable right lower lobe interstitial congestion 2. Otherwise No acute findings.
--- NOTE | 2022-01-04 16:37 | P.PN_ITS ---
Subjective Subjective: Patient was seen and examined this morning, in the morning he was doing fine, according to him the shortness of breath was improved, still catheter was removed by pulmonary today, A.m. chest x-ray : Showed right pleural effusion, as well as asymmetric right basilar airspace disease. Patient started complaining of shortness of breath as well as chest pain in the afternoon, Repeat chest x-ray was done: Which showed no pneumothorax, persistent right pleural effusion with interstitial congestion. Lasix 40 mg IV one-time dose was given. Continue to make good urine output, serum creatinine has normalized. Medications: Medication Review Details: Generic Name Dose Route Start Last Admin Trade Name Freq PRN Reason Stop Dose Admin Albuterol/Ipratrop ium 3 ml 12/29/21 16:00 01/03/22 15:34 Ipratropium-Albu terol 3 Ml Neb INHALATION 3 ml QID.RESPIRATORY S CH Administration Amiodarone HCl 400 mg 01/02/22 08:00 01/03/22 08:19 Amiodarone 200 M g Tablet PO 400 mg Q12H DEVON Administration Aspirin 81 mg 12/30/21 09:00 01/03/22 08:18 Aspirin 81 Mg Ec Tablet PO 81 mg DAILY DEVON Administration Atorvastatin Calci um 40 mg 12/29/21 21:00 01/02/22 20:02 Atorvastatin 40 Mg Tablet PO 40 mg BEDTIME DEVON Administration Budesonide 0.5 mg 12/29/21 20:00 01/03/22 07:31 Budesonide 0.5 M g/2 Ml Neb INHALATION 0.5 mg BID.RESPIRATORY S CH Administration Enoxaparin Sodium 90 mg 12/30/21 02:00 01/01/22 13:19 Enoxaparin 100 M g/Ml Syringe 1 mg/kg (90 mg) Not Given SUBCUT Q12H DEVON Piperacillin Sod/T azobactam 50 mls @ 12.5 mls /hr 12/29/21 16:00 01/03/22 16:43 Sod 3.375 gm/ So dium Chloride IV 12.5 mls/hr Q8H DEVON Administration Protocol Vancomycin/PEG/NAD A/Lysine/Water 1,250 mg in 250 m ls @ 200 mls/hr 01/03/22 05:00 01/03/22 07:20 Vancocin IV Infused Q24H DEVON Infusion Methylprednisolone Sodium Succinate 40 mg 01/01/22 18:00 01/03/22 17:45 Methylprednisolo ne Sod Succ 40 Mg/ Ml Inj IVP 40 mg Q12H DEVON Administration Metoprolol Tartrat e 50 mg 01/02/22 09:00 01/03/22 08:20 Metoprolol Tartr ate 50 Mg Tablet PO 50 mg BID@0900,2100 DEVON Administration Morphine Sulfate 2 mg 12/29/21 14:52 01/03/22 17:44 Morphine 4 Mg/Ml Sdv 1 Ml IVP 2 mg Q4H PRN Administration SEVERE PAIN Pantoprazole Sodiu m 40 mg 12/29/21 16:30 01/03/22 16:43 Pantoprazole 40 Mg Sdv IVP 40 mg Q24H DEVON Administration Vitals/I&O/Wt Last Vital Signs Temp 98.9 F 01/04/22 04:00 Pulse 92 01/04/22 15:35 Resp 16 01/04/22 15:33 BP 109/77 01/04/22 13:00 Pulse Ox 92 01/04/22 15:33 01/04/22 01/04/22 01/04/22 06:59 14:59 22:59 Intake Total 300 / 1630 530 / 530 Output Total 600 / 1235 210 / 210 Balance -300 / 395 320 / 320 Physical Exam Const: COMMON NORMALS: patient oriented x3 HENMT: COMMON NORMALS: normocephalic and atraumatic HEAD & SCALP: normocephalic and atraumatic Chest: CHEST: Yes Symmetrical chest wall rise Resp: COMMON NORMALS: clear to auscultation bilaterally EFFORT & INSPECTION: Yes symmetric chest movement AUSCULTATION: clear to auscultation bilaterally OTHER: Diminished air entry bilaterally Cardio: COMMON NORMALS: regular rate, regular rhythm, S1 normal heart sound present, S2 normal heart sound present, No gallops present (Cardio), No murmurs present (Cardio), No rub (Cardio) and Peripheral pulses 2+ throughout RATE: regular rate RHYTHM: regular rhythm HEART SOUNDS: S1 normal heart sound present and S2 normal heart sound present PERIPHERAL PULSES: Peripheral pulses 2+ throughout GI: COMMON NORMALS: Normal to inspection, nondistended, normoactive bowel sounds present, Soft to palpation, non-tender, No hepatosplenomegaly present and no masses AUSCULTATION: Yes normoactive bowel sounds PALPATION: Yes Soft to palpation and Yes No hepatosplenomegaly present RECTAL EXAM: Yes deferred Extremity: COMMON NORMALS: no clubbing, cyanosis or edema and no pedal edema Neuro: COMMON NORMALS: patient oriented x3 Urinary Catheter Management: Patel: Cath Placed During This Visit: yes, but has since been removed by the nurse Reason for Continuing Indwelling Catheter: Does Not Meet Criteria Urinary Catheter Date of Insertion: 12/29/21 Urinary Catheter Time of Insertion: 16:00 Date Urinary Catheter Removed: 01/04/22 Time Urinary Catheter Discontinued: 00:30 Data : 01/04/22 03:48 01/04/22 03:48 Micro: Microbiology 01/01/22 13:15 Gram Stain - Final Pleural Fluid Body Fluid Culture - Final A&P Assessment and plan (1) Bacteremia due to Staphylococcus: Status: Acute (2) Traumatic hemothorax: Status: Acute (3) Acute kidney failure: Status: Acute (4) Atrial fibrillation: Status: Acute (5) Sepsis: Status: Acute (6) Lactic acidosis: Status: Acute (7) Hyponatremia: Status: Acute (8) Pulmonary edema: Status: Acute (9) Acute heart failure: Status: Acute (10) NSTEMI (non-ST elevated myocardial infarction): Status: Acute (11) Acute and chronic respiratory failure with hypoxia: Status: Acute (12) CAD (coronary artery disease): Status: Acute (13) Obesity: Status: Acute (14) Congestive heart failure: Status: Acute (15) COPD (chronic obstructive pulmonary disease): Status: Acute (16) Pneumonia: Status: Acute Plan Traumatic hemothorax on the left -Patient fell on Saturday -On admission was placed on Lovenox for NSTEMI -Status post thoracocentesis 01/01/2022 650 cc dark red blood, no growth so far -Status post chest tube placement, small left, over 1100 cc of dark red blood -Pulmonary consulted managing -Continue to monitor output, currently to suction -Daily chest x-rays -Monitor cultures, for possible infection, continue antibiotics as below -Anticoagulation relatively contraindicated Acute hypoxic respiratory failure -Multifactorial from CHF, pneumonia, atrial fibrillation, traumatic hemothorax on left Plan -Continue ICU admission -Continue BiPAP, BiPAP schedule during the night -Monitor respiratory status closely -Diuresed over 8 L -Creatinine 1.8, hold off on diuresis for today -Replace potassium -Continue Solu-Medrol l given wheezing, history of smoking -Patel catheter placement, monitor I's and O's -Fluid restrictions 1200 cc -WBC 21.1, blood cultures cultures positive for staphylococcal species, urine bacterial antigens negative, Legionella negative, MRSA nares negative, likely contamination, repeat blood cultures negative. However is on steroids, has a traumatic left hemothorax, -Zosyn for pneumonia -Vancomycin for pneumonia, line to to 2 out of 4 positive staphylococcal species and blood cultures, likely contamination, -CT angiogram negative for pulmonary emboli, venous ultrasound negative for DVT -Elevated Vanco trough, currently vancomycin on hold -Full code -Lovenox for DVT prophylaxis JHONNY, likely secondary to diuresis, contrast, hold diuresis, nephrology consulted A. fib with RVR -New onset -Off amiodarone drip -Amiodarone 400 mg once a day, metoprolol 50 twice daily -Lovenox as above NSTEMI -Elevated troponin likely secondary to respiratory failure, A. fib, however c annot rule out underlying cardiac etiology -Underlying CAD status post stenting x1 -No chest pain complaints -Baseline troponin 117, 120-minute 192, 75.6, 366 -EKG A. fib with RVR, nonspecific ST-T wave changes -Aspirin, statin, metoprolol -Therapeutic anticoagulation currently on hold given hemothorax -Cardiac echocardiogram left ventricle systolic function grossly normal -Serial troponin, serial EKGs, telemetry monitoring -Cardiology consulted: Is of the opinion to do cardiac cath as outpatient History of heart failure, likely combination of systolic diastolic as above History of COPD, solumderol, DuoNeb, budesonide Pneumonia, with sepsis, as above, leukocytosis elevated lactic acid Hyponatremia likely secondary to heart failure, continue diuresis Lactic acidosis secondary to pneumonia, Attestations Medical Necessity Statement*: He needs to be in hospital for management of above defined problems Time Spent in Patient Care: Greater than 35 minutes (>than 50% of time spent in counselling and/or direct pt care on unit) . Critical Care Time: 40 Other Attestations: The high probability of a clinically significant, sudden or life threatening deterioration of the patient's [] system(s) required my full and direct attention, intervention and personal management. The critical care time is as shown. This time is in addition to time spent performing any reported procedures but includes the following: [x] Data and vital sign review and interpretation [x] Patient assessment, examination and intervention [x] Documentation [x] Medication orders and management Coding Level of Care Code Acute Body Painter for Chg Fwd Diagnoses Bacteremia due to Staphylococcus R78.81; B95.8 Traumatic hemothorax S27.1XXA Acute kidney failure N17.9 Atrial fibrillation I48.91 Sepsis A41.9 Lactic acidosis E87.2 Hyponatremia E87.1 Pulmonary edema J81.1 Acute heart failure I50.9 NSTEMI (non-ST elevated myocardial infarction) I21.4 Acute and chronic respiratory failure with hypoxia J96.21 CAD (coronary artery disease) I25.10 Obesity E66.9 Congestive heart failure I50.9 COPD (chronic obstructive pulmonary disease) J44.9 Pneumonia J18.9
[2022-01-04] MEDS: FUROsemide 10 mg/mL SDV 4mL 40 MG IVP (16:58)
[2022-01-04] MEDS: pantoprazole DR 40 mg Tablet PO (16:58)
--- NOTE | 2022-01-04 19:58 | PM.PN ---
Subjective Subjective: -Patient seen at bedside today -Last 24 hours left pigtail output was 70 cc serosanguineous fluid left chest x-ray did not show any accumulation of left pleural effusion pneumothorax-pigtail removed -Patient reported his dyspnea has improved significantly but has had chest pains -X-ray still showed right pleural effusion-currently on Lasix -Renal functions are improving and cardiology will decide on timing of cardiac cath Medications: Medication Review Details: Generic Name Dose Route Start Last Admin Trade Name Tino PRN Reason Stop Dose Admin Albuterol/Ipratrop ium 3 ml 12/29/21 16:00 01/03/22 15:34 Ipratropium-Albu terol 3 Ml Neb INHALATION 3 ml QID.RESPIRATORY S CH Administration Amiodarone HCl 400 mg 01/02/22 08:00 01/03/22 08:19 Amiodarone 200 M g Tablet PO 400 mg Q12H DEVON Administration Aspirin 81 mg 12/30/21 09:00 01/03/22 08:18 Aspirin 81 Mg Ec Tablet PO 81 mg DAILY DEVON Administration Atorvastatin Calci um 40 mg 12/29/21 21:00 01/02/22 20:02 Atorvastatin 40 Mg Tablet PO 40 mg BEDTIME DEVON Administration Budesonide 0.5 mg 12/29/21 20:00 01/03/22 07:31 Budesonide 0.5 M g/2 Ml Neb INHALATION 0.5 mg BID.RESPIRATORY S CH Administration Enoxaparin Sodium 90 mg 12/30/21 02:00 01/01/22 13:19 Enoxaparin 100 M g/Ml Syringe 1 mg/kg (90 mg) Not Given SUBCUT Q12H DEVON Piperacillin Sod/T azobactam 50 mls @ 12.5 mls /hr 12/29/21 16:00 01/03/22 16:43 Sod 3.375 gm/ So dium Chloride IV 12.5 mls/hr Q8H DEVON Administration Protocol Vancomycin/PEG/NAD A/Lysine/Water 1,250 mg in 250 m ls @ 200 mls/hr 01/03/22 05:00 01/03/22 07:20 Vancocin IV Infused Q24H DEVON Infusion Methylprednisolone Sodium Succinate 40 mg 01/01/22 18:00 01/03/22 17:45 Methylprednisolo ne Sod Succ 40 Mg/ Ml Inj IVP 40 mg Q12H DEVON Administration Metoprolol Tartrat e 50 mg 01/02/22 09:00 01/03/22 08:20 Metoprolol Tartr ate 50 Mg Tablet PO 50 mg BID@0900,2100 DEVON Administration Morphine Sulfate 2 mg 12/29/21 14:52 01/03/22 17:44 Morphine 4 Mg/Ml Sdv 1 Ml IVP 2 mg Q4H PRN Administration SEVERE PAIN Pantoprazole Sodiu m 40 mg 12/29/21 16:30 01/03/22 16:43 Pantoprazole 40 Mg Sdv IVP 40 mg Q24H DEVON Administration Vitals/I&O/Wt Last Vital Signs Temp 98.9 F 01/04/22 04:00 Pulse 77 01/04/22 19:53 Resp 14 01/04/22 19:53 BP 120/88 01/04/22 19:00 Pulse Ox 97 01/04/22 19:53 01/04/22 01/04/22 01/04/22 06:59 14:59 22:59 Intake Total 300 / 1630 530 / 530 Output Total 600 / 1235 210 / 210 800 / 1010 Balance -300 / 395 320 / 320 -800 / -480 Physical Exam Narrative: General: alert, NAD HEENT: conj clear, EOMI, PERRL, mmm, Neck: supple, no meningismus Heme: no cervical LAP Pulmonary: Tender on palpation on left side, reduced breath sounds on right lower lung base but improved on left side Cardiovascular: rrr, nl s1s2, no mrg Abdomen: soft, nt, nd, no r/g, bs+ Extremities: pulses +, 2+ pitting pedal edema, no c/c : no CVA tenderness Skin: intact, no rash MSK: no back or neck pain Neurologic: grossly intact Urinary Catheter Management: Patel: Cath Placed During This Visit: yes, but has since been removed by the nurse Reason for Continuing Indwelling Catheter: Accurate Measurement of Urinary Output in Critically Ill Patients Urinary Catheter Date of Insertion: 01/04/22 Urinary Catheter Time of Insertion: 17:10 Date Urinary Catheter Removed: 01/04/22 Time Urinary Catheter Discontinued: 00:30 Data : 01/04/22 03:48 01/04/22 03:48 Other Labs: Radiology Impressions Chest CTA 12/29/21 11:52 IMPRESSION: 1. No pulmonary embolism. 2. Small to moderate bilateral pleural effusions. 3. Very mild subsegmental pneumonitis in the RIGHT middle, upper and lower lobes. 4. Partial atelectasis lingula. 5. Tricuspid regurgitation into hepatic veins. Venous Duplex 12/29/21 14:48 IMPRESSION: 1. No evidence for deep vein thrombosis. 2. Subcutaneous soft tissue edema in the bilateral lower legs. Thoracentesis Ultrasound 01/01/22 00:00 IMPRESSION: Uncomplicated ultrasound-guided thoracentesis. Renal Ultrasound 01/02/22 15:42 IMPRESSION: 1. No hydronephrosis in either kidney. 2. Patel catheter. 3. Aorta not visualized. 4. Cortical lobulation LEFT kidney mid aspect measuring 2.3 x 2.2 x 2.0 cm is indeterminant. This can be further evaluated with CT abdomen pelvis. Chest X-Ray 01/04/22 15:30 IMPRESSION: 1. Stable right lower lobe interstitial congestion 2. Otherwise No acute findings. Laboratory Results WBC 17.6 10^3/uL (4.0-10.0) H 01/04/22 03:48 RBC 3.93 10^6/uL (4.1-5.3) L 01/04/22 03:48 Hgb 12.2 g/dL (11.7-16.6) 01/04/22 03:48 Hct 36.1 % (42.0-52.0) L 01/04/22 03:48 MCV 91.9 fl (80-94) 01/04/22 03:48 MCH 31.0 pg (28.0-34.0) 01/04/22 03:48 MCHC 33.8 g/dL (30.0-36.0) 01/04/22 03:48 RDW 13.3 % (12.1-15.1) 01/04/22 03:48 Plt Count 513 10^3/cmm (130-400) H 01/04/22 03:48 MPV 9.2 fL (7.4-10.4) 01/04/22 03:48 Neut % (Auto) 87.1 % 01/04/22 03:48 Lymph % (Auto) 3.9 % 01/04/22 03:48 [place] % (Auto) 8.2 % 01/04/22 03:48 Eos % (Auto) 0.0 % 01/04/22 03:48 Baso % (Auto) 0.1 % 01/04/22 03:48 Neut # (Auto) 15.39 10^3/uL (1.8-7.7) H 01/04/22 03:48 Lymph # (Auto) 0.7 10^3/uL (0.8-4.8) L 01/04/22 03:48 [place] # (Auto) 1.4 10^3/uL (0.2-0.9) H 01/04/22 03:48 Eos # (Auto) 0.0 10^3/uL (0.0-0.8) 01/04/22 03:48 Baso # (Auto) 0.0 10^3/uL (0.0-0.1) 01/04/22 03:48 Nucleated RBC % (auto) 0 % 01/04/22 03:48 Total Counted 100 (0-100) 01/02/22 18:13 Atypical Lymphs % 0.0 % (0-5) 01/02/22 18:13 Absolute Neutrophils 24.9 10^3/cmm (1.4-6.5) H 01/02/22 18:13 Segmented Neutrophils 89 % 01/02/22 18:13 Abs Segm Neuts (Man) 24.9 10/cmm (1.6-7.1) H 01/02/22 18:13 Band Neutrophils 0.0 % 01/02/22 18:13 Abs Band Neuts (Man) 0.0 10^3/cmm (0.0-1.2) 01/02/22 18:13 Absolute Lymphocytes 0.6 10^3/cmm (1.2-3.4) L 01/02/22 18:13 Lymphocytes (Manual) 2 % 01/02/22 18:13 Monocytes (Manual) 9.0 % 01/02/22 18:13 Absolute Monocytes 2.5 10^3/cmm (0.1-0.6) H 01/02/22 18:13 Eosinophils (Manual) 0 % 01/02/22 18:13 Absolute Eosinophils 0.0 10^3/cmm (0.0-0.7) 01/02/22 18:13 Basophils (Manual) 0.0 % 01/02/22 18:13 Absolute Basophils 0.0 10^3/cmm (0.0-0.2) 01/02/22 18:13 Nucleated RBCs # 0.0 /100WBC 01/04/22 03:48 Differential Comment Yes 01/01/22 13:15 Platelet Estimate Increased (Normal) 01/02/22 18:13 PT 14.00 SECONDS (12.1-14.9) 01/01/22 04:39 INR 1.05 (0.8-1.2) 01/01/22 04:39 APTT 41.4 SECONDS (23.9-36.7) H 12/31/21 03:43 D-Dimer 1.17 ug/mIFEU (0-0.59) H 12/30/21 05:08 Specimen Type Arterial 12/30/21 05:00 Sample Site Radial, right 12/30/21 05:00 ABG pH 7.47 (7.35-7.45) H 12/30/21 05:00 ABG pCO2 40.5 mmHg (35-45) 12/30/21 05:00 ABG pO2 83.5 mmHg (80.0-100.0) 12/30/21 05:00 ABG HCO3 29.6 mmol/L (22-26) H 12/30/21 05:00 ABG Base Excess 5.5 mmol/L (-2.0-2.0) H 12/30/21 05:00 Damon Test Pos 12/30/21 05:00 Hematocrit 37.8 % (42-52) L 12/30/21 05:00 O2 Delivery Device Bipap 12/30/21 05:00 FiO2 30.0 % 12/30/21 05:00 Exercise Equipment Repair Technician ID Hinja 12/30/21 05:00 Sodium 134 mmol/L (136-145) L 01/04/22 03:48 Potassium 3.8 mmol/L (3.5-5.1) 01/04/22 03:48 Chloride 95 mmol/L (98-107) L 01/04/22 03:48 Carbon Dioxide 31 mmol/L (22-29) H 01/04/22 03:48 Anion Gap 11.8 (5-19) 01/04/22 03:48 BUN 62 mg/dL (8-23) H 01/04/22 03:48 Creatinine 1.0 mg/dL (0.7-1.2) 01/04/22 03:48 GFR Calculation Not Reportable 01/04/22 03:48 Glucose 140 mg/dL (65-115) H 01/04/22 03:48 Estimat Average Glucose 105 12/29/21 11:04 Hemoglobin A1c 5.3 % (4.0-6.0) 12/29/21 11:04 Calculated Osmolality 298 mOsm/kg (285-295) H 01/04/22 03:48 Lactic Acid 1.2 mmol/L (0.5-2.2) 12/30/21 05:08 Lactic Acid (Sepsis) 2.4 mmol/L (0.5-2.2) H 12/29/21 13:43 Uric Acid 9.4 mg/dL (3.4-7.0) H 01/02/22 14:32 Calcium 9.3 mg/dL (8.5-10.5) 01/04/22 03:48 Phosphorus 3.1 mg/dL (2.5-4.5) 01/04/22 03:48 Magnesium 2.3 mg/dL (1.7-2.3) 01/04/22 03:48 Total Bilirubin 0.6 mg/dL (0.15-1.2) 01/04/22 03:48 AST 25 U/L (0-40) 01/04/22 03:48 ALT 39 U/L (0-41) 01/04/22 03:48 Alkaline Phosphatase 51 IU/L (40-130) 01/04/22 03:48 Creatine Kinase 54 U/L (39-308) 01/02/22 14:32 Troponin T Gen 5 ng/L 366 ng/L (0-15) H* 12/30/21 05:08 Troponin T Baseline 338 ng/L (0-15) H* 01/02/22 06:30 Troponin T 120 Minute 344.9 ng/L (0-15) H 01/02/22 08:30 Delta Troponin T 6.9 ABS# (0-10) 01/02/22 08:30 Troponin T Hi Sens 6Hr 343.2 ng/L (0-15) H 01/02/22 14:32 Troponin T Hi Sens 6Hr Delta 5.2 ng/L (0-12) 01/02/22 14:32 C-Reactive Protein 53.9 mg/L (0.0-4.9) H 01/04/22 03:48 NT-Pro-B Natriuret Pep 4311 pg/mL (0-450) H 01/04/22 03:48 Total Protein 5.9 g/dL (6.6-8.7) L 01/04/22 03:48 Albumin 3.1 g/dL (3.5-5.2) L 01/04/22 03:48 Globulin 2.8 g/dL (1.3-4.6) 01/04/22 03:48 Triglycerides 52 mg/dL (0-150) 12/29/21 13:05 Cholesterol 136 mg/dL (0-200) 12/29/21 13:05 LDL Cholesterol, Calc 84 mg/dL (50-129) 12/29/21 13:05 HDL Cholesterol 42 mg/dL (60-100) L 12/29/21 13:05 LDL/HDL Ratio 2.00 RATIO (0.00-3.22) 12/29/21 13:05 Cholesterol/HDL Ratio 3.24 mg/dL (1.0-5.00) 12/29/21 13:05 Procalcitonin 0.06 ng/mL (0-0.5) 12/29/21 10:59 TSH 1.09 uIU/mL (0.27-4.20) 12/29/21 13:05 Urine Color Yellow (Yellow) 01/02/22 15:50 Urine Appearance Hazy (CLEAR) A 01/02/22 15:50 Urine pH 5 (5-7) 01/02/22 15:50 Ur Specific [place] 1.020 (1.005-1.030) 01/02/22 15:50 Urine Protein Neg (Negative) 01/02/22 15:50 Urine Glucose (UA) Norm (Normal) 01/02/22 15:50 Urine Ketones Negative (Negative) 01/02/22 15:50 Urine Blood 2+ (Negative) H 01/02/22 15:50 Urine Nitrate Negative (Negative) 01/02/22 15:50 Urine Bilirubin Neg (Negative) 01/02/22 15:50 Urine Urobilinogen Neg mg/dL (Negative) 01/02/22 15:50 Ur Leukocyte Esterase Negative (Negative) 01/02/22 15:50 Urine RBC 5-10 /hpf (0-2) H 01/02/22 15:50 Urine WBC 0-4 /hpf (0-5) H 01/02/22 15:50 Ur Squamous Epith Cells Rare /hpf (0-5) 01/02/22 15:50 Uric Acid Crystals 0-4 /hpf 01/02/22 15:50 Amorphous Sediment Not Reportable 01/02/22 15:50 Urine Bacteria Trace /hpf (NONE) 01/02/22 15:50 U Random Total Protein 14 mg/dL 01/02/22 15:50 Ur Random Sodium 18 mmol/L 01/02/22 15:50 Ur Random Urea Nitrogn 618 mg/dL 01/02/22 15:50 Urine Creatinine 124 mg/dL (39-259) 01/02/22 15:50 Protein/Creatinin Ratio 0.11 mg/mg CR 01/02/22 15:50 Fluid Color Red 01/01/22 13:15 Fluid Appearance Bloody 01/01/22 13:15 Fluid WBC 3496 /uL 01/01/22 13:15 Fluid RBC 3671.000 10^3/uL 01/01/22 13:15 Fluid Hematocrit 37.1 % 01/01/22 13:15 Fld Polynuclear WBCs # 2.607 01/01/22 13:15 Fld Polynuclear WBCs % 74.600 % 01/01/22 13:15 Fl Mononucl WBCs #(Auto) 0.889 01/01/22 13:15 Fl Mononuclear % Auto 25.400 % 01/01/22 13:15 Fluid Albumin 2.2 g/dL 01/01/22 13:15 Fluid Creatinine 0.83 (0.7-1.2) 01/01/22 13:15 Pleural pH TNP 01/01/22 13:15 Pleural Total Protein 3.8 g/dL 01/01/22 13:15 Pleural LDH 1100 U/L 01/01/22 13:15 Pleural Glucose 61.0 mg/dL 01/01/22 13:15 Pleural Amylase 24.0 U/L 01/01/22 13:15 Pleural Triglycerides 66 mg/dL 01/01/22 13:15 Vancomycin Trough 32.1 ug/mL (10-15) H* 01/01/22 19:31 Random Vancomycin 23.4 ug/mL (20.0-40.0) 01/02/22 06:30 Coronavirus 229E (PCR) Not detected (NOT DETECT) 12/29/21 11:04 SARS-CoV-2 (PCR) Not detected (NOT DETECT) 12/29/21 11:04 Micro: Microbiology 12/30/21 16:25 Blood Culture - Final Blood NO GROWTH AFTER 5 DAYS 12/30/21 16:33 Blood Culture - Final Blood NO GROWTH AFTER 5 DAYS 01/01/22 13:15 Gram Stain - Final Pleural Fluid Body Fluid Culture - Final A&P Assessment and plan (1) Atrial fibrillation: Status: Acute (2) Sepsis: Status: Acute (3) Acute heart failure: Status: Acute (4) CAD (coronary artery disease): Status: Acute (5) Acute and chronic respiratory failure with hypoxia: Status: Acute (6) NSTEMI (non-ST elevated myocardial infarction): Status: Acute (7) Congestive heart failure: Status: Acute (8) COPD (chronic obstructive pulmonary disease): Status: Acute (9) Traumatic hemothorax: Status: Acute (10) Bacteremia due to Staphylococcus: Status: Acute Plan # Left hemothorax-secondary to traumatic left rib fracture due to mechanical fall 1 day prior to admission #Left 7TH rib fracture -IR drain 650 cc dark red blood yesterday; pleural fluid analysis predominantly RBC 3671, fluid hematocrit 37, neutrophil predominant 74%, pleural fluid total protein 3.8, LDH 1100, glucose 61-exudative in nature -Today bedside ultrasound showed significant left pleural effusion-I placed 14 Iranian pigtail and drained almost 1800cc of dark bloody fluid; good tidaling; no air leak -Postprocedure x-ray chest-left lung expanded well with no evidence of trapped lung -Last 24 hours left pigtail output was 70 cc serosanguineous fluid & no more hemothorax -left chest x-ray did not show any accumulation of left pleural effusion pneumothorax-pigtail removed -Continue incentive spirometry and out of bed to chair and bedside physical therapy -Pain management per rib fracture-currently patient is receiving morphine for his chest pains #Acute hypoxic respiratory failure-requiring 2 L oxygen-hemothorax/pulmonary edema due to CHF/atrial fibrillation/NSTEMI #recurrent Chest pains -Currently on aspirin 81 mg daily, atorvastatin 40 mg p.o. at bedtime, metoprolol 50 mg p.o. twice daily and amiodarone 400 mg p.o. twice daily -Not on anticoagulation due to hemothorax -Significantly elevated troponin with insignificant delta after 2 hours and 6 hours -Cardiology deferred coronary angiogram and possible PCI for now until creatinine is better and hemothorax resolves as patient may need antiplatelets postprocedure -Continue cardiac monitoring # COPD -Currently on DuoNeb nebulization and desonide nebulization scheduled -On methylprednisone 40 every 12 - Recommended to taper over the next 3 days -Discharge with Spiriva 2 puffs daily -PFTs as outpatient #Acute renal failure-secondary to contrast-induced nephropathy, renal hypoperfusion due to cardiorenal syndrome -So far net -10 L since admission & -450 cc today morning -Lasix as needed patient is making good urine output -Continue to monitor electrolytes, renal functions, input output -Renal recommendations appreciated #Staph bacteremia 3/4 bottles on 12/29/2021 -currently on vancomycin and Zosyn for broader coverage -Repeat blood cultures from 01/01/2022 negative -Monitor WBC, fever -Recommended to discontinue antibiotics after total 7 days Recommendations conveyed to hospitalist, RN, RT taking care of the patient -Medical condition and management explained in detail to the patient, his , his son at bedside-the verbalized understanding and agreed with the plan Attestations Medical Necessity Statement*: Deferred to hospitalist Time Spent in Patient Care: Greater than 35 minutes (>than 50% of time spent in counselling and/or direct pt care on unit). Critical Care Time: The high probability of a clinically significant, sudden or life threatening deterioration of the patient's [pulmonary, renal, cardiology system(s) required my full and direct attention, intervention and personal management. The critical care time is as shown. This time is in addition to time spent performing any reported procedures but includes the following: [x] Data and vital sign review and interpretation [x] Patient assessment, examination and intervention [x] Documentation [x] Medication orders and management Critical Care Time (min): 45 Coding Level of Care Code Established Pt Acute Wrapping Checker for Reece Fwangel Patient Type Established History Comprehensive Exam Comprehensive Medical Decision Making High Complexity Diagnoses Atrial fibrillation I48.91 Sepsis A41.9 Acute heart failure I50.9 CAD (coronary artery disease) I25.10 Acute and chronic respiratory failure with hypoxia J96.21 NSTEMI (non-ST elevated myocardial infarction) I21.4 Congestive heart failure I50.9 COPD (chronic obstructive pulmonary disease) J44.9 Traumatic hemothorax S27.1XXA Bacteremia due to Staphylococcus R78.81; B95.8 Time Spent (min) 45
[2022-01-04] MEDS: atorvastatin 40 mg Tablet PO (20:12)
[2022-01-05] VITALS (33 sets, daily range): BP systolic 100–145; BP diastolic 70–96; PULSE 68–89; RESP 12–25; TEMP 36.1–37; O2SAT 62–99
[2022-01-05] MEDS: vancomycin 1,250 MG/250 ML PIGGYBACK 250 MG IV (05:15)
[2022-01-05] MEDS: amiodarone 200 mg Tablet 400 MG PO ×2 (07:38→21:08)
[2022-01-05] MEDS: piperacillin-tazobactam 3.375 GM in sodium chloride 0.9% (plus) 50 ML IV ×2 (07:38→15:05)
[2022-01-05] MEDS: ipratropium-albuterol 3 mL Neb INHALATION ×4 (07:48→19:42)
[2022-01-05] MEDS: budesonide 0.5 mg/2 mL Neb INHALATION ×2 (07:48→19:42)
--- NOTE | 2022-01-05 09:05 | P.PN_ITS ---
Subjective Subjective: Patient had chest pain last night improving with nitros. Vitals/I&O/Wt Last Vital Signs Temp 96.9 F L 01/05/22 05:00 Pulse 87 01/05/22 07:56 Resp 16 01/05/22 07:52 BP 117/79 01/05/22 05:00 Pulse Ox 95 01/05/22 07:52 01/04/22 01/05/22 01/05/22 22:59 06:59 14:59 Intake Total 50 / 580 300 / 880 Output Total 800 / 1010 1200 / 2210 Balance -750 / -430 -900 / -1330 Physical Exam Narrative: GENERAL: Patient is alert, awake and oriented x3. [] NECK: No jugular vein distension. [] HEENT: No cyanosis. No icterus. No pallor. [] HEART: Irregularly irregular,? S1, S2 LUNGS: has bilateral crackles ABDOMEN: Soft, nontender and nondistended. Positive bowel sounds. No guarding, rebound or tenderness. [] CENTRAL NERVOUS SYSTEM: Grossly nonfocal. [] EXTREMITIES: Lower extremities with 1+ edema bilaterally. Pulses palpable in the lower extremities, both dorsalis pedis and posterior tibial. [] Urinary Catheter Management: Patel: Cath Placed During This Visit: yes, but has since been removed by the nurse Reason for Continuing Indwelling Catheter: Accurate Measurement of Urinary Output in Critically Ill Patients Urinary Catheter Date of Insertion: 01/04/22 Urinary Catheter Time of Insertion: 17:10 Date Urinary Catheter Removed: 01/04/22 Time Urinary Catheter Discontinued: 00:30 Data : 01/06/22 02:55 01/06/22 02:55 Micro: Microbiology 12/30/21 16:25 Blood Culture - Final Blood NO GROWTH AFTER 5 DAYS 12/30/21 16:33 Blood Culture - Final Blood NO GROWTH AFTER 5 DAYS 01/01/22 13:15 Gram Stain - Final Pleural Fluid Body Fluid Culture - Final A&P Assessment and plan (1) Sepsis: Status: Acute (2) Lactic acidosis: Status: Acute (3) Pulmonary edema: Status: Acute (4) Acute heart failure: Status: Acute (5) NSTEMI (non-ST elevated myocardial infarction): Status: Acute (6) CAD (coronary artery disease): Status: Acute (7) COPD (chronic obstructive pulmonary disease): Status: Acute (8) Atrial fibrillation: Status: Acute (9) Traumatic hemothorax: Status: Acute Plan Patient has presented with sepsis, congestive heart failure, pulmonary edema, non-ST elevation TX and atrial fibrillation with RVR. Was found to have a hemothorax and had a chest tube. Chest tube was removed. Patient still gets on and off chest pain symptoms, improving with nitroglycerine. Anticoagulation held As patient is having on and off chest pain symptoms, he will need coronary angiogram. Once he is able to lay flat, we will plan on coronary angiogram in 1- 2 days Hold diuretics for now. For atrial fibrillation, currently on PO amio and metoprolol Echocardiogram is limited quality because of poor ultrasonic windows. It shows mildly decreased to normal EF. Strict I&O's Antibiotic treatment per primary team Thank you for involving us with care of this patient. We will continue to follow. Please call with questions Attestations Medical Necessity Statement*: Care expected to cross 2 midnights. Coding Level of Care Code Acute Warehouse Order Filler for [facility] Fwd Diagnoses Sepsis A41.9 Lactic acidosis E87.2 Pulmonary edema J81.1 Acute heart failure I50.9 NSTEMI (non-ST elevated myocardial infarction) I21.4 CAD (coronary artery disease) I25.10 COPD (chronic obstructive pulmonary disease) J44.9 Atrial fibrillation I48.91 Traumatic hemothorax S27.1XXA
[2022-01-05] MEDS: isosorbide mononitrate ER 30 mg Tablet PO (09:11)
[2022-01-05] MEDS: metoprolol tartrate 50 mg Tablet PO ×2 (09:11→21:08)
[2022-01-05] MEDS: aspirin 81 mg EC Tablet PO (09:11)
--- NOTE | 2022-01-05 10:29 | PC.CHAP ---
Pastoral Care Encounter/Spiritual Assessment Type of Contact [] Declined pilot fuel engineer visit [] Patient/Family/Request visit [] Outpatient visit [] Follow-up visit [] Physician referral [] Code/Alert [x] Routine visit [] Staff referral [] Actively dying [] Patient sleeping [] Family support [] [] Out of room [] Palliative care [] [] Receiving care in room [] Pre-surgical visit [] Trauma [] Long length of stay [x] ICU visit [] Other: Relational/Emotional Strength [] Patient feels connected with others/family/visitors/staff [] Distress [] Loneliness/isolation [] Abandonment Spirituality of Patient [] Person of [place] [] Attends [facility]aritan of their [place] [] Believes in Prayer [] Reads Bible or Religion materials [] There are Spiritual issues to be addressed Panel Gluer Interventions [x] Prayer [x] Active listening [x] Non-anxious presence [x] Spiritual/emotional support [] Crisis/trauma care [] Spiritual counseling [] Bereavement support [] Provided bereavement packet [] Provided Bible/devotional materials [] Provided toy/stuffed animal, coloring book to patient or family member [] Provided Communion [] Anointing/[place] [] Salvation [x] Completed spiritual assessment [] Other: Impact on Illness or Injury [] Angry [] Fearful [] Anxious [] Often cries [] Exhaustion [] Unable to work [] Unable to attend judaism [] Unable to walk/stand [] Unable to read [] Unable to drive [] Unable to eat/drink [] Unable to sleep [] Unable to be with family [] Patient intubated [] Other: Summary prayed for healing and strength Time spent with patient 10 min
--- NOTE | 2022-01-05 10:55 | US_ITS ---
WS: [id number] ULTRASOUND-GUIDED THORACENTESIS CLINICAL INFORMATION: Symptomatic Rt Pleural effusion COMPARISON: None. PROCEDURE: Informed consent: The risks, benefits, and alternatives of the procedure were discussed with the michelle ent. Verbal and written consent was obtained. Procedure performed with Dr. Cantor Timeout: A timeout was performed to confirm the correct patient, procedure, and site. Site: RIGHT chest Preparation: A suitable skin site was identified. The patient was prepped and draped in usual sterile fashion. Lidocaine 1% was used for local anesthesia. Catheter: 4 [place] One-Step catheter. Fluid Volume: 1000 ml Color: Bloody Discarded safely. Complications: None. / thoracentesis [id number] IMPRESSION: 1. Uncomplicated ultrasound-guided thoracentesis. 2. No pneumothorax on the postthoracentesis radiograph
[2022-01-05] MEDS: lanolin oint 7 gm 1 APPLIC TOPICAL (12:03)
[2022-01-05] MEDS: morphine 4 mg/mL SDV 1 mL IVP (12:03)
--- NOTE | 2022-01-05 14:30 | XR_ITS ---
WS: [id number] XR chest 1V portable [id number] REASON FOR EXAM: dyspnea/cough FINDINGS: Compared to the examination of the previous day, there is decreased pleural fluid in the right hemith orax. There continues to be some fluid and some atelectasis in the right lower lung. There is no pneumothorax. The left chest is unchanged compared to the previous day. XR/XR chest 1V portable [id number] IMPRESSION: Post thoracentesis as above.
--- NOTE | 2022-01-05 14:53 | PC.NURSE ---
Patient still short of breath, Dr. Cantor looked at patient with ultrasound, noted fluid on right lung. Dr. Cantor called Dr. Pablo, Dr. Pablo performed thoracentesis removing 1 liter of fluid from right lung.
[2022-01-05] MEDS: pantoprazole DR 40 mg Tablet PO (15:05)
[2022-01-05] MEDS: acetaminophen 325 mg Tablet 650 MG PO (15:07)
--- NOTE | 2022-01-05 15:24 | PC.SOCIAL ---
IMM update IMM updated with patient. Verbalized an understanding. Copy Pg 2 provided. Initialled, dated, timed, and placed in chart.
--- NOTE | 2022-01-05 17:04 | P.PN_ITS ---
Subjective Subjective: Patient was seen and examined this morning continues to complain of chest pain substernal, Still has difficulty lying flat, get easily short of breath. S/p right-sided thoracentesis: With removal of 1 L hemorrhagic pleural effusion. Post thoracentesis chest x-ray, decreased pleural fluid in the right hemithorax ,no pneumothorax.. Medications: Medication Review Details: Generic Name Dose Route Start Last Admin Trade Name Freq PRN Reason Stop Dose Admin Albuterol/Ipratrop ium 3 ml 12/29/21 16:00 01/03/22 15:34 Ipratropium-Albu terol 3 Ml Neb INHALATION 3 ml QID.RESPIRATORY S CH Administration Amiodarone HCl 400 mg 01/02/22 08:00 01/03/22 08:19 Amiodarone 200 M g Tablet PO 400 mg Q12H DEVON Administration Aspirin 81 mg 12/30/21 09:00 01/03/22 08:18 Aspirin 81 Mg Ec Tablet PO 81 mg DAILY DEVON Administration Atorvastatin Calci um 40 mg 12/29/21 21:00 01/02/22 20:02 Atorvastatin 40 Mg Tablet PO 40 mg BEDTIME DEVON Administration Budesonide 0.5 mg 12/29/21 20:00 01/03/22 07:31 Budesonide 0.5 M g/2 Ml Neb INHALATION 0.5 mg BID.RESPIRATORY S CH Administration Enoxaparin Sodium 90 mg 12/30/21 02:00 01/01/22 13:19 Enoxaparin 100 M g/Ml Syringe 1 mg/kg (90 mg) Not Given SUBCUT Q12H DEVON Piperacillin Sod/T azobactam 50 mls @ 12.5 mls /hr 12/29/21 16:00 01/03/22 16:43 Sod 3.375 gm/ So dium Chloride IV 12.5 mls/hr Q8H DEVON Administration Protocol Vancomycin/PEG/NAD A/Lysine/Water 1,250 mg in 250 m ls @ 200 mls/hr 01/03/22 05:00 01/03/22 07:20 Vancocin IV Infused Q24H DEVON Infusion Methylprednisolone Sodium Succinate 40 mg 01/01/22 18:00 01/03/22 17:45 Methylprednisolo ne Sod Succ 40 Mg/ Ml Inj IVP 40 mg Q12H DEVON Administration Metoprolol Tartrat e 50 mg 01/02/22 09:00 01/03/22 08:20 Metoprolol Tartr ate 50 Mg Tablet PO 50 mg BID@0900,2100 DEVON Administration Morphine Sulfate 2 mg 12/29/21 14:52 01/03/22 17:44 Morphine 4 Mg/Ml Sdv 1 Ml IVP 2 mg Q4H PRN Administration SEVERE PAIN Pantoprazole Sodiu m 40 mg 12/29/21 16:30 01/03/22 16:43 Pantoprazole 40 Mg Sdv IVP 40 mg Q24H DEVON Administration Vitals/I&O/Wt Last Vital Signs Temp 98.6 F 01/05/22 09:00 Pulse 79 01/05/22 16:00 Resp 14 01/05/22 16:00 BP 145/96 01/05/22 16:00 Pulse Ox 99 01/05/22 16:00 01/05/22 01/05/22 01/05/22 06:59 14:59 22:59 Intake Total 300 / 880 350 / 350 Output Total 1200 / 2210 Balance -900 / -1330 350 / 350 Physical Exam Const: COMMON NORMALS: patient oriented x3 HENMT: COMMON NORMALS: normocephalic and atraumatic HEAD & SCALP: normocephalic and atraumatic Chest: CHEST: Yes Symmetrical chest wall rise Resp: COMMON NORMALS: clear to auscultation bilaterally EFFORT & INSPECTION: Yes symmetric chest movement AUSCULTATION: clear to auscultation bilaterally OTHER: Diminished air entry bilaterally Cardio: COMMON NORMALS: regular rate, regular rhythm, S1 normal heart sound present, S2 normal heart sound present, No gallops present (Cardio), No murmurs present (Cardio), No rub (Cardio) and Peripheral pulses 2+ throughout RATE: regular rate RHYTHM: regular rhythm HEART SOUNDS: S1 normal heart sound present and S2 normal heart sound present PERIPHERAL PULSES: Peripheral pulses 2+ throughout GI: COMMON NORMALS: Normal to inspection, nondistended, normoactive bowel sounds present, Soft to palpation, non-tender, No hepatosplenomegaly present and no masses AUSCULTATION: Yes normoactive bowel sounds PALPATION: Yes Soft to palpation and Yes No hepatosplenomegaly present RECTAL EXAM: Yes deferred Extremity: COMMON NORMALS: no clubbing, cyanosis or edema and no pedal edema Neuro: COMMON NORMALS: patient oriented x3 Urinary Catheter Management: Patel: Cath Placed During This Visit: yes, but has since been removed by the nurse Reason for Continuing Indwelling Catheter: Accurate Measurement of Urinary Output in Critically Ill Patients Urinary Catheter Date of Insertion: 01/04/22 Urinary Catheter Time of Insertion: 17:10 Date Urinary Catheter Removed: 01/04/22 Time Urinary Catheter Discontinued: 00:30 Data : 01/04/22 03:48 01/04/22 03:48 Micro: Microbiology 12/30/21 16:25 Blood Culture - Final Blood NO GROWTH AFTER 5 DAYS 12/30/21 16:33 Blood Culture - Final Blood NO GROWTH AFTER 5 DAYS 01/01/22 13:15 Gram Stain - Final Pleural Fluid Body Fluid Culture - Final A&P Assessment and plan (1) Bacteremia due to Staphylococcus: Status: Acute (2) Traumatic hemothorax: Status: Acute (3) Acute kidney failure: Status: Acute (4) Atrial fibrillation: Status: Acute (5) Sepsis: Status: Acute (6) Lactic acidosis: Status: Acute (7) Hyponatremia: Status: Acute (8) Pulmonary edema: Status: Acute (9) Acute heart failure: Status: Acute (10) NSTEMI (non-ST elevated myocardial infarction): Status: Acute (11) Acute and chronic respiratory failure with hypoxia: Status: Acute (12) CAD (coronary artery disease): Status: Acute (13) Obesity: Status: Acute (14) Congestive heart failure: Status: Acute (15) COPD (chronic obstructive pulmonary disease): Status: Acute (16) Pneumonia: Status: Acute Plan Traumatic hemothorax on the left -Patient fell on Saturday -On admission was placed on Lovenox for NSTEMI -Status post thoracocentesis 01/01/2022 650 cc dark red blood, no growth so far -Status post chest tube placement, small left, over 1100 cc of dark red blood -Pulmonary consulted managing -Continue to monitor output, currently to suction -Daily chest x-rays -Monitor cultures, for possible infection, continue antibiotics as below -Anticoagulation relatively contraindicated Acute hypoxic respiratory failure -Multifactorial from CHF, pneumonia, atrial fibrillation, traumatic hemothorax on left Plan -Continue ICU admission -Continue BiPAP, BiPAP schedule during the night -Monitor respiratory status closely -Diuresed over 8 L -Creatinine 1.8, hold off on diuresis for today -Replace potassium -Continue Solu-Medrol l given wheezing, history of smoking -Patel catheter placement, monitor I's and O's -Fluid restrictions 1200 cc -WBC 21.1, blood cultures cultures positive for staphylococcal species, urine bacterial antigens negative, Legionella negative, MRSA nares negative, likely contamination, repeat blood cultures negative. However is on steroids, has a traumatic left hemothorax, -Zosyn for pneumonia -Vancomycin for pneumonia, line to to 2 out of 4 positive staphylococcal species and blood cultures, likely contamination, -CT angiogram negative for pulmonary emboli, venous ultrasound negative for DVT -Elevated Vanco trough, currently vancomycin on hold -Full code -Lovenox for DVT prophylaxis JOHNNY, likely secondary to diuresis, contrast, hold diuresis, nephrology consulted A. fib with RVR -New onset -Off amiodarone drip -Amiodarone 400 mg once a day, metoprolol 50 twice daily -Lovenox as above NSTEMI -Elevated troponin likely secondary to respiratory failure, A. fib, however cannot rule out underlying cardiac etiology -Underlying CAD status post stenting x1 -No chest pain complaints -Baseline troponin 117, 120-minute 192, 75.6, 366 -EKG A. fib with RVR, nonspecific ST-T wave changes -Aspirin, statin, metoprolol -Therapeutic anticoagulation currently on hold given hemothorax -Cardiac echocardiogram left ventricle systolic function grossly normal -Serial troponin, serial EKGs, telemetry monitoring -Cardiology consulted: Is of the opinion to do cardiac cath as outpatient History of heart failure, likely combination of systolic diastolic as above History of COPD, solumderol, DuoNeb, budesonide Pneumonia, with sepsis, as above, leukocytosis elevated lactic acid Hyponatremia likely secondary to heart failure, continue diuresis Lactic acidosis secondary to pneumonia, Attestations Medical Necessity Statement*: Patient is to be in hospital for management of above defined problems. Time Spent in Patient Care: Greater than 35 minutes (>than 50% of time spent in counselling and/or direct pt care on unit) . Critical Care Time: 60 Other Attestations: The high probability of a clinically significant, sudden or life threatening deterioration of the patient's [] system(s) required my full and direct attention, intervention and personal management. The critical care time is as shown. This time is in addition to time spent performing any reported procedures but includes the following: [x] Data and vital sign review and interpretation [x] Patient assessment, examination and intervention [x] Documentation [x] Medication orders and management Coding Level of Care Code Acute Cartridge Feeder for Chg Fwd Diagnoses Bacteremia due to Staphylococcus R78.81; B95.8 Traumatic hemothorax S27.1XXA Acute kidney failure N17.9 Atrial fibrillation I48.91 Sepsis A41.9 Lactic acidosis E87.2 Hyponatremia E87.1 Pulmonary edema J81.1 Acute heart failure I50.9 NSTEMI (non-ST elevated myocardial infarction) I21.4 Acute and chronic respiratory failure with hypoxia J96.21 CAD (coronary artery disease) I25.10 Obesity E66.9 Congestive heart failure I50.9 COPD (chronic obstructive pulmonary disease) J44.9 Pneumonia J18.9
--- NOTE | 2022-01-05 17:23 | PC.NURSE ---
Patient resting in bed well after procedure and family leaving. He has had visitors all day. No s/s of distress of complaints of pain.
--- NOTE | 2022-01-05 17:36 | P.PN_ITS ---
Subjective Subjective: -Morning patient seen at bedside -Still on 3 L nasal cannula but appears dyspneic and complaining of chest pains -Bedside ultrasound showed moderate right pleural effusion; -IR were consulted and they drained 1 L of hemorrhagic pleural effusion; sent for cultures -Very unusual to have bilateral hemothorax in a patient with left-sided rib rib fracture, also right pleural effusion in the recent over last 3 days-presumed to be secondary to CHF -Labs and imaging reviewed Medications: Medication Review Details: Generic Name Dose Route Start Last Admin Trade Name Tino PRN Reason Stop Dose Admin Albuterol/Ipratrop ium 3 ml 12/29/21 16:00 01/03/22 15:34 Ipratropium-Albu terol 3 Ml Neb INHALATION 3 ml QID.RESPIRATORY S CH Administration Amiodarone HCl 400 mg 01/02/22 08:00 01/03/22 08:19 Amiodarone 200 M g Tablet PO 400 mg Q12H DEVON Administration Aspirin 81 mg 12/30/21 09:00 01/03/22 08:18 Aspirin 81 Mg Ec Tablet PO 81 mg DAILY DEVON Administration Atorvastatin Calci um 40 mg 12/29/21 21:00 01/02/22 20:02 Atorvastatin 40 Mg Tablet PO 40 mg BEDTIME DEVON Administration Budesonide 0.5 mg 12/29/21 20:00 01/03/22 07:31 Budesonide 0.5 M g/2 Ml Neb INHALATION 0.5 mg BID.RESPIRATORY S CH Administration Enoxaparin Sodium 90 mg 12/30/21 02:00 01/01/22 13:19 Enoxaparin 100 M g/Ml Syringe 1 mg/kg (90 mg) Not Given SUBCUT Q12H DEVON Piperacillin Sod/T azobactam 50 mls @ 12.5 mls /hr 12/29/21 16:00 01/03/22 16:43 Sod 3.375 gm/ So dium Chloride IV 12.5 mls/hr Q8H DEVON Administration Protocol Vancomycin/PEG/NAD A/Lysine/Water 1,250 mg in 250 m ls @ 200 mls/hr 01/03/22 05:00 01/03/22 07:20 Vancocin IV Infused Q24H DEVON Infusion Methylprednisolone Sodium Succinate 40 mg 01/01/22 18:00 01/03/22 17:45 Methylprednisolo ne Sod Succ 40 Mg/ Ml Inj IVP 40 mg Q12H DEVON Administration Metoprolol Tartrat e 50 mg 01/02/22 09:00 01/03/22 08:20 Metoprolol Tartr ate 50 Mg Tablet PO 50 mg BID@0900,2100 DEVON Administration Morphine Sulfate 2 mg 12/29/21 14:52 01/03/22 17:44 Morphine 4 Mg/Ml Sdv 1 Ml IVP 2 mg Q4H PRN Administration SEVERE PAIN Pantoprazole Sodiu m 40 mg 12/29/21 16:30 01/03/22 16:43 Pantoprazole 40 Mg Sdv IVP 40 mg Q24H DEVON Administration Vitals/I&O/Wt Last Vital Signs Temp 98.6 F 01/05/22 09:00 Pulse 79 01/05/22 16:00 Resp 14 01/05/22 16:00 BP 145/96 01/05/22 16:00 Pulse Ox 99 01/05/22 16:00 01/05/22 01/05/22 01/05/22 06:59 14:59 22:59 Intake Total 300 / 880 350 / 350 Output Total 1200 / 2210 400 / 400 Balance -900 / -1330 350 / 350 -400 / -50 Physical Exam Narrative: General: alert, NAD HEENT: conj clear, EOMI, PERRL, mmm, Neck: supple, no meningismus Heme: no cervical LAP Pulmonary: reduced breath sounds on right lower lung base but improved on left side Cardiovascular: rrr, nl s1s2, no mrg Abdomen: soft, nt, nd, no r/g, bs+ Extremities: pulses +, 2+ pitting pedal edema, no c/c : no CVA tenderness Skin: intact, no rash MSK: no back or neck pain Neurologic: grossly intact Urinary Catheter Management: Patel: Cath Placed During This Visit: yes, but has since been removed by the nurse Reason for Continuing Indwelling Catheter: Accurate Measurement of Urinary Output in Critically Ill Patients Urinary Catheter Date of Insertion: 01/04/22 Urinary Catheter Time of Insertion: 17:10 Date Urinary Catheter Removed: 01/04/22 Time Urinary Catheter Discontinued: 00:30 Data : 01/04/22 03:48 01/04/22 03:48 Other Labs: Radiology Impressions Chest CTA 12/29/21 11:52 IMPRESSION: 1. No pulmonary embolism. 2. Small to moderate bilateral pleural effusions. 3. Very mild subsegmental pneumonitis in the RIGHT middle, upper and lower lobes. 4. Partial atelectasis lingula. 5. Tricuspid regurgitation into hepatic veins. Venous Duplex 12/29/21 14:48 IMPRESSION: 1. No evidence for deep vein thrombosis. 2. Subcutaneous soft tissue edema in the bilateral lower legs. Renal Ultrasound 01/02/22 15:42 IMPRESSION: 1. No hydronephrosis in either kidney. 2. Patel catheter. 3. Aorta not visualized. 4. Cortical lobulation LEFT kidney mid aspect measuring 2.3 x 2.2 x 2.0 cm is indeterminant. This can be further evaluated with CT abdomen pelvis. Chest X-Ray 01/05/22 14:30 IMPRESSION: Post thoracentesis as above. Laboratory Results WBC 17.6 10^3/uL (4.0-10.0) H 01/04/22 03:48 RBC 3.93 10^6/uL (4.1-5.3) L 01/04/22 03:48 Hgb 12.2 g/dL (11.7-16.6) 01/04/22 03:48 Hct 36.1 % (42.0-52.0) L 01/04/22 03:48 MCV 91.9 fl (80-94) 01/04/22 03:48 MCH 31.0 pg (28.0-34.0) 01/04/22 03:48 MCHC 33.8 g/dL (30.0-36.0) 01/04/22 03:48 RDW 13.3 % (12.1-15.1) 01/04/22 03:48 Plt Count 513 10^3/cmm (130-400) H 01/04/22 03:48 MPV 9.2 fL (7.4-10.4) 01/04/22 03:48 Neut % (Auto) 87.1 % 01/04/22 03:48 Lymph % (Auto) 3.9 % 01/04/22 03:48 [place] % (Auto) 8.2 % 01/04/22 03:48 Eos % (Auto) 0.0 % 01/04/22 03:48 Baso % (Auto) 0.1 % 01/04/22 03:48 Neut # (Auto) 15.39 10^3/uL (1.8-7.7) H 01/04/22 03:48 Lymph # (Auto) 0.7 10^3/uL (0.8-4.8) L 01/04/22 03:48 [place] # (Auto) 1.4 10^3/uL (0.2-0.9) H 01/04/22 03:48 Eos # (Auto) 0.0 10^3/uL (0.0-0.8) 01/04/22 03:48 Baso # (Auto) 0.0 10^3/uL (0.0-0.1) 01/04/22 03:48 Nucleated RBC % (auto) 0 % 01/04/22 03:48 Total Counted 100 (0-100) 01/02/22 18:13 Atypical Lymphs % 0.0 % (0-5) 01/02/22 18:13 Absolute Neutrophils 24.9 10^3/cmm (1.4-6.5) H 01/02/22 18:13 Segmented Neutrophils 89 % 01/02/22 18:13 Abs Segm Neuts (Man) 24.9 10/cmm (1.6-7.1) H 01/02/22 18:13 Band Neutrophils 0.0 % 01/02/22 18:13 Abs Band Neuts (Man) 0.0 10^3/cmm (0.0-1.2) 01/02/22 18:13 Absolute Lymphocytes 0.6 10^3/cmm (1.2-3.4) L 01/02/22 18:13 Lymphocytes (Manual) 2 % 01/02/22 18:13 Monocytes (Manual) 9.0 % 01/02/22 18:13 Absolute Monocytes 2.5 10^3/cmm (0.1-0.6) H 01/02/22 18:13 Eosinophils (Manual) 0 % 01/02/22 18:13 Absolute Eosinophils 0.0 10^3/cmm (0.0-0.7) 01/02/22 18:13 Basophils (Manual) 0.0 % 01/02/22 18:13 Absolute Basophils 0.0 10^3/cmm (0.0-0.2) 01/02/22 18:13 Nucleated RBCs # 0.0 /100WBC 01/04/22 03:48 Differential Comment Yes 01/01/22 13:15 Platelet Estimate Increased (Normal) 01/02/22 18:13 PT 14.00 SECONDS (12.1-14.9) 01/01/22 04:39 INR 1.05 (0.8-1.2) 01/01/22 04:39 APTT 41.4 SECONDS (23.9-36.7) H 12/31/21 03:43 D-Dimer 1.17 ug/mIFEU (0-0.59) H 12/30/21 05:08 Specimen Type Arterial 12/30/21 05:00 Sample Site Radial, right 12/30/21 05:00 ABG pH 7.47 (7.35-7.45) H 12/30/21 05:00 ABG pCO2 40.5 mmHg (35-45) 12/30/21 05:00 ABG pO2 83.5 mmHg (80.0-100.0) 12/30/21 05:00 ABG HCO3 29.6 mmol/L (22-26) H 12/30/21 05:00 ABG Base Excess 5.5 mmol/L (-2.0-2.0) H 12/30/21 05:00 Damon Test Pos 12/30/21 05:00 Hematocrit 37.8 % (42-52) L 12/30/21 05:00 O2 Delivery Device Bipap 12/30/21 05:00 FiO2 30.0 % 12/30/21 05:00 [facility] ID Hinja 12/30/21 05:00 Sodium 134 mmol/L (136-145) L 01/04/22 03:48 Potassium 3.8 mmol/L (3.5-5.1) 01/04/22 03:48 Chloride 95 mmol/L (98-107) L 01/04/22 03:48 Carbon Dioxide 31 mmol/L (22-29) H 01/04/22 03:48 Anion Gap 11.8 (5-19) 01/04/22 03:48 BUN 62 mg/dL (8-23) H 01/04/22 03:48 Creatinine 1.0 mg/dL (0.7-1.2) 01/04/22 03:48 GFR Calculation Not Reportable 01/04/22 03:48 Glucose 140 mg/dL (65-115) H 01/04/22 03:48 Estimat Average Glucose 105 12/29/21 11:04 Hemoglobin A1c 5.3 % (4.0-6.0) 12/29/21 11:04 Calculated Osmolality 298 mOsm/kg (285-295) H 01/04/22 03:48 Lactic Acid 1.2 mmol/L (0.5-2.2) 12/30/21 05:08 Lactic Acid (Sepsis) 2.4 mmol/L (0.5-2.2) H 12/29/21 13:43 Uric Acid 9.4 mg/dL (3.4-7.0) H 01/02/22 14:32 Calcium 9.3 mg/dL (8.5-10.5) 01/04/22 03:48 Phosphorus 3.1 mg/dL (2.5-4.5) 01/04/22 03:48 Magnesium 2.3 mg/dL (1.7-2.3) 01/04/22 03:48 Total Bilirubin 0.6 mg/dL (0.15-1.2) 01/04/22 03:48 AST 25 U/L (0-40) 01/04/22 03:48 ALT 39 U/L (0-41) 01/04/22 03:48 Alkaline Phosphatase 51 IU/L (40-130) 01/04/22 03:48 Creatine Kinase 54 U/L (39-308) 01/02/22 14:32 Troponin T Gen 5 ng/L 366 ng/L (0-15) H* 12/30/21 05:08 Troponin T Baseline 338 ng/L (0-15) H* 01/02/22 06:30 Troponin T 120 Minute 344.9 ng/L (0-15) H 01/02/22 08:30 Delta Troponin T 6.9 ABS# (0-10) 01/02/22 08:30 Troponin T Hi Sens 6Hr 343.2 ng/L (0-15) H 01/02/22 14:32 Troponin T Hi Sens 6Hr Delta 5.2 ng/L (0-12) 01/02/22 14:32 C-Reactive Protein 53.9 mg/L (0.0-4.9) H 01/04/22 03:48 NT-Pro-B Natriuret Pep 4311 pg/mL (0-450) H 01/04/22 03:48 Total Protein 5.9 g/dL (6.6-8.7) L 01/04/22 03:48 Albumin 3.1 g/dL (3.5-5.2) L 01/04/22 03:48 Globulin 2.8 g/dL (1.3-4.6) 01/04/22 03:48 Triglycerides 52 mg/dL (0-150) 12/29/21 13:05 Cholesterol 136 mg/dL (0-200) 12/29/21 13:05 LDL Cholesterol, Calc 84 mg/dL (50-129) 12/29/21 13:05 HDL Cholesterol 42 mg/dL (60-100) L 12/29/21 13:05 LDL/HDL Ratio 2.00 RATIO (0.00-3.22) 12/29/21 13:05 Cholesterol/HDL Ratio 3.24 mg/dL (1.0-5.00) 12/29/21 13:05 Procalcitonin 0.06 ng/mL (0-0.5) 12/29/21 10:59 TSH 1.09 uIU/mL (0.27-4.20) 12/29/21 13:05 Urine Color Yellow (Yellow) 01/02/22 15:50 Urine Appearance Hazy (CLEAR) A 01/02/22 15:50 Urine pH 5 (5-7) 01/02/22 15:50 Ur Specific Stamps 1.020 (1.005-1.030) 01/02/22 15:50 Urine Protein Neg (Negative) 01/02/22 15:50 Urine Glucose (UA) Norm (Normal) 01/02/22 15:50 Urine Ketones Negative (Negative) 01/02/22 15:50 Urine Blood 2+ (Negative) H 01/02/22 15:50 Urine Nitrate Negative (Negative) 01/02/22 15:50 Urine Bilirubin Neg (Negative) 01/02/22 15:50 Urine Urobilinogen Neg mg/dL (Negative) 01/02/22 15:50 Ur Leukocyte Esterase Negative (Negative) 01/02/22 15:50 Urine RBC 5-10 /hpf (0-2) H 01/02/22 15:50 Urine WBC 0-4 /hpf (0-5) H 01/02/22 15:50 Ur Squamous Epith Cells Rare /hpf (0-5) 01/02/22 15:50 Uric Acid Crystals 0-4 /hpf 01/02/22 15:50 Amorphous Sediment Not Reportable 01/02/22 15:50 Urine Bacteria Trace /hpf (NONE) 01/02/22 15:50 U Random Total Protein 14 mg/dL 01/02/22 15:50 Ur Random Sodium 18 mmol/L 01/02/22 15:50 Ur Random Urea Nitrogn 618 mg/dL 01/02/22 15:50 Urine Creatinine 124 mg/dL (39-259) 01/02/22 15:50 Protein/Creatinin Ratio 0.11 mg/mg CR 01/02/22 15:50 Fluid Color Red 01/01/22 13:15 Fluid Appearance Bloody 01/01/22 13:15 Fluid WBC 3496 /uL 01/01/22 13:15 Fluid RBC 3671.000 10^3/uL 01/01/22 13:15 Fluid Hematocrit 37.1 % 01/01/22 13:15 Fld Polynuclear WBCs # 2.607 01/01/22 13:15 Fld Polynuclear WBCs % 74.600 % 01/01/22 13:15 Fl Mononucl WBCs #(Auto) 0.889 01/01/22 13:15 Fl Mononuclear % Auto 25.400 % 01/01/22 13:15 Fluid Albumin 2.2 g/dL 01/01/22 13:15 Fluid Creatinine 0.83 (0.7-1.2) 01/01/22 13:15 Pleural pH TNP 01/01/22 13:15 Pleural Total Protein 3.8 g/dL 01/01/22 13:15 Pleural LDH 1100 U/L 01/01/22 13:15 Pleural Glucose 61.0 mg/dL 01/01/22 13:15 Pleural Amylase 24.0 U/L 01/01/22 13:15 Pleural Triglycerides 66 mg/dL 01/01/22 13:15 Vancomycin Trough 32.1 ug/mL (10-15) H* 01/01/22 19:31 Random Vancomycin 23.4 ug/mL (20.0-40.0) 01/02/22 06:30 Coronavirus 229E (PCR) Not detected (NOT DETECT) 12/29/21 11:04 SARS-CoV-2 (PCR) Not detected (NOT DETECT) 12/29/21 11:04 Micro: Microbiology 01/05/22 15:33 Gram Stain - Final Ankle - Pleura,Rt Lung 12/30/21 16:25 Blood Culture - Final Blood NO GROWTH AFTER 5 DAYS 12/30/21 16:33 Blood Culture - Final Blood NO GROWTH AFTER 5 DAYS 01/01/22 13:15 Gram Stain - Final Pleural Fluid Body Fluid Culture - Final A&P Assessment and plan (1) Atrial fibrillation: Status: Acute (2) Sepsis: Status: Acute (3) Acute heart failure: Status: Acute (4) CAD (coronary artery disease): Status: Acute (5) Acute and chronic respiratory failure with hypoxia: Status: Acute (6) NSTEMI (non-ST elevated myocardial infarction): Status: Acute (7) Congestive heart failure: Status: Acute (8) COPD (chronic obstructive pulmonary disease): Status: Acute (9) Traumatic hemothorax: Status: Acute (10) Bacteremia due to Staphylococcus: Status: Acute Plan # Left hemothorax-secondary to traumatic left rib fracture due to mechanical fall 1 day 0n 12/28/21 #Left 7TH rib fracture -IR drain 650 cc dark red blood 01/01/2022 ; pleural fluid analysis predominantly RBC 3671, fluid hematocrit 37, neutrophil predominant 74%, pleural fluid total protein 3.8, LDH 1100, glucose 61-exudative in nature - bedside ultrasound 01/02/22 showed significant left pleural effusion-I placed 14 [place] pigtail and drained almost 1800cc of dark bloody fluid; good tidaling; no air leak -Postprocedure x-ray chest-left lung expanded well with no evidence of trapped lung -Last 24 hours left pigtail output was 70 cc serosanguineous fluid & no more hemothorax -left chest x-ray did not show any accumulation of left pleural effusion pneumothorax-pigtail removed 01/04/22 -Continue incentive spirometry and out of bed to chair and bedside physical therapy -Pain management per rib fracture-currently patient is receiving morphine for his chest pains # Right pleural effusion - bedside US showed moderate pleural effusion - IR drained about 1L hemorrhagic fluid - send for fluid analysis / cultures and cytology - unsual to have bilateral hemothorax from left side chest trauma rib fracture - still suspect secondary to CHF and traumatic tap Vs alteranate causes like malignancy - sent for cytology #Acute hypoxic respiratory failure-requiring 2 L oxygen-hemothorax/pulmonary edema due to CHF/atrial fibrillation/NSTEMI #recurrent Chest pains -Currently on aspirin 81 mg daily, atorvastatin 40 mg p.o. at bedtime, metoprolol 50 mg p.o. twice daily and amiodarone 400 mg p.o. twice daily -Not on anticoagulation due to hemothorax -Significantly elevated troponin with insignificant delta after 2 hours and 6 hours -Cardiology deferred coronary angiogram and possible PCI for now until creat inine is better and hemothorax resolves as patient may need antiplatelets postprocedure -Continue cardiac monitoring # COPD -Currently on DuoNeb nebulization and desonide nebulization scheduled -On methylprednisone 40 daily - Recommended to taper over the next 3 days -Discharge with Spiriva 2 puffs daily -PFTs as outpatient #Acute renal failure-secondary to contrast-induced nephropathy, renal hypoperfusion due to cardiorenal syndrome -So far net -11 L since admission & -1330 cc last 24 hrs -Lasix as needed patient is making good urine output -Continue to monitor electrolytes, renal functions, input output -Renal recommendations appreciated #Staph bacteremia 3/4 bottles on 12/29/2021 -currently on vancomycin and Zosyn for broader coverage -Repeat blood cultures from 01/01/2022 negative -Monitor WBC, fever -Recommended to discontinue antibiotics after total 7 days Recommendations conveyed to hospitalist, RN, RT taking care of the patient Attestations Medical Necessity Statement*: Deferred to hospitalist Time Spent in Patient Care: Greater than 35 minutes (>than 50% of time spent in counselling and/or direct pt care on unit) . Critical Care Time: The high probability of a clinically significant, sudden or life threatening deterioration of the patient's [pulmonary, renal, cardiology system(s) required my full and direct attention, intervention and personal management. The critical care time is as shown. This time is in addition to time spent performing any reported procedures but includes the following: [x] Data and vital sign review and interpretation [x] Patient assessment, examination and intervention [x] Documentation [x] Medication orders and management Critical Care Time (min): 45 Coding Level of Care Code Established Pt Acute Manager Collection for Chg Fwd Patient Type Established History Comprehensive Exam Comprehensive Medical Decision Making High Complexity Diagnoses Atrial fibrillation I48.91 Sepsis A41.9 Acute heart failure I50.9 CAD (coronary artery disease) I25.10 Acute and chronic respiratory failure with hypoxia J96.21 NSTEMI (non-ST elevated myocardial infarction) I21.4 Congestive heart failure I50.9 COPD (chronic obstructive pulmonary disease) J44.9 Traumatic hemothorax S27.1XXA Bacteremia due to Staphylococcus R78.81; B95.8 Time Spent (min) 45
--- NOTE | 2022-01-05 19:04 | P.PCN_ITS ---
Procedure/Consent Time out: Time Out Performed: Yes Consent: Consent for Procedure: Consent obtained from patient Procedure Narrative: Right-sided ultrasound-guided thoracentesis: INDICATION: Right-sided effusion: Shortness of breath: A time out was performed and the chest x-ray was reviewed, the appropriate side was confirmed and marked. My hands were washed immediately prior to the procedure.The patient was prepped and draped in a sterile manner using chlorhexidine scrub after the appropriate level was percussed and confirmed by ultrasound. 1% lidocaine was used to anesthesize the skin, subcutaneous tissue, superior aspect of the rib periosteum and parietal pleura. A 10-blade scalpel was used to sarah the skin at the insertion site. 4 Turkish one-step catheter was used. negative aspiration pressure was applied while inserting the needle, once hemorrhagic fluid was aspirated thoracentesis catheter was then threaded without difficulty and the needle was withdrawn. 1000 ml of dark red colored hemorrhagic fluid was removed without difficulty. The catheter was then removed. No immediate complications were noted during the procedure. A post- procedure chest x-ray: was Done which showed no pneumothorax, still has some right pleural effusion and some atelectasis in the right lower lung. Pleural fluid has been sent for analysis, patient tolerated the procedure well. We will follow pleural fluid analysis. Acute Procedures Epistaxis Control: Time out performed: Yes
[2022-01-05] MEDS: atorvastatin 40 mg Tablet PO (21:09)
[2022-01-05 22:43] LABS: Vancomycin Trough 15.4 ug/mL (10-15)
[2022-01-06] VITALS (29 sets, daily range): BP systolic 96–133; BP diastolic 72–87; PULSE 65–128; RESP 12–30; TEMP 36–37.1; O2SAT 78–99
[2022-01-06] MEDS: piperacillin-tazobactam 3.375 GM in sodium chloride 0.9% (plus) 50 ML IV ×3 (00:21→16:23)
[2022-01-06] MEDS: nitroglycerin 0.4 mg sublingual Tablet SUBLINGUAL ×4 (02:50→18:08)
--- NOTE | 2022-01-06 03:15 | PC.NURSE ---
Pt. started having chest pain at a 7/10. Given nitro X3. Pain no longer present at this time.
[2022-01-06 03:43] LABS: Basophils % 0.1 %; Eosinophils % 0.2 %; Hematocrit 37.2 % (42.0-52.0); Hemoglobin 12.3 g/dL (11.7-16.6); Lymphocytes # 0.9 10^3/uL (0.8-4.8); Lymphocytes % 4.5 %; Mean Corpuscular HGB Conc 33.1 g/dL (30.0-36.0); Mean Corpuscular Hemoglobin 30.7 pg (28.0-34.0); Mean Corpuscular Volume 92.8 fl (80-94); Mean Platelet Volume 9.5 fL (7.4-10.4); Monocytes # 2.4 10^3/uL (0.2-0.9); Monocytes % 12.1 %; Neutrophils % 82.2 %; Nucleated Red Blood Cells % 0 %; Platelet Count 556 10^3/cmm (130-400); Red Blood Count 4.01 10^6/uL (4.1-5.3); Red Cell Distribution Width 13.2 % (12.1-15.1); White Blood Count 19.6 10^3/uL (4.0-10.0)
[2022-01-06 04:03] LABS: Blood Urea Nitrogen 63 mg/dL (8-23); Calcium 9.5 mg/dL (8.5-10.5); Carbon Dioxide 33 mmol/L (22-29); Chloride 92 mmol/L (98-107); Glucose 117 mg/dL (65-115); Osmolality Calculated 297 mOsm/kg (285-295); Sodium 134 mmol/L (136-145)
[2022-01-06 04:08] LABS: Anion Gap 12.2 (5-19); Potassium 3.2 mmol/L (3.5-5.1)
[2022-01-06] MEDS: vancomycin 1,250 MG/250 ML PIGGYBACK 200 MG IV (05:32)
--- NOTE | 2022-01-06 06:00 | XRR_ITS ---
PROCEDURE INFORMATION: Exam: XR Chest Exam date and time: 01/06/2022 5:26 AM Age: 76 years old Clinical indication: Shortness of breath; Patient HX: F/u pleural effusion. ; Additional info: SOB TECHNIQUE: Imaging protocol: XR of the chest. Views: 1 view. COMPARISON: CR XR chest 1V portable [id number] 01/05/2022 2:34 PM FINDINGS: Lungs: See Pleural spaces finding. Pleural spaces: Persistent small right pleural effusion with adjacent atelectasis. The left lung is clear. No pneumothorax. Heart/Mediastinum: Stable cardiomediastinal silhouette. Bones/joints: Unremarkable. XR/XR chest 1V portable [id number] IMPRESSION: Persistent small right pleural effusion with adjacent atelectasis. Pneumonia should be excluded clinically.
--- NOTE | 2022-01-06 07:48 | P.PN_ITS ---
Subjective Subjective: Patient was seen and examined this morning continues to complain of substernal chest pain responded well to sublingual nitro overnight. Shortness of breath is slightly improved. A.m. chest x-ray: Has been reviewed. Medications: Medication Review Details: Generic Name Dose Route Start Last Admin Trade Name Tino PRN Reason Stop Dose Admin Albuterol/Ipratrop ium 3 ml 12/29/21 16:00 01/03/22 15:34 Ipratropium-Albu terol 3 Ml Neb INHALATION 3 ml QID.RESPIRATORY S CH Administration Amiodarone HCl 400 mg 01/02/22 08:00 01/03/22 08:19 Amiodarone 200 M g Tablet PO 400 mg Q12H DEVON Administration Aspirin 81 mg 12/30/21 09:00 01/03/22 08:18 Aspirin 81 Mg Ec Tablet PO 81 mg DAILY DEVON Administration Atorvastatin Calci um 40 mg 12/29/21 21:00 01/02/22 20:02 Atorvastatin 40 Mg Tablet PO 40 mg BEDTIME DEVON Administration Budesonide 0.5 mg 12/29/21 20:00 01/03/22 07:31 Budesonide 0.5 M g/2 Ml Neb INHALATION 0.5 mg BID.RESPIRATORY S CH Administration Enoxaparin Sodium 90 mg 12/30/21 02:00 01/01/22 13:19 Enoxaparin 100 M g/Ml Syringe 1 mg/kg (90 mg) Not Given SUBCUT Q12H DEVON Piperacillin Sod/T azobactam 50 mls @ 12.5 mls /hr 12/29/21 16:00 01/03/22 16:43 Sod 3.375 gm/ So dium Chloride IV 12.5 mls/hr Q8H DEVON Administration Protocol Vancomycin/PEG/NAD A/Lysine/Water 1,250 mg in 250 m ls @ 200 mls/hr 01/03/22 05:00 01/03/22 07:20 Vancocin IV Infused Q24H DEVON Infusion Methylprednisolone Sodium Succinate 40 mg 01/01/22 18:00 01/03/22 17:45 Methylprednisolo ne Sod Succ 40 Mg/ Ml Inj IVP 40 mg Q12H DEVON Administration Metoprolol Tartrat e 50 mg 01/02/22 09:00 01/03/22 08:20 Metoprolol Tartr ate 50 Mg Tablet PO 50 mg BID@0900,2100 DEVON Administration Morphine Sulfate 2 mg 12/29/21 14:52 01/03/22 17:44 Morphine 4 Mg/Ml Sdv 1 Ml IVP 2 mg Q4H PRN Administration SEVERE PAIN Pantoprazole Sodiu m 40 mg 12/29/21 16:30 01/03/22 16:43 Pantoprazole 40 Mg Sdv IVP 40 mg Q24H DEVON Administration Vitals/I&O/Wt Last Vital Signs Temp 97.1 F L 01/06/22 03:00 Pulse 67 01/06/22 05:42 Resp 13 01/06/22 04:00 BP 107/76 01/06/22 04:00 Pulse Ox 99 01/06/22 04:00 01/05/22 01/06/22 01/06/22 22:59 06:59 14:59 Intake Total 530 / 880 250 / 250 Output Total 400 / 400 600 / 1000 Balance 130 / 480 -600 / -120 250 / 250 Physical Exam Const: COMMON NORMALS: patient oriented x3 HENMT: COMMON NORMALS: normocephalic and atraumatic HEAD & SCALP: normocephalic and atraumatic Chest: CHEST: Yes Symmetrical chest wall rise Resp: COMMON NORMALS: clear to auscultation bilaterally EFFORT & INSPECTION: Yes symmetric chest movement AUSCULTATION: clear to auscultation bilaterally OTHER: Diminished air entry bilaterally Cardio: COMMON NORMALS: regular rate, regular rhythm, S1 normal heart sound present, S2 normal heart sound present, No gallops present (Cardio), No murmurs present (Cardio), No rub (Cardio) and Peripheral pulses 2+ throughout RATE: regular rate RHYTHM: regular rhythm HEART SOUNDS: S1 normal heart sound present and S2 normal heart sound present PERIPHERAL PULSES: Peripheral pulses 2+ throughout GI: COMMON NORMALS: Normal to inspection, nondistended, normoactive bowel sounds present, Soft to palpation, non-tender, No hepatosplenomegaly present and no masses AUSCULTATION: Yes normoactive bowel sounds PALPATION: Yes Soft to palpation and Yes No hepatosplenomegaly present RECTAL EXAM: Yes deferred Extremity: COMMON NORMALS: no clubbing, cyanosis or edema and no pedal edema Neuro: COMMON NORMALS: patient oriented x3 Urinary Catheter Management: Patel: Cath Placed During This Visit: yes, but has since been removed by the nurse Reason for Continuing Indwelling Catheter: Accurate Measurement of Urinary Output in Critically Ill Patients Urinary Catheter Date of Insertion: 01/04/22 Urinary Catheter Time of Insertion: 17:10 Date Urinary Catheter Removed: 01/04/22 Time Urinary Catheter Discontinued: 00:30 Data : 01/06/22 02:55 01/06/22 02:55 Micro: Microbiology 01/05/22 15:33 Gram Stain - Final Ankle - Pleura,Rt Lung A&P Assessment and plan (1) Bacteremia due to Staphylococcus: Status: Acute (2) Traumatic hemothorax: Status: Acute (3) Acute kidney failure: Status: Acute (4) Atrial fibrillation: Status: Acute (5) Sepsis: Status: Acute (6) Lactic acidosis: Status: Acute (7) Hyponatremia: Status: Acute (8) Pulmonary edema: Status: Acute (9) Acute heart failure: Status: Acute (10) NSTEMI (non-ST elevated myocardial infarction): Status: Acute (11) Acute and chronic respiratory failure with hypoxia: Status: Acute (12) CAD (coronary artery disease): Status: Acute (13) Obesity: Status: Acute (14) Congestive heart failure: Status: Acute (15) COPD (chronic obstructive pulmonary disease): Status: Acute (16) Pneumonia: Status: Acute Plan B/L Traumatic hemothorax: -Patient fell on Saturday. -CTA chest on admission: Moderate bilateral pleural effusions. No pulmonary embolism -Repeat CT chest: -Status post thoracocentesis 01/01/2022 650 cc dark red blood, no growth so far -Status post chest tube placement, small left, over 1100 cc of dark red blood. -Status post right-sided thoracentesis ( 01/05/2022) : with removal of 1000 CC hemorrhagic pleural effusion. -Pleural fluid analysis: Consistent with exudative pleural effusion. -Pleural fluid LDH: 1100 , pleural fluid total protein:3.8 , pleural fluid glucose:61, pleural fluid amylase:24, pleural fluid triglyceride:66 , pleural fluid Albumin 2.2 , RBC:3671 , WBC : 3496. -Pleural fluid cytology: Acute inflammation.No malignancy identified. -Pleural fluid Gram stain and culture: Negative, -Pleural fluid mycobacterial culture pending -On admission was placed on Lovenox for NSTEMI. Has been kept on hold -Monitor serial chest x-rays -Appreciate pulmonology input. NSTEMI: Likely type I, given patient prior history of coronary artery disease, as well as persistent classic cardiac substernal chest pain. -Baseline troponin 117, 120-minute 192, 75.6, 366 Limited 2D echo: LV systolic function is grossly normal. -EKG A. fib with RVR, nonspecific ST-T wave changes -Aspirin, statin, metoprolol -Therapeutic anticoagulation currently on hold given hemothorax -Appreciate cardiology input #New onset A. fib with RVR: Patient was initially on amiodarone drip, has been transitioned to p.o. amiodarone as well as p.o. metoprolol. Anticoagulation is currently contraindicated given the history of hemothorax. # Acute hypoxic respiratory failure -Multifactorial from CHF, pneumonia, atrial fibrillation, traumatic hemothorax on left Plan -Continue ICU admission -Continue BiPAP, BiPAP schedule during the night -Monitor respiratory status closely -Diuresed over 8 L -Creatinine 1.8, hold off on diuresis for today -Replace potassium -Continue Solu-Medrol l given wheezing, history of smoking -Patel catheter placement, monitor I's and O's -Fluid restrictions 1200 cc -WBC 21.1, blood cultures cultures positive for staphylococcal species, urine bacterial antigens negative, Legionella negative, MRSA nares negative, likely contamination, repeat blood cultures negative. However is on steroids, has a traumatic left hemothorax, -Zosyn for pneumonia -Vancomycin for pneumonia, line to to 2 out of 4 positive staphylococcal species and blood cultures, likely contamination, -CT angiogram negative for pulmonary emboli, venous ultrasound negative for DVT -Elevated Vanco trough, currently vancomycin on hold -Full code -Lovenox for DVT prophylaxis JHONNY, likely secondary to diuresis, contrast, hold diuresis, nephrology consulted History of heart failure, likely combination of systolic diastolic as above History of COPD, solumderol, DuoNeb, budesonide Pneumonia, with sepsis, as above, leukocytosis elevated lactic acid Hyponatremia likely secondary to heart failure, continue diuresis Lactic acidosis secondary to pneumonia, Attestations Medical Necessity Statement*: Patient needs to be in hospital for management of above -defined problems Time Spent in Patient Care: Greater than 35 minutes 45 Critical Care Time: The high probability of a clinically significant, sudden or life threatening deterioration of the patient's [] system(s) required my full and direct attention, intervention and personal management. The critical care time is as shown. This time is in addition to time spent performing any reported procedures but includes the following: [x] Data and vital sign review and interpretation [x] Patient assessment, examination and intervention [x] Documentation [x] Medication orders and management Coding Level of Care Code Acute Copper Plate Lithographer for [facility] Fwd Exam Detailed Diagnoses Bacteremia due to Staphylococcus R78.81; B95.8 Traumatic hemothorax S27.1XXA Acute kidney failure N17.9 Atrial fibrillation I48.91 Sepsis A41.9 Lactic acidosis E87.2 Hyponatremia E87.1 Pulmonary edema J81.1 Acute heart failure I50.9 NSTEMI (non-ST elevated myocardial infarction) I21.4 Acute and chronic respiratory failure with hypoxia J96.21 CAD (coronary artery disease) I25.10 Obesity E66.9 Congestive heart failure I50.9 COPD (chronic obstructive pulmonary disease) J44.9 Pneumonia J18.9
[2022-01-06] MEDS: ipratropium-albuterol 3 mL Neb INHALATION ×4 (08:28→19:58)
[2022-01-06] MEDS: budesonide 0.5 mg/2 mL Neb INHALATION ×2 (08:28→19:58)
[2022-01-06] MEDS: amiodarone 200 mg Tablet 400 MG PO (08:32)
[2022-01-06] MEDS: metoprolol tartrate 25 mg Tablet 12.5 MG PO ×2 (08:34→21:43)
[2022-01-06] MEDS: isosorbide mononitrate ER 30 mg Tablet PO (08:34)
[2022-01-06] MEDS: potassium chloride ER 20 mEq Tablet 40 MEQ PO (08:35)
[2022-01-06] MEDS: aspirin 81 mg EC Tablet PO (08:35)
--- NOTE | 2022-01-06 09:52 | P.PN_ITS ---
Subjective Subjective: Patient again had chest pain symptoms last night, radiating to arms. Resolved with nitros. Patient had right sided bloody effusion drained yesterday Vitals/I&O/Wt Last Vital Signs Temp 97.1 F L 01/06/22 03:00 Pulse 78 01/06/22 08:30 Resp 16 01/06/22 08:30 BP 107/76 01/06/22 04:00 Pulse Ox 98 01/06/22 08:30 01/05/22 01/06/22 01/06/22 22:59 06:59 14:59 Intake Total 530 / 880 50 / 930 250 / 250 Output Total 400 / 400 600 / 1000 Balance 130 / 480 -550 / -70 250 / 250 Physical Exam Narrative: GENERAL: Patient is alert, awake and oriented x3. [] NECK: No jugular vein distension. [] HEENT: No cyanosis. No icterus. No pallor. [] HEART: Irregularly irregular,? S1, S2 LUNGS: has bilateral crackles ABDOMEN: Soft, nontender and nondistended. Positive bowel sounds. No guarding, rebound or tenderness. [] CENTRAL NERVOUS SYSTEM: Grossly nonfocal. [] EXTREMITIES: Lower extremities with 1+ edema bilaterally. Pulses palpable in the lower extremities, both dorsalis pedis and posterior tibial. [] Urinary Catheter Management: Patel: Cath Placed During This Visit: yes, but has since been removed by the nurse Reason for Continuing Indwelling Catheter: Accurate Measurement of Urinary Output in Critically Ill Patients Urinary Catheter Date of Insertion: 01/04/22 Urinary Catheter Time of Insertion: 17:10 Date Urinary Catheter Removed: 01/04/22 Time Urinary Catheter Discontinued: 00:30 Data : 01/06/22 02:55 01/06/22 02:55 Micro: Microbiology 01/05/22 15:33 Gram Stain - Final Ankle - Pleura,Rt Lung A&P Assessment and plan (1) Sepsis: Status: Acute (2) Lactic acidosis: Status: Acute (3) Pulmonary edema: Status: Acute (4) Acute heart failure: Status: Acute (5) NSTEMI (non-ST elevated myocardial infarction): Status: Acute (6) CAD (coronary artery disease): Status: Acute (7) COPD (chronic obstructive pulmonary disease): Status: Acute (8) Atrial fibrillation: Status: Acute (9) Traumatic hemothorax: Status: Acute Plan Patient has presented with sepsis, congestive heart failure, pulmonary edema, non-ST elevation [place] and atrial fibrillation with RVR. Was found to have a hemothorax and had a chest tube. Chest tube was removed. Patient still gets on and off chest pain symptoms, improving with nitroglycerine. Anticoagulation held Patient's shortness of breath has improved after right-sided pleural effusion was drained. Tentative plan for coronary angiogram tomorrow. We will need to gently hydrate him and replace potassium. Hold diuretics For atrial fibrillation, currently on PO amio and metoprolol Echocardiogram is limited quality because of poor ultrasonic windows. It shows mildly decreased to normal EF. Strict I&O's Antibiotic treatment per primary team Thank you for involving us with care of this patient. We will continue to follow. Please call with questions Attestations Medical Necessity Statement*: Care expected to cross 2 midnights. Coding Level of Care Code Acute Operations Liaison for [facility] Fwd Diagnoses Sepsis A41.9 Lactic acidosis E87.2 Pulmonary edema J81.1 Acute heart failure I50.9 NSTEMI (non-ST elevated myocardial infarction) I21.4 CAD (coronary artery disease) I25.10 COPD (chronic obstructive pulmonary disease) J44.9 Atrial fibrillation I48.91 Traumatic hemothorax S27.1XXA
[2022-01-06] MEDS: morphine 4 mg/mL SDV 1 mL IVP ×2 (11:13→18:10)
[2022-01-06] MEDS: sodium chloride 0.9% 1,000 ML 30 ML IV (13:37)
[2022-01-06 15:00] LABS: Body Fluid Polynuclear #Cells 0.256; Body Fluid WBC 767 /uL; Monocytes # Body Fluid 0.511
[2022-01-06 15:14] LABS: Apprearance, Body Fluid BLOODY; Color, Body Fluid RED
[2022-01-06 15:15] LABS: PATH Referral YES
[2022-01-06 15:20] LABS: Albumin Body Fluid 2.6 g/dL
[2022-01-06 15:21] LABS: Amylase Body Fluid 65 U/L; LDH Body Fluid 604 U/L; Triglycerides Body Fluid 32 mg/dL (0-150); Uric Acid Body Fluid 5 mg/dL
[2022-01-06] MEDS: pantoprazole DR 40 mg Tablet PO (16:22)
--- NOTE | 2022-01-06 18:28 | PC.NURSE ---
Shift Note: Pt rested in bed this shift. He started having chest pain during physical therapy , so it was cut short. Morphine helped this episode. He has complained of mild chest pain throughout shift, repositioning would help. This evening he had a run of higher rat A-fib with BBB, c/o of chest pain of 8, nitro admin at tis time. Morphine admin a few minutes after. Per pt chest pains now relaxing. He was eating dinner when this episode started. Lungs remain clear but diminished. Both chest tube sites clear and healing. Family in to visit today: , son and his . IV fluids started at 30ml/hr. Urine output of 600 ml this shift. He picks at his meals. Today he has had a harder time complying with fluid restriction of 1000ml/day, Using up most of it by tis time today. Frequent safety and comfort rounds continue. Orders and/or nursing care completed as indicated. Patient monitored for response to intervention and treatment(s). Education provided includes Zosyn, nitro, morphine, opiod addiction and angiogram. 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 Pt needs reinforcement due to forgetfulness.. Will continue to monitor.
[2022-01-06] MEDS: atorvastatin 40 mg Tablet PO (21:43)
[2022-01-07] VITALS (28 sets, daily range): BP systolic 94–128; BP diastolic 62–106; PULSE 69–99; RESP 12–24; TEMP 36.1–36.7; O2SAT 81–100
[2022-01-07] MEDS: piperacillin-tazobactam 3.375 GM in sodium chloride 0.9% (plus) 50 ML IV ×4 (01:00→23:47)
[2022-01-07 04:34] LABS: Basophils % 0.1 %; Eosinophils % 0.2 %; Hematocrit 35.1 % (42.0-52.0); Hemoglobin 11.6 g/dL (11.7-16.6); Lymphocytes # 0.6 10^3/uL (0.8-4.8); Lymphocytes % 3.5 %; Mean Corpuscular Hemoglobin 30.6 pg (28.0-34.0); Mean Corpuscular Volume 92.6 fl (80-94); Mean Platelet Volume 9.4 fL (7.4-10.4); Monocytes # 1.8 10^3/uL (0.2-0.9); Monocytes % 10.1 %; Neutrophils # 15.32 10^3/uL (1.8-7.7); Neutrophils % 84.8 %; Nucleated Red Blood Cells % 0 %; Platelet Count 498 10^3/cmm (130-400); Red Blood Count 3.79 10^6/uL (4.1-5.3); Red Cell Distribution Width 13.3 % (12.1-15.1); White Blood Count 18.1 10^3/uL (4.0-10.0)
--- NOTE | 2022-01-07 05:00 | XRR_ITS ---
PROCEDURE INFORMATION: Exam: XR Chest Exam date and time: 01/07/2022 5:19 AM Age: 76 years old Clinical indication: Shortness of breath; Patient HX: S/P R thoracentesis; Additional info: S/P RT thoracentesis TECHNIQUE: Imaging protocol: XR of the chest. Views: 1 view. COMPARISON: CR (CHEST, ) 01/06/2022 5:26 AM FINDINGS: Lungs: Unremarkable. No consolidation. Pleural spaces: Unremarkable. No pleural effusion. No pneumothorax. Heart/Mediastinum: Unremarkable. No cardiomegaly. Bones/joints: Unremarkable. Other findings: Hazy opacities persist in the right lower hemithorax after thoracentesis. XR/XR chest 1V portable [id number] IMPRESSION: Hazy opacities likely represent residual pleural effusion on the right after thoracentesis.
[2022-01-07 05:04] LABS: Anion Gap 11.4 (5-19); Blood Urea Nitrogen 46 mg/dL (8-23); Calcium 9.3 mg/dL (8.5-10.5); Carbon Dioxide 32 mmol/L (22-29); Chloride 95 mmol/L (98-107); Creatinine Clr Calc Pharmacy 60.4408; Glucose 135 mg/dL (65-115); Osmolality Calculated 294 mOsm/kg (285-295); Potassium 3.4 mmol/L (3.5-5.1); Sodium 135 mmol/L (136-145)
[2022-01-07 05:08] LABS: Vancomycin Trough 11.9 ug/mL (10-15)
[2022-01-07] MEDS: ipratropium-albuterol 3 mL Neb INHALATION ×3 (07:46→16:19)
[2022-01-07] MEDS: budesonide 0.5 mg/2 mL Neb INHALATION (07:46)
[2022-01-07] MEDS: isosorbide mononitrate ER 30 mg Tablet PO (08:20)
[2022-01-07] MEDS: aspirin 81 mg EC Tablet PO (08:20)
[2022-01-07] MEDS: metoprolol tartrate 25 mg Tablet 12.5 MG PO ×2 (08:21→20:53)
[2022-01-07] MEDS: amiodarone 200 mg Tablet 400 MG PO (08:21)
--- NOTE | 2022-01-07 09:01 | XACV_ITS ---
Exam Room: [facility] Ht: 185 cm Wt: 91 kg BSA: 2.17 m2 Gender: Male : 1945 Exam Priority: Routine Procedure(s): Procedure Description: Diagnostic procedure Procedure Description: PCI procedure Procedure Description: Coronary IVUS Procedure Description: Drug Eluting Coronary Stent Procedure Description: PTCA Procedure Description: Miscellaneous Procedure Description: ACT Procedure Description: Coronary Angiography Diagnostic Cath Status: Urgent Diagnostic Findings * Proximal to * mid Left Anterior Descending: critical 95% stenosis, ROSANA: 3 flow. * 76 year old man who presented with presented with sepsis, congestive heart failure, pulmonary edema, non-ST elevation [place] and atrial fibrillation with RVR. Was found to have a hemothorax and had a chest tube. Chest tube was removed. Patient kept having typical chest pain symptoms and over the weekend had severe chest pain episodes. At time of procedure patient was having significant chest pain. * Left Main: moderate 50% stenosis, ROSANA: 3 flow. * Mid Right Coronary Artery: mild 40% stenosis, ROSANA: 3 flow. * Proximal Circumflex: total occlusion, ROSANA: 0 flow. * Coronary angiography shows right dominance. PCI Status: Urgent PCI Indication: NSTE - ACS Interventional Findings * PROCEDURE DETAIL: Engage left main artery with XB 3.5 guide catheter. IV heparin was administered to maintain ACT over 250 S. We advanced run-through guidewire into distal LAD. IVUS catheter was used to assess left main artery. It showed borderline severe distal left main stenosis with minimal luminal area of 5.[address] surgery availability in the hospital, patient's overall current medical condition and ongoing chest pain, we discussed with patient and family to proceed with PCI of the critical proximal to mid LAD stenosis which was culprit lesion for his NSTEMI and ongoing symptoms. We predilated mid LAD lesion with 2.5 x 12 mm semicompliant balloon. This was followed by placement of a 3.0 x 15 mm resolute [place] drug-eluting stent. At this time final angiogram was performed that showed excellent stent expansion, no residual stenosis and ROSANA-3 flow. Guidewire and guide catheter were removed. Patient left the Photogrammetric Compilation Specialist in a stable condition. * Mid Left Anterior Descendin% stenosis treated with a AB TREK 2.50X12 RX BALLOON, and MDT R AC 3.0X15 REED. 0% residual stenosis, ROSANA: 3 flow. Conclusions 1. Severe multivessel coronary artery disease 2. including borderline severe distal left main stenosis, critical proximal to mid LAD stenosis and ARTIST'S REPRESENTATIVE of left circumflex artery.. 3. Given patient's overall medical condition, no availability of CT surgery over the weekend, ongoing chest pain symptoms, we discussed with patient and family that we can treat the critical proximal to mid LAD stenosis percutaneously and treat left main stenosis at a later time either with CABG versus PCI. Shared decision was made to proceed with PCI for the culprit lesion. 4. Mid Left Anterior Descending was treated with a Balloon, and Drug Eluting Stent. Recommendations * Continue aspirin and Plavix. * Transferred back to ICU. * High intensity statin therapy. * Heart team discussion based on patient's clinical progress. Interventional RX Recommendation: PCI w/o planned CABG Diagnostic RX Recommendation: PCI w/o planned CABG Anticoagulation: Heparin Pressures Phase:Rest AO : 110 / 70 ( 87 ) @ 10:30:00 AM 93 / 72 ( 81 ) @ 10:44:00 AM Clinical Evaluation EBL: 5mL-10mL Procedural Details Pre-Procedure Time Out. Identified patient by full name and date of as verbalized by the patient/guarantor. Does the consent match the physician's order: Yes. Accurate & Complete Informed Consent: Yes. Inpatient/Outpatient History & Physical on Chart: Yes. If H&P is completed, is and addenduem needed: N/A; If yes, is the addendum complete: N/A. Visualize and Verify Site with Patient/Guarantor: N/A. Relevant Radiology Images available: N/A. The risks, benefits, and alternatives of sedation and/or procedure were discussed by physician. The patient agrees to continue. Procedure started. [facility] Clinical Fraility Score: 5: Mildly Frail. Photogrammetric Compilation Specialist Indications: Worsening Angina. Chest Pain Symptom Assessment: Atypical Angina. Correct patient, site and procedure confirmed by cath team. Current diagnosis: Chest Pain. PERRLA. 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 Lungs clear x 5 lobes. IV Site on Arrival: 20 gauge in the right anticubital. IV Fluids: 0.9% NaCl at KVO. 300 mL infused prior to lab pack chemist. Pre Procedural Pulses: bilateral dorsalis pedis was 1+. Pre Procedural Pulses: right radial was 2+. Oxygen started at 2liters/min via nasal canula. right groin was prepped with chloroprep then draped in the usual sterile fashion. right radial was prepped with chloroprep then draped in the usual sterile fashion. Baseline sample Acquired. HR: 91 BPM. Physician notified. Procedure Consent Obtained. Admit Source: In Patient. Physician arrived. Physician scrubbed in. Immediate Pre-Procedure Time Out. Correct Patient: Yes; Correct Procedure: Yes; Correct Site: Yes; Correct Patient Position: Yes; Correct Supplies: Yes; Dried Flammable Prep: Yes; Blood Products Available: N/A;. Lidocaine 1% infiltrated to the right radial. Arterial access obtained. A 5 ugandan JR6 catheter in over wire. A 6 ugandan TIG catheter in over wire. Multiple views taken of left coronary artery. Catheter redirected to the RCA. Multiple views taken of right coronary artery. Catheter out. 6 ugandan XB 3.5 guide catheter was inserted over the wire. Standard wire removed. Runthrough guidewire was advanced through the guide catheter to lesion in the mid LAD. IVUS catheter inserted. IVUS performed of Left Main. IVUS catheter removed. Inflation number : 1 A AB OW[place] 2.50X12 RX BALLOON was prepped and advanced across the Mid LAD , then inflated to 10 YAMILE for 0:31 seconds. Inflation number: 2 The AB TREK 2.50X12 RX BALLOON was reinflated across the Mid LAD, to 12 YAMILE for 0:12 seconds. Balloon inserted to lesion in the mid LAD. Balloon out. Stent inserted to lesion in the mid LAD. Inflation Number : 3 A FRANCISCO J Pope AC 3.0X15 REED -Lot Number# [id number] 06/17/2024 was prepped and advanced across the Mid LAD. The stent was deployed at 12 YAMILE for 0:26 seconds. Stent balloon out over wire. Results checked. ACT drawn. Results 248 seconds. Therapeutic limits - pre-heparin administration 90-150 seconds and monitoring heparin during a vascular procedure >250 seconds. Guide catheter and wire removed. A TR Band was successful obtaining hemostatsis at the Right Radial artery insertion site. Post Procedure: Pulses reassessed and unchanged. PERRLA. 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 No VTE prophylaxis required. Medication's Wasted: Lidocaine 1% = 18 mL. Medication's Wasted: Nitro = 49.7 mg. Medication's Wasted: Heparin = 1000 u. Total IV fluids: 100 mL. Post-op diagnosis: Severe CAD. Complications: none. Estimated blood loss: 5mL-10mL. Responsiveness - Normal response to verbal stimuli; alert and oriented, PERRLA. Airway - Unaffected, no intervention required; spontaneous ventilation. Circulation: W/N/L, pulses unchanged. Nausea/Vomiting: No. Procedure completed. Patient transferred by bed to ICU. Vital chart was stopped. Access Site Site: Right Radial artery Sheath Size: 6 Fr Hemostasis Method: TR Band Hemostasis Success: Successful Procedure Medications Start: 9:15 AM Stop: 9:15 AM Medication: Versed Amount: 1 mg Route: I.V. Start: 9:15 AM Stop: 9:15 AM Medication: Fentanyl Amount: 50 mcg Route: I.V. Start: 9:19 AM Stop: 9:19 AM Medication: Versed Amount: 1 mg Route: I.V. Start: 9:19 AM Stop: 9:19 AM Medication: Fentanyl Amount: 25 mcg Route: I.V. Start: 9:19 AM Stop: 9:19 AM Medication: Nitrogylcerin Amount: 200 mcg Route: I.A. Start: 9:20 AM Stop: 9:20 AM Medication: Fentanyl Amount: 25 mcg Route: I.V. Start: 9:20 AM Stop: 9:20 AM Medication: Heparin Amount: 5000 units Route: I.V. Start: 9:30 AM Stop: 9:30 AM Medication: Heparin Amount: 3000 units Route: I.V. Start: 9:33 AM Stop: 9:33 AM Medication: Versed Amount: 1 mg Route: I.V. Start: 9:48 AM Stop: 9:48 AM Medication: Nitrogylcerin Amount: 100 mcg Route: I.C. Start: 9:48 AM Stop: 9:48 AM Medication: Heparin Amount: 1000 units Route: I.V. Start: 9:44 AM Stop: 9:44 AM Medication: Heparin Amount: 1000 units Route: I.V. Start: 9:49 AM Stop: 9:49 AM Medication: Versed Amount: 1 mg Route: I.V. Start: 10:00 AM Stop: 10:00 AM Medication: Plavix Amount: 600 mg Route: P.O. I, the attending physician, have reviewed and verified all procedure medications. Yes, all medications given per verbal order History/Risk Factors Hypertension: Yes Dyslipidemia: Yes Peripheral Arterial Disease (PAD): No Myocardial Infarction (VA): Yes Obesity: Yes Renal Disease: Yes Tobacco Use: Current/Recent(w/in 1 year) Prior Interventions PCI: Yes Valve Surgery: No Report Signatures Finalized by Jeff Andres MD on 01/17/2022 11:36 AM
--- NOTE | 2022-01-07 09:01 | W.PM.OPSUD ---
Surgery/Procedure H&P Update DATE OF PROCEDURE: January 07, 2022 DATE H&P PERFORMED: 12/30/21 H&P UPDATE INFORMATION: I have reviewed H&P completed within last 30 days, I have examined patient prior to procedure and No changes to prior documentation PREOP DIAGNOSIS: NSTEMI/ Worsening angina PRIMARY INDICATION FOR PROCEDURE: NSTEMI/Worsening angina PLANNED PROCEDURE: Left heart cath with possible percutaneous coronary intervention PATIENT REASSESSED PRIOR TO SEDATION, WITH NO CHANGE NOTED: Yes PHYSICAL EXAM: alert, oriented x 3, clear to auscultation bilaterally and regular rate & rhythm AIRWAY EVAL/ANESTHESIA PLAN: normal airway, ASA IV, Monitored Anesthesia, Local Anesthesia, Risks, benefits & alternatives of sedation and/or procedure discussed and Patient agrees to continue as planned
--- NOTE | 2022-01-07 11:35 | PM.PN ---
Subjective Subjective: Patient was seen and examined this morning, was complaining of poor sleep overnight. Underwent cardiac cath this morning. Tolerated the procedure well. Repeat a.m. chest x-ray: No pneumothorax, small right pleural effusion Medications: Medication Review Details: Generic Name Dose Route Start Last Admin Trade Name Tino PRN Reason Stop Dose Admin Albuterol/Ipratrop ium 3 ml 12/29/21 16:00 01/03/22 15:34 Ipratropium-Albu terol 3 Ml Neb INHALATION 3 ml QID.RESPIRATORY S CH Administration Amiodarone HCl 400 mg 01/02/22 08:00 01/03/22 08:19 Amiodarone 200 M g Tablet PO 400 mg Q12H DEVON Administration Aspirin 81 mg 12/30/21 09:00 01/03/22 08:18 Aspirin 81 Mg Ec Tablet PO 81 mg DAILY DEVON Administration Atorvastatin Calci um 40 mg 12/29/21 21:00 01/02/22 20:02 Atorvastatin 40 Mg Tablet PO 40 mg BEDTIME DEVON Administration Budesonide 0.5 mg 12/29/21 20:00 01/03/22 07:31 Budesonide 0.5 M g/2 Ml Neb INHALATION 0.5 mg BID.RESPIRATORY S CH Administration Enoxaparin Sodium 90 mg 12/30/21 02:00 01/01/22 13:19 Enoxaparin 100 M g/Ml Syringe 1 mg/kg (90 mg) Not Given SUBCUT Q12H DEVON Piperacillin Sod/T azobactam 50 mls @ 12.5 mls /hr 12/29/21 16:00 01/03/22 16:43 Sod 3.375 gm/ So dium Chloride IV 12.5 mls/hr Q8H DEVON Administration Protocol Vancomycin/PEG/NAD A/Lysine/Water 1,250 mg in 250 m ls @ 200 mls/hr 01/03/22 05:00 01/03/22 07:20 Vancocin IV Infused Q24H DEVON Infusion Methylprednisolone Sodium Succinate 40 mg 01/01/22 18:00 01/03/22 17:45 Methylprednisolo ne Sod Succ 40 Mg/ Ml Inj IVP 40 mg Q12H DEVON Administration Metoprolol Tartrat e 50 mg 01/02/22 09:00 01/03/22 08:20 Metoprolol Tartr ate 50 Mg Tablet PO 50 mg BID@0900,2100 DEVON Administration Morphine Sulfate 2 mg 12/29/21 14:52 01/03/22 17:44 Morphine 4 Mg/Ml Sdv 1 Ml IVP 2 mg Q4H PRN Administration SEVERE PAIN Pantoprazole Sodiu m 40 mg 12/29/21 16:30 01/03/22 16:43 Pantoprazole 40 Mg Sdv IVP 40 mg Q24H DEVON Administration Vitals/I&O/Wt Last Vital Signs Temp 97.0 F L 01/07/22 05:00 Pulse 78 01/07/22 11:05 Resp 16 01/07/22 11:05 BP 116/86 01/07/22 09:00 Pulse Ox 91 01/07/22 11:05 01/06/22 01/07/22 01/07/22 22:59 06:59 14:59 Intake Total 200 / 1170 50 / 1220 30 / 30 Output Total 600 / 600 600 / 1200 Balance -400 / 570 -550 / 20 30 30 Physical Exam Const: COMMON NORMALS: patient oriented x3 HENMT: COMMON NORMALS: normocephalic and atraumatic HEAD & SCALP: normocephalic and atraumatic Chest: CHEST: Yes Symmetrical chest wall rise Resp: COMMON NORMALS: clear to auscultation bilaterally EFFORT & INSPECTION: Yes symmetric chest movement AUSCULTATION: clear to auscultation bilaterally OTHER: Diminished air entry bilaterally Cardio: COMMON NORMALS: regular rate, regular rhythm, S1 normal heart sound present, S2 normal heart sound present, No gallops present (Cardio), No murmurs present (Cardio), No rub (Cardio) and Peripheral pulses 2+ throughout RATE: regular rate RHYTHM: regular rhythm HEART SOUNDS: S1 normal heart sound present and S2 normal heart sound present PERIPHERAL PULSES: Peripheral pulses 2+ throughout GI: COMMON NORMALS: Normal to inspection, nondistended, normoactive bowel sounds present, Soft to palpation, non-tender, No hepatosplenomegaly present and no masses AUSCULTATION: Yes normoactive bowel sounds PALPATION: Yes Soft to palpation and Yes No hepatosplenomegaly present RECTAL EXAM: Yes deferred Extremity: COMMON NORMALS: no clubbing, cyanosis or edema and no pedal edema Neuro: COMMON NORMALS: patient oriented x3 Urinary Catheter Management: Patel: Cath Placed During This Visit: yes, but has since been removed by the nurse Reason for Continuing Indwelling Catheter: Accurate Measurement of Urinary Output in Critically Ill Patients Urinary Catheter Date of Insertion: 01/04/22 Urinary Catheter Time of Insertion: 17:10 Date Urinary Catheter Removed: 01/04/22 Time Urinary Catheter Discontinued: 00:30 Data : 01/07/22 03:55 01/07/22 03:55 Micro: Microbiology 01/05/22 15:33 Gram Stain - Final Ankle - Pleura,Rt Lung Body Fluid Culture - Preliminary A&P Assessment and plan (1) Bacteremia due to Staphylococcus: Status: Acute (2) Traumatic hemothorax: Status: Acute (3) Acute kidney failure: Status: Acute (4) Atrial fibrillation: Status: Acute (5) Sepsis: Status: Acute (6) Lactic acidosis: Status: Acute (7) Hyponatremia: Status: Acute (8) Pulmonary edema: Status: Acute (9) Acute heart failure: Status: Acute (10) NSTEMI (non-ST elevated myocardial infarction): Status: Acute (11) Acute and chronic respiratory failure with hypoxia: Status: Acute (12) CAD (coronary artery disease): Status: Acute (13) Obesity: Status: Acute (14) Congestive heart failure: Status: Acute (15) COPD (chronic obstructive pulmonary disease): Status: Acute (16) Pneumonia: Status: Acute Plan #Coronary artery disease: CAG : 99 % stenosis of mid LAD, left main 50% stenosis borderline significant on IVUS s/p PCI to mid LAD. Not a surgical candidate for left main disease, cardiology intended to intervene LM later. Continue aspirin Plavix statin. Will need DAPT at least for a year # NSTEMI: Likely type I, given patient prior history of coronary artery disease, as well as persistent classic cardiac substernal chest pain. -Baseline troponin 117, 120-minute 192, 75.6, 366 Limited 2D echo: LV systolic function is grossly normal. -EKG A. fib with RVR, nonspecific ST-T wave changes -Aspirin, statin, metoprolol -Therapeutic anticoagulation currently on hold given hemothorax -Appreciate cardiology input # B/L Traumatic hemothorax: -Patient fell on Saturday. -CTA chest on admission: Moderate bilateral pleural effusions. No pulmonary embolism -Repeat CT chest: -Status post thoracocentesis 01/01/2022 650 cc dark red blood, no growth so far -Status post chest tube placement, small left, over 1100 cc of dark red blood. -Status post right-sided thoracentesis ( 01/05/2022) : with removal of 1000 CC hemorrhagic pleural effusion. -Pleural fluid analysis: Consistent with exudative pleural effusion. -Pleural fluid LDH: 1100 , pleural fluid total protein:3.8 , pleural fluid glucose:61, pleural fluid amylase:24, pleural fluid triglyceride:66 , pleural fluid Albumin 2.2 , RBC:3671 , WBC : 3496. -Pleural fluid cytology: Acute inflammation.No malignancy identified. -Pleural fluid Gram stain and culture: Negative, -Pleural fluid mycobacterial culture pending -On admission was placed on Lovenox for NSTEMI. Has been kept on hold -Monitor serial chest x-rays -Appreciate pulmonology input. #New onset A. fib with RVR: Patient was initially on amiodarone drip, has been transitioned to p.o. amiodarone as well as p.o. metoprolol. Anticoagulation is currently contraindicated given the history of hemothorax. # Acute hypoxic respiratory failure -Multifactorial from CHF, pneumonia, atrial fibrillation, traumatic hemothorax Plan -Continue ICU admission -Continue BiPAP, BiPAP schedule during the night -Monitor respiratory status closely -Diuresed over 8 L -Creatinine 1.8, hold off on diuresis for today -Replace potassium -Continue Solu-Medrol l given wheezing, history of smoking -Patel catheter placement, monitor I's and O's -Fluid restrictions 1200 cc -WBC 21.1, blood cultures cultures positive for staphylococcal species, urine bacterial antigens negative, Legionella negative, MRSA nares negative, likely contamination, repeat blood cultures negative. However is on steroids, has a traumatic left hemothorax, -Zosyn for pneumonia -Vancomycin for pneumonia, line to to 2 out of 4 positive staphylococcal species and blood cultures, likely contamination, -CT angiogram negative for pulmonary emboli, venous ultrasound negative for DVT -Elevated Vanco trough, currently vancomycin on hold -Full code -Lovenox for DVT prophylaxis # JHONNY, likely secondary to diuresis, contrast, hold diuresis, nephrology consulted # History of heart failure, likely combination of systolic diastolic as above History of COPD, solumderol, DuoNeb, budesonide Pneumonia, with sepsis, as above, leukocytosis elevated lactic acid Hyponatremia likely secondary to heart failure, continue diuresis #CODE STATUS: Full code #DVT prophylaxis: Attestations Medical Necessity Statement*: Patient needs to be in the hospital for management of NSTEMI Time Spent in Patient Care: Greater than 35 minutes (>than 50% of time spent in counselling and/or direct pt care on unit). Critical Care Time: 40 Other Attestations: The high probability of a clinically significant, sudden or life threatening deterioration of the patient's [] system(s) required my full and direct attention, intervention and personal management. The critical care time is as shown. This time is in addition to time spent performing any reported procedures but includes the following: [x] Data and vital sign review and interpretation [x] Patient assessment, examination and intervention [x] Documentation [x] Medication orders and management Coding Level of Care Code Acute User Interface Artist for g Fwd Exam Detailed Diagnoses Bacteremia due to Staphylococcus R78.81; B95.8 Traumatic hemothorax S27.1XXA Acute kidney failure N17.9 Atrial fibrillation I48.91 Sepsis A41.9 Lactic acidosis E87.2 Hyponatremia E87.1 Pulmonary edema J81.1 Acute heart failure I50.9 NSTEMI (non-ST elevated myocardial infarction) I21.4 Acute and chronic respiratory failure with hypoxia J96.21 CAD (coronary artery disease) I25.10 Obesity E66.9 Congestive heart failure I50.9 COPD (chronic obstructive pulmonary disease) J44.9 Pneumonia J18.9
--- NOTE | 2022-01-07 11:47 | PM.PN ---
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 He underwent successful revascularization of mid LAD with REED x1 as was having worsening active chest pain and had no CT surgery availability over the weekend Vitals/I&O/Wt Last Vital Signs Temp 97.0 F L 01/07/22 05:00 Pulse 78 01/07/22 11:05 Resp 16 01/07/22 11:05 BP 116/86 01/07/22 09:00 Pulse Ox 91 01/07/22 11:05 01/06/22 01/07/22 01/07/22 22:59 06:59 14:59 Intake Total 200 / 1170 50 / 1220 30 / 30 Output Total 600 / 600 600 / 1200 Balance -400 / 570 -550 / 20 30 30 Physical Exam Narrative: GENERAL: Patient is alert, awake and oriented x3. [] NECK: No jugular vein distension. [] HEENT: No cyanosis. No icterus. No pallor. [] HEART: Irregularly irregular,? S1, S2 LUNGS: has bilateral crackles ABDOMEN: Soft, nontender and nondistended. Positive bowel sounds. No guarding, rebound or tenderness. [] CENTRAL NERVOUS SYSTEM: Grossly nonfocal. [] EXTREMITIES: Lower extremities with 1+ edema bilaterally. Pulses palpable in the lower extremities, both dorsalis pedis and posterior tibial. [] Urinary Catheter Management: Patel: Cath Placed During This Visit: yes, but has since been removed by the nurse Reason for Continuing Indwelling Catheter: Accurate Measurement of Urinary Output in Critically Ill Patients Urinary Catheter Date of Insertion: 01/04/22 Urinary Catheter Time of Insertion: 17:10 Date Urinary Catheter Removed: 01/04/22 Time Urinary Catheter Discontinued: 00:30 Data : 01/07/22 03:55 01/07/22 03:55 Micro: Microbiology 01/05/22 15:33 Gram Stain - Final Ankle - Pleura,Rt Lung Body Fluid Culture - Preliminary A&P Assessment and plan (1) Sepsis: Status: Acute (2) Lactic acidosis: Status: Acute (3) Pulmonary edema: Status: Acute (4) Acute heart failure: Status: Acute (5) NSTEMI (non-ST elevated myocardial infarction): Status: Acute (6) CAD (coronary artery disease): Status: Acute (7) COPD (chronic obstructive pulmonary disease): Status: Acute (8) Atrial fibrillation: Status: Acute (9) Traumatic hemothorax: Status: Acute Plan Patient has presented with sepsis, congestive heart failure, pulmonary edema, non-ST elevation [place] and atrial fibrillation with RVR. Was found to have a hemothorax and had a chest tube. Chest tube was removed. Patient underwent coronary angiogram that showed moderate to severe 50% left main disease( significant by IVUS), and severe mid LAD stenosis.Given his ongoing chest pain symptoms that were consistent with unstable angina, we decided to treat critical 99% mid LAD stenosis as CT surgery not available over the weekend. Discussed with patient and family. Can plan on staged PCI vs CABG as a staged procedure Hold diuretics For atrial fibrillation, currently on PO amio and metoprolol Echocardiogram is limited quality because of poor ultrasonic windows. It shows mildly decreased to normal EF. Strict I&O's Antibiotic treatment per primary team Thank you for involving us with care of this patient. We will continue to follow. Please call with questions Attestations Medical Necessity Statement*: Care expected to cross 2 midnights. Coding Level of Care Code Acute System Integration Engineer for g Fwd Diagnoses Sepsis A41.9 Lactic acidosis E87.2 Pulmonary edema J81.1 Acute heart failure I50.9 NSTEMI (non-ST elevated myocardial infarction) I21.4 CAD (coronary artery disease) I25.10 COPD (chronic obstructive pulmonary disease) J44.9 Atrial fibrillation I48.91 Traumatic hemothorax S27.1XXA
--- NOTE | 2022-01-07 12:35 | PC.NURSE ---
Pt was taken to [facility] by staff at 0900 and returned at [address] band in place. No hematoma is noted but small amount of bruising is surrounding the site.
--- NOTE | 2022-01-07 13:41 | PC.SOCIAL ---
IMM Updated Updated pt & on IMM. No questions voiced. Provided pt & a copy. Initialed, dated, & timed copy in chart.
--- NOTE | 2022-01-07 14:45 | PC.NURSE ---
TR band removed at 1430. Dressing applied to non bleeding site. Bruising marked.
[2022-01-07] MEDS: pantoprazole DR 40 mg Tablet PO (15:27)
[2022-01-07] MEDS: sodium chloride 0.9% 1,000 ML 75 ML IV (15:28)
--- NOTE | 2022-01-07 18:25 | PC.NURSE ---
Patel removed at 1814
[2022-01-07] MEDS: atorvastatin 40 mg Tablet PO (20:53)
[2022-01-08] VITALS (31 sets, daily range): BP systolic 97–144; BP diastolic 68–102; PULSE 76–129; RESP 12–25; TEMP 36.2–36.7; O2SAT 81–99; BMI 28.1
[2022-01-08 04:33] LABS: Basophils % 0.1 %; Eosinophils % 0.1 %; Hemoglobin 11.4 g/dL (11.7-16.6); Lymphocytes # 0.6 10^3/uL (0.8-4.8); Mean Corpuscular HGB Conc 32.6 g/dL (30.0-36.0); Mean Corpuscular Hemoglobin 30.5 pg (28.0-34.0); Mean Corpuscular Volume 93.6 fl (80-94); Mean Platelet Volume 9.7 fL (7.4-10.4); Monocytes # 1.9 10^3/uL (0.2-0.9); Monocytes % 9.3 %; Neutrophils # 17.22 10^3/uL (1.8-7.7); Neutrophils % 86.2 %; Nucleated Red Blood Cells % 0 %; Platelet Count 523 10^3/cmm (130-400); Red Blood Count 3.74 10^6/uL (4.1-5.3); Red Cell Distribution Width 13.5 % (12.1-15.1)
[2022-01-08 05:08] LABS: Anion Gap 10.8 (5-19); Blood Urea Nitrogen 40 mg/dL (8-23); Carbon Dioxide 33 mmol/L (22-29); Chloride 99 mmol/L (98-107); Glucose 115 mg/dL (65-115); Osmolality Calculated 299 mOsm/kg (285-295); Potassium 3.8 mmol/L (3.5-5.1); Sodium 139 mmol/L (136-145)
[2022-01-08] MEDS: sodium chloride 0.9% 1,000 ML 30 ML IV (05:17)
[2022-01-08] MEDS: budesonide 0.5 mg/2 mL Neb INHALATION ×2 (08:14→19:56)
[2022-01-08] MEDS: ipratropium-albuterol 3 mL Neb INHALATION ×4 (08:14→19:56)
[2022-01-08] MEDS: amiodarone 200 mg Tablet 400 MG PO (08:32)
[2022-01-08] MEDS: isosorbide mononitrate ER 30 mg Tablet PO (08:32)
[2022-01-08] MEDS: clopidogrel 75 mg Tablet PO (08:32)
[2022-01-08] MEDS: aspirin 81 mg EC Tablet PO (08:32)
[2022-01-08] MEDS: metoprolol tartrate 25 mg Tablet 12.5 MG PO ×2 (08:34→20:56)
--- NOTE | 2022-01-08 09:52 | PC.CHAP ---
Pastoral Care Encounter/Spiritual Assessment Type of Contact [] Declined emergency services professional visit [] Patient/Family/Request visit [] Outpatient visit [] Follow-up visit [] Physician referral [] Code/Alert [x] Routine visit [] Staff referral [] Actively dying [] Patient sleeping [] Family support [] [] Out of room [] Palliative care [] [x] Receiving care in room [] Pre-surgical visit [] Trauma [] Long length of stay [x] ICU visit [x] Other: physical therapy Relational/Emotional Strength [] Patient feels connected with others/family/visitors/staff [] Distress [] Loneliness/isolation [] Abandonment Spirituality of Patient [] Person of Daxa [] Attends Mandaeism of their [place] [] Believes in Prayer [] Reads Bible or Adventist materials [] There are Spiritual issues to be addressed [place] Interventions [x] Prayer [] Active listening [] Non-anxious presence [] Spiritual/emotional support [] Crisis/trauma care [] Spiritual counseling [] Bereavement support [] Provided bereavement packet [] Provided Bible/devotional materials [] Provided toy/stuffed animal, coloring book to patient or family member [] Provided Communion [] Anointing/[place] [] Salvation [x] Completed spiritual assessment [] Other: Impact on Illness or Injury [] Angry [] Fearful [] Anxious [] Often cries [] Exhaustion [] Unable to work [] Unable to attend rastafarian [] Unable to walk/stand [] Unable to read [] Unable to drive [] Unable to eat/drink [] Unable to sleep [] Unable to be with family [] Patient intubated [] Other: Summary Time spent with patient
--- NOTE | 2022-01-08 10:40 | PM.PN ---
Subjective Subjective: Patient underwent successful revascularization of mid LAD yesterday. He is doing well and denies any further chest pain episodes. Also has left main disease that will be treated later. Vitals/I&O/Wt Last Vital Signs Temp 97.1 F L 01/08/22 04:00 Pulse 84 01/08/22 08:26 Resp 16 01/08/22 08:15 BP 139/87 01/08/22 08:00 Pulse Ox 96 01/08/22 08:15 01/07/22 01/08/22 01/08/22 22:59 06:59 14:59 Intake Total 1050 / 2080 1500 / 3580 Output Total 700 / 700 180 / 880 200 / 200 Balance 350 / 1380 1320 / 2700 -200 / -200 Weight last 48 hrs Weight 213 lb 5 oz Physical Exam Narrative: GENERAL: Patient is alert, awake and oriented x3. [] NECK: No jugular vein distension. [] HEENT: No cyanosis. No icterus. No pallor. [] HEART: Irregularly irregular,? S1, S2 LUNGS: has bilateral crackles ABDOMEN: Soft, nontender and nondistended. Positive bowel sounds. No guarding, rebound or tenderness. [] CENTRAL NERVOUS SYSTEM: Grossly nonfocal. [] EXTREMITIES: Lower extremities with 1+ edema bilaterally. Pulses palpable in the lower extremities, both dorsalis pedis and posterior tibial. [] Urinary Catheter Management: Patel: Cath Placed During This Visit: yes, but has since been removed by the nurse Reason for Continuing Indwelling Catheter: Accurate Measurement of Urinary Output in Critically Ill Patients Urinary Catheter Date of Insertion: 01/04/22 Urinary Catheter Time of Insertion: 17:10 Date Urinary Catheter Removed: 01/04/22 Time Urinary Catheter Discontinued: 00:30 Data : 01/09/22 04:20 01/09/22 04:20 Micro: Microbiology 01/05/22 15:33 Gram Stain - Final Ankle - Pleura,Rt Lung Body Fluid Culture - Preliminary A&P Assessment and plan (1) Sepsis: Status: Acute (2) Lactic acidosis: Status: Acute (3) Pulmonary edema: Status: Acute (4) Acute heart failure: Status: Acute (5) NSTEMI (non-ST elevated myocardial infarction): Status: Acute (6) CAD (coronary artery disease): Status: Acute (7) COPD (chronic obstructive pulmonary disease): Status: Acute (8) Atrial fibrillation: Status: Acute (9) Traumatic hemothorax: Status: Acute Plan Patient has presented with sepsis, congestive heart failure, pulmonary edema, non-ST elevation [place] and atrial fibrillation with RVR. Was found to have a hemothorax and had a chest tube. Chest tube was removed. Patient underwent coronary angiogram that showed moderate to severe 50% left main disease( significant by IVUS), and severe mid LAD stenosis.Given his ongoing chest pain symptoms that were consistent with unstable angina, we decided to treat critical 99% mid LAD stenosis as CT surgery not available over the weekend. Discussed with patient and family. Can plan on staged PCI vs CABG as a staged procedure Care expected to cross 2 midnights. Post PCI, his LV systolic function has improved. For atrial fibrillation, currently on PO amio and metoprolol. Rate is controlled. Echocardiogram is limited quality because of poor ultrasonic windows. It shows mildly decreased to normal EF. Strict I&O's Antibiotic treatment per primary team Thank you for involving us with care of this patient. We will continue to follow. Please call with questions Attestations Medical Necessity Statement*: Care expected to cross 2 midnights. Coding Level of Care Code Acute Behavioral Health Associate for Chg Fwd Diagnoses Sepsis A41.9 Lactic acidosis E87.2 Pulmonary edema J81.1 Acute heart failure I50.9 NSTEMI (non-ST elevated myocardial infarction) I21.4 CAD (coronary artery disease) I25.10 COPD (chronic obstructive pulmonary disease) J44.9 Atrial fibrillation I48.91 Traumatic hemothorax S27.1XXA
[2022-01-08] MEDS: levofloxacin-dextrose 5 % 750 MG/150 ML PREMIX 100 MG IV (11:08)
--- NOTE | 2022-01-08 11:12 | P.PN_ITS ---
Subjective Subjective: Patient was seen and examined this morning, denied any chest pain overnight, participated with physical therapy today, persistent leukocytosis: Could be coming from steroid use. Repeat blood culture done on 12/30: Shows no growth. Medications: Medication Review Details: Generic Name Dose Route Start Last Admin Trade Name Tino PRN Reason Stop Dose Admin Albuterol/Ipratrop ium 3 ml 12/29/21 16:00 01/03/22 15:34 Ipratropium-Albu terol 3 Ml Neb INHALATION 3 ml QID.RESPIRATORY S CH Administration Amiodarone HCl 400 mg 01/02/22 08:00 01/03/22 08:19 Amiodarone 200 M g Tablet PO 400 mg Q12H DEVON Administration Aspirin 81 mg 12/30/21 09:00 01/03/22 08:18 Aspirin 81 Mg Ec Tablet PO 81 mg DAILY DEVON Administration Atorvastatin Calci um 40 mg 12/29/21 21:00 01/02/22 20:02 Atorvastatin 40 Mg Tablet PO 40 mg BEDTIME DEVON Administration Budesonide 0.5 mg 12/29/21 20:00 01/03/22 07:31 Budesonide 0.5 M g/2 Ml Neb INHALATION 0.5 mg BID.RESPIRATORY S CH Administration Enoxaparin Sodium 90 mg 12/30/21 02:00 01/01/22 13:19 Enoxaparin 100 M g/Ml Syringe 1 mg/kg (90 mg) Not Given SUBCUT Q12H DEVON Piperacillin Sod/T azobactam 50 mls @ 12.5 mls /hr 12/29/21 16:00 01/03/22 16:43 Sod 3.375 gm/ So dium Chloride IV 12.5 mls/hr Q8H EDVON Administration Protocol Vancomycin/PEG/NAD A/Lysine/Water 1,250 mg in 250 m ls @ 200 mls/hr 01/03/22 05:00 01/03/22 07:20 Vancocin IV Infused Q24H DEVON Infusion Methylprednisolone Sodium Succinate 40 mg 01/01/22 18:00 01/03/22 17:45 Methylprednisolo ne Sod Succ 40 Mg/ Ml Inj IVP 40 mg Q12H DEVON Administration Metoprolol Tartrat e 50 mg 01/02/22 09:00 01/03/22 08:20 Metoprolol Tartr ate 50 Mg Tablet PO 50 mg BID@0900,2100 DEVON Administration Morphine Sulfate 2 mg 12/29/21 14:52 01/03/22 17:44 Morphine 4 Mg/Ml Sdv 1 Ml IVP 2 mg Q4H PRN Administration SEVERE PAIN Pantoprazole Sodiu m 40 mg 12/29/21 16:30 01/03/22 16:43 Pantoprazole 40 Mg Sdv IVP 40 mg Q24H DEVON Administration Vitals/I&O/Wt Last Vital Signs Temp 97.1 F L 01/08/22 04:00 Pulse 84 01/08/22 08:26 Resp 16 01/08/22 08:15 BP 139/87 01/08/22 08:00 Pulse Ox 96 01/08/22 08:15 01/07/22 01/08/22 01/08/22 22:59 06:59 14:59 Intake Total 1050 / 2080 1500 / 3580 Output Total 700 / 700 180 / 880 200 / 200 Balance 350 / 1380 1320 / 2700 -200 / -200 Weight last 48 hrs Weight 96.757 kg Physical Exam Const: COMMON NORMALS: patient oriented x3 HENMT: COMMON NORMALS: normocephalic and atraumatic HEAD & SCALP: normocephalic and atraumatic Chest: CHEST: Yes Symmetrical chest wall rise Resp: COMMON NORMALS: clear to auscultation bilaterally EFFORT & INSPECTION: Yes symmetric chest movement AUSCULTATION: clear to auscultation bilaterally OTHER: Diminished air entry bilaterally, occasional expiratory wheezing Cardio: COMMON NORMALS: regular rate, regular rhythm, S1 normal heart sound present, S2 normal heart sound present, No gallops present (Cardio), No murmurs present (Cardio), No rub (Cardio) and Peripheral pulses 2+ throughout RATE: regular rate RHYTHM: regular rhythm HEART SOUNDS: S1 normal heart sound present and S2 normal heart sound present PERIPHERAL PULSES: Peripheral pulses 2+ throughout GI: COMMON NORMALS: Normal to inspection, nondistended, normoactive bowel sounds present, Soft to palpation, non-tender, No hepatosplenomegaly present and no masses AUSCULTATION: Yes normoactive bowel sounds PALPATION: Yes Soft to palpation and Yes No hepatosplenomegaly present RECTAL EXAM: Yes deferred Extremity: COMMON NORMALS: no clubbing, cyanosis or edema and no pedal edema Neuro: COMMON NORMALS: patient oriented x3 Urinary Catheter Management: Patel: Cath Placed During This Visit: yes, but has since been removed by the nurse Reason for Continuing Indwelling Catheter: Accurate Measurement of Urinary Output in Critically Ill Patients Urinary Catheter Date of Insertion: 01/04/22 Urinary Catheter Time of Insertion: 17:10 Date Urinary Catheter Removed: 01/04/22 Time Urinary Catheter Discontinued: 00:30 Data : 01/08/22 03:25 01/08/22 03:25 Micro: Microbiology 01/05/22 15:33 Gram Stain - Final Ankle - Pleura,Rt Lung Body Fluid Culture - Preliminary A&P Assessment and plan (1) Bacteremia due to Staphylococcus: Status: Acute (2) Traumatic hemothorax: Status: Acute (3) Acute kidney failure: Status: Acute (4) Atrial fibrillation: Status: Acute (5) Sepsis: Status: Acute (6) Lactic acidosis: Status: Acute (7) Hyponatremia: Status: Acute (8) Pulmonary edema: Status: Acute (9) Acute heart failure: Status: Acute (10) NSTEMI (non-ST elevated myocardial infarction): Status: Acute (11) Acute and chronic respiratory failure with hypoxia: Status: Acute (12) CAD (coronary artery disease): Status: Acute (13) Obesity: Status: Acute (14) Congestive heart failure: Status: Acute (15) COPD (chronic obstructive pulmonary disease): Status: Acute (16) Pneumonia: Status: Acute Plan #Coronary artery disease: CAG : 99 % stenosis of mid LAD, left main 50% stenosis borderline significant on IVUS s/p PCI to mid LAD. Not a surgical candidate for left main disease, cardiology intended to intervene LM later. Continue aspirin Plavix statin. Will need DAPT at least for a year # NSTEMI: Likely type I, given patient prior history of coronary artery disease, as well as persistent classic cardiac substernal chest pain. -Baseline troponin 117, 120-minute 192, 75.6, 366 Limited 2D echo: LV systolic function is grossly normal. -EKG A. fib with RVR, nonspecific ST-T wave changes -Aspirin, statin, metoprolol -Therapeutic anticoagulation currently on hold given hemothorax -Appreciate cardiology input # B/L Traumatic hemothorax: -Patient fell on Saturday. -CTA chest on admission: Moderate bilateral pleural effusions. No pulmonary embolism -Repeat CT chest: -Status post thoracocentesis 01/01/2022 650 cc dark red blood, no growth so far -Status post chest tube placement, small left, over 1100 cc of dark red blood. -Status post right-sided thoracentesis ( 01/05/2022) : with removal of 1000 CC hemorrhagic pleural effusion. -Pleural fluid analysis: Consistent with exudative pleural effusion. -Pleural fluid LDH: 1100 , pleural fluid total protein:3.8 , pleural fluid glucose:61, pleural fluid amylase:24, pleural fluid triglyceride:66 , pleural fluid Albumin 2.2 , RBC:3671 , WBC : 3496. -Pleural fluid cytology: Acute inflammation.No malignancy identified. -Pleural fluid Gram stain and culture: Negative, -Pleural fluid mycobacterial culture pending -On admission was placed on Lovenox for NSTEMI. Has been kept on hold -Monitor serial chest x-rays -Appreciate pulmonology input. #New onset A. fib with RVR: Patient was initially on amiodarone drip, has been transitioned to p.o. amiodarone as well as p.o. metoprolol. Anticoagulation is currently contraindicated given the history of hemothorax. # Acute hypoxic respiratory failure -Multifactorial from CHF, pneumonia, atrial fibrillation, traumatic hemothorax. -CT angiogram negative for pulmonary emboli -Lower extremity Doppler vein venous - Negative for DVT -Blood culture: Staph capitis in 2 bottles, corynebacterium in 1 bottle -Repeat blood culture negative -MRSA nares negative -urine bacterial antigens negative, -Legionella negative Plan -Diuresed over 8 L -Continue duo nebs -Continue Solu-Medrol given wheezing -Patient completed broad-spectrum antibiotic course (Vanco and Zosyn ) -We will discharge on p.o. levofloxacin given persistent leukocytosis # JHONNY, likely secondary to diuresis, contrast, hold diuresis, -Patel catheter placement, monitor I's and O's nephrology consulted # History of heart failure, likely combination of systolic diastolic as above History of COPD, solumderol, DuoNeb, budesonide Pneumonia, with sepsis, as above, leukocytosis elevated lactic acid Hyponatremia likely secondary to heart failure, continue diuresis #CODE STATUS: Full code #Disposition: Discharge to home likely tomorrow morning. 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
[2022-01-08] MEDS: pantoprazole DR 40 mg Tablet PO (16:54)
--- NOTE | 2022-01-08 18:21 | PC.NURSE ---
Pt was bale to transfer self to chair and walked around unit with PT. No complaints of chest pain this shift.
[2022-01-08] MEDS: atorvastatin 40 mg Tablet PO (20:58)
[2022-01-09] VITALS (17 sets, daily range): BP systolic 116–145; BP diastolic 76–91; PULSE 72–118; RESP 11–24; TEMP 36.5–36.7; O2SAT 90–100; BMI 28.3
[2022-01-09 05:13] LABS: Basophils % 0.1 %; Hematocrit 35.2 % (42.0-52.0); Hemoglobin 11.6 g/dL (11.7-16.6); Lymphocytes # 0.5 10^3/uL (0.8-4.8); Lymphocytes % 2.8 %; Mean Corpuscular Hemoglobin 30.4 pg (28.0-34.0); Mean Corpuscular Volume 92.1 fl (80-94); Mean Platelet Volume 9.6 fL (7.4-10.4); Monocytes # 0.9 10^3/uL (0.2-0.9); Neutrophils % 90.7 %; Nucleated Red Blood Cells % 0 %; Platelet Count 487 10^3/cmm (130-400); Red Blood Count 3.82 10^6/uL (4.1-5.3); Red Cell Distribution Width 13.8 % (12.1-15.1); White Blood Count 17.9 10^3/uL (4.0-10.0)
[2022-01-09 05:32] LABS: Anion Gap 11.7 (5-19); Blood Urea Nitrogen 31 mg/dL (8-23); Calcium 8.7 mg/dL (8.5-10.5); Carbon Dioxide 31 mmol/L (22-29); Chloride 96 mmol/L (98-107); Glucose 122 mg/dL (65-115); Osmolality Calculated 288 mOsm/kg (285-295); Potassium 3.7 mmol/L (3.5-5.1); Sodium 135 mmol/L (136-145)
--- NOTE | 2022-01-09 05:41 | PC.NURSE ---
Shift Note Frequent safety and comfort rounds continue. Orders and/or nursing care completed as indicated. Patient monitored for response to intervention and treatment(s). Education provided includes medication. Patient verbalizes understanding of teaching. Patient had an uneventful shift. Remains on room air and is alert/oriented x4. Rested throughout the evening and had no complaints of pain overnight. Voided once with urinal totaling 400 mls urine out overnight. Will continue to monitor.
--- NOTE | 2022-01-09 06:43 | P.PN_ITS ---
Subjective Subjective: Patient doing well. Denies chest pain Vitals/I&O/Wt Last Vital Signs Temp 97.8 F 01/09/22 04:00 Pulse 73 01/09/22 06:00 Resp 16 01/09/22 05:00 BP 145/88 01/09/22 05:00 Pulse Ox 93 01/09/22 05:00 01/08/22 01/08/22 01/09/22 14:59 22:59 06:59 Intake Total 250 / 250 120 / 370 826 / 1196 Output Total 200 / 200 300 / 500 400 / 900 Balance 50 / 50 -180 / -130 426 / 296 Weight last 48 hrs Weight 214 lb 8 oz Weight 213 lb 5 oz Physical Exam Narrative: GENERAL: Patient is alert, awake and oriented x3. [] NECK: No jugular vein distension. [] HEENT: No cyanosis. No icterus. No pallor. [] HEART: Irregularly irregular,? S1, S2 LUNGS: has bilateral crackles ABDOMEN: Soft, nontender and nondistended. Positive bowel sounds. No guarding, rebound or tenderness. [] CENTRAL NERVOUS SYSTEM: Grossly nonfocal. [] EXTREMITIES: Lower extremities with 1+ edema bilaterally. Pulses palpable in the lower extremities, both dorsalis pedis and posterior tibial. [] Urinary Catheter Management: Patel: Cath Placed During This Visit: yes, but has since been removed by the nurse Reason for Continuing Indwelling Catheter: Accurate Measurement of Urinary Output in Critically Ill Patients Urinary Catheter Date of Insertion: 01/04/22 Urinary Catheter Time of Insertion: 17:10 Date Urinary Catheter Removed: 01/04/22 Time Urinary Catheter Discontinued: 00:30 Data : 01/09/22 04:20 01/09/22 04:20 Micro: Microbiology 01/05/22 15:33 Gram Stain - Final Ankle - Pleura,Rt Lung Body Fluid Culture - Preliminary A&P Assessment and plan (1) Sepsis: (2) Lactic acidosis: (3) Pulmonary edema: (4) Acute heart failure: (5) NSTEMI (non-ST elevated myocardial infarction): (6) CAD (coronary artery disease): (7) COPD (chronic obstructive pulmonary disease): (8) Atrial fibrillation: (9) Traumatic hemothorax: Plan Patient has presented with sepsis, congestive heart failure, pulmonary edema, non-ST elevation [place] and atrial fibrillation with RVR. Was found to have a hemothorax and had a chest tube. Chest tube was removed. Patient underwent coronary angiogram that showed moderate to severe 50% left main disease( significant by IVUS), and severe mid LAD stenosis.Given his ongoing chest pain symptoms that were consistent with unstable angina, we decided to treat critical 99% mid LAD stenosis as CT surgery not available over the weekend. Discussed with patient and family. Can plan on staged PCI of left main artery vs CABG as a staged procedure For atrial fibrillation, currently on PO amio and metoprolol. Rate is controlled. Echocardiogram is limited quality because of poor ultrasonic windows. It shows mildly decreased to normal EF. Strict I&O's Antibiotic treatment per primary team Thank you for involving us with care of this patient. Patient will follow with our cardiology office. Please call with questions Attestations Medical Necessity Statement*: Care expected to cross 2 midnights. 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
[2022-01-09] MEDS: ipratropium-albuterol 3 mL Neb INHALATION ×2 (07:57→11:21)
[2022-01-09] MEDS: budesonide 0.5 mg/2 mL Neb INHALATION (07:57)
--- NOTE | 2022-01-09 08:47 | PM.DCS ---
Discharge Providers Date of Admission: 12/29/21 14:54 Date of Discharge: January 09, 2022 Attending Provider at Admission: Jaun Felix MD Attending Provider at Discharge: Carson Cantor MD Diagnoses at Discharge Discharge Diagnosis (1) Sepsis: Status: Acute (2) Lactic acidosis: Status: Acute (3) Pulmonary edema: Status: Acute (4) Acute heart failure: Status: Acute (5) NSTEMI (non-ST elevated myocardial infarction): Status: Acute (6) CAD (coronary artery disease): Status: Acute (7) COPD (chronic obstructive pulmonary disease): Status: Acute (8) Atrial fibrillation: Status: Acute (9) Traumatic hemothorax: Status: Acute Reason for Visit Reason for Visit: Diff breathing taking heart meds Hospital Course Hospital Course 76 year old male with a past medical history of CAD status post stenting, history of COPD, history of smoking, history of hypertension, who presents to [facility] from the [place] due to complaints of shortness of breath.? During the hospital stay he was managed for acute hypoxic respiratory failure, secondary to, decompensated diastolic heart failure, A. fib with RVR, pneumonia,B/L traumatic hemothorax S/P fall he experienced while coming to the hospital. Status post bilateral thoracentesis, with pigtail placement on the left followed by removal, and ultrasound-guided right thoracentesis without pigtail placement. Hemorrhagic effusion was drained from both the side. Pleural fluid cytology negative for malignancy. During the hospital stay patient was also managed for A. fib with RVR, he was kept on amiodarone drip , later transitioned to p.o. amiodarone, he was discharged on amiodarone p.o. 200 mg po daily, as well as metoprolol succinate 50 mg p.o. daily , he was in A. fib on discharge but with well-controlled heart rate, he was not started on anticoagulation, given his recent history of bilateral traumatic hemothorax,he will follow with repeat CBC, as well as chest x-ray in 1 week as an outpatient with cardiology regarding the need to restart the anticoagulation. For decompensated diastolic heart failure he was kept on IV diuresis, to which he responded well, at the time of discharge he was euvolemic, slightly dry, Lasix was not prescribed on discharge, depending upon the volume status in a week it can be restarted as an outpatient, for pneumonia he was kept on broad-spectrum antibiotics, to which he responded well. Patient during the hospital stay continued to complain of substernal chest pain radiating to both the arms responding well to sublingual nitro as well as imdur, given classical symptoms of cardiac chest pain, and NSTEMI type I on admission, he underwent cardiac cath, Which showed ?99 % stenosis of mid LAD, left main 50% stenosis borderline significant on IVUS , s/p? PCI to mid LAD. Not a surgical candidate for left main disease, cardiology intended to intervene LM later.He tolerated aspirin and Plavix well during the hospital stay H&H was stable. He will have to continue with aspirin and Plavix at least for a year. He was also continued on statin metoprolol, Imdur,s/l nitro as needed, for his NSTEMI initially he was initially started on therapeutic anticoagulation but Lovenox was later discontinued given the new finding of hemothorax. 2D echo done during the hospital stay showed grossly normal LV systolic function. Patient did develop JHONNY during the hospital stay: Likely secondary to diuresis as well as contrast use, at the time of discharge serum creatinine had normalized. Patient was also managed for sepsis secondary to pneumonia: Blood culture grew: Staph capitis in 2 bottles, corynebacterium in 1 bottle, repeat blood culture was negative, MRSA PCR was negative, urine Legionella antigen and bacterial antigen panel was negative.At the time of discharge patient was afebrile hemodynamically stable. Patient responded well to above medical management, he will follow cardiology as an outpatient in 1 week. He has been asked to do repeat CBC and repeat x-ray chest in 1 week. Patient is safely being discharged to home. Physical Exam Const: COMMON NORMALS: patient oriented x3 HENMT: COMMON NORMALS: normocephalic and atraumatic HEAD & SCALP: normocephalic and atraumatic Chest: CHEST: Yes Symmetrical chest wall rise Resp: COMMON NORMALS: clear to auscultation bilaterally EFFORT & INSPECTION: Yes symmetric chest movement AUSCULTATION: clear to auscultation bilaterally OTHER: Diminished air entry bilaterally, occasional expiratory wheezing Cardio: COMMON NORMALS: regular rate, regular rhythm, S1 normal heart sound present, S2 normal heart sound present, No gallops present (Cardio), No murmurs present (Cardio), No rub (Cardio) and Peripheral pulses 2+ throughout RATE: regular rate RHYTHM: regular rhythm HEART SOUNDS: S1 normal heart sound present and S2 normal heart sound present PERIPHERAL PULSES: Peripheral pulses 2+ throughout GI: COMMON NORMALS: Normal to inspection, nondistended, normoactive bowel sounds present, Soft to palpation, non-tender, No hepatosplenomegaly present and no masses AUSCULTATION: Yes normoactive bowel sounds PALPATION: Yes Soft to palpation and Yes No hepatosplenomegaly present RECTAL EXAM: Yes deferred Extremity: COMMON NORMALS: no clubbing, cyanosis or edema and no pedal edema Neuro: COMMON NORMALS: patient oriented x3 Urinary Catheter Management: Patel: Cath Placed During This Visit: yes, but has since been removed by the nurse Reason for Continuing Indwelling Catheter: Accurate Measurement of Urinary Output in Critically Ill Patients Urinary Catheter Date of Insertion: 01/04/22 Urinary Catheter Time of Insertion: 17:10 Date Urinary Catheter Removed: 01/04/22 Time Urinary Catheter Discontinued: 00:30 Discharge Data Studies Completed and Pending Completed Studies During Hospitalization Category Date Time Status CT angio chest PE protcl [id number] Stat Cat Scan 12/29/21 11:52 Completed XR chest 1V portable [id number] Routine Exams 12/30/21 07:00 Completed XR chest 1V portable [id number] Routine Exams 12/31/21 08:54 Completed XR chest 1V portable [id number] Routine Exams 01/01/22 07:00 Completed XR chest 1V portable [id number] Routine Exams 01/02/22 07:00 Completed XR chest 1V portable [id number] Routine Exams 01/03/22 07:00 Completed XR chest 1V portable [id number] Routine Exams 01/04/22 07:11 Completed XR chest 1V portable [id number] Routine Exams 01/06/22 06:00 Completed XR chest 1V portable [id number] Routine Exams 01/07/22 05:00 Completed XR chest 1V portable [id number] Stat Exams 12/29/21 10:59 Completed XR chest 1V portable [id number] Stat Exams 01/01/22 13:08 Completed XR chest 1V portable 52583 Stat Exams 01/02/22 13:51 Completed XR chest 1V portable [id number] Stat Exams 01/04/22 15:30 Completed XR chest 1V portable [id number] Stat Exams 01/05/22 14:30 Completed XR chest 1V portable [id number] Urgent Exams 01/03/22 16:44 [place] [id number] Urgent Ultrasound 12/29/21 14:48 Completed CV. echo complete* [id number] Routine Ultrasound 12/29/21 14:48 Completed CV. echo lmt w/w contras [id number] Routine Ultrasound 12/30/21 07:54 Completed US renal BI* [id number] Routine Ultrasound 01/02/22 15:42 Completed US thoracentesis [id number] Routine Ultrasound 01/05/22 10:55 Completed US thoracentesis [id number] Stat Ultrasound 01/01/22 Completed Pending at discharge Category Date Time Status [employer] request for service Routine Exams 01/07/22 09:01 Taken BMP [Basic Metabolic Panel] AM LABS Lab 01/10/22 04:00 Ordered BMP [Basic Metabolic Panel] AM LABS Lab 01/11/22 04:00 Ordered Body Fluid Culture & GS Routine Lab 01/05/22 15:33 Results CBC Auto Diff [Complete Blood Count w/Auto] AM LABS Lab 01/10/22 04:00 Ordered CBC Auto Diff [Complete Blood Count w/Auto] AM LABS Lab 01/11/22 04:00 Ordered Mycobacteria, Culture w/Fluor Routine Lab 01/01/22 13:15 Results Sputum Culture and Gram Stain Stat Lab 12/29/21 10:59 Uncollected Cytology [PTH] Routine Pth 01/01/22 13:23 Received Cytology [PTH] Routine Pth 01/05/22 17:41 Received Radiology Impressions Chest CTA 12/29/21 11:52 IMPRESSION: 1. No pulmonary embolism. 2. Small to moderate bilateral pleural effusions. 3. Very mild subsegmental pneumonitis in the RIGHT middle, upper and lower lobes. 4. Partial atelectasis lingula. 5. Tricuspid regurgitation into hepatic veins. Venous Duplex 12/29/21 14:48 IMPRESSION: 1. No evidence for deep vein thrombosis. 2. Subcutaneous soft tissue edema in the bilateral lower legs. Renal Ultrasound 01/02/22 15:42 IMPRESSION: 1. No hydronephrosis in either kidney. 2. Patel catheter. 3. Aorta not visualized. 4. Cortical lobulation LEFT kidney mid aspect measuring 2.3 x 2.2 x 2.0 cm is indeterminant. This can be further evaluated with CT abdomen pelvis. Thoracentesis Ultrasound 01/05/22 10:55 IMPRESSION: 1. Uncomplicated ultrasound-guided thoracentesis. 2. No pneumothorax on the postthoracentesis radiograph Chest X-Ray 01/07/22 05:00 IMPRESSION: Hazy opacities likely represent residual pleural effusion on the right after thoracentesis. Laboratory Results WBC 17.9 10^3/uL (4.0-10.0) H 01/09/22 04:20 RBC 3.82 10^6/uL (4.1-5.3) L 01/09/22 04:20 Hgb 11.6 g/dL (11.7-16.6) L 01/09/22 04:20 Hct 35.2 % (42.0-52.0) L 01/09/22 04:20 MCV 92.1 fl (80-94) 01/09/22 04:20 MCH 30.4 pg (28.0-34.0) 01/09/22 04:20 MCHC 33.0 g/dL (30.0-36.0) 01/09/22 04:20 RDW 13.8 % (12.1-15.1) 01/09/22 04:20 Plt Count 487 10^3/cmm (130-400) H 01/09/22 04:20 MPV 9.6 fL (7.4-10.4) 01/09/22 04:20 Neut % (Auto) 90.7 % 01/09/22 04:20 Lymph % (Auto) 2.8 % 01/09/22 04:20 Brule % (Auto) 5.0 % 01/09/22 04:20 Eos % (Auto) 0.0 % 01/09/22 04:20 Baso % (Auto) 0.1 % 01/09/22 04:20 Neut # (Auto) 16.20 10^3/uL (1.8-7.7) H 01/09/22 04:20 Lymph # (Auto) 0.5 10^3/uL (0.8-4.8) L 01/09/22 04:20 Brule # (Auto) 0.9 10^3/uL (0.2-0.9) 01/09/22 04:20 Eos # (Auto) 0.0 10^3/uL (0.0-0.8) 01/09/22 04:20 Baso # (Auto) 0.0 10^3/uL (0.0-0.1) 01/09/22 04:20 Nucleated RBC % (auto) 0 % 01/09/22 04:20 Total Counted 100 (0-100) 01/02/22 18:13 Atypical Lymphs % 0.0 % (0-5) 01/02/22 18:13 Absolute Neutrophils 24.9 10^3/cmm (1.4-6.5) H 01/02/22 18:13 Segmented Neutrophils 89 % 01/02/22 18:13 Abs Segm Neuts (Man) 24.9 10/cmm (1.6-7.1) H 01/02/22 18:13 Band Neutrophils 0.0 % 01/02/22 18:13 Abs Band Neuts (Man) 0.0 10^3/cmm (0.0-1.2) 01/02/22 18:13 Absolute Lymphocytes 0.6 10^3/cmm (1.2-3.4) L 01/02/22 18:13 Lymphocytes (Manual) 2 % 01/02/22 18:13 Monocytes (Manual) 9.0 % 01/02/22 18:13 Absolute Monocytes 2.5 10^3/cmm (0.1-0.6) H 01/02/22 18:13 Eosinophils (Manual) 0 % 01/02/22 18:13 Absolute Eosinophils 0.0 10^3/cmm (0.0-0.7) 01/02/22 18:13 Basophils (Manual) 0.0 % 01/02/22 18:13 Absolute Basophils 0.0 10^3/cmm (0.0-0.2) 01/02/22 18:13 Nucleated RBCs # 0.0 /100WBC 01/09/22 04:20 Differential Comment Yes 01/05/22 15:33 Platelet Estimate Increased (Normal) 01/02/22 18:13 PT 14.00 SECONDS (12.1-14.9) 01/01/22 04:39 INR 1.05 (0.8-1.2) 01/01/22 04:39 APTT 41.4 SECONDS (23.9-36.7) H 12/31/21 03:43 D-Dimer 1.17 ug/mIFEU (0-0.59) H 12/30/21 05:08 Specimen Type Arterial 12/30/21 05:00 Sample Site Radial, right 12/30/21 05:00 ABG pH 7.47 (7.35-7.45) H 12/30/21 05:00 ABG pCO2 40.5 mmHg (35-45) 12/30/21 05:00 ABG pO2 83.5 mmHg (80.0-100.0) 12/30/21 05:00 ABG HCO3 29.6 mmol/L (22-26) H 12/30/21 05:00 ABG Base Excess 5.5 mmol/L (-2.0-2.0) H 12/30/21 05:00 Damon Test Pos 12/30/21 05:00 Hematocrit 37.8 % (42-52) L 12/30/21 05:00 O2 Delivery Device Bipap 12/30/21 05:00 FiO2 30.0 % 12/30/21 05:00 Care Navigator ID Hinja 12/30/21 05:00 Sodium 135 mmol/L (136-145) L 01/09/22 04:20 Potassium 3.7 mmol/L (3.5-5.1) 01/09/22 04:20 Chloride 96 mmol/L (98-107) L 01/09/22 04:20 Carbon Dioxide 31 mmol/L (22-29) H 01/09/22 04:20 Anion Gap 11.7 (5-19) 01/09/22 04:20 BUN 31 mg/dL (8-23) H 01/09/22 04:20 Creatinine 0.9 mg/dL (0.7-1.2) 01/09/22 04:20 GFR Calculation Not Reportable 01/09/22 04:20 Glucose 122 mg/dL (65-115) H 01/09/22 04:20 Estimat Average Glucose 105 12/29/21 11:04 Hemoglobin A1c 5.3 % (4.0-6.0) 12/29/21 11:04 Calculated Osmolality 288 mOsm/kg (285-295) 01/09/22 04:20 Lactic Acid 1.2 mmol/L (0.5-2.2) 12/30/21 05:08 Lactic Acid (Sepsis) 2.4 mmol/L (0.5-2.2) H 12/29/21 13:43 Uric Acid 9.4 mg/dL (3.4-7.0) H 01/02/22 14:32 Calcium 8.7 mg/dL (8.5-10.5) 01/09/22 04:20 Phosphorus 3.1 mg/dL (2.5-4.5) 01/04/22 03:48 Magnesium 2.0 mg/dL (1.7-2.3) 01/09/22 04:20 Total Bilirubin 0.6 mg/dL (0.15-1.2) 01/04/22 03:48 AST 25 U/L (0-40) 01/04/22 03:48 ALT 39 U/L (0-41) 01/04/22 03:48 Alkaline Phosphatase 51 IU/L (40-130) 01/04/22 03:48 Creatine Kinase 54 U/L (39-308) 01/02/22 14:32 Troponin T Gen 5 ng/L 366 ng/L (0-15) H* 12/30/21 05:08 Troponin T Baseline 338 ng/L (0-15) H* 01/02/22 06:30 Troponin T 120 Minute 344.9 ng/L (0-15) H 01/02/22 08:30 Delta Troponin T 6.9 ABS# (0-10) 01/02/22 08:30 Troponin T Hi Sens 6Hr 343.2 ng/L (0-15) H 01/02/22 14:32 Troponin T Hi Sens 6Hr Delta 5.2 ng/L (0-12) 01/02/22 14:32 C-Reactive Protein 53.9 mg/L (0.0-4.9) H 01/04/22 03:48 NT-Pro-B Natriuret Pep 4311 pg/mL (0-450) H 01/04/22 03:48 Total Protein 5.9 g/dL (6.6-8.7) L 01/04/22 03:48 Albumin 3.1 g/dL (3.5-5.2) L 01/04/22 03:48 Globulin 2.8 g/dL (1.3-4.6) 01/04/22 03:48 Triglycerides 52 mg/dL (0-150) 12/29/21 13:05 Cholesterol 136 mg/dL (0-200) 12/29/21 13:05 LDL Cholesterol, Calc 84 mg/dL (50-129) 12/29/21 13:05 HDL Cholesterol 42 mg/dL (60-100) L 12/29/21 13:05 LDL/HDL Ratio 2.00 RATIO (0.00-3.22) 12/29/21 13:05 Cholesterol/HDL Ratio 3.24 mg/dL (1.0-5.00) 12/29/21 13:05 Procalcitonin 0.06 ng/mL (0-0.5) 12/29/21 10:59 TSH 1.09 uIU/mL (0.27-4.20) 12/29/21 13:05 Urine Color Yellow (Yellow) 01/02/22 15:50 Urine Appearance Hazy (CLEAR) A 01/02/22 15:50 Urine pH 5 (5-7) 01/02/22 15:50 Ur Specific [place] 1.020 (1.005-1.030) 01/02/22 15:50 Urine Protein Neg (Negative) 01/02/22 15:50 Urine Glucose (UA) Norm (Normal) 01/02/22 15:50 Urine Ketones Negative (Negative) 01/02/22 15:50 Urine Blood 2+ (Negative) H 01/02/22 15:50 Urine Nitrate Negative (Negative) 01/02/22 15:50 Urine Bilirubin Neg (Negative) 01/02/22 15:50 Urine Urobilinogen Neg mg/dL (Negative) 01/02/22 15:50 Ur Leukocyte Esterase Negative (Negative) 01/02/22 15:50 Urine RBC 5-10 /hpf (0-2) H 01/02/22 15:50 Urine WBC 0-4 /hpf (0-5) H 01/02/22 15:50 Ur Squamous Epith Cells Rare /hpf (0-5) 01/02/22 15:50 Uric Acid Crystals 0-4 /hpf 01/02/22 15:50 Amorphous Sediment Not Reportable 01/02/22 15:50 Urine Bacteria Trace /hpf (NONE) 01/02/22 15:50 U Random Total Protein 14 mg/dL 01/02/22 15:50 Ur Random Sodium 18 mmol/L 01/02/22 15:50 Ur Random Urea Nitrogn 618 mg/dL 01/02/22 15:50 Urine Creatinine 124 mg/dL (39-259) 01/02/22 15:50 Protein/Creatinin Ratio 0.11 mg/mg CR 01/02/22 15:50 Fluid Color Red 01/05/22 15:33 Fluid Appearance Bloody 01/05/22 15:33 Fluid pH 8.0 01/05/22 15:33 Fluid WBC 767 /uL 01/05/22 15:33 Fluid RBC 271.000 10^3/uL 01/05/22 15:33 Fluid Hematocrit 37.1 % 01/01/22 13:15 Fld Polynuclear WBCs # 0.256 01/05/22 15:33 Fld Polynuclear WBCs % 33.400 % 01/05/22 15:33 Fl Mononucl WBCs #(Auto) 0.511 01/05/22 15:33 Fl Mononuclear % Auto 66.600 % 01/05/22 15:33 Fluid Glucose 98.0 mg/dL 01/05/22 15:33 Fluid Albumin 2.6 g/dL 01/05/22 15:33 Fluid LDH 604 U/L 01/05/22 15:33 Fluid Amylase 65 U/L 01/05/22 15:33 Fluid Creatinine 0.83 (0.7-1.2) 01/01/22 13:15 Fluid Triglycerides 32 mg/dL (0-150) 01/05/22 15:33 Fluid Uric Acid 5 mg/dL 01/05/22 15:33 Pleural pH TNP 01/01/22 13:15 Pleural Total Protein 4.0 g/dL 01/05/22 15:33 Pleural LDH 1100 U/L 01/01/22 13:15 Pleural Glucose 61.0 mg/dL 01/01/22 13:15 Pleural Amylase 24.0 U/L 01/01/22 13:15 Pleural Triglycerides 66 mg/dL 01/01/22 13:15 Vancomycin Trough 11.9 ug/mL (10-15) 01/07/22 03:55 Random Vancomycin 23.4 ug/mL (20.0-40.0) 01/02/22 06:30 Coronavirus 229E (PCR) Not detected (NOT DETECT) 12/29/21 11:04 SARS-CoV-2 (PCR) Not detected (NOT DETECT) 12/29/21 11:04 Vitals Last Vital Signs Temp 97.8 F 01/09/22 04:00 Pulse 84 01/09/22 07:57 Resp 16 01/09/22 07:57 BP 145/88 01/09/22 05:00 Pulse Ox 98 01/09/22 07:57 Discharge Plan Discharge Patient Disposition: Home Condition: Stable Prescriptions: New Spiriva Respimat 2.5 mcg/actuation mist 2 inh inhalation DAILY Qty: 4 3RF atorvastatin 40 mg Tablet 40 mg PO BEDTIME 30 Days Qty: 30 3RF isosorbide mononitrate 30 mg Tablet Extended Release 24 Hr 30 mg PO DAILY 30 Days Qty: 30 0RF clopidogrel 75 mg Tablet 75 mg PO DAILY 30 Days Qty: 30 3RF aspirin 81 mg Tablet,Delayed Release (Dr/Ec) 81 mg PO DAILY 30 Days Qty: 30 3RF nitroglycerin 0.4 mg Tablet, Sublingual 0.4 mg sublingual Q5M PRN (Reason: Chest Pain) 30 Days Qty: 30 0RF metoprolol succinate 25 mg tablet extended release 24 hr 50 mg PO DAILY Qty: 30 3RF amiodarone 200 mg tablet 200 mg PO DAILY Qty: 30 3RF Continued calcium carbonate-mag hydroxid 550-110 mg Tablet,Chewable 2 tab PO Q4H PRN (Reason: Indigestion) 0RF sildenafil 100 mg Tablet 50 mg PO PRN PRN (Reason: Erectile Dysfunction) 0RF hydrochlorothiazide 25 mg Tablet 25 mg PO QAM 0RF ProAir HFA 90 mcg/actuation Hfa Aerosol Inhaler 2 puff INHALATION QID PRN (Reason: Shortness Of Breath) 0RF Vitamin D3 25 mcg (1,000 unit) Tablet 25 mcg PO QAM 0RF Vitamin B-12 1 tab PO .OCCASIONALLY 0RF Discontinued aspirin 325 mg Tablet 325 mg PO QAM 0RF metoprolol tartrate 100 mg Tablet 50 mg PO QAM 0RF Discharge Orders: Discharge Order (Routine); Ordered 01/09/22 Ordered By: Carson Cantor Other Ambulatory Orders: Complete Blood Count w/Auto (Routine) Timeframe: 1 Week Location: Determined by Patient Ordered By: Carson Cantor XR chest 1V [id number] (Routine) Timeframe: 1 Week Facility: [facility] - Location: Radiology [facility] Ordered By: Carson Cantor Referrals: Jeff Andres M.D [Physician] - 1 week (please see [facility] at [facility] on December at 10:[address] Andres on February at 3:30 ) Discharge Diet: Cardiac Discharge Activity: Increase activity as tolerated Patient Instructions: Anemia, Isosorbide Dinitrate (By mouth) (Dilatrate-SR, Isordil Titradose), Metoprolol (By mouth) (Lopressor, Toprol XL), Aspirin (By mouth), Amiodarone (By mouth) (Cordarone, Pacerone), Nitroglycerin, Rapid Release (By mouth), Atorvastatin (By mouth) (Lipitor), Clopidogrel (By mouth) (Plavix), Tiotropium (By breathing) (Spiriva, Spiriva Respimat), Coronary Angioplasty (DC), Heart Healthy Diet (DC), Opioid Safety Discharge Attestations Time Spent in Discharge Care*: greater than 30 min Specific Discharge Activities: educating patient, educating and/or supporting family/caregiver, discussing with pcp/other providers, discussing with bilingual case manager/social workers/dc planners, documenting/other paperwork and evaluating patient/reviewing data Status at Discharge: Cognitive status at discharge: cognitively intact, Behavioral status at discharge: cooperative, Functional status at discharge: independent ambulation, Quality Metrics Clinical Quality Measures [ No reported AMI, CVA or VTE this stay] Coding Level of Care Code Acute Chg FW DC note Exam Detailed Diagnoses Sepsis A41.9 Lactic acidosis E87.2 Pulmonary edema J81.1 Acute heart failure I50.9 NSTEMI (non-ST elevated myocardial infarction) I21.4 CAD (coronary artery disease) I25.10 COPD (chronic obstructive pulmonary disease) J44.9 Atrial fibrillation I48.91 Traumatic hemothorax S27.1XXA
[2022-01-09] MEDS: amiodarone 200 mg Tablet 400 MG PO (09:06)
[2022-01-09] MEDS: aspirin 81 mg EC Tablet PO (09:06)
[2022-01-09] MEDS: isosorbide mononitrate ER 30 mg Tablet PO (09:06)
[2022-01-09] MEDS: clopidogrel 75 mg Tablet PO (09:06)
[2022-01-09] MEDS: levofloxacin-dextrose 5 % 750 MG/150 ML PREMIX 100 MG IV (09:10)
[2022-01-09] MEDS: metoprolol tartrate 25 mg Tablet 12.5 MG PO (10:05)
--- NOTE | 2022-01-09 12:00 | PC.SOCIAL ---
IMM Update pg 2 of IMM updated and reviewed w/ patient. Copy provided and Copy in chart updated.
--- NOTE | 2022-01-09 14:01 | PC.NURSE ---
Home O2 eval complete. Pt does not qualify.
--- NOTE | 2022-01-09 14:48 | PC.NURSE ---
Discharge instruction provided. Medications reviewed thoroughly, unti pt stated he got it . Pt and family declined to go over [place]. Pt to entrance via W/C. Discharged. Home in POV.
== END 2022-01-09 14:45 | disposition home or self-care (01) | DRG 853 ==
LOC: ER 13:50 → ICU 16:59 → CSU 01-01 18:18 → ICU 01-02 06:45
PROVIDERS: Internal Medicine; Internal Medicine Nephrology; Internal Medicine Pulmonary Disease; Admitting Provider Family Medicine; Emergency Provider Family Medicine; Visit Provider Internal Medicine
PROC: 027034Z Dilation of Coronary Artery, One Artery with Drug-eluting Intraluminal Device, Percutaneous Approach (ICD-10-PCS; principal; 2022-01-07 09:00)
PROC: 027034Z Dilation of Coronary Artery, One Artery with Drug-eluting Intraluminal Device, Percutaneous Approach (ICD-10-PCS; 2022-01-07 09:00)
DX: A41.9 Sepsis, unspecified organism (principal); I21.4 Non-ST elevation (NSTEMI) myocardial infarction; J18.9 Pneumonia, unspecified organism; I50.33 Acute on chronic diastolic (congestive) heart failure; J96.21 Acute and chronic respiratory failure with hypoxia; S27.1XXA Traumatic hemothorax, initial encounter; S22.32XA Fracture of one rib, left side, initial encounter for closed fracture; J44.0 Chronic obstructive pulmonary disease with (acute) lower respiratory infection; E87.1 Hypo-osmolality and hyponatremia; E87.2 Acidosis; N17.9 Acute kidney failure, unspecified; Z95.5 Presence of coronary angioplasty implant and graft; I11.0 Hypertensive heart disease with heart failure; E66.9 Obesity, unspecified; Z68.28 Body mass index [BMI] 28.0-28.9, adult; F17.210 Nicotine dependence, cigarettes, uncomplicated; I48.91 Unspecified atrial fibrillation; T50.8X5A Adverse effect of diagnostic agents, initial encounter; W19.XXXA Unspecified fall, initial encounter; B95.8 Unspecified staphylococcus as the cause of diseases classified elsewhere
CPT/HCPCS: 32555; 36415; 36600; 51702; 71045; 71275; 76770; 80048; 80053; 80061; 80202; 80500; 81001; 82042; 82150; 82550; 82570; 82803; 82945; 83036; 83605; 83615; 83735; 83880; 83986; 84100; 84145; 84156; 84157; 84300; 84443; 84478; 84484; 84540; 84550; 84560; 85007; 85014; 85025; 85027; 85347; 85378; 85610; 85730; 86140; 86403; 87015; 87040; 87070; 87075; 87077; 87116; 87186; 87205; 87206; 87449; 87635; 87641; 87801; 88108; 88305; 89050; 92978; 93005; 93306; 93454; 93970; 94640; 94660; 94664; 96365; 96366; 96367; 96372; 96375; 97110; 97116; 97161; 97165; 97530; 97535; 99291; 99292; C1725; C1753; C1769; C1874; C1887; C1894; C8924; C9113; C9600; J0282; J0743; J1100; J1644; J1650; J1940; J1956; J2250; J2270; J2543; J2920; J2930; J3010; J3370; J3475; J3480; J3490; J7030; J7060; J7626; Q3014; Q9956; Q9967

== ENCOUNTER 2022-01-28 16:35 | Inpatient (IN) | payer OTHER, MEDICARE, SELFPAY ==
[2022-01-28] VITALS (8 sets, daily range): BP systolic 104–134; BP diastolic 71–84; PULSE 90–115; RESP 18–24; TEMP 36.6–36.7; O2SAT 91–95; BMI 27.8; BMI 29.0
--- NOTE | 2022-01-28 16:50 | XRR_ITS ---
PROCEDURE INFORMATION: Exam: XR Chest Exam date and time: 01/28/2022 4:57 PM Age: 76 years old Clinical indication: Shortness of breath; Patient HX: PT C/O SOB w HX of thoracentesis 1 month ago TECHNIQUE: Imaging protocol: XR of the chest. Views: 1 view. COMPARISON: CR XR chest 1V portable [id number] 01/07/2022 5:19 AM FINDINGS: Lungs: Bibasilar atelectasis. The lungs are otherwise clear. Pleural spaces: Small to medium sized bilateral pleural effusions. No pneumothorax. Heart/Mediastinum: Unremarkable. No cardiomegaly. Bones/joints: Unremarkable. XR/XR chest 1V portable [id number] IMPRESSION: Pleural effusions and basilar atelectasis.
--- NOTE | 2022-01-28 16:51 | ECG_ITS ---
[facility] Test Date: 2022-01-28 Pat Name: Nitin Florentino Department: Room: Gender: Male Manager Banquet: : [id number] Requested By: Mart Michelle Order Number: [id number] Noemi MD: Parth Persaud M.D. Measurements Intervals Casa Rate: 84 P: [place]: QRS: 13 QRSD: 141 T: 156 QT: 413 QTc: 490 Interpretive Statements ATRIAL FIBRILLATION LEFT BUNDLE BRANCH BLOCK [120+ ms QRS DURATION, 80+ ms Q/S IN V1/V2, 85+ ms R IN I/aVL/V5/V6] Compared to ECG 01/02/2022 16:15:29 Left bundle-branch block now present Intraventricular conduction delay no longer present Electronically Signed On 01-28-2022 22:01:51 CDT by Parth Persaud M.D. [email or web address]
--- NOTE | 2022-01-28 16:55 | W.ED.SOB ---
Documented by User: Mart Michelle MD 01/28/22 18:29 HPI - SOB/Dyspnea General: Chief Complaint: Shortness of Breath/Dyspnea Stated Complaint: Diff Breathing Time Seen by Provider: 01/28/22 16:49 History of Present Illness: HPI Narrative: 76-year-old with history of CHF and COPD presents with shortness of breath. Recently hospitalized and discharged after episode of CHF exacerbation that required bilateral thoracentesis. Denies chest pain. Does report bilateral lower extremity swelling. Also reports orthopnea. Denies cough or chills. Review of Systems Narrative: - CONSTITUTIONAL: Denies weight loss, fever and chills. - HEENT: Denies changes in vision and hearing. - RESPIRATORY: As above - CV: Denies palpitations and CP. - GI: Denies abdominal pain, nausea, vomiting and diarrhea. - : Denies dysuria and urinary frequency. - MSK: Denies myalgia and joint pain. - SKIN: Denies rash and pruritus. - NEUROLOGICAL: Denies headache, weakness, numbness and syncope. - PSYCHIATRIC: Denies suicidal ideation PFS ED PFSH: Medical History Acute and chronic respiratory failure with hypoxia Acute heart failure Acute kidney failure Atrial fibrillation Bacteremia due to Staphylococcus CAD (coronary artery disease) Congestive heart failure COPD (chronic obstructive pulmonary disease) Hyponatremia Lactic acidosis NSTEMI (non-ST elevated myocardial infarction) Obesity Pneumonia Pulmonary edema Sepsis Traumatic hemothorax Surgical History History of heart artery stent History of hernia surgery Family History Father CAD (coronary artery disease) Mother Old age Social History Smoking and tobacco status: current every day smoker cigarettes [ Other cigarette details: Patient reports quitting smoking with onset of symptoms of this illness] Alcohol intake: never Physical Exam Narrative: EXAM NARRATIVE: - GENERAL: Alert and oriented x 3. No acute distress. Well-nourished. - EYES: EOMI. Anicteric. - HENT: Atraumatic, no C-spine tenderness. Moist mucous membranes. No scleral icterus. No cervical lymphadenopathy. - LUNGS: Bilateral crackles wheezes. No accessory muscle use. Equal lung sounds bilaterally. No respiratory distress. - CARDIOVASCULAR: Regular rate and rhythm. No murmur. No JVD. - ABDOMEN: Soft, non-tender and non-distended. Negative CVA tenderness bilaterally, no rebound or guarding, negative Alvarez sign. No palpable masses. - EXTREMITIES: +2 bilateral pitting edema. Non-tender. - SKIN: No rashes or lesions. Warm. - NEUROLOGIC: No meningismus or focal neurological deficits. CN II-XII grossly intact. - PSYCHIATRIC: Cooperative. Appropriate mood and affect. Course Vital Signs: Vital signs: Vital Signs Temperature 98.1 F 01/28/22 17:17 Pulse Rate 108 H 01/28/22 19:57 Respiratory Rate 22 H 01/28/22 19:57 Blood Pressure 134/71 01/28/22 19:57 Pulse Oximetry 93 01/28/22 19:57 MDM - SOB/Dyspnea Medical Decision Making 76-year-old presents due to shortness of breath. Patient reports orthopnea. Has wheezing and crackles on exam. Lasix provided. Lab work currently pending. Patient signed out to Dr. Crook. Lab Data : 01/28/22 17:01 01/28/22 17:01 Labs/Radiology: Radiology Impressions Chest X-Ray 01/28/22 16:50 IMPRESSION: Pleural effusions and basilar atelectasis. Laboratory Results WBC 10.5 10^3/uL (4.0-10.0) H 01/28/22 17:01 RBC 3.87 10^6/uL (4.1-5.3) L 01/28/22 17:01 Hgb 11.8 g/dL (11.7-16.6) 01/28/22 17:01 Hct 36.4 % (42.0-52.0) L 01/28/22 17: MCV 94.1 fl (80-94) H 01/28/22 17:01 MCH 30.5 pg (28.0-34.0) 01/28/22 17: MCHC 32.4 g/dL (30.0-36.0) 01/28/22 17:01 RDW 14.7 % (12.1-15.1) 01/28/22 17:01 Plt Count 551 10^3/cmm (130-400) H 01/28/22 17:01 MPV 8.8 fL (7.4-10.4) 01/28/22 17:01 Neut % (Auto) 76.1 % 01/28/22 17:01 Lymph % (Auto) 8.5 % 01/28/22 17:01 [place] % (Auto) 12.9 % 01/28/22 17: Eos % (Auto) 1.6 % 01/28/22 17: Baso % (Auto) 0.5 % 01/28/22 17:01 Neut # (Auto) 8.00 10^3/uL (1.8-7.7) H 01/28/22 17: Lymph # (Auto) 0.9 10^3/uL (0.8-4.8) 01/28/22 17: [place] # (Auto) 1.4 10^3/uL (0.2-0.9) H 01/28/22 17: Eos # (Auto) 0.2 10^3/uL (0.0-0.8) 01/28/22 17: Baso # (Auto) 0.1 10^3/uL (0.0-0.1) 01/28/22 17: Nucleated RBC % (auto) 0 % 01/28/22 17: Nucleated RBCs # 0.0 /100WBC 01/28/22 17:01 Sodium 133 mmol/L (136-145) L 01/28/22 17: Potassium 3.8 mmol/L (3.5-5.1) 01/28/22 17: Chloride 91 mmol/L (98-107) L 01/28/22 17:01 Carbon Dioxide 31 mmol/L (22-29) H 01/28/22 17:01 Anion Gap 14.8 (5-19) 01/28/22 17: BUN 16 mg/dL (8-23) 01/28/22 17: Creatinine 1.3 mg/dL (0.7-1.2) H 01/28/22 17:01 GFR Calculation Not Reportable 01/28/22 17: Glucose 145 mg/dL (65-115) H 01/28/22 17:01 Calculated Osmolality 280 mOsm/kg (285-295) L 01/28/22 17:01 Calcium 9.2 mg/dL (8.5-10.5) 01/28/22 17:01 Total Bilirubin 0.7 mg/dL (0.15-1.2) 01/28/22 17:01 AST 17 U/L (0-40) 01/28/22 17:01 ALT 14 U/L (0-41) 01/28/22 17:01 Alkaline Phosphatase 104 IU/L (40-130) 01/28/22 17:01 Troponin T Baseline 39 ng/L (0-15) H 01/28/22 17:01 Troponin T 120 Minute 41.70 ng/L (0-15) H 01/28/22 19:10 Delta Troponin T 2.70 ABS# (0-10) 01/28/22 19:10 NT-Pro-B Natriuret Pep 4274 pg/mL (0-450) H 01/28/22 17:01 Total Protein 6.1 g/dL (6.6-8.7) L 01/28/22 17:01 Albumin 3.1 g/dL (3.5-5.2) L 01/28/22 17:01 Globulin 3.0 g/dL (1.3-4.6) 01/28/22 17:01 SARS-CoV-2 Ag (Rapid) Negative (Negative) 01/28/22 17:15 Discharge Plan Discharge Patient Disposition: Admitted As Inpatient Clinical Impression: Acute exacerbation of CHF (congestive heart failure) Condition: Stable Prescriptions: No Action calcium carbonate-mag hydroxid 550-110 mg Tablet,Chewable 2 tab PO Q4H PRN (Reason: Indigestion) 0RF sildenafil 100 mg Tablet 50 mg PO PRN PRN (Reason: Erectile Dysfunction) 0RF hydrochlorothiazide 25 mg Tablet 25 mg PO QAM 0RF ProAir HFA 90 mcg/actuation Hfa Aerosol Inhaler 2 puff INHALATION QID PRN (Reason: Shortness Of Breath) 0RF Vitamin D3 25 mcg (1,000 unit) Tablet 25 mcg PO QAM 0RF Vitamin B-12 1 tab PO .OCCASIONALLY 0RF Spiriva Respimat 2.5 mcg/actuation mist 2 inh inhalation DAILY Qty: 4 3RF atorvastatin 40 mg Tablet 40 mg PO BEDTIME 30 Days Qty: 30 3RF isosorbide mononitrate 30 mg Tablet Extended Release 24 Hr 30 mg PO DAILY 30 Days Qty: 30 0RF clopidogrel 75 mg Tablet 75 mg PO DAILY 30 Days Qty: 30 3RF aspirin 81 mg Tablet,Delayed Release (Dr/Ec) 81 mg PO DAILY 30 Days Qty: 30 3RF nitroglycerin 0.4 mg Tablet, Sublingual 0.4 mg sublingual Q5M PRN (Reason: Chest Pain) 30 Days Qty: 30 0RF metoprolol succinate 25 mg tablet extended release 24 hr 50 mg PO DAILY Qty: 30 3RF amiodarone 200 mg tablet 200 mg PO DAILY Qty: 30 3RF Coding Level of Care Code ED Rn Clinical for Chg Fwd Documented by User: Erika Crook MD 01/28/22 21:22 HPI - SOB/Dyspnea General: Chief Complaint: Shortness of Breath/Dyspnea Stated Complaint: Diff Breathing Time Seen by Provider: 01/28/22 16:49 PFS ED PFSH: Medical History Acute and chronic respiratory failure with hypoxia Acute heart failure Acute kidney failure Atrial fibrillation Bacteremia due to Staphylococcus CAD (coronary artery disease) Congestive heart failure COPD (chronic obstructive pulmonary disease) Hyponatremia Lactic acidosis NSTEMI (non-ST elevated myocardial infarction) Obesity Pneumonia Pulmonary edema Sepsis Traumatic hemothorax Surgical History History of heart artery stent History of hernia surgery Family History Father CAD (coronary artery disease) Mother Old age Social History Smoking and tobacco status: current every day smoker cigarettes [ Other cigarette details: Patient reports quitting smoking with onset of symptoms of this illness] Alcohol intake: never Course Vital Signs: Vital signs: Vital Signs Temperature 98.1 F 01/28/22 17:17 Pulse Rate 108 H 01/28/22 19:57 Respiratory Rate 22 H 01/28/22 19:57 Blood Pressure 134/71 01/28/22 19:57 Pulse Oximetry 93 01/28/22 19:57 MDM - SOB/Dyspnea Medical Decision Making 76-year-old presents due to shortness of breath. Patient reports orthopnea. Has wheezing and crackles on exam. Lasix provided. Lab work currently pending. Patient signed out to Dr. Crook. Patient presents here with CHF exacerbation he was diuresed in the ER still having dyspnea. I did ambulate him he was only able to ambulate a few feet before he became extremely dyspneic. Will admit at this time for further diuresis. Lab Data : 01/28/22 17:01 01/28/22 17:01 Labs/Radiology: Radiology Impressions Chest X-Ray 01/28/22 16:50 IMPRESSION: Pleural effusions and basilar atelectasis. Laboratory Results WBC 10.5 10^3/uL (4.0-10.0) H 01/28/22 17:01 RBC 3.87 10^6/uL (4.1-5.3) L 01/28/22 17:01 Hgb 11.8 g/dL (11.7-16.6) 01/28/22 17:01 Hct 36.4 % (42.0-52.0) L 01/28/22 17:01 MCV 94.1 fl (80-94) H 01/28/22 17:01 MCH 30.5 pg (28.0-34.0) 01/28/22 17:01 MCHC 32.4 g/dL (30.0-36.0) 01/28/22 17:01 RDW 14.7 % (12.1-15.1) 01/28/22 17:01 Plt Count 551 10^3/cmm (130-400) H 01/28/22 17:01 MPV 8.8 fL (7.4-10.4) 01/28/22 17:01 Neut % (Auto) 76.1 % 01/28/22 17:01 Lymph % (Auto) 8.5 % 01/28/22 17: [place] % (Auto) 12.9 % 01/28/22 17:01 Eos % (Auto) 1.6 % 01/28/22 17:01 Baso % (Auto) 0.5 % 01/28/22 17:01 Neut # (Auto) 8.00 10^3/uL (1.8-7.7) H 01/28/22 17:01 Lymph # (Auto) 0.9 10^3/uL (0.8-4.8) 01/28/22 17:01 [place] # (Auto) 1.4 10^3/uL (0.2-0.9) H 01/28/22 17:01 Eos # (Auto) 0.2 10^3/uL (0.0-0.8) 01/28/22 17:01 Baso # (Auto) 0.1 10^3/uL (0.0-0.1) 01/28/22 17:01 Nucleated RBC % (auto) 0 % 01/28/22 17: Nucleated RBCs # 0.0 /100WBC 01/28/22 17:01 Sodium 133 mmol/L (136-145) L 01/28/22 17:01 Potassium 3.8 mmol/L (3.5-5.1) 01/28/22 17:01 Chloride 91 mmol/L (98-107) L 01/28/22 17:01 Carbon Dioxide 31 mmol/L (22-29) H 01/28/22 17:01 Anion Gap 14.8 (5-19) 01/28/22 17:01 BUN 16 mg/dL (8-23) 01/28/22 17:01 Creatinine 1.3 mg/dL (0.7-1.2) H 01/28/22 17:01 GFR Calculation Not Reportable 01/28/22 17: Glucose 145 mg/dL (65-115) H 01/28/22 17:01 Calculated Osmolality 280 mOsm/kg (285-295) L 01/28/22 17: Calcium 9.2 mg/dL (8.5-10.5) 01/28/22 17:01 Total Bilirubin 0.7 mg/dL (0.15-1.2) 01/28/22 17:01 AST 17 U/L (0-40) 01/28/22 17:01 ALT 14 U/L (0-41) 01/28/22 17:01 Alkaline Phosphatase 104 IU/L (40-130) 01/28/22 17:01 Troponin T Baseline 39 ng/L (0-15) H 01/28/22 17:01 Troponin T 120 Minute 41.70 ng/L (0-15) H 01/28/22 19:10 Delta Troponin T 2.70 ABS# (0-10) 01/28/22 19:10 NT-Pro-B Natriuret Pep 4274 pg/mL (0-450) H 01/28/22 17:01 Total Protein 6.1 g/dL (6.6-8.7) L 01/28/22 17:01 Albumin 3.1 g/dL (3.5-5.2) L 01/28/22 17:01 Globulin 3.0 g/dL (1.3-4.6) 01/28/22 17:01 SARS-CoV-2 Ag (Rapid) Negative (Negative) 01/28/22 17:15 Discharge Plan Discharge Patient Disposition: Admitted As Inpatient Clinical Impression: Acute exacerbation of CHF (congestive heart failure) Condition: Stable Prescriptions: No Action calcium carbonate-mag hydroxid 550-110 mg Tablet,Chewable 2 tab PO Q4H PRN (Reason: Indigestion) 0RF sildenafil 100 mg Tablet 50 mg PO PRN PRN (Reason: Erectile Dysfunction) 0RF hydrochlorothiazide 25 mg Tablet 25 mg PO QAM 0RF ProAir HFA 90 mcg/actuation Hfa Aerosol Inhaler 2 puff INHALATION QID PRN (Reason: Shortness Of Breath) 0RF Vitamin D3 25 mcg (1,000 unit) Tablet 25 mcg PO QAM 0RF Vitamin B-12 1 tab PO .OCCASIONALLY 0RF Spiriva Respimat 2.5 mcg/actuation mist 2 inh inhalation DAILY Qty: 4 3RF atorvastatin 40 mg Tablet 40 mg PO BEDTIME 30 Days Qty: 30 3RF isosorbide mononitrate 30 mg Tablet Extended Release 24 Hr 30 mg PO DAILY 30 Days Qty: 30 0RF clopidogrel 75 mg Tablet 75 mg PO DAILY 30 Days Qty: 30 3RF aspirin 81 mg Tablet,Delayed Release (Dr/Ec) 81 mg PO DAILY 30 Days Qty: 30 3RF nitroglycerin 0.4 mg Tablet, Sublingual 0.4 mg sublingual Q5M PRN (Reason: Chest Pain) 30 Days Qty: 30 0RF metoprolol succinate 25 mg tablet extended release 24 hr 50 mg PO DAILY Qty: 30 3RF amiodarone 200 mg tablet 200 mg PO DAILY Qty: 30 3RF Coding Level of Care Code ED Rn Clinical for Reece Benton
[2022-01-28] MEDS: FUROsemide 10 mg/mL SDV 4mL 40 MG IVP ×2 (17:05→23:51)
[2022-01-28 17:13] LABS: Basophils # 0.1 10^3/uL (0.0-0.1); Basophils % 0.5 %; Eosinophils # 0.2 10^3/uL (0.0-0.8); Eosinophils % 1.6 %; Hematocrit 36.4 % (42.0-52.0); Hemoglobin 11.8 g/dL (11.7-16.6); Lymphocytes # 0.9 10^3/uL (0.8-4.8); Lymphocytes % 8.5 %; Mean Corpuscular HGB Conc 32.4 g/dL (30.0-36.0); Mean Corpuscular Hemoglobin 30.5 pg (28.0-34.0); Mean Corpuscular Volume 94.1 fl (80-94); Mean Platelet Volume 8.8 fL (7.4-10.4); Monocytes # 1.4 10^3/uL (0.2-0.9); Monocytes % 12.9 %; Neutrophils % 76.1 %; Nucleated Red Blood Cells % 0 %; Platelet Count 551 10^3/cmm (130-400); Red Blood Count 3.87 10^6/uL (4.1-5.3); Red Cell Distribution Width 14.7 % (12.1-15.1); White Blood Count 10.5 10^3/uL (4.0-10.0)
[2022-01-28] MEDS: ipratropium-albuterol 3 mL Neb INHALATION ×2 (17:27→23:33)
[2022-01-28 17:37] LABS: SARS Covid-2 Antigen Negative (Negative)
[2022-01-28 17:43] LABS: Troponin(5th) Baseline 39 ng/L (0-15)
[2022-01-28 17:53] LABS: Alanine Aminotransferase 14 U/L (0-41); Albumin Level 3.1 g/dL (3.5-5.2); Alkaline Phosphatase 104 IU/L (40-130); Anion Gap 14.8 (5-19); Aspartate Amino Transferase 17 U/L (0-40); Blood Urea Nitrogen 16 mg/dL (8-23); Calcium 9.2 mg/dL (8.5-10.5); Carbon Dioxide 31 mmol/L (22-29); Chloride 91 mmol/L (98-107); Glucose 145 mg/dL (65-115); NT Pro B Type Natriuretic Pept 4274 pg/mL (0-450); Osmolality Calculated 280 mOsm/kg (285-295); Potassium 3.8 mmol/L (3.5-5.1); Sodium 133 mmol/L (136-145); Total Bilirubin 0.7 mg/dL (0.15-1.2); Total Protein 6.1 g/dL (6.6-8.7)
--- NOTE | 2022-01-28 19:54 | PC.NURSE ---
Patient in bed, sitting up, no distress noted, denies any needs at this time. family at bedside.
--- NOTE | 2022-01-28 20:55 | PM.HP ---
Providers/Chief Complaint Chief Complaint: Diff Breathing History of Present Illness The patient is a 68-year-old male who presented to [place] of dyspnea. He he states dyspnea started partially 24 hours prior to hospitalization and gradually worsened. He admits to onset of cough which is nonproductive was palpitations. He has had increasing bipedal edema. He denies fever, rigors, nausea, vomiting, wheeze, mouth pain, diarrhea, myalgia, chest pain, light headedness, dizziness, diaphoresis, sense of rapid heartbeat, sensation of irregular heartbeat. Patient claims to be compliant with sodium intake however it is apparent that he is not compliant with fluid intake. He has known history of COPD as well as CHF. He presents for further evaluation Review of Systems General: Reports: 10 or more systems reviewed and unremarkable except in HPI and below Medications/Allergies Home Medications Medication Instructions Recorded Confirmed Last Taken Type Vitamin B-12 1 tab PO .OCCASIONALLY 12/29/21 12/29/21 Unknown History albuterol sulfate 90 mcg/actuation 2 puff INHALATION QID PRN 12/29/21 12/29/21 Unknown History aerosol inhaler (ProAir HFA) calcium carbonate 550 mg-magnesium 2 tab PO Q4H PRN 12/29/21 12/29/21 Unknown History hydroxide 110 mg chewable tablet cholecalciferol (vitamin D3) 25 25 mcg PO QAM 12/29/21 12/29/21 12/29/21 07:00 History mcg (1,000 unit) tablet (Vitamin D3) hydrochlorothiazide 25 mg tablet 25 mg PO QAM 12/29/21 12/29/21 12/29/21 07:00 History sildenafil 100 mg tablet 50 mg PO PRN PRN 12/29/21 12/29/21 Unknown History tiotropium bromide 2.5 2 inh INHALATION DAILY #4 g 01/05/22 Unknown Rx mcg/actuation mist for inhalation (Spiriva Respimat) amiodarone 200 mg tablet 200 mg PO DAILY #30 tab 01/09/22 Unknown Rx aspirin 81 mg tablet,delayed 81 mg PO DAILY 30 Days #30 tab 01/09/22 Unknown Rx release atorvastatin 40 mg tablet 40 mg PO BEDTIME 30 Days #30 tab 01/09/22 Unknown Rx clopidogrel 75 mg tablet 75 mg PO DAILY 30 Days #30 tab 01/09/22 Unknown Rx isosorbide mononitrate 30 mg 30 mg PO DAILY 30 Days #30 tab 01/09/22 Unknown Rx tablet,extended release 24 hr metoprolol succinate 25 mg 50 mg PO DAILY #30 tab 01/09/22 Unknown Rx tablet,extended release 24 hr nitroglycerin 0.4 mg sublingual 0.4 mg SUBLINGUAL Q5M PRN 30 Days 01/09/22 Unknown Rx tablet #30 tab Allergies Allergy/AdvReac Type Severity Reaction Status Date / Time lisinopril Allergy Unknown Verified 01/16/22 10:45 PFSH Acute PFSH: Medical History Acute and chronic respiratory failure with hypoxia Acute heart failure Acute kidney failure Atrial fibrillation Bacteremia due to Staphylococcus CAD (coronary artery disease) Congestive heart failure COPD (chronic obstructive pulmonary disease) Hyponatremia Lactic acidosis NSTEMI (non-ST elevated myocardial infarction) Obesity Pneumonia Pulmonary edema Sepsis Traumatic hemothorax Surgical History History of heart artery stent History of hernia surgery Family History Father CAD (coronary artery disease) Mother Old age Social History Smoking and tobacco status: current every day smoker cigarettes [ Other cigarette details: Patient reports quitting smoking with onset of symptoms of this illness] Alcohol intake: never Vitals/I&O/Wt Last Vital Signs Temp 98.1 F 01/28/22 17:17 Pulse 108 H 01/28/22 19:57 Resp 22 H 01/28/22 19:57 BP 134/71 01/28/22 19:57 Pulse Ox 93 01/28/22 19:57 Weight last 48 hrs Weight 92.986 kg Physical Exam Narrative: General: -Alert -No acute distress -No dyspnea -No tachypnea Head: -Atraumatic -Normocephalic Eyes: -Pupils equally round and reactive to light and accommodation -Extraocular muscles intact Neurological: -Cranial nerves II-XII intact Neck: -No jugular venous distention -No thyromegaly -No cervical lymphadenopathy Heart: -Regular rate -Regular rhythm -No murmurs -No gallops -No rubs Lungs: -No wheeze -No rhonchi -No rales ? Abdomen: -Normal bowel sounds in all four quadrants -No rebound -No guarding -No tenderness Extremities: -2/4 pulse in all four extremities -No clubbing -No cyanosis -No edema -No calf tenderness present bilaterally -Negative Chago?s sign bilaterally Musculoskeletal: -5/5 bilateral upper extremity strength -5/5 bilateral lower extremity strength -Sensorium of bilateral upper extremities are equal and intact -Sensorium of bilateral lower extremities are equal and intact ? Additional Details / Additional Findings / Exceptions / Miscellaneous: Data : 01/28/22 17:01 01/28/22 17:01 A&P Assessment and plan (1) Anemia: Status: Acute Plan Dyspnea, secondary to COPD exacerbation as well as CHF exacerbation CHF exacerbation. Patient's last echocardiogram on December 30, 2021 appears to demonstrate ejection fraction of 20% which is in great contrast to 1 that was recently performed previous to that. Strict I/O. Daily weight. Will monitor patient on telemetry and checks her cardiac enzymes. Echo cardiac pending. Recheck EKG on the morning of January 29, 2022. Lasix 40 Mill grams IV every 8 hours While closely monitoring creatinine plus metoprolol XL 50 Mill grams by mouth daily COPD exacerbation, not O2 dependent. Cymetra 40 Mill grams IV every 8 hours plus DuoNeb every 4 hours Small to medium bilateral pleural effusion. This likely sequelae of CHF exacerbation. Lasix 40 Mill grams IV every 8 hours History of hyperuricemia Acute renal insufficiency. Will monitor creatinine intermittently especially since we will be diuresing the patient Hyponatremia. We will monitor sodium level intermittently especially since we will be diuresing the patient Elevated troponin, this appears chronic. Will monitor patient on telemetry and checks her cardiac enzymes. Recheck EKG on the morning of January 29, 2022. Aspirin 81 Mill grams by mouth daily plus Plavix and 5 Mill grams by mouth daily plus metoprolol XL 50 Mill grams by mouth daily plus Lipitor 40 Mill grams by mouth daily at bedtime plus Imdur 30 Mill grams by mouth daily. Echo Karg grams pending Atrial fibrillation. Telemetry monitoring. Toprol-XL 50 Mill grams by mouth daily plus amiodarone 200 Mill grams by mouth daily plus Eliquis 2.5 Mill grams by mouth twice a day Normocytosis. We will monitor platelet count intermittently Erectile dysfunction Coronary artery disease, status post AK, status post 10. Metoprolol XL 50 Mill grams by mouth daily plus aspirin 81 Mill grams by mouth daily plus Lipitor 40 Mill grams by mouth daily at bedtime plus Plavix 85 Mill grams by mouth daily plus Imdur 30 Mill grams by mouth daily Hyperlipidemia. Lipitor 40 Mill grams by mouth daily at bedtime Hypertension. Metoprolol XL 50 Mill grams by mouth daily plus Imdur 30 Mill grams by mouth daily plus Lasix 40 Mill grams IV every 8 hours while closely monitoring creatinine Obesity. The patient becomes regarding lifestyle modification Macrocytosis. Check TSH, free T4, B12, folate level History of left renal lesion. Outpatient monitoring with his primary care physician. Medical noncompliance. The patient becomes regarding medical compliance GI Proflex is. Protonix 40 Mill grams by mouth daily DVT Proflex is. Eliquis 2.5 Mill grams by mouth twice a day Attestations Medical Necessity Statement*: Patient's anticipated length of stay is greater than 2 midnights for diuresis for his congestive heart failure Coding Level of Care Code Acute Asphalt Mixer for Reece Benton Diagnoses Anemia D64.9
--- NOTE | 2022-01-28 23:03 | ECG_ITS ---
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 Measurements Intervals [place] Rate: 99 P: [place]: QRS: 4 QRSD: 141 T: 160 QT: 420 QTc: 539 Interpretive Statements ATRIAL FIBRILLATION LEFT BUNDLE BRANCH BLOCK [120+ ms QRS DURATION, 80+ ms Q/S IN V1/V2, 85+ ms R IN I/aVL/V5/V6] Compared to ECG 01/28/2022 17:25:50 No significant changes Electronically Signed On 01-29-2022 23:04:13 CDT by Parth Persaud M.D. [id number]
[2022-01-28 23:06] LABS: Free T4 Free Thyroxine 1.16 ng/dL (0.82-1.77); Thyroid Stimulating Hormone 6.47 uIU/mL (0.27-4.20)
[2022-01-28 23:35] LABS: Troponin 5 6HR 36.46 ng/L (0-15)
[2022-01-28 23:35] LABS: Vitamin B12 813 pg/mL (232-1245)
[2022-01-28] MEDS: atorvastatin 40 mg Tablet PO (23:37)
[2022-01-28 23:38] LABS: Troponin 5 6HR Delta -2.54 ng/L (0-12)
[2022-01-28 23:56] LABS: Folate Level 6.6 ng/mL (4.5-32.2)
[2022-01-29] VITALS (21 sets, daily range): BP systolic 106–134; BP diastolic 68–96; PULSE 82–114; RESP 17–24; TEMP 36.3–36.9; O2SAT 92–99
--- NOTE | 2022-01-29 00:10 | USCV_ITS ---
Transthoracic Echo Nitin Florentino Age: 76 Gender: M : 1945 Exam Date: 01/29/2022 03:58 Ordering Phys: Garland Reyes DO Technologist: Landon Turner Exam Location: [facility] [place] Indication: chf BP: 134 / 90 HR: 81 Rhythm: Sinus Technical Quality: Adequate MEASUREMENTS (Male / Female) Normal Values 2D ECHO LV Diastolic Diameter PLAX 3.3 cm 4.2 - 5.9 / 3.9 - 5.3 cm LV Systolic Diameter PLAX 2.3 cm IVS Diastolic Thickness 2.3 cm 0.6 - 1.0 / 0.6 - 0.9 cm IVS Systolic Thickness 2.3 cm LVPW Diastolic Thickness 1.8 cm 0.6 - 1.0 / 0.6 - 0.9 cm LVPW Systolic Thickness 2.0 cm LVOT Diameter 2.0 cm LV Ejection Fraction 2D Teich 69.5 % LV Ejection Fraction MOD 2C 71.6 % LV Ejection Fraction 2C AL 70.1 % LA Diameter 4.1 cm Aorta at Sinotubular Diameter 2.6 cm M-MODE Aortic Annulus Diameter 3.2 cm LA Ao Ratio MM 1.4 MV E Point Septal Separation 0.7 cm DOPPLER AV Peak Velocity 288.8 cm/s LVOT Peak Velocity 108.0 cm/s AV Area Cont Eq vti 1.3 cm squared AV Area Cont Eq pk 1.2 cm squared MV Area PHT 4.9 cm squared Mitral E to A Ratio 2.3 MV E' Velocity 67.6 cm/s Mitral E to MV E' Ratio 11.1 Mitral E to LV E' Lateral Ratio 9.6 Mitral E to LV E' Septal Ratio 13.0 TR Peak Velocity 271.1 cm/s TR Peak Gradient 29.4 mmHg TR Mean Velocity 207.2 cm/s TR Mean Gradient 18.8 mmHg TR Velocity Time Integral 62.2 cm Right Atrial Pressure 5.0 mmHg Pulmonary Artery Systolic Pressu 34.4 mmHg PV Peak Velocity 119.0 cm/s FINDINGS Left Ventricle Normal left ventricular size and systolic function, EF 64 %. Mild left ventricular hypertrophy. No regional wall motion abnormalities. Right Ventricle The right ventricle is normal in size and function. Right Atrium Mildly increased right atrial size. Left Atrium Mildly increased left atrial size. Mitral Valve Moderate mitral annular calcification. Aortic Valve Thickened aortic valve. Moderate aortic valve stenosis, mean gradient 15 mmHg, WADE 1.3 cm squared. Trace aortic valve regurgitation. Peak velocity of 3.1 m/s with a peak gradient of 39 mmHg Tricuspid Valve Trace to mild tricuspid valve regurgitation. Estimated pulmonary artery peak systolic pressure 34 mm of Pulmonic Valve Trace pulmonary valve regurgitation. Pericardium Normal pericardium without effusion. Aorta Normal ascending aorta dimension. CONCLUSIONS Normal left ventricular size and systolic function, EF 64 %. Mild left ventricular hypertrophy. No regional wall motion abnormalities. Moderate aortic valve stenosis, mean gradient 15 mmHg, WADE 1.3 cm squared. Peak velocity of 3.1 m/s with a peak gradient of 39 mmHg. Trace aortic and pulmonic valve regurgitation. Trace to mild tricuspid valve regurgitation. Estimated pulmonary artery peak systolic pressure 34 mm of. Moderate mitral annular calcification. Mild biatrial enlargement There is no pericardial effusion. There are no intracardiac masses. Comparison with the previous study is difficult because of the difference in the technical quality. Dr Parth Persaud MD FACC (Electronically Signed) Final Date: 29 January 2022 22:35 S
--- NOTE | 2022-01-29 02:51 | ECG_ITS ---
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 Measurements Intervals [place] Rate: 90 P: [place]: QRS: 12 QRSD: 150 T: 144 QT: 429 QTc: 527 Interpretive Statements ATRIAL FIBRILLATION LEFT BUNDLE BRANCH BLOCK [120+ ms QRS DURATION, 80+ ms Q/S IN V1/V2, 85+ ms R IN I/aVL/V5/V6] Compared to ECG 01/28/2022 22:44:58 No significant changes Electronically Signed On 01-29-2022 23:05:05 CDT by Parth Persaud M.D. [id number]
[2022-01-29] MEDS: ipratropium-albuterol 3 mL Neb INHALATION ×6 (03:38→23:17)
[2022-01-29 05:32] LABS: Anion Gap 15.4 (5-19); Blood Urea Nitrogen 18 mg/dL (8-23); Calcium 8.9 mg/dL (8.5-10.5); Carbon Dioxide 29 mmol/L (22-29); Chloride 90 mmol/L (98-107); Glucose 157 mg/dL (65-115); Osmolality Calculated 277 mOsm/kg (285-295); Potassium 3.4 mmol/L (3.5-5.1); Sodium 131 mmol/L (136-145)
[2022-01-29 06:48] LABS: Hematocrit 34.6 % (42.0-52.0); Hemoglobin 11.3 g/dL (11.7-16.6); Lymphocytes # 0.6 10^3/uL (0.8-4.8); Lymphocytes % 7.1 %; Mean Corpuscular HGB Conc 32.7 g/dL (30.0-36.0); Mean Corpuscular Hemoglobin 30.5 pg (28.0-34.0); Mean Corpuscular Volume 93.5 fl (80-94); Mean Platelet Volume 9.1 fL (7.4-10.4); Monocytes # 0.3 10^3/uL (0.2-0.9); Monocytes % 3.6 %; Neutrophils # 6.84 10^3/uL (1.8-7.7); Neutrophils % 88.8 %; Nucleated Red Blood Cells % 0 %; Platelet Count 553 10^3/cmm (130-400); Red Cell Distribution Width 14.6 % (12.1-15.1); White Blood Count 7.7 10^3/uL (4.0-10.0)
[2022-01-29] MEDS: aspirin 81 mg EC Tablet PO (09:00)
[2022-01-29] MEDS: metoprolol succinate ER (24 HR) 25 mg Tablet 50 MG PO (09:00)
[2022-01-29] MEDS: isosorbide mononitrate ER 30 mg Tablet PO (09:01)
[2022-01-29] MEDS: clopidogrel 75 mg Tablet PO (09:01)
[2022-01-29] MEDS: pantoprazole DR 40 mg Tablet PO (09:01)
[2022-01-29] MEDS: apixaban 5 mg Tablet 2.5 MG PO ×2 (09:01→17:30)
[2022-01-29] MEDS: amiodarone 200 mg Tablet PO (09:01)
[2022-01-29] MEDS: FUROsemide 10 mg/mL SDV 4mL 40 MG IVP (09:01)
--- NOTE | 2022-01-29 10:38 | PC.CHAP ---
Pastoral Care Encounter/Spiritual Assessment Type of Contact [] Declined library specialist visit [] Patient/Family/Request visit [] Outpatient visit [] Follow-up visit [] Physician referral [] Code/Alert [x] Routine visit [] Staff referral [] Actively dying [] Patient sleeping [] Family support [] [] Out of room [] Palliative care [] [] Receiving care in room [] Pre-surgical visit [] Trauma [] Long length of stay [] ICU visit [] Other: Relational/Emotional Strength [x] Patient feels connected with others/family/visitors/staff [] Distress [] Loneliness/isolation [] Abandonment Spirituality of Patient [x] Person of [place] [x] Attends Temple of their [place] [x] Believes in Prayer [] Reads Bible or Hoahaoism materials [] There are Spiritual issues to be addressed Pen Maker Interventions [x] Prayer [x] Active listening x[] Non-anxious presence [] Spiritual/emotional support [] Crisis/trauma care [] Spiritual counseling [] Bereavement support [] Provided bereavement packet [] Provided Bible/devotional materials [] Provided toy/stuffed animal, coloring book to patient or family member [] Provided Communion [] Anointing/Cope [] Salvation [x] Completed spiritual assessment [] Other: Impact on Illness or Injury [] Angry [] Fearful [] Anxious [] Often cries [] Exhaustion [] Unable to work [] Unable to attend sabianism [] Unable to walk/stand [] Unable to read [] Unable to drive [] Unable to eat/drink [] Unable to sleep [] Unable to be with family [] Patient intubated [] Other: Summary Time spent with patient 10 min
[2022-01-29] MEDS: lidocaine 1% 5 ML in potassium chloride premix 100 ML 25 ML IV (11:33)
[2022-01-29] MEDS: potassium chloride ER 20 mEq Tablet 40 MEQ PO (14:24)
--- NOTE | 2022-01-29 17:13 | P.CONIM_ITS ---
Providers/Reason For Consult Consulting Physician/Specialty*: Jeff Andres MD/ Cardiology Reason for Consult*: Congestive heart failure Requesting Physician: Dr Cantor Attending Physician: Carson Cantor MD History of Present Illness History of Present Illness Nitin Florentino is a 76 year old male with past medical history of coronary artery disease, COPD, hypertension, tobacco abuse who was recently discharged from the hospital when he presented with respiratory failure and was found to have bilateral pleural effusions. He had a fall prior to that and required thoracentesis showing hemorrhagic effusion. Cytology did not reveal malignancy. He also was in A. fib with RVR. His anticoagulation was held at that time. At the same time he had non-ST elevation DE and on coronary angiogram was found to have critical mid LAD stenosis that was treated with PCI. He had borderline severe distal left main stenosis for which she was supposed to follow cardiology and CT surgery for evaluation. Patient did not follow-up with cardiology office post discharge However he has presented with gradually worsening shortness of breath. Has exertional chest discomfort as well. NT proBNP is elevated. Troponins have not increased significantly. EKG showed atrial fibrillation and he has baseline left bundle branch block. Review of Systems Narrative: CONSTITUTIONAL: No fever chills weight loss or gain or night sweats. [] HEENT: Normocephalic, atraumatic.[] RESPIRATORY: No cough, sputum, hemoptysis or wheezing.[] CARDIOVASCULAR: No shortness of breath, chest pain, PND, orthopnea, lower extremity edema, presyncope or syncope. [] GI: no nausea vomiting diarrhea. [] INTERNET MARKETING INTERN: No numbness, tingling, weakness or loss of function in any part of the body. [] MUSCULOSKELETAL: No knee or joint pain or rashes. [] Medications/Allergies Home Medications Medication Instructions Recorded Confirmed Last Taken Type Vitamin B-12 1 tab PO .OCCASIONALLY 12/29/21 01/29/22 Unknown History albuterol sulfate 90 mcg/actuation 2 puff INHALATION QID PRN 12/29/21 01/29/22 Unknown History aerosol inhaler (ProAir HFA) calcium carbonate 550 mg-magnesium 2 tab PO Q4H PRN 12/29/21 01/29/22 Unknown History hydroxide 110 mg chewable tablet cholecalciferol (vitamin D3) 25 25 mcg PO QAM 12/29/21 01/29/22 12/29/21 07:00 History mcg (1,000 unit) tablet (Vitamin D3) hydrochlorothiazide 25 mg tablet 25 mg PO QAM 12/29/21 01/29/22 12/29/21 07:00 History sildenafil 100 mg tablet 50 mg PO PRN PRN 12/29/21 01/29/22 Unknown History amiodarone 200 mg tablet 200 mg PO DAILY #30 tab 01/09/22 01/29/22 Unknown Rx aspirin 81 mg tablet,delayed 81 mg PO DAILY 30 Days #30 tab 01/09/22 01/29/22 Unknown Rx release atorvastatin 40 mg tablet 40 mg PO BEDTIME 30 Days #30 tab 01/09/22 01/29/22 Unknown Rx clopidogrel 75 mg tablet 75 mg PO DAILY 30 Days #30 tab 01/09/22 01/29/22 Unknown Rx isosorbide mononitrate 30 mg 30 mg PO DAILY 30 Days #30 tab 01/09/22 01/29/22 Unknown Rx tablet,extended release 24 hr metoprolol succinate 25 mg 50 mg PO DAILY #30 tab 01/09/22 01/29/22 Unknown Rx tablet,extended release 24 hr nitroglycerin 0.4 mg sublingual 0.4 mg SUBLINGUAL Q5M PRN 30 Days 01/09/22 01/29/22 Unknown Rx tablet #30 tab docusate sodium 100 mg capsule 200 mg PO DAILY 01/29/22 01/29/22 Unknown History (Stool Softener) furosemide 20 mg tablet 20 mg PO DAILY 01/29/22 01/29/22 Unknown History umeclidinium 62.5 mcg/actuation 1 inh INHALATION DAILY 01/29/22 01/29/22 Unknown History blister powder for inhalation (Incruse Ellipta) Allergies Allergy/AdvReac Type Severity Reaction Status Date / Time lisinopril Allergy Unknown Verified 01/29/22 09:22 Current Medications Generic Name Dose Route Start Last Admin Trade Name Freq PRN Reason Stop Dose Admin Albuterol/Ipratropium 3 ml 01/29/22 00:00 01/29/22 15:05 Ipratropium-Albuterol 3 Ml Neb INHALATION 3 ml Q4H.RESPIRATORY DEVON Administration Amiodarone HCl 200 mg 01/29/22 09:00 01/29/22 09:01 Amiodarone 200 Mg Tablet PO 200 mg DAILY DEVON Administration Apixaban 2.5 mg 01/29/22 09:00 01/29/22 09:01 Apixaban 5 Mg Tablet PO 2.5 mg BID DEVON Administration Aspirin 81 mg 01/29/22 09:00 01/29/22 09:00 Aspirin 81 Mg Ec Tablet PO 81 mg DAILY DEVON Administration Atorvastatin Calcium 40 mg 01/28/22 23:03 01/28/22 23:37 Atorvastatin 40 Mg Tablet PO 40 mg BEDTIME DEVON Administration Clopidogrel Bisulfate 75 mg 01/29/22 09:00 01/29/22 09:01 Clopidogrel 75 Mg Tablet PO 75 mg DAILY DEVON Administration Isosorbide Mononitrate 30 mg 01/29/22 09:00 01/29/22 09:01 Isosorbide Mononitrate Er 30 Mg Tablet PO 30 mg DAILY DEVON Administration Metoprolol Succinate 50 mg 01/29/22 09:00 01/29/22 09:00 Metoprolol Succinate Er (24 Hr) 25 Mg Tablet PO 50 mg DAILY DEVON Administration Pantoprazole Sodium 40 mg 01/29/22 09:00 01/29/22 09:[address] 40 Mg Tablet PO 40 mg DAILY DEVON Administration Potassium Chloride 40 meq 01/29/22 13:27 01/29/22 14:24 Potassium Chloride Er 20 Meq Tablet PO 40 meq DAILY DEVON Administration PFSH Acute PFSH: Medical History (Updated 01/30/22 @ 07:56 by Jeff Andres M.D) Acute and chronic respiratory failure with hypoxia Acute heart failure Acute kidney failure Atrial fibrillation Bacteremia due to Staphylococcus CAD (coronary artery disease) Congestive heart failure COPD (chronic obstructive pulmonary disease) Hyponatremia Lactic acidosis NSTEMI (non-ST elevated myocardial infarction) Obesity Pneumonia Pulmonary edema Sepsis Traumatic hemothorax Surgical History History of heart artery stent History of hernia surgery Family History Father CAD (coronary artery disease) Mother Old age Social History Smoking and tobacco status: current every day smoker cigarettes [ Other cigarette details: Patient reports quitting smoking with onset of symptoms of this illness] Alcohol intake: never Vitals/I&O/Wt Last Vital Signs Temp 97.5 F L 01/29/22 11:48 Pulse 90 01/29/22 15:05 Resp 22 H 01/29/22 15:05 BP 117/84 01/29/22 11:48 Pulse Ox 93 01/29/22 15:05 01/29/22 01/29/22 01/29/22 06:59 14:59 22:59 Intake Total 78.75 / 78.75 0 / 78.75 Output Total 870 / 870 200 / 200 Balance -870 / -870 -121.25 / -121.25 0 / -121.25 Weight last 48 hrs Weight 213 lb 2 oz Weight 214 lb 4.8 oz Weight 205 lb Physical Exam Narrative: GENERAL: Patient is alert, awake and oriented x3. [] NECK: No jugular vein distension. [] HEENT: No cyanosis. No icterus. No pallor. [] HEART: Regular S1 and S2. No murmur, rub or gallop. [] LUNGS: Clear to auscultate bilaterally. [] ABDOMEN: Soft, nontender and nondistended. Positive bowel sounds. No guarding, rebound or tenderness. [] CENTRAL NERVOUS SYSTEM: Grossly nonfocal. [] EXTREMITIES: Lower extremities with 1+ edema bilaterally. Pulses palpable in the lower extremities, both dorsalis pedis and posterior tibial. [] Data : 01/29/22 04:40 01/29/22 04:40 A&P Assessment and plan (1) Acute exacerbation of CHF (congestive heart failure): Status: Acute (2) Atrial fibrillation: Status: Acute (3) Acute and chronic respiratory failure with hypoxia: Status: Acute Plan Patient had recent PCI of mid LAD. Has significant left main stenosis as well. Has presented with congestive heart failure symptoms. Continue diuresis. We will get CT surgery evaluation for possibility of CABG. If he is not a surgical candidate, we will consider percutaneous coronary i ntervention of left main artery. 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 This has been discussed with the patient. However if surgery is turned down, will discuss PCI again. Continue aspirin and Plavix. On prior admission, echocardiogram was of limited quality even with contrast because of poor ultrasonic windows. Grossly LV systolic function appeared borderline normal. Thank you for involving us with care of this patient. We will continue to follow. Please call with questions Coding Level of Care Code Acute Corporate Bond Trader for Reece Benton Diagnoses Acute exacerbation of CHF (congestive heart failure) I50.9 Atrial fibrillation I48.91 Acute and chronic respiratory failure with hypoxia J96.21
[2022-01-29] MEDS: FUROsemide 10 mg/mL SDV 10mL 60 MG IVP (17:30)
--- NOTE | 2022-01-29 19:10 | P.PN_ITS ---
Subjective Subjective: Patient was seen and examined this morning, he did complain of worsening shortness of breath PND , orthopnea , Worsening bilateral lower extremity swelling, occasional chest pain with exertion. Slightly hyponatremic as well as hypokalemic this morning , reduce the dose of IV Lasix by 20 today, We will continue with IV Lasix 60 twice daily from tomorrow. Potassium replacement done. Medications: Medication Review Details: Generic Name Dose Route Start Last Admin Trade Name Bibq PRN Reason Stop Dose Admin Albuterol/Ipratrop ium 3 ml 01/29/22 00:00 01/29/22 15:05 Ipratropium-Albu terol 3 Ml Neb INHALATION 3 ml Q4H.RESPIRATORY S CH Administration Amiodarone HCl 200 mg 01/29/22 09:00 01/29/22 09:01 Amiodarone 200 M g Tablet PO 200 mg DAILY DEVON Administration Apixaban 2.5 mg 01/29/22 09:00 01/29/22 17:30 Apixaban 5 Mg Ta blet PO 2.5 mg BID DEVON Administration Aspirin 81 mg 01/29/22 09:00 01/29/22 09:00 Aspirin 81 Mg Ec Tablet PO 81 mg DAILY DEVON Administration Atorvastatin Calci um 40 mg 01/28/22 23:03 01/28/22 23:37 Atorvastatin 40 Mg Tablet PO 40 mg BEDTIME DEVON Administration Clopidogrel Bisulf ate 75 mg 01/29/22 09:00 01/29/22 09:01 Clopidogrel 75 M g Tablet PO 75 mg DAILY DEVON Administration Furosemide 60 mg 01/29/22 17:00 01/29/22 17:30 Furosemide 10 Mg /Ml Sdv 10ml IVP 60 mg Q12H DEVON Administration Isosorbide Mononit rate 30 mg 01/29/22 09:00 01/29/22 09:01 Isosorbide [place] itrate Er 30 Mg Ta blet PO 30 mg DAILY DEVON Administration Metoprolol Succina te 50 mg 01/29/22 09:00 01/29/22 09:00 Metoprolol Succi kunal Er (24 Hr) 25 Mg Tablet PO 50 mg DAILY DEVON Administration Pantoprazole Sodiu m 40 mg 01/29/22 09:00 01/29/22 09:[address] 40 Mg Tablet PO 40 mg DAILY DEVON Administration Potassium Chloride 40 meq 01/29/22 13:27 01/29/22 14:24 Potassium Chlori de Er 20 Meq Table t PO 40 meq DAILY DEVON Administration Vitals/I&O/Wt Last Vital Signs Temp 98.5 F 01/29/22 16:00 Pulse 99 01/29/22 16:00 Resp 17 01/29/22 16:00 BP 121/80 01/29/22 16:00 Pulse Ox 95 01/29/22 16:00 01/29/22 01/29/22 01/29/22 06:59 14:59 22:59 Intake Total 78.75 / 78.75 0 / 78.75 Output Total 870 / 870 200 / 200 125 / 325 Balance -870 / -870 -121.25 / -121.25 -125 / -246.25 Weight last 48 hrs Weight 96.672 kg Weight 97.205 kg Weight 92.986 kg Physical Exam Const: COMMON NORMALS: patient oriented x3 HENMT: COMMON NORMALS: normocephalic and atraumatic HEAD & SCALP: normocephalic and atraumatic Chest: CHEST: Yes Symmetrical chest wall rise Resp: EFFORT & INSPECTION: Yes symmetric chest movement OTHER: Bilateral crackles present in both the lungs martinez, bilateral diminished air entry at bases Cardio: COMMON NORMALS: No gallops present (Cardio), No rub (Cardio) and Peripheral pulses 2+ throughout PERIPHERAL PULSES: Peripheral pulses 2+ throughout OTHER: Irregularly irregular rhythm, S1-S2 variable intensity GI: COMMON NORMALS: Normal to inspection, nondistended, normoactive bowel sounds present, Soft to palpation, non-tender, No hepatosplenomegaly present and no masses AUSCULTATION: Yes normoactive bowel sounds PALPATION: Yes Soft to palpation and Yes No hepatosplenomegaly present RECTAL EXAM: Yes deferred Extremity: OTHER: 3+ bilateral pitting edema in both the lower extremities up to the level of knees Neuro: COMMON NORMALS: patient oriented x3 Data : 01/29/22 04:40 01/29/22 04:40 A&P Assessment and plan (1) Anemia: Status: Acute Plan 76-year-old male with past medical history of heart failure with reduced ejection fraction coronary artery disease, A. fib , COPD came in with chief complaint of worsening shortness of breath PND and orthopnea, worsening bilateral lower extremity swelling , occasional substernal chest pain with exertion. Assessment # Decompensated HFrEF : Continue Lasix 60 IV twice daily Monitor intake output charting Monitor daily weight Fluid restrictions 1200 CC K>4, MG >2 Currently telemetry monitoring #History of cartery disease: CAG : 99 % stenosis of mid LAD, left main 50% stenosis borderline significant on IVUS s/p? PCI to mid LAD. Not a surgical candidate for left main disease, cardiology intended to intervene LM later. Continue aspirin Plavix statin. Appreciate cardiology input Will need DAPT at least for a year #A. fib: Currently heart rate is well controlled Continue amiodarone 200 mg p.o. daily Continue metoprolol Continue Eliquis #COPD: Continue Solu-Medrol 40 mg IV daily Duo nebs Currently not in exacerbation #CODE STATUS: Full code #Disposition: Discharge to home #DVT prophylaxis: On SCDs Attestations Medical Necessity Statement*: Patient needs to be in hospital for management of decompensated heart failure. Time Spent in Patient Care: Greater than 35 minutes (>than 50% of time spent in counselling and/or direct pt care on unit) . Coding Level of Care Code Acute Technical Customer Support Specialist for Chg Fwd Exam Detailed Diagnoses Anemia D64.9
[2022-01-29] MEDS: atorvastatin 40 mg Tablet PO (20:09)
--- NOTE | 2022-01-29 21:00 | PC.NURSE ---
Patient asked that son Nitin Florentino junior be added to contact list. Patient states he is from [place]. [phone]
--- NOTE | 2022-01-29 21:04 | ECG_ITS ---
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 Measurements Intervals [place] Rate: 110 P: CO: QRS: 22 QRSD: 140 T: 170 QT: 384 QTc: 521 Interpretive Statements ATRIAL FIBRILLATION WITH RAPID VENTRICULAR RESPONSE LEFT BUNDLE BRANCH BLOCK [120+ ms QRS DURATION, 80+ ms Q/S IN V1/V2, 85+ ms R IN I/aVL/V5/V6] Compared to ECG 01/29/2022 01:55:52 No significant changes Electronically Signed On 01-29-2022 23:21:26 CDT by Parth Persaud M.D. [email or web address]
[2022-01-29] MEDS: metoprolol tartrate 1 mg/1 mL SDV 5 mL 10 MG IVP (21:31)
--- NOTE | 2022-01-29 21:46 | PC.NURSE ---
Dr. Reyes notified of patient c/o shortness of breath. Patient has auditory crackles throughout. Patient has Lasix 60 mg ordered q12 hours, last dose was 1730. Patient's heart rate ranging 110-130 A-fib. Patient oxygen saturation ranging 92-96 percent on room air. Ordered to give 10 mg IV Lopressor x1. After patient was given this, heart rate is now 80s-90s A-fib. Will continue to monitor.
[2022-01-30] VITALS (19 sets, daily range): BP systolic 107–129; BP diastolic 79–104; PULSE 78–117; RESP 15–25; TEMP 36.4–36.6; O2SAT 94–100; BMI 28.9
[2022-01-30] MEDS: FUROsemide 10 mg/mL SDV 10mL 60 MG IVP (02:53)
[2022-01-30] MEDS: ipratropium-albuterol 3 mL Neb INHALATION ×4 (03:40→21:00)
--- NOTE | 2022-01-30 08:00 | P.PN_ITS ---
Subjective Subjective: Patient is still short of breath. WBC count has jumped. Vitals/I&O/Wt Last Vital Signs Temp 97.5 F L 01/30/22 02:56 Pulse 93 01/30/22 07:46 Resp 20 H 01/30/22 07:41 BP 112/79 01/30/22 02:56 Pulse Ox 98 01/30/22 07:41 01/29/22 01/30/22 01/30/22 22:59 06:59 14:59 Intake Total 200 / 278.75 Output Total 125 / 325 500 / 825 Balance 75 / -46.25 -500 / -546.25 Weight last 48 hrs Weight 213 lb 2 oz Weight 214 lb 4.8 oz Weight 205 lb Physical Exam Narrative: GENERAL: Patient is alert, awake and oriented x3. [] NECK: No jugular vein distension. [] HEENT: No cyanosis. No icterus. No pallor. [] HEART: Regular S1 and S2. No murmur, rub or gallop. [] LUNGS: Clear to auscultate bilaterally. [] ABDOMEN: Soft, nontender and nondistended. Positive bowel sounds. No guarding, rebound or tenderness. [] CENTRAL NERVOUS SYSTEM: Grossly nonfocal. [] EXTREMITIES: Lower extremities with 1+ edema bilaterally. Pulses palpable in the lower extremities, both dorsalis pedis and posterior tibial. [] Data : 01/31/22 07:35 01/30/22 08:15 A&P Assessment and plan (1) Acute exacerbation of CHF (congestive heart failure): Status: Acute (2) Atrial fibrillation: Status: Acute (3) Acute and chronic respiratory failure with hypoxia: Status: Acute Plan Patient had recent PCI of mid LAD. Has significant left main stenosis as well. Has presented with congestive heart failure symptoms. WBC count is worsening. Possible sepsis. Treatment per primary team Creatinine has worsened. Repeat CXR to reassess pleural effusion as needed thoracentesis recently. If increasing again, may need repeat thoracentesis. Case discussed with Dr Miranda,he will evaluate patient for possibility of CABG. If he is not a surgical candidate, we will consider percutaneous coronary inter vention of left main artery. 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 This has been discussed with the patient. However if surgery is turned down, will discuss PCI again. Continue aspirin and Plavix. On prior admission, echocardiogram was of limited quality even with contrast because of poor ultrasonic windows. Grossly LV systolic function appeared borderline normal. Repeat echo shows normal LV systolic function Thank you for involving us with care of this patient. We will continue to follow. Please call with questions Attestations Medical Necessity Statement*: Care expected to cross 2 midnights. Coding Level of Care Code Acute Geophysics Teacher for Reece Benton Diagnoses Acute exacerbation of CHF (congestive heart failure) I50.9 Atrial fibrillation I48.91 Acute and chronic respiratory failure with hypoxia J96.21
--- NOTE | 2022-01-30 08:18 | PM.PN ---
Subjective Subjective: Patient was seen and examined this morning, continues to have significant shortness of breath even with minimal exertion, bilateral lower extremity swelling has slightly gone down, Good urine output in the last 24 hours, serum creatinine has up trended to 1.6, serum sodium has improved slightly today, will cut back on Lasix to 40 mg IV twice daily starting tomorrow. Uptrending WBC likely secondary to steroid effect , given significant jump we will do blood culture , lactic acid proCalcitonin is normal , Medications: Medication Review Details: Generic Name Dose Route Start Last Admin Trade Name Bibq PRN Reason Stop Dose Admin Albuterol/Ipratrop ium 3 ml 01/29/22 00:00 01/29/22 15:05 Ipratropium-Albu terol 3 Ml Neb INHALATION 3 ml Q4H.RESPIRATORY S CH Administration Amiodarone HCl 200 mg 01/29/22 09:00 01/29/22 09:01 Amiodarone 200 M g Tablet PO 200 mg DAILY DEVON Administration Apixaban 2.5 mg 01/29/22 09:00 01/29/22 17:30 Apixaban 5 Mg Ta blet PO 2.5 mg BID DEVON Administration Aspirin 81 mg 01/29/22 09:00 01/29/22 09:00 Aspirin 81 Mg Ec Tablet PO 81 mg DAILY DEVON Administration Atorvastatin Calci um 40 mg 01/28/22 23:03 01/28/22 23:37 Atorvastatin 40 Mg Tablet PO 40 mg BEDTIME DEVON Administration Clopidogrel Bisulf ate 75 mg 01/29/22 09:00 01/29/22 09:01 Clopidogrel 75 M g Tablet PO 75 mg DAILY DEVON Administration Furosemide 60 mg 01/29/22 17:00 01/29/22 17:30 Furosemide 10 Mg /Ml Sdv 10ml IVP 60 mg Q12H DEVON Administration Isosorbide Mononit rate 30 mg 01/29/22 09:00 01/29/22 09:01 Isosorbide Wingo itrate Er 30 Mg Ta blet PO 30 mg DAILY DEVON Administration Metoprolol Succina te 50 mg 01/29/22 09:00 01/29/22 09:00 Metoprolol Succi kunal Er (24 Hr) 25 Mg Tablet PO 50 mg DAILY DEVON Administration Pantoprazole Sodiu m 40 mg 01/29/22 09:00 01/29/22 09:[address] 40 Mg Tablet PO 40 mg DAILY DEVON Administration Potassium Chloride 40 meq 01/29/22 13:27 01/29/22 14:24 Potassium Chlori de Er 20 Meq Table t PO 40 meq DAILY DEVON Administration Vitals/I&O/Wt Last Vital Signs Temp 97.5 F L 01/30/22 02:56 Pulse 93 01/30/22 07:46 Resp 20 H 01/30/22 07:41 BP 112/79 01/30/22 02:56 Pulse Ox 98 01/30/22 07:41 01/29/22 01/30/22 01/30/22 22:59 06:59 14:59 Intake Total 200 / 278.75 Output Total 125 / 325 500 / 825 Balance 75 / -46.25 -500 / -546.25 Weight last 48 hrs Weight 96.672 kg Weight 97.205 kg Weight 92.986 kg Physical Exam Const: COMMON NORMALS: patient oriented x3 HENMT: COMMON NORMALS: normocephalic and atraumatic HEAD & SCALP: normocephalic and atraumatic Chest: CHEST: Yes Symmetrical chest wall rise Resp: EFFORT & INSPECTION: Yes symmetric chest movement OTHER: Bilateral crackles present in both the lungs martinez, bilateral diminished air entry at bases Cardio: COMMON NORMALS: No gallops present (Cardio), No rub (Cardio) and Peripheral pulses 2+ throughout PERIPHERAL PULSES: Peripheral pulses 2+ throughout OTHER: Irregularly irregular rhythm, S1-S2 variable intensity GI: COMMON NORMALS: Normal to inspection, nondistended, normoactive bowel sounds present, Soft to palpation, non-tender, No hepatosplenomegaly present and no masses AUSCULTATION: Yes normoactive bowel sounds PALPATION: Yes Soft to palpation and Yes No hepatosplenomegaly present RECTAL EXAM: Yes deferred Extremity: OTHER: 3+ bilateral pitting edema in both the lower extremities up to the level of knees Neuro: COMMON NORMALS: patient oriented x3 Data : 01/30/22 08:15 01/30/22 08:15 A&P Assessment and plan (1) Anemia: Status: Acute Plan 76-year-old male with past medical history of heart failure with reduced ejection fraction coronary artery disease, A. fib , COPD came in with chief complaint of worsening shortness of breath PND and orthopnea, worsening bilateral lower extremity swelling , occasional substernal chest pain with exertion. Assessment # Decompensated HFrEF : Continue Lasix 60 IV twice daily Monitor intake output charting Monitor daily weight Fluid restrictions 1200 CC K>4, MG >2 Currently telemetry monitoring #History of cartery disease: CAG : 99 % stenosis of mid LAD, left main 50% stenosis borderline significant on IVUS s/p?PCI to mid LAD. Currently cardiothoracic surgery as well as cardiology on board, to decide regarding the future of left main disease. Continue aspirin Plavix statin. Will need DAPT at least for a year #A. fib: Currently heart rate is well controlled Continue amiodarone 200 mg p.o. daily Continue metoprolol Continue Eliquis #Bilateral pleural effusion has history of traumatic pleural effusion in the past: Currently most likely explanation for pleural effusion is decompensated heart failure Bedside ultrasound chest Patient is on Eliquis and Plavix, if safe and significant pocket is detected will plan for IR guided thoracentesis. #JHONNY on CKD stage III: Likely secondary to aggressive diuresis Monitor BMP Intake output charting Avoid nephrotoxic Problem urine sodium random urine creatinine Possible renal consult #COPD: Continue Solu-Medrol 60 mg IV BID Duo nebs Currently not in exacerbation #CODE STATUS: Full code #Disposition: Discharge to home #DVT prophylaxis: On SCDs Attestations Medical Necessity Statement*: Patient is to be in hospital for management of decompensated heart failure. Time Spent in Patient Care: Greater than 35 minutes (>than 50% of time spent in counselling and/or direct pt care on unit). Coding Level of Care Code Acute Septic Technician for Reece Fwd Exam Detailed Diagnoses Anemia D64.9
[2022-01-30] MEDS: pantoprazole DR 40 mg Tablet PO (08:53)
[2022-01-30] MEDS: clopidogrel 75 mg Tablet PO (08:53)
[2022-01-30] MEDS: metoprolol succinate ER (24 HR) 25 mg Tablet 50 MG PO (08:53)
[2022-01-30] MEDS: isosorbide mononitrate ER 30 mg Tablet PO (08:53)
[2022-01-30] MEDS: aspirin 81 mg EC Tablet PO (08:53)
[2022-01-30] MEDS: amiodarone 200 mg Tablet PO (08:54)
[2022-01-30] MEDS: apixaban 5 mg Tablet 2.5 MG PO ×2 (08:54→17:24)
[2022-01-30] MEDS: potassium chloride ER 20 mEq Tablet 40 MEQ PO (08:54)
[2022-01-30 09:02] LABS: Basophils % 0.1 %; Hematocrit 35.3 % (42.0-52.0); Hemoglobin 11.1 g/dL (11.7-16.6); Lymphocytes # 0.9 10^3/uL (0.8-4.8); Lymphocytes % 5.2 %; Mean Corpuscular HGB Conc 31.4 g/dL (30.0-36.0); Mean Corpuscular Hemoglobin 29.8 pg (28.0-34.0); Mean Corpuscular Volume 94.9 fl (80-94); Monocytes # 1.7 10^3/uL (0.2-0.9); Monocytes % 9.9 %; Neutrophils # 14.48 10^3/uL (1.8-7.7); Neutrophils % 84.2 %; Nucleated Red Blood Cells % 0 %; Platelet Count 748 10^3/cmm (130-400); Red Blood Count 3.72 10^6/uL (4.1-5.3); White Blood Count 17.2 10^3/uL (4.0-10.0)
[2022-01-30 09:07] LABS: Blood Urea Nitrogen 23 mg/dL (8-23); Calcium 8.9 mg/dL (8.5-10.5); Carbon Dioxide 30 mmol/L (22-29); Chloride 93 mmol/L (98-107); Glucose 125 mg/dL (65-115); Magnesium 2.2 mg/dL (1.7-2.3); Osmolality Calculated 283 mOsm/kg (285-295); Sodium 134 mmol/L (136-145)
[2022-01-30 09:11] LABS: Anion Gap 14.8 (5-19); Potassium 3.8 mmol/L (3.5-5.1)
--- NOTE | 2022-01-30 17:02 | PC.NURSE ---
dr chapman notified that pt has increasing hr to the 110-125 sustained. He gave no new orders at this time but is aware.
[2022-01-30] MEDS: FUROsemide 10 mg/mL SDV 2mL 20 MG IVP (17:24)
[2022-01-30] MEDS: atorvastatin 40 mg Tablet PO (20:01)
--- NOTE | 2022-01-30 20:08 | PC.NURSE ---
Dr. Reyes notified of patient stating that he is unable to get comfortable to sleep due to shortness of breath.
[2022-01-30] MEDS: acetaminophen 325 mg Tablet 650 MG PO (20:11)
[2022-01-30] MEDS: zolpidem 5 mg Tablet PO (21:22)
[2022-01-31] VITALS (37 sets, daily range): BP systolic 91–145; BP diastolic 67–107; PULSE 77–116; RESP 15–28; TEMP 36.6–36.8; O2SAT 89–100
[2022-01-31] MEDS: ipratropium-albuterol 3 mL Neb INHALATION ×5 (04:30→20:25)
--- NOTE | 2022-01-31 06:25 | PM.CONSULT ---
Providers/Reason For Consult Consulting Physician/Specialty*: Dr. Miranda/cardiothoracic surgery Reason for Consult*: Coronary artery disease Requesting Physician: Dr. Andres/cardiology Attending Physician: Carson Cantor MD History of Present Illness History of Present Illness Mr. Nitin Florentino is a 76 year old male who underwent a PTCA to a tight mid vessel LAD lesion on January 07 after originally presenting with pleural effusions, which were treated with successful drainage by thoracostomy tube. Patient had developed continued chest discomfort and arm discomfort and had A. fib with RVR which was medically treated. He also had a troponin leak. Left heart catheterization by Dr. Andres revealed a critical mid LAD lesion. He is also noted to have what was thought to be a distal left main stenosis visually which was somewhat confounded by aneurysmal dilatation of the proximal LAD at this junction. IVUS was performed with a minimal luminal area of 5.82 mm?. I do not believe FFR was performed. Mr. Florentino was original admitted on December 29 after presenting with shortness of breath. He complained of increasing shortness of breath and bilateral lower extremity edema over several days prior to presentation. He has a past history for coronary artery disease status post PTCA to the RCA several years ago along with a history of COPD, tobacco use, and hypertension. At the time of his original presentation on December 29 he was found to be substantially hypoxic requiring 70% BiPAP. He had elevated troponins and elevated D-dimer. He was originally scheduled for left heart catheterization at that time though became severely hypoxic during attempt to initiate the procedure, which was therefore aborted. Initial arrhythmia of A. fib with RVR was treated with Cardizem drip. He was initially placed in the ICU and treated for pneumonia. He may slow progress in his hospital stay and was subsequently discharged on January 09. He represented on January 28, again complaining of dyspnea. He had return of his bilateral lower extremity edema. Of interest is in his original H&P there is a note of an echocardiogram being performed on December 30 of this year which reveals ejection fraction of 20%. This is in cline contrast to the most recent echocardiogram of January 29 of this hospitalization describing his ejection fraction as normal at 64% On my visit with him this morning, he is clearly markedly dyspneic. He can speak only a few words at a time. He has prolonged expiratory phase and wheezes. Also note that he does have an elevated white count of 17,000 from yesterday. I have personally reviewed the left heart catheterization and IVUS performed by Dr. Andres. He had I have conferred concerning Mr. Florentino's findings. Mr. Florentino has a long history of tobacco use though he states he stopped about 1 month ago. 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 Medications/Allergies Home Medications Medication Instructions Recorded Confirmed Last Taken Type Vitamin B-12 1 tab PO .OCCASIONALLY 12/29/21 01/29/22 Unknown History albuterol sulfate 90 mcg/actuation 2 puff INHALATION QID PRN 12/29/21 01/29/22 Unknown History aerosol inhaler (ProAir HFA) calcium carbonate 550 mg-magnesium 2 tab PO Q4H PRN 12/29/21 01/29/22 Unknown History hydroxide 110 mg chewable tablet cholecalciferol (vitamin D3) 25 25 mcg PO QAM 12/29/21 01/29/22 12/29/21 07:00 History mcg (1,000 unit) tablet (Vitamin D3) hydrochlorothiazide 25 mg tablet 25 mg PO QAM 12/29/21 01/29/22 12/29/21 07:00 History sildenafil 100 mg tablet 50 mg PO PRN PRN 12/29/21 01/29/22 Unknown History amiodarone 200 mg tablet 200 mg PO DAILY #30 tab 01/09/22 01/29/22 Unknown Rx aspirin 81 mg tablet,delayed 81 mg PO DAILY 30 Days #30 tab 01/09/22 01/29/22 Unknown Rx release atorvastatin 40 mg tablet 40 mg PO BEDTIME 30 Days #30 tab 01/09/22 01/29/22 Unknown Rx clopidogrel 75 mg tablet 75 mg PO DAILY 30 Days #30 tab 01/09/22 01/29/22 Unknown Rx isosorbide mononitrate 30 mg 30 mg PO DAILY 30 Days #30 tab 01/09/22 01/29/22 Unknown Rx tablet,extended release 24 hr metoprolol succinate 25 mg 50 mg PO DAILY #30 tab 01/09/22 01/29/22 Unknown Rx tablet,extended release 24 hr nitroglycerin 0.4 mg sublingual 0.4 mg SUBLINGUAL Q5M PRN 30 Days 01/09/22 01/29/22 Unknown Rx tablet #30 tab docusate sodium 100 mg capsule 200 mg PO DAILY 01/29/22 01/29/22 Unknown History (Stool Softener) furosemide 20 mg tablet 20 mg PO DAILY 01/29/22 01/29/22 Unknown History umeclidinium 62.5 mcg/actuation 1 inh INHALATION DAILY 01/29/22 01/29/22 Unknown History blister powder for inhalation (Incruse Ellipta) Allergies Allergy/AdvReac Type Severity Reaction Status Date / Time lisinopril Allergy Unknown Verified 01/29/22 09:22 Current Medications Generic Name Dose Route Start Last Admin Trade Name Freq PRN Reason Stop Dose Admin Acetaminophen 650 mg 01/28/22 23:03 01/30/22 20:11 Acetaminophen 325 Mg Tablet PO 650 mg Q6H PRN Administration Mild/Mod Pain Or Temp >/= 101 Albuterol/Ipratropium 3 ml 01/29/22 00:00 01/31/22 04:30 Ipratropium-Albuterol 3 Ml Neb INHALATION 3 ml Q4H.RESPIRATORY DEVON Administration Amiodarone HCl 200 mg 01/29/22 09:00 01/30/22 08:54 Amiodarone 200 Mg Tablet PO 200 mg DAILY DEVON Administration Apixaban 2.5 mg 01/29/22 09:00 01/30/22 17:24 Apixaban 5 Mg Tablet PO 2.5 mg BID DEVON Administration Aspirin 81 mg 01/29/22 09:00 01/30/22 08:53 Aspirin 81 Mg Ec Tablet PO 81 mg DAILY DEVON Administration Atorvastatin Calcium 40 mg 01/28/22 23:03 01/30/22 20:01 Atorvastatin 40 Mg Tablet PO 40 mg BEDTIME DEVON Administration Clopidogrel Bisulfate 75 mg 01/29/22 09:00 01/30/22 08:53 Clopidogrel 75 Mg Tablet PO 75 mg DAILY DEVON Administration Isosorbide Mononitrate 30 mg 01/29/22 09:00 01/30/22 08:53 Isosorbide Mononitrate Er 30 Mg Tablet PO 30 mg DAILY DEVON Administration Methylprednisolone Sodium Succinate 60 mg 01/30/22 09:00 01/30/22 17:24 Methylprednisolone Sod Succ 40 Mg/Ml Inj IVP 60 mg BID DEVON Administration Metoprolol Succinate 50 mg 01/29/22 09:00 01/30/22 08:53 Metoprolol Succinate Er (24 Hr) 25 Mg Tablet PO 50 mg DAILY DEVON Administration Pantoprazole Sodium 40 mg 01/29/22 09:00 01/30/22 08:[address] 40 Mg Tablet PO 40 mg DAILY DEVON Administration Potassium Chloride 40 meq 01/29/22 13:27 01/30/22 08:54 Potassium Chloride Er 20 Meq Tablet PO 40 meq DAILY DEVON Administration PFSH Acute PFSH: Medical History Acute and chronic respiratory failure with hypoxia Acute heart failure Acute kidney failure Atrial fibrillation Bacteremia due to Staphylococcus CAD (coronary artery disease) Congestive heart failure COPD (chronic obstructive pulmonary disease) Hyponatremia Lactic acidosis NSTEMI (non-ST elevated myocardial infarction) Obesity Pneumonia Pulmonary edema Sepsis Traumatic hemothorax Surgical History History of heart artery stent History of hernia surgery Family History Father CAD (coronary artery disease) Mother Old age Social History Smoking and tobacco status: current every day smoker cigarettes [ Other cigarette details: Patient reports quitting smoking with onset of symptoms of this illness] Alcohol intake: never Vitals/I&O/Wt Last Vital Signs Temp 98.2 F 01/31/22 03:59 Pulse 103 H 01/31/22 04:35 Resp 18 01/31/22 04:35 BP 145/86 01/31/22 03:59 Pulse Ox 97 01/31/22 04:35 01/30/22 01/30/22 01/31/22 14:59 22:59 06:59 Intake Total 200 / 200 Output Total 1000 / 1000 125 / 1125 Balance -1000 / -1000 200 / -800 -125 / -925 Weight last 48 hrs Weight 213 lb 2 oz Weight 213 lb 2 oz Physical Exam HENMT: COMMON NORMALS: normocephalic, atraumatic, hearing grossly normal bilaterally and external ears normal HEAD & SCALP: normocephalic and atraumatic EXTERNAL EAR: Yes external ears normal Eye: COMMON NORMALS: Equal, round and reactive pupils present, EOMs intact bilaterally and conjunctivae normal CONJUNCTIVA: Yes conjunctivae normal PUPIL: Yes Equal, round and reactive pupils present Neck/C-Spine: COMMON NORMALS: full ROM and no lymphadenopathy Chest: COMMONS NORMALS: normal palpation of entire chest wall Resp: AUSCULTATION: abnormal I/E ratio, crackles, wheezes and diminished lung sounds bilateral in the lower lung martinez Cardio: RHYTHM: abnormal rhythm OTHER: Telemetry shows irregular rhythm consistent with probable A. fib and a heart rate of 110. GI: INSPECTION: Yes central obesity AUSCULTATION: Yes normoactive bowel sounds Extremity: OTHER: 1+ lower extremity edema. Data : 01/30/22 08:15 01/30/22 08:15 A&P Assessment and plan (1) Stenosis of left main coronary artery: 76-year-old gentleman admitted for respiratory difficulties and presumed sepsis. Current white count 17,000. Underwent successful PTCA to a tight mid LAD lesion. Found to have concerning the distal left main stenosis which by IVUS had a residual luminal area of 5.82 mm? which is conventionally considered significant. Visually, a bit challenging related to some aneurysmal dilatation of the proximal LAD at the takeoff of the left main. Given his current pulmonary status, he could not tolerate surgical vascular procedure. I am not certain what his baseline is though clearly at the present time with leukocytosis, A. fib with tachycardia along with his pulmonary difficulties this would be an exceptionally hazardous procedure and I do not recommend. Hopefully, he can be stabilized and potentially on outpatient basis we could consider try to maximize his pulmonary reserve to see whether this is a reasonable endeavor. I do understand the percutaneous technical challenges Dr. Andres has alluded to me in relation to the disparity in lumen sizes between the distal L left main and LAD. Unfortunately, I do not think that Mr. Florentino is a surgical candidate at this time as I feel his surgical risk is too great. Status: Acute Consult Attestations Medical Necessity Statement: Coronary artery disease status post PTCA to LAD with the remaining left main disease. Time Spent in Patient Care: Greater than 35 minutes Coding Level of Care Code Acute Vehicle Detailer for Reece Benton Diagnoses Stenosis of left main coronary artery I25.10
--- NOTE | 2022-01-31 07:11 | PC.NURSE ---
received report. pt appears to be sleeping comfortably. reviewed poc with misael and assumed care of pt.
[2022-01-31 07:57] LABS: Basophils % 0.1 %; Hematocrit 34.4 % (42.0-52.0); Lymphocytes # 0.6 10^3/uL (0.8-4.8); Lymphocytes % 3.6 %; Mean Corpuscular Hemoglobin 30.2 pg (28.0-34.0); Mean Corpuscular Volume 94.5 fl (80-94); Mean Platelet Volume 8.9 fL (7.4-10.4); Monocytes # 1.3 10^3/uL (0.2-0.9); Monocytes % 8.7 %; Neutrophils # 13.37 10^3/uL (1.8-7.7); Nucleated Red Blood Cells % 0 %; Platelet Count 769 10^3/cmm (130-400); Red Blood Count 3.64 10^6/uL (4.1-5.3); Red Cell Distribution Width 15.3 % (12.1-15.1); White Blood Count 15.4 10^3/uL (4.0-10.0)
[2022-01-31 08:18] LABS: INR 1.25 (0.8-1.2)
[2022-01-31 08:22] LABS: Blood Urea Nitrogen 32 mg/dL (8-23); Calcium 8.8 mg/dL (8.5-10.5); Carbon Dioxide 30 mmol/L (22-29); Chloride 95 mmol/L (98-107); Glucose 124 mg/dL (65-115); Magnesium 2.3 mg/dL (1.7-2.3); Osmolality Calculated 288 mOsm/kg (285-295); Sodium 135 mmol/L (136-145)
[2022-01-31 08:26] LABS: Anion Gap 14.4 (5-19); Potassium 4.4 mmol/L (3.5-5.1)
--- NOTE | 2022-01-31 08:29 | P.PN_ITS ---
Subjective Subjective: Patient underwent thoracentesis today and has been feeling better since. Heart rate has improved since. Patient was evaluated by CT surgery and is not considered a good surgical candidate at this time. Vitals/I&O/Wt Last Vital Signs Temp 98.0 F 01/31/22 07:39 Pulse 103 H 01/31/22 07:39 Resp 26 H 01/31/22 07:39 BP 138/107 01/31/22 07:39 Pulse Ox 94 01/31/22 07:39 01/30/22 01/31/22 01/31/22 22:59 06:59 14:59 Intake Total 200 / 200 Output Total 125 / 1125 120 / 120 Balance 200 / -800 -125 / -925 -120 / -120 Weight last 48 hrs Weight 213 lb 2 oz Weight 213 lb 2 oz Physical Exam Narrative: GENERAL: Patient is alert, awake and oriented x3. [] NECK: No jugular vein distension. [] HEENT: No cyanosis. No icterus. No pallor. [] HEART: Regular S1 and S2. No murmur, rub or gallop. [] LUNGS: Clear to auscultate bilaterally. [] ABDOMEN: Soft, nontender and nondistended. Positive bowel sounds. No guarding, rebound or tenderness. [] CENTRAL NERVOUS SYSTEM: Grossly nonfocal. [] EXTREMITIES: Lower extremities with 1+ edema bilaterally. Pulses palpable in the lower extremities, both dorsalis pedis and posterior tibial. [] Data : 02/01/22 16:31 02/01/22 04:55 A&P Assessment and plan (1) Acute exacerbation of CHF (congestive heart failure): Status: Acute (2) Atrial fibrillation: Status: Acute (3) Acute and chronic respiratory failure with hypoxia: Status: Acute Plan Patient had recent PCI of mid LAD. Has significant left main stenosis as well. Has presented with congestive heart failure symptoms. WBC count is worsening. Possible sepsis. Treatment per primary team Creatinine has worsened. Patient had thoracentesis with 1400 cc bloody fluid drained. Heart rate has improved. Dr Miranda evaluated patient and he is not a surgical candidate at this time. we will discuss percutaneous coronary intervention of left main artery. 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 This has been discussed with the patient. Continue aspirin and Plavix. On prior admission, echocardiogram was of limited quality even with contrast because of poor ultrasonic windows. Grossly LV systolic function appeared b orderline normal. Repeat echo shows normal LV systolic function Thank you for involving us with care of this patient. We will continue to follow. Please call with questions Attestations Medical Necessity Statement*: Care expected to cross 2 midnights. Coding Level of Care Code Acute Film Cleaner for Reece Lancasterd Diagnoses Acute exacerbation of CHF (congestive heart failure) I50.9 Atrial fibrillation I48.91 Acute and chronic respiratory failure with hypoxia J96.21
--- NOTE | 2022-01-31 09:03 | US_ITS ---
WS: [id number] INDICATION: Pleural effusions TECHNIQUE: Ultrasound chest FINDINGS: Moderate to large LEFT pleural effusion. Large RIGHT pleural effusion. Thoracentesis was subsequently performed on the large RIGHT pleural effusion. US/US chest [id number] IMPRESSION: 1. Moderate to large LEFT pleural effusion. 2. Large RIGHT pleural effusion. Thoracentesis was subsequently performed on t he large RIGHT pleural effusion.
--- NOTE | 2022-01-31 09:08 | CT_ITS ---
WS: [id number] CT CHEST WITHOUT INTRAVENOUS CONTRAST HISTORY: SOB TECHNIQUE: Contiguous 5 mm axial imaging performed on the thorax. Coronal and sagittal reformats are submitted. All CT scans at [facility] use at least one of these dose optimization techniques: automated exposure control; mA and/or kV adjustment per patient size (includes targeted exams where dose is matched to clinical indication); or iterative reconstruction. CONTRAST: None DLP: 1902.09 mGy.cm COMPARISON: 12/29/2021 Lungs and central airway: Atelectasis at the lung bases due to bilateral pleural effusions. Mild grou ndglass attenuation in the anterior superior LEFT upper lobe is new since 12/29/2021. There are a few additional mild groundglass attenuation. Some of these were present on the prior study. Some have imp roved and others increased. Pleura: Large bilateral pleural effusions have increased in size since the prior study. There is also fluid extending along the fissures. Heart and pericardium: Moderately enlarged heart. Heavy calcification in the [place] coronary arteries . Mediastinum and patrica: No mediastinum or hilar adenopathy. Vessels: Scattered atherosclerotic calcifications in the thoracic aorta. Normal size pulmonary artery . Chest wall and lower neck: No soft tissue masses. Upper abdomen: Liver is increased density. Osseous structures: Mild thoracic scoliosis. CT/CT chest wo con [id number] IMPRESSION: 1. Large, increased bilateral pleural effusions. 2. Scattered areas of pneumonitis bilaterally. Some areas have improved since 12/29/2021 but others have become more prominent. 3. Dense liver. This can be seen with hemachromatosis or Amiodarone therapy.
[2022-01-31] MEDS: pantoprazole 40 mg SDV IVP (09:36)
[2022-01-31] MEDS: enoxaparin 100 mg/mL Syringe SUBCUT (09:36)
[2022-01-31] MEDS: vancomycin 1,500 MG/300 ML PIGGYBACK 200 MG IV (09:36)
[2022-01-31] MEDS: aspirin 81 mg EC Tablet PO (09:37)
[2022-01-31] MEDS: piperacillin-tazobactam 3.375 GM in sodium chloride 0.9% (plus) 50 ML IV ×2 (09:37→18:08)
[2022-01-31] MEDS: potassium chloride ER 20 mEq Tablet 40 MEQ PO (09:37)
[2022-01-31] MEDS: isosorbide mononitrate ER 30 mg Tablet PO (09:37)
[2022-01-31] MEDS: FUROsemide 10 mg/mL SDV 4mL 40 MG IVP ×2 (09:37→18:08)
[2022-01-31] MEDS: clopidogrel 75 mg Tablet PO (09:38)
[2022-01-31] MEDS: amiodarone 200 mg Tablet PO (09:38)
--- NOTE | 2022-01-31 09:44 | PC.SOCIAL ---
IMM update IMM updated with patient and family at bedside. Verbalized an understanding. Copy Pg 2 provided. Initialled, dated, timed, and placed in chart.
--- NOTE | 2022-01-31 11:53 | US_ITS ---
WS: [id number] ULTRASOUND-GUIDED THORACENTESIS CLINICAL INFORMATION: sob b/l peural effusion COMPARISON: None. PROCEDURE: Informed consent: The risks, benefits, and alternatives of the procedure were discussed with the michelle ent. Verbal and written consent was obtained. Timeout: A timeout was performed to confirm the correct patient, procedure, and site. Site: RIGHT Preparation: A suitable skin site was identified. The patient was prepped and draped in usual sterile fashion. Lidocaine 1% was used for local anesthesia. Catheter: 4 [place] One-Step catheter. Fluid Volume: 1400 ml Color: Bloody 50 cc Sent to the laboratory for analysis. Complications: No pneumothorax on the postthoracentesis radiograph US/US thoracentesis [id number] IMPRESSION: 1. Uncomplicated ultrasound-guided RIGHT thoracentesis with removal of 1400 cc bloody fluid. 2. No pneumothorax on the postthoracentesis radiograph 3. Survey of the LEFT chest demonstrates moderate LEFT pleural effusion with L EFT basilar atelectasis.
--- NOTE | 2022-01-31 11:55 | PM.PN ---
Subjective Subjective: Patient was seen and examined this morning, he was extremely tachypneic tachycardic, short of breath with minimal exertion, he was placed on BiPAP, status post right thoracentesis, Post thoracentesis chest x-ray has shown reduction in right pleural effusion , no pneumothorax. Medications: Medication Review Details: Generic Name Dose Route Start Last Admin Trade Name Bibq PRN Reason Stop Dose Admin Albuterol/Ipratrop ium 3 ml 01/29/22 00:00 01/29/22 15:05 Ipratropium-Albu terol 3 Ml Neb INHALATION 3 ml Q4H.RESPIRATORY S CH Administration Amiodarone HCl 200 mg 01/29/22 09:00 01/29/22 09:01 Amiodarone 200 M g Tablet PO 200 mg DAILY DEVON Administration Apixaban 2.5 mg 01/29/22 09:00 01/29/22 17:30 Apixaban 5 Mg Ta blet PO 2.5 mg BID DEVON Administration Aspirin 81 mg 01/29/22 09:00 01/29/22 09:00 Aspirin 81 Mg Ec Tablet PO 81 mg DAILY DEVON Administration Atorvastatin Calci um 40 mg 01/28/22 23:03 01/28/22 23:37 Atorvastatin 40 Mg Tablet PO 40 mg BEDTIME DEVON Administration Clopidogrel Bisulf ate 75 mg 01/29/22 09:00 01/29/22 09:01 Clopidogrel 75 M g Tablet PO 75 mg DAILY DEVON Administration Furosemide 60 mg 01/29/22 17:00 01/29/22 17:30 Furosemide 10 Mg /Ml Sdv 10ml IVP 60 mg Q12H DEVON Administration Isosorbide Mononit rate 30 mg 01/29/22 09:00 01/29/22 09:01 Isosorbide [place] itrate Er 30 Mg Ta blet PO 30 mg DAILY DEVON Administration Metoprolol Succina te 50 mg 01/29/22 09:00 01/29/22 09:00 Metoprolol Succi kunal Er (24 Hr) 25 Mg Tablet PO 50 mg DAILY DEVON Administration Pantoprazole [place]od[place] m 40 mg 01/29/22 09:00 01/29/22 09:[address] 40 Mg Tablet PO 40 mg DAILY DEVON Administration Potassium Chloride 40 meq 01/29/22 13:27 01/29/22 14:24 Potassium Chlori de Er 20 Meq Table t PO 40 meq DAILY DEVON Administration Vitals/I&O/Wt Last Vital Signs Temp 97.9 F 01/31/22 11:46 Pulse 108 H 01/31/22 11:46 Resp 17 01/31/22 11:46 BP 131/98 01/31/22 11:46 Pulse Ox 94 01/31/22 11:46 01/30/22 01/31/22 01/31/22 22:59 06:59 14:59 Intake Total 200 / 200 300 / 300 Output Total 125 / 1125 120 / 120 Balance 200 / -800 -125 / -925 180 / 180 Weight last 48 hrs Weight 96.672 kg Physical Exam Const: COMMON NORMALS: patient oriented x3 HENMT: COMMON NORMALS: normocephalic and atraumatic HEAD & SCALP: normocephalic and atraumatic Chest: CHEST: Yes Symmetrical chest wall rise Resp: EFFORT & INSPECTION: Yes symmetric chest movement OTHER: Bilateral crackles present in both the lungs martinez, bilateral diminished air entry at bases Bilateral extensive wheezing. Cardio: COMMON NORMALS: No gallops present (Cardio), No rub (Cardio) and Peripheral pulses 2+ throughout PERIPHERAL PULSES: Peripheral pulses 2+ throughout OTHER: Irregularly irregular rhythm, S1-S2 variable intensity GI: COMMON NORMALS: Normal to inspection, nondistended, normoactive bowel sounds present, Soft to palpation, non-tender, No hepatosplenomegaly present and no masses AUSCULTATION: Yes normoactive bowel sounds PALPATION: Yes Soft to palpation and Yes No hepatosplenomegaly present RECTAL EXAM: Yes deferred Extremity: OTHER: 3+ bilateral pitting edema in both the lower extremities up to the level of knees Neuro: COMMON NORMALS: patient oriented x3 Data : 01/31/22 07:35 01/31/22 07:35 Micro: Microbiology 01/31/22 11:27 Blood Culture - Preliminary Blood SPECIMEN COLLECTED 01/31/22 11:20 Blood Culture - Preliminary Blood SPECIMEN COLLECTED A&P Assessment and plan (1) Anemia: Status: Acute Plan 76-year-old male with past medical history of heart failure with reduced ejection fraction coronary artery disease, A. fib , COPD came in with chief complaint of worsening shortness of breath PND and orthopnea, worsening bilateral lower extremity swelling , occasional substernal chest pain with exertion. Assessment #Acute on chronic respiratory failure : Secondary to decompensated heart failure, symptomatic large bilateral pleural effusion, low clinical suspicion for pneumonia. Patient currently denies any fever at home , cough , all prior blood cultures have been negative. During the last hospital stay also patient was extensively on broad-spectrum antibiotic. Patient came in with WBC count of 7.7 -> bumped up to 17.2. Patient has been on steroids since admission CT chest without contrast: Bilateral large pleural effusion Follow blood culture Urine culture Procalcitonin is:Normal Urine Legionella antigen Bacterial antigen panel MRSA PCR: Empirically on Vanco and Zosyn. # Decompensated HFpEF : Most recent 2D echo: Done on :01/29: Has shown EF of :64 % Prior echo was suggestive of reduced ejection fraction. Continue Lasix 40 IV twice daily Monitor intake output charting Monitor daily weight Fluid restrictions 1200 CC K>4, MG >2 Currently telemetry monitoring #Bilateral pleural effusion has history of traumatic pleural effusion in the past: patient has history of Traumatic hemothorax in the past. With drainage of hemorrhagic bilateral pleural effusion. Status post right thoracentesis with removal of 1400 cc hemorrhagic pleural fluid. Follow pleural fluid analysis He has been on Plavix and Eliquis at home. We will plan for left thoracentesis. We will continue with Plavix for now, given his recent history of stent ,hold Eliquis. #History of cartery disease: CAG : 99 % stenosis of mid LAD, left main 50% stenosis borderline significant on IVUS s/p?PCI to mid LAD. Currently cardiothoracic surgery as well as cardiology on board, to decide regarding the future of left main disease. Continue aspirin Plavix statin. Will need DAPT at least for a year #A. fib: Continue amiodarone 200 mg p.o. daily Continue metoprolol Metoprolol 5 mg IV every 4 hours as needed Eliquis on hold #JHONNY on CKD stage III: Likely secondary to aggressive diuresis Monitor BMP Intake output charting Avoid nephrotoxic Problem urine sodium random urine creatinine Possible renal consult #COPD: Continue Solu-Medrol 60 mg IV q6h Duo nebs #CODE STATUS: Full code #Disposition: Discharge to home #DVT prophylaxis: On SCDs Attestations Medical Necessity Statement*: Patient is to be in hospital for management of respiratory failure. Time Spent in Patient Care: Greater than 35 minutes (>than 50% of time spent in counselling and/or direct pt care on unit). Critical Care Time: The high probability of a clinically significant, sudden or life threatening deterioration of the patient's [] system(s) required my full and direct attention, intervention and personal management. The critical care time is as shown. This time is in addition to time spent performing any reported procedures but includes the following: [x] Data and vital sign review and interpretation [x] Patient assessment, examination and intervention [x] Documentation [x] Medication orders and management Critical Care Time (min): 50 Coding Level of Care Code Acute Resource Paraprofessional for Chg Fwd Exam Detailed Diagnoses Anemia D64.9
[2022-01-31] MEDS: metoprolol tartrate 1 mg/1 mL SDV 5 mL 5 MG IVP (12:09)
--- NOTE | 2022-01-31 13:02 | PC.NURSE ---
dr chapman and ir at bedside. pt consented to bedside thora. pt on bipap with family at bedside. risk/benefit discussed. vss. monitoring closely
--- NOTE | 2022-01-31 13:16 | XR_ITS ---
WS: [id number] CHEST XRAY TECHNIQUE: Portable chest. CLINICAL INFORMATION: post thora COMPARISON: January 28, 2022 FINDINGS: Heart: Cardiomegaly. Lungs: Status post RIGHT thoracentesis. No pneumothorax. Small residual RIGHT pleural effusion with R IGHT basilar atelectasis. Moderate LEFT pleural effusion. Chronic emphysematous changes. Bones: Osteopenia. XR/XR chest 1V portable [id number] IMPRESSION: 1. Post RIGHT thoracentesis. No pneumothorax. Small RIGHT residual pleural eff usion. 2. Moderate LEFT pleural effusion with LEFT basilar atelectasis.
--- NOTE | 2022-01-31 13:17 | PC.NURSE ---
thora done, 1500ml bloody fluid removed. pt breathing comfortably on bipap. vss
[2022-01-31 13:49] LABS: Mononuclear %, Pleural Fluid 48 %; Polynuclear Cells, Pleural % 52 %
[2022-01-31 13:54] LABS: Appearance, Pleural Fluid TURBID (CLEAR); Color, Pleural Fluid Red (Pale Yellow); PATH Referal YES
[2022-01-31 13:59] LABS: Lactate Dehydrogenase 254 U/L (135-225)
--- NOTE | 2022-01-31 14:11 | PC.NURSE ---
Pt arrived to ICU at 1400 via bed on 2L. Family is at bedside with all belongings. Pt stated he is in no pain at this time and is A&Ox4.
--- NOTE | 2022-01-31 14:15 | PC.NURSE ---
report called to naresh in icu. pt transfered via bed to room 12. all belongings sent with patient. and son at bedside.
[2022-01-31 14:30] LABS: Pleural Fluid Cholesterol 71 mg/dL; Triglycerides, Pleural Fluid 46 mg/dL
[2022-01-31 14:31] LABS: Total Protein Pleural Fluid 3.6 g/dL
[2022-01-31 14:42] LABS: LDH Pleural Fluid 617 U/L
--- NOTE | 2022-01-31 15:49 | CTR_ITS ---
PROCEDURE INFORMATION: Exam: CT Abdomen And Pelvis Without Contrast Exam date and time: 02/01/2022 1:18 AM Age: 76 years old Clinical indication: Prior surgery; Surgery date: Post-operative (0-2 days); Surgery type: RT side thoracentesis. ; Patient HX: Loss of appetite. Patient denies and abd pain. ; Additional info: Dense liver poor appetite, R/O malignancy TECHNIQUE: Imaging protocol: Computed tomography of the abdomen and pelvis without contrast. Radiation optimization: All CT scans at this facility use at least one of these dose optimization techniques: automated exposure control; mA and/or kV adjustment per patient size (includes targeted exams where dose is matched to clinical indication); or iterative reconstruction. COMPARISON: No relevant prior studies available. RADIATION DOSE METRICS: Total DLP (mGy-cm): 1881.94 FINDINGS: Pleural spaces/lungs: There are large bilateral pleural effusions. Mild right anterior lower lung and left posterior lower lung opacities could represent atelectasis and/or pneumonitis. Heart: Mild to moderate cardiomegaly. Prominent coronary artery calcifications. Liver: Relatively small liver, right lobe length around 11 cm. No significant focal abnormality on noncontrast CT. Gallbladder and bile ducts: The gallbladder appears somewhat distended, transverse diameter up to about 4.5 cm. Suspect some subtle higher attenuation fluid/material in the dependent aspect of the gallbladder. This may represent biliary sludge, although small noncalcified gallstones might also have this appearance on CT. Ultrasound could be more specific/sensitive for detecting gallstones, if clinically needed. No definite pericholecystic fluid or inflammation. No biliary tree dilation. Pancreas: Unremarkable. Spleen: Unremarkable. Adrenal glands: Unremarkable. Kidneys and ureters: No hydronephrosis of either kidney. No visible renal or ureteral calculus. Mild perinephric stranding bilaterally. This is a nonspecific appearance and could well be chronic. Possibility of pyelonephritis is not entirely excluded, please correlate clinically. Stomach and bowel: No significant bowel distention. There is diverticulosis involving the sigmoid colon, without CT evidence of diverticulitis. Appendix: The appendix is visualized and appears normal. Intraperitoneal space: No free intraperitoneal air, or ascites. Arteries: Prominent aortic and iliac artery calcifications. There is an infrarenal abdominal aortic aneurysm with maximum AP diameter of 3.3 cm. No definite evidence of leaking/ruptured aneurysm by CT. Lymph nodes: No retroperitoneal adenopathy. Urinary bladder: Patel catheter in the urinary bladder. Possibly some mild diffuse urinary bladder wall thickening. Evaluation is limited, as the bladder is almost empty. This may be related to the prostate enlargement. While nonspecific, this could also indicate evidence for cystitis. Please correlate clinically. Reproductive: Prostate enlargement with transverse diameter of 4.9 cm. Bones/joints: Moderate facet joint arthritis in the lower lumbar spine. Soft tissues: Small bilateral inguinal hernias, containing only fat. Other findings: CT/CT abdomen pelvis wo con [id number] IMPRESSION: 1. No free air or bowel distention. 2. Somewhat distended gallbladder. Suspect possible biliary sludge in the gallbladder, no definite calcified gallstones by CT. See above discussion. 3. Normal appendix. 4. 3.3 cm abdominal aortic aneurysm. No evidence of leaking/ruptured aneurysm by CT. 5. Prostate enlargement and possible urinary bladder wall thickening, see above. 6. No hydronephrosis of either kidney. No visible renal or ureteral calculus. 7. Mild perinephric stranding bilaterally, see above discussion. 8. Large bilateral pleural effusions. Mild lower lung opacities as above. 9. Other findings discussed above.
[2022-01-31] MEDS: atorvastatin 40 mg Tablet PO (20:21)
[2022-02-01] VITALS (46 sets, daily range): BP systolic 90–131; BP diastolic 61–83; PULSE 83–132; RESP 13–29; TEMP 36.5–36.7; O2SAT 92–100
[2022-02-01] MEDS: ipratropium-albuterol 3 mL Neb INHALATION ×6 (00:01→20:57)
[2022-02-01] MEDS: piperacillin-tazobactam 3.375 GM in sodium chloride 0.9% (plus) 50 ML IV ×3 (02:29→17:02)
[2022-02-01 05:43] LABS: Blood Urea Nitrogen 38 mg/dL (8-23); Calcium 8.5 mg/dL (8.5-10.5); Carbon Dioxide 28 mmol/L (22-29); Chloride 97 mmol/L (98-107); Glucose 148 mg/dL (65-115); Magnesium 2.3 mg/dL (1.7-2.3); Osmolality Calculated 298 mOsm/kg (285-295); Sodium 138 mmol/L (136-145)
[2022-02-01 06:10] LABS: Anion Gap 17.5 (5-19); Ferritin 1603 ng/mL (30-400); Potassium 4.5 mmol/L (3.5-5.1)
--- NOTE | 2022-02-01 07:03 | PC.NURSE ---
Spoke to Dr. Cantor. Orders to hold am dose of Lasix and infuse 1L of NS at 50ml/hr.
[2022-02-01 07:40] LABS: Basophils % 0.1 %; Hematocrit 30.5 % (42.0-52.0); Hemoglobin 9.6 g/dL (11.7-16.6); Lymphocytes # 0.3 10^3/uL (0.8-4.8); Lymphocytes % 2.2 %; Mean Corpuscular HGB Conc 31.5 g/dL (30.0-36.0); Mean Corpuscular Hemoglobin 30.1 pg (28.0-34.0); Mean Corpuscular Volume 95.6 fl (80-94); Mean Platelet Volume 9.1 fL (7.4-10.4); Monocytes # 1.1 10^3/uL (0.2-0.9); Monocytes % 7.6 %; Neutrophils # 12.89 10^3/uL (1.8-7.7); Neutrophils % 87.9 %; Nucleated Red Blood Cells % 0 %; Platelet Count 637 10^3/cmm (130-400); Red Blood Count 3.19 10^6/uL (4.1-5.3); White Blood Count 14.7 10^3/uL (4.0-10.0)
[2022-02-01] MEDS: sodium chloride 0.9% 1,000 ML 50 ML IV (08:11)
[2022-02-01] MEDS: aspirin 81 mg EC Tablet PO (08:12)
[2022-02-01] MEDS: metoprolol succinate ER (24 HR) 50 mg Tablet PO (08:12)
[2022-02-01] MEDS: amiodarone 200 mg Tablet PO (08:12)
[2022-02-01] MEDS: pantoprazole 40 mg SDV IVP (08:12)
[2022-02-01] MEDS: isosorbide mononitrate ER 30 mg Tablet PO (08:12)
[2022-02-01] MEDS: clopidogrel 75 mg Tablet PO (08:12)
[2022-02-01] MEDS: potassium chloride ER 20 mEq Tablet 40 MEQ PO (08:13)
--- NOTE | 2022-02-01 08:42 | XR_ITS ---
WS: [id number] Portable AP upright chest, 02/01/2022 Clinical Data: s/p rt thoracentesis Comparison: Portable chest, 01/31/2022 Findings: The heart remains enlarged. There are bilateral pleural effusions unchanged. The upper lobe s are clear. The aortic arch and descending thoracic aorta show tortuosity. No pneumothorax is noted. Monitor leads are on the chest wall. XR/XR chest 1V portable [id number] Impression: 1. No change in bilateral pleural effusions and cardiomegaly. 2. Atherosclerosis.
--- NOTE | 2022-02-01 09:24 | PC.NURSE ---
Dressing on back was saturated with a large amount of sanguineous drainage that had soaked the dressing, marquise, and the sheets. Dr. Cantor was in room and assisted with dressing change. Pressure dressing was applied to site.
--- NOTE | 2022-02-01 11:32 | P.PN_ITS ---
Subjective Subjective: Patient was seen and examined this morning, says his shortness of breath is improved, Hemoglobin has dropped to 9.6 , repeat hemoglobin was 10.2 , BUN and serum creatinine up trended :to 38 and 1.9, will hold off Lasix today, will start gentle IV hydration with NS at 50 cc an hour, A.m. chest x-ray shows: Moderate left pleural effusion, and small to moderate residual right pleural effusion. CT abdomen and pelvis: Has failed to show any acute abdominal pathology. Medications: Medication Review Details: Generic Name Dose Route Start Last Admin Trade Name Freq PRN Reason Stop Dose Admin Albuterol/Ipratrop ium 3 ml 01/29/22 00:00 01/29/22 15:05 Ipratropium-Albu terol 3 Ml Neb INHALATION 3 ml Q4H.RESPIRATORY S CH Administration Amiodarone HCl 200 mg 01/29/22 09:00 01/29/22 09:01 Amiodarone 200 M g Tablet PO 200 mg DAILY DEVON Administration Apixaban 2.5 mg 01/29/22 09:00 01/29/22 17:30 Apixaban 5 Mg Ta blet PO 2.5 mg BID DEVON Administration Aspirin 81 mg 01/29/22 09:00 01/29/22 09:00 Aspirin 81 Mg Ec Tablet PO 81 mg DAILY DEVON Administration Atorvastatin Calci um 40 mg 01/28/22 23:03 01/28/22 23:37 Atorvastatin 40 Mg Tablet PO 40 mg BEDTIME DEVON Administration Clopidogrel Bisulf ate 75 mg 01/29/22 09:00 01/29/22 09:01 Clopidogrel 75 M g Tablet PO 75 mg DAILY DEVON Administration Furosemide 60 mg 01/29/22 17:00 01/29/22 17:30 Furosemide 10 Mg /Ml Sdv 10ml IVP 60 mg Q12H DEVON Administration Isosorbide Mononit rate 30 mg 01/29/22 09:00 01/29/22 09:01 Isosorbide [place] itrate Er 30 Mg Ta blet PO 30 mg DAILY DEVON Administration Metoprolol Succina te 50 mg 01/29/22 09:00 01/29/22 09:00 Metoprolol Succi kunal Er (24 Hr) 25 Mg Tablet PO 50 mg DAILY DEVON Administration Pantoprazole Sodiu m 40 mg 01/29/22 09:00 01/29/22 09:[address] 40 Mg Tablet PO 40 mg DAILY DEVON Administration Potassium Chloride 40 meq 01/29/22 13:27 01/29/22 14:24 Potassium Chlori de Er 20 Meq Table t PO 40 meq DAILY DEVON Administration Vitals/I&O/Wt Last Vital Signs Temp 97.8 F 01/31/22 19:30 Pulse 107 H 02/01/22 11:28 Resp 18 02/01/22 11:28 BP 90/72 02/01/22 09:00 Pulse Ox 98 02/01/22 11:28 01/31/22 02/01/22 02/01/22 22:59 06:59 14:59 Intake Total 350 / 700 50 / 750 Output Total 800 / 920 Balance 350 / 580 -750 / -170 Physical Exam Const: COMMON NORMALS: patient oriented x3 HENMT: COMMON NORMALS: normocephalic and atraumatic HEAD & SCALP: normocephalic and atraumatic Chest: CHEST: Yes Symmetrical chest wall rise Resp: EFFORT & INSPECTION: Yes symmetric chest movement OTHER: Diminished air entry in lt lung martinez, rt lung field air entry has improved. Cardio: COMMON NORMALS: No gallops present (Cardio), No rub (Cardio) and Peripheral pulses 2+ throughout PERIPHERAL PULSES: Peripheral pulses 2+ throughout OTHER: Irregularly irregular rhythm, S1-S2 variable intensity GI: COMMON NORMALS: Normal to inspection, nondistended, normoactive bowel sounds present, Soft to palpation, non-tender, No hepatosplenomegaly present and no masses AUSCULTATION: Yes normoactive bowel sounds PALPATION: Yes Soft to palpation and Yes No hepatosplenomegaly present RECTAL EXAM: Yes deferred Extremity: OTHER: 2+ bilateral pitting edema in both the lower extremities up to the level of knees Neuro: COMMON NORMALS: patient oriented x3 Urinary Catheter Management: Patel: Cath Placed During This Visit: yes Reason for Continuing Indwelling Catheter: Accurate Measurement of Urinary Output in Critically Ill Patients Urinary Catheter Date of Insertion: 01/31/22 Urinary Catheter Time of Insertion: 11:45 Data : 02/01/22 16:31 02/01/22 04:55 Micro: Microbiology 01/31/22 11:27 Blood Culture - Preliminary Blood NEGATIVE TO DATE 01/31/22 11:20 Blood Culture - Preliminary Blood NEGATIVE TO DATE 01/31/22 11:55 Urine Culture - Preliminary Urine Catheterized 01/31/22 18:15 Bacterial Antigens - Final Urine,Clean Catch 01/31/22 18:15 Legionella Urinary Antigen - Final Urine Catheterized A&P Assessment and plan (1) Anemia: Status: Acute Plan 76-year-old male with past medical history of heart failure with reduced ej ection fraction coronary artery disease, A. fib , COPD came in with chief complaint of worsening shortness of breath PND and orthopnea, worsening bilateral lower extremity swelling , occasional substernal chest pain with exertion. Assessment #Acute on chronic respiratory failure : Secondary to decompensated heart failure, symptomatic large bilateral pleural effusion, low clinical suspicion for pneumonia. Patient currently denies any fever at home , cough , all prior blood cultures have been negative. During the last hospital stay also patient was extensively on broad-spectrum antibiotic. Patient came in with WBC count of 7.7 -> bumped up to 17.2. Patient has been on steroids since admission CT chest without contrast: Bilateral large pleural effusion CT abdomen and pelvis without contrast:Has failed to show any acute infectious abdominal pathology. Though it is commenting on possible biliary sludge patient currently denies any abdominal pain nausea vomiting he is tolerating diet well. Follow blood culture: Negative Urine culture Procalcitonin is:Normal Urine Legionella antigen: Negative Bacterial antigen panel: Negative MRSA PCR: Empirically on Vanco and Zosyn. # Decompensated HFpEF : Most recent 2D echo: Done on :01/29: Has shown EF of :64 % Prior echo was suggestive of reduced ejection fraction. Continue Lasix 40 IV twice daily Monitor intake output charting Monitor daily weight Fluid restrictions 1200 CC K>4, MG >2 Currently telemetry monitoring #AAA: 3.3 cm abdominal aortic aneurysm. No evidence of leaking/ruptured Routine outpatient follow-up #Bilateral pleural effusion has history of traumatic pleural effusion in the past: patient has history of Traumatic hemothorax in the past. With drainage of hemorrhagic bilateral pleural effusion. Status post right thoracentesis with removal of 1400 cc hemorrhagic pleural fluid. Follow pleural fluid analysis: Exudative Follow rheumatoid factor JEZ CCP He has been on Plavix and Eliquis at home. We will plan for left thoracentesis. We will continue with Plavix for now, given his recent history of stent ,hold Eliquis. Appreciate pulmonary input #History of cartery disease: CAG : 99 % stenosis of mid LAD, left main 50% stenosis borderline significant on IVUS s/p?PCI to mid LAD. Currently cardiothoracic surgery as well as cardiology on board, to decide rega rding the future of left main disease. Continue aspirin Plavix statin. Will need DAPT at least for a year #A. fib: Continue amiodarone 200 mg p.o. daily Continue metoprolol Metoprolol 5 mg IV every 4 hours as needed Eliquis on hold #JHONNY on CKD stage III: Likely secondary to aggressive diuresis Monitor BMP Intake output charting Avoid nephrotoxic Problem urine sodium random urine creatinine Possible renal consult #COPD: Continue Solu-Medrol 60 mg IV q6h Duo nebs #CODE STATUS: Full code #Disposition: Discharge to home #DVT prophylaxis: On SCDs Attestations 2 Medical Necessity Statement*: Patient is still in hospital for management of above defined problems. Time Spent in Patient Care: Greater than 35 minutes (>than 50% of time spent in counselling and/or direct pt care on unit) . Critical Care Time: The high probability of a clinically significant, sudden or life threatening deterioration of the patient's [] system(s) required my full and direct attention, intervention and personal management. The critical care time is as shown. This time is in addition to time spent performing any reported procedures but includes the following: [x] Data and vital sign review and interpretation [x] Patient assessment, examination and intervention [x] Documentation [x] Medication orders and management Critical Care Time (min): 45 Coding Level of Care Code Acute Planning Associate for franchesca Fwd Exam Detailed Diagnoses Anemia D64.9
[2022-02-01] MEDS: vancomycin 1,500 MG/300 ML PIGGYBACK 200 MG IV (12:44)
[2022-02-01 14:09] LABS: Basophils % 0.1 %; Hematocrit 32.3 % (42.0-52.0); Lymphocytes # 0.4 10^3/uL (0.8-4.8); Lymphocytes % 2.3 %; Mean Corpuscular Hemoglobin 30.3 pg (28.0-34.0); Mean Corpuscular Volume 97.9 fl (80-94); Mean Platelet Volume 8.9 fL (7.4-10.4); Monocytes # 1.2 10^3/uL (0.2-0.9); Monocytes % 7.1 %; Neutrophils # 15.63 10^3/uL (1.8-7.7); Neutrophils % 89.5 %; Nucleated Red Blood Cells % 0.1 %; Platelet Count 647 10^3/cmm (130-400); Red Cell Distribution Width 15.1 % (12.1-15.1); White Blood Count 17.5 10^3/uL (4.0-10.0)
[2022-02-01] MEDS: metoprolol tartrate 50 mg Tablet PO (16:13)
[2022-02-01 16:47] LABS: Basophils % 0.1 %; Hemoglobin 10.2 g/dL (11.7-16.6); Lymphocytes # 0.5 10^3/uL (0.8-4.8); Lymphocytes % 2.4 %; Mean Corpuscular HGB Conc 30.9 g/dL (30.0-36.0); Mean Corpuscular Hemoglobin 30.3 pg (28.0-34.0); Mean Corpuscular Volume 97.9 fl (80-94); Monocytes # 1.4 10^3/uL (0.2-0.9); Monocytes % 7.8 %; Neutrophils # 16.33 10^3/uL (1.8-7.7); Neutrophils % 88.8 %; Nucleated Red Blood Cells % 0 %; Platelet Count 688 10^3/cmm (130-400); Red Blood Count 3.37 10^6/uL (4.1-5.3); Red Cell Distribution Width 15.3 % (12.1-15.1); White Blood Count 18.4 10^3/uL (4.0-10.0)
--- NOTE | 2022-02-01 17:40 | P.CONIM_ITS ---
Providers/Reason For Consult Consulting Physician/Specialty*: Pulmonary critical care medicine Reason for Consult*: Recurrent pleural effusion Attending Physician: Carson Cantor MD History of Present Illness History of Present Illness Nitin Florentino is a 76 year old male with a past medical history of heart failure, atrial fibrillation, coronary artery disease. The patient presented to the hospital on January 28 with worsening shortness of breath in addition to worsening bilateral lower extremity edema. Upon admission, the patient was found to have bilateral pleural effusion and significant bilateral pitting edema. He was diagnosed with acute decompensated heart failure and was started on appropriate therapy. However, his story is more interesting. The patient tells me that he did not have any significant respiratory problems until last year. He has extensive history of smoking and a previous diagnosis of COPD. The patient was initially hospitalized earlier this year in December with similar complaints. At that time, the patient was found to have NSTEMI, bilateral pleural effusion thought to be in the presence of heart failure. The patient was in respiratory failure at this time requiring noninvasive positive pressure ventilation. He was found to be in A. fib with RVR. An echocardiogram at this time revealed mild reduction in the ejection fraction. Patient eventually underwent cardiac catheterization during that hospitalization. He was found to have moderate to severe 50% left main disease, critical mid LAD lesion with 99% occlusion. The patient underwent a drug- eluting stent placement in the LAD on January 07. The plan was for staged PCI or CABG for the left main disease. The patient also underwent pleural fluid drainage from both right and left side. The fluid was consistent with exudative pleural effusion. The effusion was hemorrhagic but this was not hemothorax. The patient was discharged from the hospital on January 09. It appears that the patient was discharged on hydrochlorothiazide only according to the discharge summary. The patient presented back to the hospital on January 28 as mentioned above with worsening shortness of breath. CT scan of the chest revealed large bilateral pleural effusion. There are minimal pulmonary infiltrate. There is also evidence of bilateral pleural thickening. The patient underwent right-sided thoracentesis which revealed hemorrhagic effusion. The RBC count in the pleural fluid is not consistent with hemothorax. The patient also has exudative pleural effusion on the right side. Latest echocardiogram revealed an ejection fraction of 64%, mild left ventricular hypertrophy. Increased biatrial size. At least moderate aortic valve stenosis. The peak velocity is 3.1 m/s with a peak gradient of 39. E over E prime ratio was measured at 11. The patient is currently on broad-spectrum antibiotic, his diuretic was held today for worsening creatinine. The patient is on IV Solu-Medrol. I performed a bedside ultrasound. The patient has large bilateral pleural effusion. In addition, the patient has stranding bilaterally. The site in the right posterior chest where the thoracentesis was performed, the patient is having bloody effusion coming out soaking the drainage. The patient tells me that he is feeling significantly better since his right- sided pleural fluid was drained yesterday. He denies any fever, night sweats, chills, weight loss or loss of appetite. Review of Systems Narrative: General: No fevers chills night sweats or fatigue Skin: No rash HEENT: No nasal congestion, rhinitis, sinusitis Neck: There is no neck swelling, mass or swollen glands. Respiratory: No significant cough, sputum production or wheezing, exertional shortness of breath Cardiovascular: No chest pain, positive for orthopnea, significant bilateral peripheral edema Gastrointestinal: No abdominal pain, nausea, vomiting Musculoskeletal: No joint pain or swelling, muscle weakness, morning stiffness Neurological: Patient is awake alert and oriented x3, no paralysis, gross motor function is normal. Psychiatric: No anxiety or depression. Medications/Allergies Home Medications Medication Instructions Recorded Confirmed Last Taken Type Vitamin B-12 1 tab PO .OCCASIONALLY 12/29/21 01/29/22 Unknown History albuterol sulfate 90 mcg/actuation 2 puff INHALATION QID PRN 12/29/21 01/29/22 Unknown History aerosol inhaler (ProAir HFA) calcium carbonate 550 mg-magnesium 2 tab PO Q4H PRN 12/29/21 01/29/22 Unknown History hydroxide 110 mg chewable tablet cholecalciferol (vitamin D3) 25 25 mcg PO QAM 12/29/21 01/29/22 12/29/21 07:00 History mcg (1,000 unit) tablet (Vitamin D3) hydrochlorothiazide 25 mg tablet 25 mg PO QAM 12/29/21 01/29/22 12/29/21 07:00 History sildenafil 100 mg tablet 50 mg PO PRN PRN 12/29/21 01/29/22 Unknown History amiodarone 200 mg tablet 200 mg PO DAILY #30 tab 01/09/22 01/29/22 Unknown Rx aspirin 81 mg tablet,delayed 81 mg PO DAILY 30 Days #30 tab 01/09/22 01/29/22 Unknown Rx release atorvastatin 40 mg tablet 40 mg PO BEDTIME 30 Days #30 tab 01/09/22 01/29/22 Unknown Rx clopidogrel 75 mg tablet 75 mg PO DAILY 30 Days #30 tab 01/09/22 01/29/22 Unknown Rx isosorbide mononitrate 30 mg 30 mg PO DAILY 30 Days #30 tab 01/09/22 01/29/22 Unknown Rx tablet,extended release 24 hr metoprolol succinate 25 mg 50 mg PO DAILY #30 tab 01/09/22 01/29/22 Unknown Rx tablet,extended release 24 hr nitroglycerin 0.4 mg sublingual 0.4 mg SUBLINGUAL Q5M PRN 30 Days 01/09/22 01/29/22 Unknown Rx tablet #30 tab docusate sodium 100 mg capsule 200 mg PO DAILY 01/29/22 01/29/22 Unknown History (Stool Softener) furosemide 20 mg tablet 20 mg PO DAILY 01/29/22 01/29/22 Unknown History umeclidinium 62.5 mcg/actuation 1 inh INHALATION DAILY 01/29/22 01/29/22 Unknown History blister powder for inhalation (Incruse Ellipta) Allergies Allergy/AdvReac Type Severity Reaction Status Date / Time lisinopril Allergy Unknown Verified 01/29/22 09:22 Current Medications Generic Name Dose Route Start Last Admin Trade Name Freq PRN Reason Stop Dose Admin Acetaminophen 650 mg 01/28/22 23:03 01/30/22 20:11 Acetaminophen 325 Mg Tablet PO 650 mg Q6H PRN Administration Mild/Mod Pain Or Temp >/= 101 Albuterol/Ipratropium 3 ml 01/29/22 00:00 02/01/22 11:27 Ipratropium-Albuterol 3 Ml Neb INHALATION 3 ml Q4H.RESPIRATORY DEVON Administration Amiodarone HCl 200 mg 01/29/22 09:00 02/01/22 08:12 Amiodarone 200 Mg Tablet PO 200 mg DAILY DEVON Administration Aspirin 81 mg 01/29/22 09:00 02/01/22 08:12 Aspirin 81 Mg Ec Tablet PO 81 mg DAILY DEVON Administration Atorvastatin Calcium 40 mg 01/28/22 23:03 01/31/22 20:21 Atorvastatin 40 Mg Tablet PO 40 mg BEDTIME DEVON Administration Clopidogrel Bisulfate 75 mg 01/29/22 09:00 02/01/22 08:12 Clopidogrel 75 Mg Tablet PO 75 mg DAILY DEVON Administration Enoxaparin Sodium 100 mg 01/31/22 09:00 01/31/22 09:36 Enoxaparin 100 Mg/Ml Syringe 1 mg/kg (100 mg) 100 mg SUBCUT Administration Q12H DEVON Furosemide 40 mg 01/31/22 09:00 02/01/22 07:02 Furosemide 10 Mg/Ml Sdv 4ml IVP Not Given BID DEVON Piperacillin Sod/Tazobactam 50 mls @ 12.5 mls/hr 01/31/22 09:30 02/01/22 17:02 Sod 3.375 gm/ Sodium Chloride IV 12.5 mls/hr Q8H DEVON Administration Protocol Vancomycin/PEG/NADA/Lysine/Water 1,500 mg in 300 mls @ 200 mls/hr 01/31/22 10:00 02/01/22 12:44 Vancocin IV 200 mls/hr Q24H DEVON Administration Sodium Chloride 1,000 mls @ 50 mls/hr 02/01/22 07:15 02/01/22 08:11 Sodium Chloride 0.9% IV 02/02/22 03:14 50 mls/hr .Q20H DEVON Administration Isosorbide Mononitrate 30 mg 01/29/22 09:00 02/01/22 08:12 Isosorbide Mononitrate Er 30 Mg Tablet PO 30 mg DAILY DEVON Administration Methylprednisolone Sodium Succinate 60 mg 02/01/22 18:00 02/01/22 17:02 Methylprednisolone Sod Succ 125 Mg/2 Ml Inj IVP 60 mg BID DEVON Administration Metoprolol Succinate 50 mg 02/01/22 09:00 02/01/22 08:12 Metoprolol Succinate Er (24 Hr) 50 Mg Tablet PO 50 mg DAILY DEVON Administration Pantoprazole Sodium 40 mg 01/31/22 09:00 02/01/22 08:12 Pantoprazole 40 Mg Sdv IVP 40 mg DAILY DEVON Administration Potassium Chloride 40 meq 01/29/22 13:27 02/01/22 08:13 Potassium Chloride Er 20 Meq Tablet PO 40 meq DAILY DEVON Administration PFSH Acute PFSH: Medical History Acute and chronic respiratory failure with hypoxia Acute heart failure Acute kidney failure Atrial fibrillation Bacteremia due to Staphylococcus CAD (coronary artery disease) Congestive heart failure COPD (chronic obstructive pulmonary disease) Hyponatremia Lactic acidosis NSTEMI (non-ST elevated myocardial infarction) Obesity Pneumonia Pulmonary edema Sepsis Traumatic hemothorax Surgical History History of heart artery stent History of hernia surgery Family History Father CAD (coronary artery disease) Mother Old age Social History Smoking and tobacco status: current every day smoker cigarettes [ Other cigarette details: Patient reports quitting smoking with onset of symptoms of this illness] Alcohol intake: never Vitals/I&O/Wt Last Vital Signs Temp 97.8 F 01/31/22 19:30 Pulse 120 H 02/01/22 17:00 Resp 27 H 02/01/22 17:00 BP 97/70 02/01/22 17:00 Pulse Ox 99 02/01/22 17:00 02/01/22 02/01/22 02/01/22 06:59 14:59 22:59 Intake Total 50 / 750 50 / 50 360 / 410 Output Total 800 / 920 350 / 350 Balance -750 / -170 50 / 50 10 / 60 Physical Exam Narrative: General: Patient is awake alert and oriented, in no distress while resting Neck: Positive jugular venous distention Respiratory: Auscultation: Reduced breath sound bilaterally, no crackles wheezing or rhonchi Cardiovascular: Variable first heart sound, static murmur in the aortic area, bilateral pitting peripheral edema Abdomen: Soft, nontender, nondistended, positive bowel sound Musculoskeletal: No obvious joint deformity Skin: No rash Neuro: Mental status is normal, no gross cranial nerve deficit, normal motor and coordination. Urinary Catheter Management: Patel: Cath Placed During This Visit: yes Reason for Continuing Indwelling Catheter: Accurate Measurement of Urinary Output in Critically Ill Patients Urinary Catheter Date of Insertion: 01/31/22 Urinary Catheter Time of Insertion: 11:45 Data : 02/01/22 16:31 02/01/22 04:55 Micro: Microbiology 01/31/22 11:27 Blood Culture - Preliminary Blood NEGATIVE TO DATE 01/31/22 11:20 Blood Culture - Preliminary Blood NEGATIVE TO DATE 01/31/22 11:55 Urine Culture - Preliminary Urine Catheterized 01/31/22 18:15 Bacterial Antigens - Final Urine,Clean Catch 01/31/22 18:15 Legionella Urinary Antigen - Final Urine Catheterized Other data: I have reviewed the patient's laboratory, microbiologic and rheologic data. The patient has leukocytosis, thrombocytosis and mild anemia. He has acute kidney injury. The chest radiology is described in the HPI. A&P Assessment and plan (1) Bilateral pleural effusion: This is 76-year-old gentleman who has been hospitalized twice within the last 1 month. Both times the patient has significant bilateral pleural effusion. The etiology for this patient's bilateral pleural effusion is completely not clear at this time. When the patient was hospitalized in December, he had active coronary artery disease, mild reduction in the ejection fraction, A. fib and moderate aortic stenosis. All of this could have contributed to the heart failure symptoms. When he was discharged from the hospital he was only on hydrochlorothiazide as his diuretic regimen this was likely not optimal which would explain the reaccumulation of fluid in the pleural space in addition to peripheral edema and return to the hospital. What is not clear is that the pleural effusion was exudative during his hospital admission in December as well as this time. The patient has elevated LDH as well as protein level. The pleural effusion is of mixed cellularity. 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 The chest imaging also reveals pleural thickening. The patient has fibrinous strand on bedside ultrasound. The patient has leukocytosis, thrombocytosis. The patient likely has lung entrapment or trapped lung physiology. However, I cannot pinpoint on any specific etiology that would cause this. It appears that the patient did not have any significant pleural disease before presenting to the hospital in December. It is conceivable that the patient has pleuritis and pericarditis from an autoimmune cause which could be causing recurrent exudative pleural effusion, possibly pericarditis also contributing to heart heart failure. The patient underwent right-sided thoracentesis on this admission which showed hemorrhagic pleural fluid. However the pleural fluid RBC is minimal. This was not hemothorax. The patient is currently on broad-spectrum antibiotic. The patient did report significant improvement in his respiratory status after the right-sided pleural effusion was drained. He may be receiving a left-sided thoracentesis soon. Right now he seems to be stable requiring small amount of oxygen. I would recommend obtaining a basic autoimmune work-up. Avoid IV steroid and IV fluid for the time being. Status: Acute (2) Heart failure with preserved ejection fraction: The patient likely has decompensated heart failure. This is likely secondary to aortic stenosis in the setting of atrial fibrillation. However, we do need to rule out any contribution from constrictive pericarditis. I believe a right heart catheterization will help us determine the left ventricular end-diastolic pressure, pulmonary artery occlusion pressure as well as pulmonary artery pressures. This will also help us evaluate for classic changes which could be present in patients with constrictive pericarditis. I would recommend diuresing the patient aggressively. He likely has cardiorenal syndrome. The dense liver on the CT scan is likely suggestive of congestive hepatopathy. Status: Acute (3) Aortic stenosis: See above. Status: Acute (4) Coronary artery disease: The patient has left main disease. The left anterior descending artery was stented in December 2021. He was not deemed a surgical candidate for the left main disease. He is being managed medically at this point. Thank you for the consultation. I will continue to follow the patient. Status: Acute Coding Level of Care Code Acute Decorating Machine Operator for Reece Benton Diagnoses Bilateral pleural effusion J90 Heart failure with preserved ejection fraction I50.30 Aortic stenosis I35.0 Coronary artery disease I25.10 Time Spent (min) 42
--- NOTE | 2022-02-01 18:04 | P.PN_ITS ---
Subjective Subjective: Patient is doing better. Heart rates fluctuate Vitals/I&O/Wt Last Vital Signs Temp 97.8 F 01/31/22 19:30 Pulse 120 H 02/01/22 17:00 Resp 27 H 02/01/22 17:00 BP 97/70 02/01/22 17:00 Pulse Ox 99 02/01/22 17:00 02/01/22 02/01/22 02/01/22 06:59 14:59 22:59 Intake Total 50 / 750 50 / 50 360 / 410 Output Total 800 / 920 350 / 350 Balance -750 / -170 50 / 50 10 / 60 Physical Exam Narrative: GENERAL: Patient is alert, awake and oriented x3. [] NECK: No jugular vein distension. [] HEENT: No cyanosis. No icterus. No pallor. [] HEART: Regular S1 and S2. No murmur, rub or gallop. [] LUNGS: Clear to auscultate bilaterally. [] ABDOMEN: Soft, nontender and nondistended. Positive bowel sounds. No guarding, rebound or tenderness. [] CENTRAL NERVOUS SYSTEM: Grossly nonfocal. [] EXTREMITIES: Lower extremities with 1+ edema bilaterally. Pulses palpable in the lower extremities, both dorsalis pedis and posterior tibial. [] Urinary Catheter Management: Patel: Cath Placed During This Visit: yes Reason for Continuing Indwelling Catheter: Accurate Measurement of Urinary Out put in Critically Ill Patients Urinary Catheter Date of Insertion: 01/31/22 Urinary Catheter Time of Insertion: 11:45 Data : 02/02/22 04:39 02/02/22 04:39 Micro: Microbiology 01/31/22 11:27 Blood Culture - Preliminary Blood NEGATIVE TO DATE 01/31/22 11:20 Blood Culture - Preliminary Blood NEGATIVE TO DATE 01/31/22 11:55 Urine Culture - Preliminary Urine Catheterized 01/31/22 18:15 Bacterial Antigens - Final Urine,Clean Catch 01/31/22 18:15 Legionella Urinary Antigen - Final Urine Catheterized A&P Assessment and plan (1) Acute exacerbation of CHF (congestive heart failure): Status: Acute (2) Atrial fibrillation: Status: Acute (3) Acute and chronic respiratory failure with hypoxia: Status: Acute Plan Patient had recent PCI of mid LAD. Has significant left main stenosis as well. Has presented with respiratory distress His pleural effusion is exudative. Etiology is not clear however unlikely to be secondary to CHF. Will recommend holding diuretics as he is intravascularly dry. We can consider right heart cath if volume status is not clear. Patient had thoracentesis with 1400 cc exudative fluid drained. He has atrial fibrillation with RVR however posterior drainage of pleural effusion, his heart rates improved significantly. Dr Miranda evaluated patient and he is not a surgical candidate at this time. we will discuss percutaneous coronary intervention of left main artery later. 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 This has been discussed with the patient. Continue aspirin and Plavix. On prior admission, echocardiogram was of limited quality even with contrast because of poor ultrasonic windows. Grossly LV systolic function appeared borderline normal. Repeat echo shows normal LV systolic function Thank you for involving us with care of this patient. We will continue to follow. Please call with questions Attestations Medical Necessity Statement*: Care expected to cross 2 midnights. Coding Level of Care Code Acute Shoe Lining Fitter for Reece Benton Diagnoses Acute exacerbation of CHF (congestive heart failure) I50.9 Atrial fibrillation I48.91 Acute and chronic respiratory failure with hypoxia J96.21
[2022-02-01] MEDS: cefepime 2,000 MG in sodium chloride 0.9% (plus) 50 ML 100 MG IV (18:50)
[2022-02-01] MEDS: atorvastatin 40 mg Tablet PO (20:25)
[2022-02-01] MEDS: FUROsemide 10 mg/mL SDV 4mL 40 MG IVP (20:25)
[2022-02-02] VITALS (58 sets, daily range): BP systolic 86–117; BP diastolic 58–79; PULSE 77–136; RESP 12–31; TEMP 36.3–37.2; O2SAT 81–100; BMI 28.9
[2022-02-02] MEDS: ipratropium-albuterol 3 mL Neb INHALATION ×7 (00:24→23:34)
[2022-02-02 05:14] LABS: Basophils % 0.1 %; Lymphocytes # 0.5 10^3/uL (0.8-4.8); Lymphocytes % 3.3 %; Mean Corpuscular Hemoglobin 29.6 pg (28.0-34.0); Mean Corpuscular Volume 95.4 fl (80-94); Mean Platelet Volume 9.1 fL (7.4-10.4); Monocytes # 1.3 10^3/uL (0.2-0.9); Monocytes % 7.8 %; Neutrophils # 14.27 10^3/uL (1.8-7.7); Neutrophils % 87.9 %; Nucleated Red Blood Cells % 0 %; Platelet Count 645 10^3/cmm (130-400); Red Blood Count 3.04 10^6/uL (4.1-5.3); Red Cell Distribution Width 15.1 % (12.1-15.1); White Blood Count 16.2 10^3/uL (4.0-10.0)
[2022-02-02 05:38] LABS: Blood Urea Nitrogen 45 mg/dL (8-23); Calcium 7.9 mg/dL (8.5-10.5); Carbon Dioxide 30 mmol/L (22-29); Chloride 98 mmol/L (98-107); Glucose 164 mg/dL (65-115); Magnesium 2.3 mg/dL (1.7-2.3); Osmolality Calculated 301 mOsm/kg (285-295); Sodium 138 mmol/L (136-145)
[2022-02-02] MEDS: cefepime 2,000 MG in sodium chloride 0.9% (plus) 50 ML 100 MG IV (05:52)
--- NOTE | 2022-02-02 08:24 | XR_ITS ---
WS: [id number] Portable AP upright chest, 02/02/2022 Clinical Data: Follow up Comparison: Portable chest, 02/01/2022. Findings: The bilateral pleural effusions remain the same with more on the left than the right. The h eart is slightly enlarged. The upper lobes are clear. No nodules or masses are seen. Monitor leads ar e on the chest wall. The aortic arch shows mild tortuosity. XR/XR chest 1V portable [id number] Impression: No change from yesterday's portable chest.
--- NOTE | 2022-02-02 09:17 | US_ITS ---
WS: [id number] ULTRASOUND-GUIDED THORACENTESIS CLINICAL INFORMATION: left COMPARISON: None. PROCEDURE: Informed consent: The risks, benefits, and alternatives of the procedure were discussed with the michelle ent. Verbal and written consent was obtained. Timeout: A timeout was performed to confirm the correct patient, procedure, and site. Site: LEFT chest Preparation: A suitable skin site was identified. The patient was prepped and draped in usual sterile fashion. Lidocaine 1% was used for local anesthesia. Catheter: 4 Prydeinig One-Step catheter. Fluid Volume: 1500 ml Color: Bloody 30 cc sent to the LEFT for further analysis. Complications: No pneumothorax on the following portable chest radiograph US/US thoracentesis [id number] IMPRESSION: Uncomplicated ultrasound-guided LEFT thoracentesis.
[2022-02-02] MEDS: aspirin 81 mg EC Tablet PO (09:43)
[2022-02-02] MEDS: amiodarone 200 mg Tablet PO (09:43)
[2022-02-02] MEDS: clopidogrel 75 mg Tablet PO (09:44)
[2022-02-02] MEDS: isosorbide mononitrate ER 30 mg Tablet PO (09:45)
[2022-02-02] MEDS: potassium chloride ER 20 mEq Tablet 40 MEQ PO (09:46)
[2022-02-02] MEDS: metoprolol succinate ER (24 HR) 50 mg Tablet PO (09:46)
[2022-02-02 09:50] LABS: Vancomycin Trough 16.4 ug/mL (10-15)
[2022-02-02] MEDS: pantoprazole 40 mg SDV IVP (10:03)
[2022-02-02] MEDS: vancomycin 1,500 MG/300 ML PIGGYBACK 200 MG IV (10:12)
--- NOTE | 2022-02-02 10:53 | PC.CHAP ---
Pastoral Care Encounter/Spiritual Assessment Type of Contact [] Declined second operator visit [] Patient/Family/Request visit [] Outpatient visit [] Follow-up visit [] Physician referral [] Code/Alert [x] Routine visit [] Staff referral [] Actively dying [] Patient sleeping [x] Family support [] [] Out of room [] Palliative care [] [] Receiving care in room [] Pre-surgical visit [] Trauma [] Long length of stay [x] ICU visit [] Other: Relational/Emotional Strength [] Patient feels connected with others/family/visitors/staff [] Distress [] Loneliness/isolation [] Abandonment Spirituality of Patient [] Person of [place] [] Attends Muslim of their [place] [] Believes in Prayer [] Reads Bible or Latter Day materials [] There are Spiritual issues to be addressed Traffic Court Magistrate Interventions [x] Prayer [x] Active listening [x] Non-anxious presence [x] Spiritual/emotional support [] Crisis/trauma care [] Spiritual counseling [] Bereavement support [] Provided bereavement packet [] Provided Bible/devotional materials [] Provided toy/stuffed animal, coloring book to patient or family member [] Provided Communion [] Anointing/[place] [] Salvation [x] Completed spiritual assessment [] Other: Impact on Illness or Injury [] Angry [] Fearful [] Anxious [] Often cries [] Exhaustion [] Unable to work [] Unable to attend druze [] Unable to walk/stand [] Unable to read [] Unable to drive [] Unable to eat/drink [] Unable to sleep [] Unable to be with family [] Patient intubated [] Other: Summary served communion... resting well... available to return if requested Time spent with patient 10 min
[2022-02-02 11:29] LABS: INR 1.11 (0.8-1.2)
--- NOTE | 2022-02-02 12:29 | P.PN_ITS ---
Subjective Subjective: Patient was seen and examined this morning, still complaining of shortness of breath, slightly worse than yesterday, currently saturating well on 2 L oxygen, H&H has dropped to 9 and 29, BUN and serum creatinine has progressively worsened, close to a liter urine output in the last 24 hours, will hold off on diuresis. AM x-ray chest has shown persistent bilateral pleural effusion left greater than right, WBC count is slowly trending down, MRSA PCR negative, Status post left thoracentesis: With removal of 1500 cc hemorrhagic pleural effusion. Medications: Medication Review Details: Generic Name Dose Route Start Last Admin Trade Name Freq PRN Reason Stop Dose Admin Albuterol/Ipratrop ium 3 ml 01/29/22 00:00 01/29/22 15:05 Ipratropium-Albu terol 3 Ml Neb INHALATION 3 ml Q4H.RESPIRATORY S CH Administration Amiodarone HCl 200 mg 01/29/22 09:00 01/29/22 09:01 Amiodarone 200 M g Tablet PO 200 mg DAILY DEVON Administration Apixaban 2.5 mg 01/29/22 09:00 01/29/22 17:30 Apixaban 5 Mg Ta blet PO 2.5 mg BID DEVON Administration Aspirin 81 mg 01/29/22 09:00 01/29/22 09:00 Aspirin 81 Mg Ec Tablet PO 81 mg DAILY DEVON Administration Atorvastatin Calci um 40 mg 01/28/22 23:03 01/28/22 23:37 Atorvastatin 40 Mg Tablet PO 40 mg BEDTIME DEVON Administration Clopidogrel Bisulf ate 75 mg 01/29/22 09:00 01/29/22 09:01 Clopidogrel 75 M g Tablet PO 75 mg DAILY DEVON Administration Furosemide 60 mg 01/29/22 17:00 01/29/22 17:30 Furosemide 10 Mg /Ml Sdv 10ml IVP 60 mg Q12H DEVON Administration Isosorbide Mononit rate 30 mg 01/29/22 09:00 01/29/22 09:01 Isosorbide [place] itrate Er 30 Mg Ta blet PO 30 mg DAILY DEVON Administration Metoprolol Succina te 50 mg 01/29/22 09:00 01/29/22 09:00 Metoprolol Succi kunal Er (24 Hr) 25 Mg Tablet PO 50 mg DAILY DEVON Administration Pantoprazole Sodiu m 40 mg 01/29/22 09:00 01/29/22 09:[address] 40 Mg Tablet PO 40 mg DAILY DEVON Administration Potassium Chloride 40 meq 01/29/22 13:27 01/29/22 14:24 Potassium Chlori de Er 20 Meq Table t PO 40 meq DAILY DEVON Administration Vitals/I&O/Wt Last Vital Signs Temp 97.3 F L 02/02/22 07:53 Pulse 89 02/02/22 11:36 Resp 16 02/02/22 11:34 BP 112/79 02/02/22 07:40 Pulse Ox 99 02/02/22 11:34 02/01/22 02/02/22 02/02/22 22:59 06:59 14:59 Intake Total 710 / 1060 50 / 1110 Output Total 350 / 350 800 / 1150 Balance 360 / 710 -750 / -40 Weight last 48 hrs Weight 96.672 kg Physical Exam Const: COMMON NORMALS: patient oriented x3 HENMT: COMMON NORMALS: normocephalic and atraumatic HEAD & SCALP: normocephalic and atraumatic Chest: CHEST: Yes Symmetrical chest wall rise Resp: EFFORT & INSPECTION: Yes symmetric chest movement OTHER: Diminished air entry in lt lung martinez, rt lung field air entry has improved. Cardio: COMMON NORMALS: No gallops present (Cardio), No rub (Cardio) and Peripheral pulses 2+ throughout PERIPHERAL PULSES: Peripheral pulses 2+ throughout OTHER: Irregularly irregular rhythm, S1-S2 variable intensity GI: COMMON NORMALS: Normal to inspection, nondistended, normoactive bowel sounds present, Soft to palpation, non-tender, No hepatosplenomegaly present and no masses AUSCULTATION: Yes normoactive bowel sounds PALPATION: Yes Soft to palpation and Yes No hepatosplenomegaly present RECTAL EXAM: Yes deferred Extremity: OTHER: 2+ bilateral pitting edema in both the lower extremities up to the level of knees Neuro: COMMON NORMALS: patient oriented x3 Urinary Catheter Management: Patel: Cath Placed During This Visit: yes Reason for Continuing Indwelling Catheter: Accurate Measurement of Urinary Output in Critically Ill Patients Urinary Catheter Date of Insertion: 01/31/22 Urinary Catheter Time of Insertion: 11:45 Data : 02/02/22 04:39 02/02/22 04:39 Micro: Microbiology 02/01/22 17:50 MRSA Culture - Final Nose 01/31/22 11:55 Urine Culture - Final Urine Catheterized 01/31/22 11:27 Blood Culture - Preliminary Blood NEGATIVE TO DATE 01/31/22 11:20 Blood Culture - Preliminary Blood NEGATIVE TO DATE 01/31/22 18:15 Bacterial Antigens - Final Urine,Clean Catch A&P Assessment and plan (1) Anemia: Status: Acute Plan 76-year-old male with past medical history of heart failure with reduced ejection fraction coronary artery disease, A. fib , COPD came in with chief complaint of worsening shortness of breath PND and orthopnea, worsening bilat eral lower extremity swelling , occasional substernal chest pain with exertion. Assessment #Acute on chronic respiratory failure : Secondary to decompensated heart failure, symptomatic large bilateral pleural effusion, low clinical suspicion for pneumonia. Patient currently denies any fever at home , cough , all prior blood cultures have been negative. During the last hospital stay also patient was extensively on broad-spectrum antibiotic. Patient came in with WBC count of 7.7 -> bumped up to 17.2. Patient has been on steroids since admission CT chest without contrast: Bilateral large pleural effusion CT abdomen and pelvis without contrast:Has failed to show any acute infectious abdominal pathology. Though it is commenting on possible biliary sludge patient currently denies any abdominal pain nausea vomiting he is tolerating diet well. Follow blood culture: Negative Urine culture Procalcitonin is:Normal Urine Legionella antigen: Negative Bacterial antigen panel: Negative MRSA PCR: Negative Empirically on Vanco and Zosyn. Zosyn was discontinued and was started on cefepime. # Decompensated HFpEF : Most recent 2D echo: Done on :01/29: Has shown EF of :64 % Prior echo was suggestive of reduced ejection fraction. Lasix 40 IV twice daily currently on hold Monitor intake output charting Monitor daily weight Fluid restrictions 1200 CC K>4, MG >2 Cardiology on board Currently telemetry monitoring #JHONNY on CKD stage III: Likely secondary to aggressive diuresis Monitor BMP Intake output charting Avoid nephrotoxic Problem urine sodium random urine creatinine Possible renal consult #AAA: 3.3 cm abdominal aortic aneurysm. 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 With drainage of hemorrhagic bilateral pleural effusion. Status post right thoracentesis with removal of 1400 cc hemorrhagic pleural fluid. Status post Lt thoracentesis with removal of 1400 cc hemorrhagic pleural fluid. Follow pleural fluid analysis: Exudative, negative for malignancy Rheumatoid factor : Negative JEZ: CCP: Patient will benefit from right heart cath He has been on Plavix and Eliquis at home. We will continue with Plavix for now, given his recent history of stent ,hold Eliquis. Cardiology could consider holding aspirin. Appreciate pulmonary input. #History of cartery disease: CAG : 99 % stenosis of mid LAD, left main 50% stenosis borderline significant on IVUS s/p?PCI to mid LAD. Currently cardiothoracic surgery as well as cardiology on board, to decide regarding the future of left main disease. Continue aspirin Plavix statin. Will need DAPT at least for a year #A. fib: Continue amiodarone 200 mg p.o. daily Continue metoprolol Metoprolol 5 mg IV every 4 hours as needed Eliquis on hold #COPD: Continue Solu-Medrol 60 mg IV BID Duo nebs #CODE STATUS: Full code #Disposition: Discharge to home #DVT prophylaxis: On SCDs Attestations Medical Necessity Statement*: Patient is to be in hospital for management of heart failure,JHONNY, symptomatic bilateral pleural effusion Time Spent in Patient Care: Greater than 35 minutes The high probability of a clinically significant, sudden or life threatening deterioration of the patient's [] system(s) required my full and direct attention, intervention and personal management. The critical care time is as shown. This time is in addition to time spent performing any reported procedures but includes the following: [x] Data and vital sign review and interpretation [x] Patient assessment, examination and intervention [x] Documentation [x] Medication orders and management Critical Care Time: The high probability of a clinically significant, sudden or life threatening deterioration of the patient's [] system(s) required my full and direct attention, intervention and personal management. The critical care time is as shown. This time is in addition to time spent performing any reported procedures but includes the following: [x] Data and vital sign review and interpretation [x] Patient assessment, examination and intervention [x] Documentation [x] Medication orders and management Critical Care Time (min): 35 Coding Level of Care Code Acute Proposal Coordinator for [facility] Fwd Exam Detailed Diagnoses Anemia D64.9
--- NOTE | 2022-02-02 13:35 | PM.PN ---
Subjective Subjective: Patient is overall feeling better. Vitals/I&O/Wt Last Vital Signs Temp 97.3 F L 02/02/22 07:53 Pulse 89 02/02/22 11:36 Resp 16 02/02/22 11:34 BP 112/79 02/02/22 07:40 Pulse Ox 99 02/02/22 11:34 02/01/22 02/02/22 02/02/22 22:59 06:59 14:59 Intake Total 710 / 1060 50 / 1110 Output Total 350 / 350 800 / 1150 Balance 360 / 710 -750 / -40 Weight last 48 hrs Weight 213 lb 2 oz Physical Exam Narrative: GENERAL: Patient is alert, awake and oriented x3. [] NECK: No jugular vein distension. [] HEENT: No cyanosis. No icterus. No pallor. [] HEART: Regular S1 and S2. No murmur, rub or gallop. [] LUNGS: Clear to auscultate bilaterally. [] ABDOMEN: Soft, nontender and nondistended. Positive bowel sounds. No guarding, rebound or tenderness. [] CENTRAL NERVOUS SYSTEM: Grossly nonfocal. [] EXTREMITIES: Lower extremities with 1+ edema bilaterally. Pulses palpable in the lower extremities, both dorsalis pedis and posterior tibial. [] Urinary Catheter Management: Aptel: Cath Placed During This Visit: yes Reason for Continuing Indwelling Catheter: Accurate Measurement of Urinary Output in Critically Ill Patients Urinary Catheter Date of Insertion: 01/31/22 Urinary Catheter Time of Insertion: 11:45 Data : 02/03/22 15:46 02/03/22 07:05 Micro: Microbiology 02/01/22 17:50 MRSA Culture - Final Nose 01/31/22 11:55 Urine Culture - Final Urine Catheterized 01/31/22 11:27 Blood Culture - Preliminary Blood NEGATIVE TO DATE 01/31/22 11:20 Blood Culture - Preliminary Blood NEGATIVE TO DATE 01/31/22 18:15 Bacterial Antigens - Final Urine,Clean Catch A&P Assessment and plan (1) Acute exacerbation of CHF (congestive heart failure): Status: Acute (2) Atrial fibrillation: Status: Acute (3) Acute and chronic respiratory failure with hypoxia: Status: Acute Plan Patient had recent PCI of mid LAD. Has significant left main stenosis as well. Has presented with respiratory distress His pleural effusion is exudative. Etiology is not clear however unlikely to be secondary to CHF. Keep holding diuretics. Will plan on right heart cath on Saturday Patient had thoracentesis with 1400 cc exudative fluid drained. He has atrial fibrillation with RVR however posterior drainage of pleural effusion, his heart rates improved significantly. Dr Miranda evaluated patient and he is not a surgical candidate at this time. we will discuss percutaneous coronary intervention of left main artery later. 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 This has been discussed with the patient. Continue aspirin and Plavix. Normal LV systolic function on echocardiogram. Thank you for involving us with care of this patient. We will continue to follow. Please call with questions Attestations Medical Necessity Statement*: Care expected to cross 2 midnights. 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
--- NOTE | 2022-02-02 14:53 | PC.NURSE ---
Thorocentesis Bedside thorocentesis to left side performed by Dr Pablo with the help of ultrasound. Time out completed. Approx 1400 ml of red fluid was removed.
--- NOTE | 2022-02-02 15:15 | XR_ITS ---
WS: [id number] CHEST XRAY TECHNIQUE: Portable chest. CLINICAL INFORMATION: Thorocent COMPARISON: February 02, 2022 FINDINGS: Heart: Cardiomegaly. Lungs: Status post LEFT thoracentesis. Improved LEFT pleural effusion. Small residual LEFT pleural ef fusion with LEFT basilar atelectasis. Small layering RIGHT pleural effusion with slight hazy infiltra te or edema in RIGHT lower lobe. Bones: Normal visualized bony structures. XR/XR chest 1V portable [id number] IMPRESSION: Status post LEFT thoracentesis with improved LEFT pleural effusion. No pneumoth orax.
--- NOTE | 2022-02-02 15:48 | PC.SOCIAL ---
IMM Update pg 2 of IMM updated and reviewed w/ patient. Copy provided and copy in chart updated.
[2022-02-02] MEDS: sodium chloride 0.9% 1,000 ML 50 ML IV (17:25)
[2022-02-02 17:39] LABS: Mononuclear %, Pleural Fluid 21 %; Polynuclear Cells, Pleural % 79 %
[2022-02-02 17:42] LABS: Creatinine Urine, Random 136 mg/dL (39-259)
[2022-02-02 17:45] LABS: Color, Pleural Fluid Red (Pale Yellow)
[2022-02-02 17:46] LABS: Appearance, Pleural Fluid BLOODY (CLEAR); PATH Referal YES
[2022-02-02 17:49] LABS: Urine Protein Random 31 mg/dL
[2022-02-02 17:53] LABS: Urine Random Sodium < 10 mmol/L
[2022-02-02 18:03] LABS: Cells Counted 2639
[2022-02-02 18:17] LABS: Pleural Fluid Albumin 1.7 g/dL; Pleural Fluid Cholesterol 68 mg/dL; Pleural Fluid Triglycerides 29 mg/dL; Total Protein Pleural Fluid 3.5 g/dL
[2022-02-02 18:18] LABS: LDH Pleural Fluid 416 U/L
[2022-02-02] MEDS: atorvastatin 40 mg Tablet PO (20:41)
[2022-02-03] VITALS (34 sets, daily range): BP systolic 96–131; BP diastolic 67–89; PULSE 78–109; RESP 12–20; TEMP 36.6–36.8; O2SAT 16–100
[2022-02-03] MEDS: ipratropium-albuterol 3 mL Neb INHALATION ×5 (03:30→19:58)
[2022-02-03] MEDS: cefepime 2,000 MG in sodium chloride 0.9% (plus) 50 ML 100 MG IV (06:00)
[2022-02-03 07:10] LABS: Basophils % 0.1 %; Hemoglobin 7.9 g/dL (11.7-16.6); Lymphocytes # 0.5 10^3/uL (0.8-4.8); Lymphocytes % 3.1 %; Mean Corpuscular HGB Conc 31.6 g/dL (30.0-36.0); Mean Corpuscular Hemoglobin 30.5 pg (28.0-34.0); Mean Corpuscular Volume 96.5 fl (80-94); Mean Platelet Volume 8.8 fL (7.4-10.4); Monocytes # 1.3 10^3/uL (0.2-0.9); Neutrophils # 13.73 10^3/uL (1.8-7.7); Neutrophils % 87.5 %; Nucleated Red Blood Cells % 0 %; Platelet Count 586 10^3/cmm (130-400); Red Blood Count 2.59 10^6/uL (4.1-5.3); Red Cell Distribution Width 15.2 % (12.1-15.1); White Blood Count 15.7 10^3/uL (4.0-10.0)
[2022-02-03 07:42] LABS: Alanine Aminotransferase 15 U/L (0-41); Albumin Level 2.8 g/dL (3.5-5.2); Alkaline Phosphatase 56 IU/L (40-130); Anion Gap 10.3 (5-19); Aspartate Amino Transferase 11 U/L (0-40); Blood Urea Nitrogen 38 mg/dL (8-23); Calcium 7.4 mg/dL (8.5-10.5); Carbon Dioxide 31 mmol/L (22-29); Chloride 101 mmol/L (98-107); Glucose 164 mg/dL (65-115); Magnesium 2.5 mg/dL (1.7-2.3); Osmolality Calculated 299 mOsm/kg (285-295); Potassium 4.3 mmol/L (3.5-5.1); Sodium 138 mmol/L (136-145); Total Bilirubin 0.4 mg/dL (0.15-1.2); Total Protein 4.8 g/dL (6.6-8.7)
--- NOTE | 2022-02-03 08:39 | XRR_ITS ---
PROCEDURE INFORMATION: Exam: XR Chest Exam date and time: 02/03/2022 8:55 AM Age: 76 years old Clinical indication: Other: S/P lt thoracentesis TECHNIQUE: Imaging protocol: XR of the chest. Views: 1 view. Total images: 1 COMPARISON: CR XR chest 1V portable [id number] 02/02/2022 3:26 PM FINDINGS: Lungs: Slightly improved bilateral pleuroparenchymal disease. Pleural spaces: No pneumothorax. Heart/Mediastinum: Heart size is stable when compared to the prior exam. Bones/joints: Osseous structures are unchanged from the prior exam. XR/XR chest 1V portable [id number] IMPRESSION: Slightly improved bilateral pleuroparenchymal disease.
[2022-02-03] MEDS: metoprolol succinate ER (24 HR) 50 mg Tablet PO (08:57)
[2022-02-03] MEDS: amiodarone 200 mg Tablet PO (08:58)
[2022-02-03] MEDS: isosorbide mononitrate ER 30 mg Tablet PO (08:58)
[2022-02-03] MEDS: potassium chloride ER 20 mEq Tablet 40 MEQ PO (08:58)
[2022-02-03] MEDS: aspirin 81 mg EC Tablet PO (08:58)
[2022-02-03] MEDS: clopidogrel 75 mg Tablet PO (08:58)
[2022-02-03] MEDS: pantoprazole DR 40 mg Tablet PO (08:58)
[2022-02-03] MEDS: vancomycin 1,500 MG/300 ML PIGGYBACK 200 MG IV (09:10)
[2022-02-03] MEDS: sodium chloride 0.9% (100 ml) 100 ML 50 ML (12:06)
[2022-02-03] MEDS: sodium chloride 0.9% 1,000 ML 50 ML IV (13:37)
--- NOTE | 2022-02-03 14:25 | P.PN_ITS ---
Subjective Subjective: Patient was seen and examined this morning, shortness of breath has improved significantly, still has significant lower extremity edema, robust urine output overnight, BUN and serum creatinine is improving, Hemoglobin has down trended to 7.9, will plan to give 1 unit PRBC. A.m. chest x-ray has shown: Bilateral small residual effusion. Medications: Medication Review Details: Generic Name Dose Route Start Last Admin Trade Name Freq PRN Reason Stop Dose Admin Albuterol/Ipratrop ium 3 ml 01/29/22 00:00 01/29/22 15:05 Ipratropium-Albu terol 3 Ml Neb INHALATION 3 ml Q4H.RESPIRATORY S CH Administration Amiodarone HCl 200 mg 01/29/22 09:00 01/29/22 09:01 Amiodarone 200 M g Tablet PO 200 mg DAILY DEVON Administration Apixaban 2.5 mg 01/29/22 09:00 01/29/22 17:30 Apixaban 5 Mg Ta blet PO 2.5 mg BID DEVON Administration Aspirin 81 mg 01/29/22 09:00 01/29/22 09:00 Aspirin 81 Mg Ec Tablet PO 81 mg DAILY DEVON Administration Atorvastatin Calci um 40 mg 01/28/22 23:03 01/28/22 23:37 Atorvastatin 40 Mg Tablet PO 40 mg BEDTIME DEVON Administration Clopidogrel Bisulf ate 75 mg 01/29/22 09:00 01/29/22 09:01 Clopidogrel 75 M g Tablet PO 75 mg DAILY DEVON Administration Furosemide 60 mg 01/29/22 17:00 01/29/22 17:30 Furosemide 10 Mg /Ml Sdv 10ml IVP 60 mg Q12H DEVON Administration Isosorbide Mononit rate 30 mg 01/29/22 09:00 01/29/22 09:01 Isosorbide [place] itrate Er 30 Mg Ta blet PO 30 mg DAILY DEVON Administration Metoprolol Succina te 50 mg 01/29/22 09:00 01/29/22 09:00 Metoprolol Succi kunal Er (24 Hr) 25 Mg Tablet PO 50 mg DAILY DEVON Administration Pantoprazole Sodiu m 40 mg 01/29/22 09:00 01/29/22 09:[address] 40 Mg Tablet PO 40 mg DAILY DEVON Administration Potassium Chloride 40 meq 01/29/22 13:27 01/29/22 14:24 Potassium Chlori de Er 20 Meq Table t PO 40 meq DAILY DEVON Administration Vitals/I&O/Wt Last Vital Signs Temp 98.1 F 02/03/22 13:32 Pulse 87 02/03/22 13:32 Resp 16 02/03/22 13:32 BP 120/85 02/03/22 13:32 Pulse Ox 99 02/03/22 13:32 02/02/22 02/03/22 02/03/22 22:59 06:59 14:59 Intake Total 400 / 700 290 / 990 1879 / 1880 Output Total 1150 / 1150 950 / 2100 Balance -750 / -450 -660 / -1110 1879 / 1879 Weight last 48 hrs Weight 96.672 kg Physical Exam Const: COMMON NORMALS: patient oriented x3 HENMT: COMMON NORMALS: normocephalic and atraumatic HEAD & SCALP: normocephalic and atraumatic Chest: CHEST: Yes Symmetrical chest wall rise Resp: EFFORT & INSPECTION: Yes symmetric chest movement OTHER: Diminished air entry in lt lung martinez, rt lung field air entry has improved. Cardio: COMMON NORMALS: No gallops present (Cardio), No rub (Cardio) and Peripheral pulses 2+ throughout PERIPHERAL PULSES: Peripheral pulses 2+ throughout OTHER: Irregularly irregular rhythm, S1-S2 variable intensity GI: COMMON NORMALS: Normal to inspection, nondistended, normoactive bowel sounds present, Soft to palpation, non-tender, No hepatosplenomegaly present and no masses AUSCULTATION: Yes normoactive bowel sounds PALPATION: Yes Soft to palpation and Yes No hepatosplenomegaly present RECTAL EXAM: Yes deferred Extremity: OTHER: 2+ bilateral pitting edema in both the lower extremities up to the level of knees Neuro: COMMON NORMALS: patient oriented x3 Urinary Catheter Management: Patel: Cath Placed During This Visit: yes Reason for Continuing Indwelling Catheter: Accurate Measurement of Urinary Output in Critically Ill Patients Urinary Catheter Date of Insertion: 01/31/22 Urinary Catheter Time of Insertion: 11:45 Data : 02/03/22 07:05 02/03/22 07:05 Micro: Microbiology 02/02/22 15:20 Gram Stain - Final Ankle - Thoracentesis 02/01/22 17:50 MRSA Culture - Final Nose 01/31/22 11:55 Urine Culture - Final Urine Catheterized A&P Assessment and plan (1) Anemia: Status: Acute Plan 76-year-old male with past medical history of heart failure with reduced ejection fraction coronary artery disease, A. fib , COPD came in with chief complaint of worsening shortness of breath PND and orthopnea, worsening bilateral lower extremity swelling , occasional substernal chest pain with exertion. Assessment #Acute on chronic respiratory failure : Secondary to decompensated heart failure, symptomatic large bilateral pleural effusion, low clinical suspicion for pneumonia. Patient currently denies any fever at home , cough , all prior blood cultures have been negative. During the last hospital stay also patient was extensively on broad-spectrum antibiotic. Patient came in with WBC count of 7.7 -> bumped up to 17.2. Patient has been on steroids since admission CT chest without contrast: Bilateral large pleural effusion CT abdomen and pelvis without contrast:Has failed to show any acute infectious abdominal pathology. Though it is commenting on possible biliary sludge patient currently denies any abdominal pain nausea vomiting he is tolerating diet well. Follow blood culture: Negative Urine culture Procalcitonin is:Normal Urine Legionella antigen: Negative Bacterial antigen panel: Negative MRSA PCR: Negative Empirically on Vanco and Zosyn. Zosyn was discontinued and was started on cefepime. # Decompensated HFpEF : Most recent 2D echo: Done on :01/29: Has shown EF of :64 % Prior echo was suggestive of reduced ejection fraction. Lasix 40 IV twice daily currently on hold Monitor intake output charting Monitor daily weight Fluid restrictions 1200 CC K>4, MG >2 Cardiology on board Currently telemetry monitoring #JHONNY on CKD stage III: Likely secondary to aggressive diuresis Monitor BMP Intake output charting Avoid nephrotoxic Problem urine sodium random urine creatinine Possible renal consult #AAA: 3.3 cm abdominal aortic aneurysm. 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 With drainage of hemorrhagic bilateral pleural effusion. Status post right thoracentesis with removal of 1400 cc hemorrhagic pleural fluid. Status post Lt thoracentesis with removal of 1400 cc hemorrhagic pleural fluid. Follow pleural fluid analysis: Exudative, negative for malignancy Rheumatoid factor : Negative JEZ: CCP: Patient will benefit from right heart cath He has been on Plavix and Eliquis at home. We will continue with Plavix for now, given his recent history of stent ,hold Eliquis. Cardiology could consider holding aspirin. Appreciate pulmonary input. #History of cartery disease: CAG : 99 % stenosis of mid LAD, left main 50% stenosis borderline significant on IVUS s/p?PCI to mid LAD. Currently cardiothoracic surgery as well as cardiology on board, to decide regarding the future of left main disease. Continue aspirin Plavix statin. Will need DAPT at least for a year #A. fib: Continue amiodarone 200 mg p.o. daily Continue metoprolol Metoprolol 5 mg IV every 4 hours as needed Eliquis on hold #COPD: Continue Solu-Medrol 60 mg IV BID Duo nebs #CODE STATUS: Full code #Disposition: Discharge to home #DVT prophylaxis: On SCDs Attestations Medical Necessity Statement*: Patient is to be in hospital for management of, symptomatic bilateral pleural effusion. Time Spent in Patient Care: Greater than 35 minutes (>than 50% of time spent in counselling and/or direct pt care on unit) . Critical Care Time: The high probability of a clinically significant, sudden or life threatening deterioration of the patient's [] system(s) required my full and direct attention, intervention and personal management. The critical care time is as shown. This time is in addition to time spent performing any reported procedures but includes the following: [x] Data and vital sign review and interpretation [x] Patient assessment, examination and intervention [x] Documentation [x] Medication orders and management Critical Care Time (min): 30 Coding Level of Care Code Acute Community Service Representative for Reece Benton Diagnoses Anemia D64.9
[2022-02-03 15:53] LABS: Basophils % 0.1 %; Hematocrit 29.9 % (42.0-52.0); Hemoglobin 9.3 g/dL (11.7-16.6); Lymphocytes # 0.5 10^3/uL (0.8-4.8); Lymphocytes % 2.7 %; Mean Corpuscular HGB Conc 31.1 g/dL (30.0-36.0); Mean Corpuscular Hemoglobin 30.1 pg (28.0-34.0); Mean Corpuscular Volume 96.8 fl (80-94); Mean Platelet Volume 9.1 fL (7.4-10.4); Monocytes # 1.3 10^3/uL (0.2-0.9); Monocytes % 6.4 %; Neutrophils # 17.41 10^3/uL (1.8-7.7); Neutrophils % 89.3 %; Nucleated Red Blood Cells % 0.2 %; Platelet Count 585 10^3/cmm (130-400); Red Blood Count 3.09 10^6/uL (4.1-5.3); Red Cell Distribution Width 14.8 % (12.1-15.1); White Blood Count 19.5 10^3/uL (4.0-10.0)
--- NOTE | 2022-02-03 16:16 | P.PN_ITS ---
Subjective Subjective: Patient still short of breath Vitals/I&O/Wt Last Vital Signs Temp 98.0 F 02/03/22 15:17 Pulse 88 02/03/22 15:17 Resp 15 02/03/22 15:17 BP 123/80 02/03/22 15:17 Pulse Ox 93 02/03/22 15:17 02/03/22 02/03/22 02/03/22 06:59 14:59 22:59 Intake Total 290 / 990 2130 / 2130 Output Total 950 / 2100 Balance -660 / -1110 2130 / 2130 Weight last 48 hrs Weight 213 lb 2 oz Physical Exam Narrative: Narrative GENERAL: Patient is alert, awake and oriented x3. [] NECK: No jugular vein distension. [] HEENT: No cyanosis. No icterus. No pallor. [] HEART: Regular S1 and S2. No murmur, rub or gallop. [] LUNGS: Clear to auscultate bilaterally. [] ABDOMEN: Soft, nontender and nondistended. Positive bowel sounds. No guarding, rebound or tenderness. [] CENTRAL NERVOUS SYSTEM: Grossly nonfocal. [] EXTREMITIES: Lower extremities with 1+ edema bilaterally. Pulses palpable in the lower extremities, both dorsalis pedis and posterior tibial. [] Urinary Catheter Management: Patel: Cath Placed During This Visit: yes Reason for Continuing Indwelling Catheter: Accurate Measurement of Urinary Output in Critically Ill Patients Urinary Catheter Date of Insertion: 01/31/22 Urinary Catheter Time of Insertion: 11:45 Data : 02/04/22 02:25 02/04/22 02:25 Micro: Microbiology 02/02/22 15:20 Gram Stain - Final Ankle - Thoracentesis A&P Assessment and plan (1) Acute exacerbation of CHF (congestive heart failure): Status: Acute (2) Atrial fibrillation: Status: Acute (3) Acute and chronic respiratory failure with hypoxia: Status: Acute Plan Patient had recent PCI of mid LAD. Has significant left main stenosis as well. Has presented with respiratory distress His pleural effusion is exudative however is bilateral. Etiology is not clear. Keep holding diuretics. Will plan on right heart cath on Saturday Patient had thoracentesis with 1400 cc exudative fluid drained. He has atrial fibrillation with RVR however posterior drainage of pleural effusion, his heart rates improved significantly. Plan for repeat thoracentesis Dr Miranda evaluated patient and he is not a surgical candidate at this time. we will discuss percutaneous coronary intervention of left main artery later. 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 This has been discussed with the patient. Continue aspirin and Plavix. Normal LV systolic function on echocardiogram. Thank you for involving us with care of this patient. We will continue to follow. Please call with questions Attestations Medical Necessity Statement*: Care expected to cross 2 midnights. Coding Level of Care Code Acute Senior Mechanical Technician for Reece Benton Diagnoses Acute exacerbation of CHF (congestive heart failure) I50.9 Atrial fibrillation I48.91 Acute and chronic respiratory failure with hypoxia J96.21
[2022-02-03] MEDS: FUROsemide 10 mg/mL SDV 2mL 20 MG IVP (20:31)
[2022-02-03] MEDS: atorvastatin 40 mg Tablet PO (20:31)
[2022-02-03] MEDS: famotidine 20 mg Tablet PO (23:05)
[2022-02-04] VITALS (52 sets, daily range): BP systolic 83–138; BP diastolic 65–100; PULSE 67–144; RESP 13–28; TEMP 36.2–37.1; O2SAT 91–100
[2022-02-04] MEDS: ipratropium-albuterol 3 mL Neb INHALATION ×6 (03:50→23:07)
[2022-02-04 03:55] LABS: Basophils % 0.1 %; Hematocrit 30.5 % (42.0-52.0); Hemoglobin 9.6 g/dL (11.7-16.6); Lymphocytes # 0.5 10^3/uL (0.8-4.8); Lymphocytes % 2.7 %; Mean Corpuscular HGB Conc 31.5 g/dL (30.0-36.0); Mean Corpuscular Hemoglobin 30.1 pg (28.0-34.0); Mean Corpuscular Volume 95.6 fl (80-94); Mean Platelet Volume 9.2 fL (7.4-10.4); Monocytes # 1.3 10^3/uL (0.2-0.9); Monocytes % 6.8 %; Neutrophils % 88.6 %; Nucleated Red Blood Cells % 0.2 %; Platelet Count 631 10^3/cmm (130-400); Red Blood Count 3.19 10^6/uL (4.1-5.3); Red Cell Distribution Width 15.1 % (12.1-15.1); White Blood Count 19.2 10^3/uL (4.0-10.0)
[2022-02-04 04:14] LABS: Alanine Aminotransferase 17 U/L (0-41); Albumin Level 2.7 g/dL (3.5-5.2); Alkaline Phosphatase 64 IU/L (40-130); Anion Gap 9.6 (5-19); Aspartate Amino Transferase 12 U/L (0-40); Blood Urea Nitrogen 39 mg/dL (8-23); Calcium 7.5 mg/dL (8.5-10.5); Carbon Dioxide 31 mmol/L (22-29); Chloride 102 mmol/L (98-107); Globulin 2.2 g/dL (1.3-4.6); Glucose 150 mg/dL (65-115); Osmolality Calculated 298 mOsm/kg (285-295); Potassium 4.6 mmol/L (3.5-5.1); Sodium 138 mmol/L (136-145); Total Bilirubin 0.7 mg/dL (0.15-1.2); Total Protein 4.9 g/dL (6.6-8.7)
[2022-02-04] MEDS: cefepime 2,000 MG in sodium chloride 0.9% (plus) 50 ML 100 MG IV (05:57)
--- NOTE | 2022-02-04 06:43 | PM.PN ---
Subjective Subjective: Patient was seen and examined this morning, was more short of breath as compared to yesterday,towards the letter half of the day,patient was very tachypenic and developed progressively more SOB,repeat C.T Chest without contrast was done,which showed persistent B/L Moderate pleural effusion with no ptx.Patient was placed on BIPAP, Post C.T Chest he also went into afib with rvr,initially placed on cardizem drip,but was discontiued as the b/p was low requiring the need for levophed,later H/R setteled, To help patient tolerate BIPAP, as he was extremely anxious he was started precedex.Urine output was satisfactory. Medications: Medication Review Details: Generic Name Dose Route Start Last Admin Trade Name Freq PRN Reason Stop Dose Admin Albuterol/Ipratrop ium 3 ml 01/29/22 00:00 01/29/22 15:05 Ipratropium-Albu terol 3 Ml Neb INHALATION 3 ml Q4H.RESPIRATORY S CH Administration Amiodarone HCl 200 mg 01/29/22 09:00 01/29/22 09:01 Amiodarone 200 M g Tablet PO 200 mg DAILY DEVON Administration Apixaban 2.5 mg 01/29/22 09:00 01/29/22 17:30 Apixaban 5 Mg Ta blet PO 2.5 mg BID DEVON Administration Aspirin 81 mg 01/29/22 09:00 01/29/22 09:00 Aspirin 81 Mg Ec Tablet PO 81 mg DAILY DEVON Administration Atorvastatin Calci um 40 mg 01/28/22 23:03 01/28/22 23:37 Atorvastatin 40 Mg Tablet PO 40 mg BEDTIME DEVON Administration Clopidogrel Bisulf ate 75 mg 01/29/22 09:00 01/29/22 09:01 Clopidogrel 75 M g Tablet PO 75 mg DAILY DEVON Administration Furosemide 60 mg 01/29/22 17:00 01/29/22 17:30 Furosemide 10 Mg /Ml Sdv 10ml IVP 60 mg Q12H DEVON Administration Isosorbide Mononit rate 30 mg 01/29/22 09:00 01/29/22 09:01 Isosorbide [place] itrate Er 30 Mg Ta blet PO 30 mg DAILY DEVON Administration Metoprolol Succina te 50 mg 01/29/22 09:00 01/29/22 09:00 Metoprolol Succi kunal Er (24 Hr) 25 Mg Tablet PO 50 mg DAILY DEVON Administration Pantoprazole Sodiu m 40 mg 01/29/22 09:00 01/29/22 09:[address] 40 Mg Tablet PO 40 mg DAILY DEVON Administration Potassium Chloride 40 meq 01/29/22 13:27 01/29/22 14:24 Potassium Chlori de Er 20 Meq Table t PO 40 meq DAILY DEVON Administration Vitals/I&O/Wt Last Vital Signs Temp 98.8 F 02/04/22 04:00 Pulse 80 02/04/22 06:09 Resp 17 02/04/22 03:49 BP 130/86 02/03/22 16:00 Pulse Ox 100 02/04/22 03:49 02/03/22 02/03/22 02/04/22 14:59 22:59 06:59 Intake Total 2130 / 2130 150 / 2280 150 / 2430 Output Total 1000 / 1000 200 / 1200 Balance 2130 / 2130 -850 / 1280 -50 / 1230 Weight last 48 hrs Weight 96.479 kg Weight 96.672 kg Physical Exam Const: COMMON NORMALS: patient oriented x3 HENMT: COMMON NORMALS: normocephalic and atraumatic HEAD & SCALP: normocephalic and atraumatic Chest: CHEST: Yes Symmetrical chest wall rise Resp: EFFORT & INSPECTION: Yes symmetric chest movement OTHER: Diminished air entry in lt lung martinez, rt lung field air entry has improved. Cardio: COMMON NORMALS: No gallops present (Cardio), No rub (Cardio) and Peripheral pulses 2+ throughout PERIPHERAL PULSES: Peripheral pulses 2+ throughout OTHER: Irregularly irregular rhythm, S1-S2 variable intensity GI: COMMON NORMALS: Normal to inspection, nondistended, normoactive bowel sounds present, Soft to palpation, non-tender, No hepatosplenomegaly present and no masses AUSCULTATION: Yes normoactive bowel sounds PALPATION: Yes Soft to palpation and Yes No hepatosplenomegaly present RECTAL EXAM: Yes deferred Extremity: OTHER: 2+ bilateral pitting edema in both the lower extremities up to the level of knees Neuro: COMMON NORMALS: patient oriented x3 Urinary Catheter Management: Patel: Cath Placed During This Visit: yes Reason for Continuing Indwelling Catheter: Accurate Measurement of Urinary Output in Critically Ill Patients Urinary Catheter Date of Insertion: 01/31/22 Urinary Catheter Time of Insertion: 11:45 Data : 02/05/22 11:41 02/05/22 04:00 Micro: Microbiology 02/02/22 15:20 Gram Stain - Final Ankle - Thoracentesis A&P Assessment and plan (1) Anemia: Status: Acute Plan 76-year-old male with past medical history of heart failure with reduced ejection fraction coronary artery disease, A. fib , COPD came in with chief complaint of worsening shortness of breath PND and orthopnea, worsening bilateral lower extremity swelling , occasional substernal chest pain with exertion. Assessment #Acute on chronic respiratory failure : Secondary to decompensated heart failure, symptomatic large bilateral pleural effusion, low clinical suspicion for pneumonia. Patient currently denies any fever at home , cough , all prior blood cultures have been negative. During the last hospital stay also patient was extensively on broad-spectrum antibiotic. Patient came in with WBC count of 7.7 -> bumped up to 17.2. Patient has been on steroids since admission CT chest without contrast: Bilateral large pleural effusion CT abdomen and pelvis without contrast:Has failed to show any acute infectious abdominal pathology. Though it is commenting on possible biliary sludge patient currently denies any abdominal pain nausea vomiting he is tolerating diet well. Follow blood culture: Negative Urine culture Procalcitonin is:Normal Urine Legionella antigen: Negative Bacterial antigen panel: Negative MRSA PCR: Negative Empirically on Vanco and Zosyn. Zosyn was discontinued and was started on cefepime. # Decompensated HFpEF : Most recent 2D echo: Done on :01/29: Has shown EF of :64 % Prior echo was suggestive of reduced ejection fraction. Lasix 40 IV twice daily currently on hold Monitor intake output charting Monitor daily weight Fluid restrictions 1200 CC K>4, MG >2 Cardiology on board Currently telemetry monitoring #JHONNY on CKD stage III: Likely secondary to aggressive diuresis Monitor BMP Intake output charting Avoid nephrotoxic Problem urine sodium random urine creatinine Possible renal consult #AAA: 3.3 cm abdominal aortic aneurysm. 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 With drainage of hemorrhagic bilateral pleural effusion. Status post right thoracentesis with removal of 1400 cc hemorrhagic pleural fluid. Status post Lt thoracentesis with removal of 1400 cc hemorrhagic pleural fluid. Follow pleural fluid analysis: Exudative, negative for malignancy Rheumatoid factor : Negative JEZ: CCP: Patient will benefit from right heart cath He has been on Plavix and Eliquis at home. We will continue with Plavix for now, given his recent history of stent ,hold Eliquis. Cardiology could consider holding aspirin. Appreciate pulmonary input. #History of cartery disease: CAG : 99 % stenosis of mid LAD, left main 50% stenosis borderline significant on IVUS s/p?PCI to mid LAD. Currently cardiothoracic surgery as well as cardiology on board, to decide regarding the future of left main disease. Continue aspirin Plavix statin. Will need DAPT at least for a year #A. fib: Continue amiodarone 200 mg p.o. daily Continue metoprolol Metoprolol 5 mg IV every 4 hours as needed Eliquis on hold #COPD: Continue Solu-Medrol 60 mg IV BID Duo nebs #CODE STATUS: Full code #Disposition: Discharge to home #DVT prophylaxis: On SCDs Attestations Medical Necessity Statement*: Patient needs to be in hospital for the management of respiratory failure. Time Spent in Patient Care: Greater than 35 minutes (>than 50% of time spent in counselling and/or direct pt care on unit). Critical Care Time: The high probability of a clinically significant, sudden or life threatening deterioration of the patient's [] system(s) required my full and direct attention, intervention and personal management. The critical care time is as shown. This time is in addition to time spent performing any reported procedures but includes the following: [x] Data and vital sign review and interpretation [x] Patient assessment, examination and intervention [x] Documentation [x] Medication orders and management Critical Care Time (min): 45 Coding Level of Care Code Acute Overhead Garage Door Hanger for Chg Fwd Exam Detailed Diagnoses Anemia D64.9
[2022-02-04] MEDS: amiodarone 200 mg Tablet PO (08:17)
[2022-02-04] MEDS: aspirin 81 mg EC Tablet PO (08:17)
[2022-02-04] MEDS: pantoprazole DR 40 mg Tablet PO (08:17)
[2022-02-04] MEDS: metoprolol succinate ER (24 HR) 50 mg Tablet PO (08:17)
[2022-02-04] MEDS: potassium chloride ER 20 mEq Tablet 40 MEQ PO (08:17)
[2022-02-04] MEDS: isosorbide mononitrate ER 30 mg Tablet PO (08:17)
[2022-02-04] MEDS: clopidogrel 75 mg Tablet PO (08:18)
--- NOTE | 2022-02-04 08:28 | XRR_ITS ---
PROCEDURE INFORMATION: Exam: XR Chest Exam date and time: 02/04/2022 8:35 AM Age: 76 years old Clinical indication: Shortness of breath; Additional info: SOB TECHNIQUE: Imaging protocol: XR of the chest. Views: 1 view. COMPARISON: CR (CHEST, ) 02/03/2022 8:55 AM FINDINGS: Lungs: See Pleural spaces finding. Pleural spaces: Persistent small bilateral pleural effusions with adjacent atelectasis, left greater than right. Pneumonia should be excluded clinically. No pneumothorax. Heart/Mediastinum: Stable cardiomediastinal silhouette. Bones/joints: Old fracture deformities are again seen in the left lateral ribcage. XR/XR chest 1V portable [id number] IMPRESSION: Persistent small bilateral pleural effusions with adjacent atelectasis, left greater than right. Pneumonia should be excluded clinically.
--- NOTE | 2022-02-04 08:32 | PC.NURSE ---
Dr. Cantor rounded this morning discussing POC. Received orders for 20mg of lasix IVP.
[2022-02-04] MEDS: FUROsemide 10 mg/mL SDV 2mL 20 MG IVP (08:36)
[2022-02-04] MEDS: vancomycin 1,500 MG/300 ML PIGGYBACK 200 MG IV (09:15)
--- NOTE | 2022-02-04 14:36 | PC.SOCIAL ---
IMM Updated Updated pt on IMM. No questions voiced. Provided pt a copy. Initialed, dated, & timed copy in chart.
[2022-02-04] MEDS: LORazepam 2 mg/mL INJ 1 mL 1 MG IVP (16:23)
--- NOTE | 2022-02-04 16:30 | CTR_ITS ---
PROCEDURE INFORMATION: Exam: CT Chest Without Contrast; Diagnostic Exam date and time: 02/04/2022 4:11 PM Age: 76 years old Clinical indication: Shortness of breath; Patient HX: PT is 2 days S/P thoracentesis C/O worsening SOB TECHNIQUE: Imaging protocol: Diagnostic computed tomography of the chest without contrast. Radiation optimization: All CT scans at this facility use at least one of these dose optimization techniques: automated exposure control; mA and/or kV adjustment per patient size (includes targeted exams where dose is matched to clinical indication); or iterative reconstruction. COMPARISON: CT chest con [id number] 01/31/2022 10:41 AM RADIATION DOSE METRICS: Total DLP (mGy-cm): 949.26 FINDINGS: Lungs: Mild compressive atelectasis in portions of the lower lobes bilaterally. Pleural spaces: Moderate to severe bilateral pleural fluid collections. No obvious pneumothorax. Heart: Stable severe calcified coronary artery disease. Mild left cardiophrenic angle lymphadenopathy which may be reactive. Lymph nodes: See Heart finding. Aorta: Unremarkable. No aortic aneurysm. Gallbladder and bile ducts: Enlarged greater than or equal to 5.0 cm transverse diameter gallbladder consistent with gallbladder hydrops. Bones/joints: Motion artifact on the sagittal images through the sternum giving the false appearance of sternal fracture. Soft tissues: Unremarkable. CT/CT chest con [id number] IMPRESSION: 1. Moderate to severe bilateral pleural fluid collections. 2. No obvious pneumothorax. 3. Stable severe calcified coronary artery disease. 4. Mild compressive atelectasis in portions of the lower lobes bilaterally. 5. Mild left cardiophrenic angle lymphadenopathy which may be reactive. 6. Enlarged greater than or equal to 5.0 cm transverse diameter gallbladder consistent with gallbladder hydrops.
--- NOTE | 2022-02-04 16:48 | PC.NURSE ---
CT ordered, upon exam, patient became very anxious/claustrophobic. Increased breathing and heart rate. Upon return to ICU patients heart rate still elevated but the rest of v/s are WNL. Bipap on per RT Fio2 at 30%. Dr. Devaughn salvador.
[2022-02-04] MEDS: dexmedeTOMIDine 0.9 % NaCL 400 MCG/100 ML PREMIX IV (17:54)
--- NOTE | 2022-02-04 18:31 | USCV_ITS ---
MishelNitin Age: 76 Gender: M : 1945 Exam Date: 02/04/2022 18:50 Ordering Phys: Carson Cantor MD Technologist: Landon Turner Exam Location: [facility] – [place]_ Indication: dvt leg swelling HISTORY: dvt leg swelling PROCEDURES: Venous duplex imaging was performed in bilateral lower extremities. The following venous structures were evaluated: common femoral vein, profunda vein, proximal portion of the greater saphenous vein, superficial femoral vein, and the popliteal vein. In addition, the posterior tibial and peroneal trunk were evaluated. Serial compression, augmentation maneuvers, and spectral Doppler flow evaluation were performed. FINDINGS: Normal 2-D Doppler and augmentation and compressibility throughout the lower extremity venous structures. Additional imaging through the proximal calf veins also reveals no thrombus. Limited evaluation of the greater saphenous vein is patent with no thrombus.. Multiple echolucent areas in the subcutaneous tissue bilaterally The veins were found to be easily compressible with spontaneous blood flow. Non pulsatile flow pattern. CONCLUSIONS No evidence of DVT in the above-mentioned identifiable veins. Features of fluid retention/edema bilaterally Dr Parth Persaud MD [facility] (Electronically Signed) Final Date: 05 February 2022 21:22 S
[2022-02-04 19:06] LABS: Troponin(5th) Baseline 30 ng/L (0-15)
--- NOTE | 2022-02-04 20:32 | PM.ACPR ---
Acute Procedures Central Line Placement: Right Femoral: Time out performed: Yes Patient placed on monitor/pulse ox: Yes MD prep: mask, gown and gloves Central line prep: Chlorhexidine scrub Local anesthesia used: lidocaine 1% Ultrasound used for placement: Yes Central line lumen inserted: triple Post procedure: sutured in place, good blood return, all ports aspirated, flushed, capped and sterile dressing applied Patient tolerated procedure: well and no complications
[2022-02-04 21:03] LABS: Troponin 5 2HR 28.13 ng/L (0-15)
[2022-02-04 21:08] LABS: Troponin 5 2HR Delta -1.87 ABS# (0-10)
--- NOTE | 2022-02-04 23:57 | P.PN_ITS ---
Subjective Subjective: Patient is more short of breath today Vitals/I&O/Wt Last Vital Signs Temp 97.2 F L 02/04/22 08:00 Pulse 84 02/04/22 23:08 Resp 15 02/04/22 23:08 BP 113/84 02/04/22 23:00 Pulse Ox 99 02/04/22 23:08 02/04/22 02/04/22 02/05/22 14:59 22:59 06:59 Intake Total 1509.167 / 1509.167 121.637 / 1630.804 Output Total 750 / 750 Balance 1509.167 / 1509.167 -628.363 / 880.804 Weight last 48 hrs Weight 212 lb 7 oz Weight 212 lb 11.2 oz Physical Exam Narrative: GENERAL: Patient is alert, awake and oriented x3. [] NECK: No jugular vein distension. [] HEENT: No cyanosis. No icterus. No pallor. [] HEART: Regular S1 and S2. No murmur, rub or gallop. [] LUNGS: Clear to auscultate bilaterally. [] ABDOMEN: Soft, nontender and nondistended. Positive bowel sounds. No guarding, rebound or tenderness. [] CENTRAL NERVOUS SYSTEM: Grossly nonfocal. [] EXTREMITIES: Lower extremities with 1+ edema bilaterally. Pulses palpable in the lower extremities, both dorsalis pedis and posterior tibial. [] Urinary Catheter Management: Patel: Cath Placed During This Visit: yes Reason for Continuing Indwelling Catheter: Accurate Measurement of Urinary Output in Critically Ill Patients Urinary Catheter Date of Insertion: 01/31/22 Urinary Catheter Time of Insertion: 11:45 Data : 02/05/22 11:41 02/05/22 04:00 Micro: Microbiology 02/02/22 15:20 Gram Stain - Final Ankle - Thoracentesis Body Fluid Culture - Preliminary A&P Assessment and plan (1) Acute exacerbation of CHF (congestive heart failure): Status: Acute (2) Atrial fibrillation: Status: Acute (3) Acute and chronic respiratory failure with hypoxia: Status: Acute Plan Patient had recent PCI of mid LAD. Has significant left main stenosis as well. Has presented with respiratory distress His pleural effusion is exudative however is bilateral. Etiology is not clear. He will need diuresis. Resume lasix. Will plan on right heart cath on Saturday Had thoracentesis x 2. He has atrial fibrillation with RVR however post drainage of pleural effusion, his heart rates improved significantly. Dr Miranda evaluated patient and he is not a surgical candidate at this time. we will discuss percutaneous coronary intervention of left main artery later. 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 This has been discussed with the patient. Continue aspirin and Plavix. Normal LV systolic function on echocardiogram. Thank you for involving us with care of this patient. We will continue to follow. Please call with questions Attestations Medical Necessity Statement*: Care expected to cross 2 midnights. Coding Level of Care Code Acute Fermenting Cellars Supervisor for Reece Benton Diagnoses Acute exacerbation of CHF (congestive heart failure) I50.9 Atrial fibrillation I48.91 Acute and chronic respiratory failure with hypoxia J96.21
[2022-02-05] VITALS (60 sets, daily range): BP systolic 100–138; BP diastolic 74–99; PULSE 64–89; RESP 11–19; TEMP 36.1–37.2; O2SAT 69–100
[2022-02-05 01:41] LABS: Troponin 5 6HR 26.65 ng/L (0-15)
[2022-02-05 01:51] LABS: Troponin 5 6HR Delta -3.35 ng/L (0-12)
[2022-02-05] MEDS: ipratropium-albuterol 3 mL Neb INHALATION ×6 (03:25→23:43)
[2022-02-05 05:27] LABS: Basophils % 0.1 %; Hematocrit 25.3 % (42.0-52.0); Hemoglobin 7.9 g/dL (11.7-16.6); Lymphocytes # 0.6 10^3/uL (0.8-4.8); Lymphocytes % 3.2 %; Mean Corpuscular HGB Conc 31.2 g/dL (30.0-36.0); Mean Corpuscular Hemoglobin 30.2 pg (28.0-34.0); Mean Corpuscular Volume 96.6 fl (80-94); Mean Platelet Volume 9.4 fL (7.4-10.4); Monocytes # 1.6 10^3/uL (0.2-0.9); Neutrophils # 16.75 10^3/uL (1.8-7.7); Neutrophils % 86.4 %; Nucleated Red Blood Cells % 0.2 %; Platelet Count 528 10^3/cmm (130-400); Red Blood Count 2.62 10^6/uL (4.1-5.3); Red Cell Distribution Width 14.9 % (12.1-15.1); White Blood Count 19.4 10^3/uL (4.0-10.0)
[2022-02-05 05:49] LABS: Alanine Aminotransferase 17 U/L (0-41); Albumin Level 2.8 g/dL (3.5-5.2); Alkaline Phosphatase 56 IU/L (40-130); Anion Gap 11.8 (5-19); Aspartate Amino Transferase 12 U/L (0-40); Blood Urea Nitrogen 43 mg/dL (8-23); Calcium 7.4 mg/dL (8.5-10.5); Carbon Dioxide 30 mmol/L (22-29); Chloride 104 mmol/L (98-107); Globulin 1.9 g/dL (1.3-4.6); Glucose 142 mg/dL (65-115); Osmolality Calculated 305 mOsm/kg (285-295); Potassium 4.8 mmol/L (3.5-5.1); Sodium 141 mmol/L (136-145); Total Bilirubin 0.6 mg/dL (0.15-1.2); Total Protein 4.7 g/dL (6.6-8.7)
[2022-02-05] MEDS: dexmedeTOMIDine 0.9 % NaCL 400 MCG/100 ML PREMIX IV (05:50)
[2022-02-05] MEDS: cefepime 2,000 MG in sodium chloride 0.9% (plus) 50 ML 100 MG IV (05:50)
[2022-02-05] MEDS: metoprolol succinate ER (24 HR) 50 mg Tablet PO (08:32)
[2022-02-05] MEDS: potassium chloride ER 20 mEq Tablet 40 MEQ PO (08:32)
[2022-02-05] MEDS: clopidogrel 75 mg Tablet PO (08:32)
[2022-02-05] MEDS: pantoprazole DR 40 mg Tablet PO (08:32)
[2022-02-05] MEDS: amiodarone 200 mg Tablet PO (08:32)
[2022-02-05] MEDS: isosorbide mononitrate ER 30 mg Tablet PO (08:32)
[2022-02-05] MEDS: aspirin 81 mg EC Tablet PO (08:32)
--- NOTE | 2022-02-05 10:00 | PC.CHAP ---
Pastoral Care Encounter/Spiritual Assessment Type of Contact [] Declined coal shooter visit [] Patient/Family/Request visit [] Outpatient visit [] Follow-up visit [] Physician referral [] Code/Alert [x] Routine visit [] Staff referral [] Actively dying [] Patient sleeping [] Family support [] [] Out of room [] Palliative care [] [] Receiving care in room [] Pre-surgical visit [] Trauma [] Long length of stay [x] ICU visit [] Other: Relational/Emotional Strength [] Patient feels connected with others/family/visitors/staff [] Distress [] Loneliness/isolation [] Abandonment Spirituality of Patient [] Person of Daxa [] Attends Alevism of their Daxa [] Believes in Prayer [] Reads Bible or Advent materials [] There are Spiritual issues to be addressed Watch And Clock Repair Clerk Interventions [x] Prayer [] Active listening [] Non-anxious presence [] Spiritual/emotional support [] Crisis/trauma care [] Spiritual counseling [] Bereavement support [] Provided bereavement packet [] Provided Bible/devotional materials [] Provided toy/stuffed animal, coloring book to patient or family member [] Provided Communion [] Anointing/[place] [] Salvation [x] Completed spiritual assessment [] Other: Impact on Illness or Injury [] Angry [] Fearful [] Anxious [] Often cries [] Exhaustion [] Unable to work [] Unable to attend rastafari [] Unable to walk/stand [] Unable to read [] Unable to drive [] Unable to eat/drink [] Unable to sleep [] Unable to be with family [] Patient intubated [] Other: Summary Time spent with patient
[2022-02-05] MEDS: vancomycin 1,500 MG/300 ML PIGGYBACK 200 MG IV (10:34)
--- NOTE | 2022-02-05 11:44 | XR_ITS ---
WS: [id number] Exam: XR chest 1V portable [id number] Date/Time of Exam: 02/05/2022 12:01 PM Reason For Exam: SOB Comparison 02/04/2022. Bilateral basal pleural effusions are noted unchanged. Mild bibasal atelectasis. The heart is top nicolas its normal size. The mediastinum and bony thorax are intact. XR/XR chest 1V portable [id number] IMPRESSION: 1. Bibasal pleural effusions and atelectatic changes. No significant overall ch shivani since previous study.
[2022-02-05 11:52] LABS: Basophils % 0.1 %; Hematocrit 26.4 % (42.0-52.0); Hemoglobin 8.1 g/dL (11.7-16.6); Lymphocytes # 0.6 10^3/uL (0.8-4.8); Lymphocytes % 3.1 %; Mean Corpuscular HGB Conc 30.7 g/dL (30.0-36.0); Mean Corpuscular Hemoglobin 29.8 pg (28.0-34.0); Mean Corpuscular Volume 97.1 fl (80-94); Mean Platelet Volume 9.3 fL (7.4-10.4); Monocytes # 1.8 10^3/uL (0.2-0.9); Monocytes % 9.1 %; Neutrophils # 17.31 10^3/uL (1.8-7.7); Neutrophils % 85.3 %; Nucleated Red Blood Cells % 0.1 %; Platelet Count 550 10^3/cmm (130-400); Red Blood Count 2.72 10^6/uL (4.1-5.3); Red Cell Distribution Width 15.2 % (12.1-15.1); White Blood Count 20.3 10^3/uL (4.0-10.0)
[2022-02-05] MEDS: FUROsemide 10 mg/mL SDV 10mL 80 MG IVP ×2 (12:05→23:13)
[2022-02-05 12:12] LABS: Erythrocyte Sedimentation Rate 1 mm/hr (0-10)
[2022-02-05 12:22] LABS: C Reactive Protein 4.8 mg/L (0.0-4.9)
[2022-02-05 14:07] LABS: Cyclic Citrullinated Peptide <16 UNITS
[2022-02-05 16:42] LABS: Anti-Nuclear Antibody Screen NEGATIVE (NEGATIVE)
--- NOTE | 2022-02-05 18:13 | P.PN_ITS ---
Subjective Subjective: Hospital course, labs appreciated. On examination patient sitting up in bed on BiPAP. at bedside. Denies any active complaints. Has remained hemodynamically stable and afebrile. Saturating more than 95%. Denies any nausea, vomiting. Vitals/I&O/Wt Last Vital Signs Temp 98.9 F 02/05/22 07:40 Pulse 73 02/05/22 16:30 Resp 12 02/05/22 16:30 BP 115/95 02/05/22 16:30 Pulse Ox 100 02/05/22 16:30 02/05/22 02/05/22 02/05/22 06:59 14:59 22:59 Intake Total 127.279 / 1758.083 0 / 0 Output Total 325 / 1075 200 / 200 Balance -197.721 / 683.083 -200 / -200 Weight last 48 hrs Weight 96.615 kg Weight 96.36 kg Physical Exam Const: COMMON NORMALS: patient oriented x3 HENMT: COMMON NORMALS: normocephalic and atraumatic HEAD & SCALP: normocephalic and atraumatic Chest: CHEST: Yes Symmetrical chest wall rise Resp: EFFORT & INSPECTION: Yes symmetric chest movement OTHER: Diminished air entry in lt lung martinez, rt lung field air entry has improved. Cardio: COMMON NORMALS: No gallops present (Cardio), No rub (Cardio) and Peripheral pulses 2+ throughout PERIPHERAL PULSES: Peripheral pulses 2+ throughout OTHER: Irregularly irregular rhythm, S1-S2 variable intensity GI: COMMON NORMALS: Normal to inspection, nondistended, normoactive bowel soun ds present, Soft to palpation, non-tender, No hepatosplenomegaly present and no masses AUSCULTATION: Yes normoactive bowel sounds PALPATION: Yes Soft to palpation and Yes No hepatosplenomegaly present RECTAL EXAM: Yes deferred Extremity: OTHER: 2+ bilateral pitting edema in both the lower extremities up to the level of knees Neuro: COMMON NORMALS: patient oriented x3 Urinary Catheter Management: Patel: Cath Placed During This Visit: yes Reason for Continuing Indwelling Catheter: Accurate Measurement of Urinary Output in Critically Ill Patients Urinary Catheter Date of Insertion: 01/31/22 Urinary Catheter Time of Insertion: 11:45 Data : 02/05/22 11:41 02/05/22 04:00 Micro: Microbiology 01/31/22 11:27 Blood Culture - Final Blood NO GROWTH AFTER 5 DAYS 01/31/22 11:20 Blood Culture - Final Blood NO GROWTH AFTER 5 DAYS 02/02/22 15:20 Gram Stain - Final Ankle - Thoracentesis Body Fluid Culture - Preliminary A&P Assessment and plan (1) Anemia: Status: Acute Plan 76-year-old male with past medical history of heart failure with reduced ejection fraction coronary artery disease, A. fib , COPD came in with chief complaint of worsening shortness of breath PND and orthopnea, worsening bilateral lower extremity swelling , occasional substernal chest pain with exertion. Assessment #Acute on chronic respiratory failure : Secondary to decompensated heart failure, symptomatic large bilateral pleural effusion, low clinical suspicion for pneumonia. For congestive heart failure: Echocardiogram done earlier in the admission shows an EF of 64% with mild LVH, moderate aortic valve stenosis, mild biatrial enlargement, trace TR with PASP of 34,. Strict input for charting, daily weights. Patel catheterization. IV Lasix 80 mg twice daily. For symptomatic recurrent large bilateral pleural effusion: Recommend admission. Thoracentesis done earlier in this admission shows around 1400 removal of hemorrhagic pleural fluid. Exudative in nature. Negative for malignancy. Negative for empyema. Recently in December 2021 was evaluated for tuberculosis. So far negative. Could be secondary to inflammatory versus autoimmune in nature. Patient does have history of rheumatoid arthritis in family. Check ESR, CRP. JEZ profile. Continue with Solu-Medrol. Will wean down to 40 mg IV daily. Patient will need right heart catheterization to rule out constrictive pericarditis. Appreciate cardiology and pulmonology recommendation. Low suspicion of pneumonia: No actual consolidation on imaging. Patient has recently received vancomycin and cefepime during hospitalization. MRSA negative. Leukocytosis most likely secondary to steroids. Hold off on antibiotics and monitor for fever or hemodynamic instability for now. #JHONNY on CKD stage III: Likely secondary to aggressive diuresis. Cannot rule out dry creatinine to be on the higher side. Avoid nephrotoxic drugs. Monitor BMP daily. Strict input output charting. #History of cartery disease: CAG : 99 % stenosis of mid LAD, left main 50% stenosis borderline significant on IVUS s/p?PCI to mid LAD. Currently cardiothoracic surgery as well as cardiology on board, to decide regarding the future of left main disease. Continue aspirin Plavix statin. Will need DAPT at least for a year #A. fib: Rate controlled. Continue amiodarone 200 mg p.o. daily Continue metoprolol Metoprolol 5 mg IV every 4 hours as needed Eliquis on hold #COPD: Wean Solu-Medrol 40 mg IV daily as above. Agustin garcia Full code. Heparin for DVT prophylaxis for now. Protonix OPD prophylaxis. Attestations Medical Necessity Statement*: Requires further hospitalization for management of acute on chronic respiratory failure secondary compensated heart failure, bilateral large pleural effusion Time Spent in Patient Care: Greater than 35 minutes Coding Level of Care Code Acute Top Polisher for [employer] Fwd Diagnoses Anemia D64.9
[2022-02-05 19:21] LABS: Procalcitonin 0.07 ng/mL (0-0.5)
[2022-02-05 19:32] LABS: Iron 45 ug/dL (59-158); Percent Saturation 36.5 % (20-50); Total Iron Binding Capacity 123 mcg/dl; Unsaturated Iron Binding 78 ug/dL (112-347)
[2022-02-05] MEDS: heparin 5,000 unit/mL INJ 1 mL 5000 UNIT SUBCUT (20:08)
[2022-02-05] MEDS: atorvastatin 40 mg Tablet PO (20:09)
[2022-02-05] MEDS: dexmedeTOMIDine 0.9 % NaCL 400 MCG/100 ML PREMIX 7.2 MCG IV (20:10)
[2022-02-06] VITALS (46 sets, daily range): BP systolic 83–128; BP diastolic 67–89; PULSE 70–119; RESP 11–23; TEMP 36.2–36.6; O2SAT 94–100; BMI 29.7
[2022-02-06 03:17] LABS: Basophils % 0.1 %; Hematocrit 25.9 % (42.0-52.0); Lymphocytes # 0.6 10^3/uL (0.8-4.8); Lymphocytes % 3.7 %; Mean Corpuscular HGB Conc 30.9 g/dL (30.0-36.0); Mean Corpuscular Hemoglobin 29.9 pg (28.0-34.0); Mean Corpuscular Volume 96.6 fl (80-94); Mean Platelet Volume 9.8 fL (7.4-10.4); Monocytes # 1.6 10^3/uL (0.2-0.9); Monocytes % 9.7 %; Neutrophils # 13.71 10^3/uL (1.8-7.7); Neutrophils % 84.6 %; Nucleated Red Blood Cells % 0.2 %; Platelet Count 508 10^3/cmm (130-400); Red Blood Count 2.68 10^6/uL (4.1-5.3); Red Cell Distribution Width 15.2 % (12.1-15.1); White Blood Count 16.2 10^3/uL (4.0-10.0)
[2022-02-06] MEDS: ipratropium-albuterol 3 mL Neb INHALATION ×4 (03:28→20:54)
[2022-02-06 03:34] LABS: Alanine Aminotransferase 21 U/L (0-41); Albumin Level 2.8 g/dL (3.5-5.2); Alkaline Phosphatase 53 IU/L (40-130); Anion Gap 9.2 (5-19); Aspartate Amino Transferase 14 U/L (0-40); Blood Urea Nitrogen 48 mg/dL (8-23); Calcium 8.3 mg/dL (8.5-10.5); Carbon Dioxide 32 mmol/L (22-29); Chloride 102 mmol/L (98-107); Globulin 2.1 g/dL (1.3-4.6); Glucose 107 mg/dL (65-115); Osmolality Calculated 301 mOsm/kg (285-295); Potassium 4.2 mmol/L (3.5-5.1); Sodium 139 mmol/L (136-145); Total Bilirubin 0.5 mg/dL (0.15-1.2); Total Protein 4.9 g/dL (6.6-8.7)
--- NOTE | 2022-02-06 08:09 | P.PN_ITS ---
Subjective Subjective: Patient has been having significant shortness of breath. Plan for thoracentesis and chest tube placement today Vitals/I&O/Wt Last Vital Signs Temp 97.2 F L 02/06/22 04:00 Pulse 70 02/06/22 07:55 Resp 16 02/06/22 07:45 BP 98/73 02/06/22 04:30 Pulse Ox 98 02/06/22 07:50 02/05/22 02/06/22 02/06/22 22:59 06:59 14:59 Intake Total 776.959 / 776.959 165.735 / 942.694 Output Total 2075 / 2275 950 / 3225 Balance -1298.041 / -1498.041 -784.265 / -2282.306 Weight last 48 hrs Weight 219 lb 4.8 oz Weight 213 lb Weight 212 lb 7 oz Physical Exam Narrative: GENERAL: Patient is alert, awake and oriented x3. [] NECK: No jugular vein distension. [] HEENT: No cyanosis. No icterus. No pallor. [] HEART: Regular S1 and S2. No murmur, rub or gallop. [] LUNGS: Clear to auscultate bilaterally. [] ABDOMEN: Soft, nontender and nondistended. Positive bowel sounds. No guarding, rebound or tenderness. [] CENTRAL NERVOUS SYSTEM: Grossly nonfocal. [] EXTREMITIES: Lower extremities with 1+ edema bilaterally. Pulses palpable in the lower extremities, both dorsalis pedis and posterior tibial. [] Urinary Catheter Management: Patel: Cath Placed During This Visit: yes Reason for Continuing Indwelling Catheter: Accurate Measurement of Urinary Output in Critically Ill Patients Urinary Catheter Date of Insertion: 01/31/22 Urinary Catheter Time of Insertion: 11:45 Data : 02/07/22 02:07 02/07/22 02:07 Micro: Microbiology 01/31/22 11:27 Blood Culture - Final Blood NO GROWTH AFTER 5 DAYS 01/31/22 11:20 Blood Culture - Final Blood NO GROWTH AFTER 5 DAYS 02/02/22 15:20 Gram Stain - Final Ankle - Thoracentesis Body Fluid Culture - Preliminary A&P Assessment and plan (1) Acute exacerbation of CHF (congestive heart failure): Status: Acute (2) Atrial fibrillation: Status: Acute (3) Acute and chronic respiratory failure with hypoxia: Status: Acute Plan Patient had recent PCI of mid LAD. Has significant left main stenosis as well. Has presented with respiratory distress His pleural effusion is exudative however is bilateral. Etiology is not clear. Continue diuretics. Plan for bilateral thoracentesis per pulmonology today. We were planning on a right heart cath however patient is unable to lay down flat. Also if he have to look for constrictive physiology will need simultaneous right and left heart cath. That will need him to be more stable. Had thoracentesis x 2. He has atrial fibrillation with RVR however post drainage of pleural effusion, his heart rates improved significantly. Dr Miranda evaluated patient and he is not a surgical candidate at this time. we will discuss percutaneous coronary intervention of left main artery later. 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 This has been discussed with the patient. Continue aspirin and Plavix. Normal LV systolic function on echocardiogram. Thank you for involving us with care of this patient. We will continue to follow. Please call with questions Attestations Medical Necessity Statement*: Care expected to cross 2 midnights. Coding Level of Care Code Acute Chamber Magistrate for [facility] Diagnoses Acute exacerbation of CHF (congestive heart failure) I50.9 Atrial fibrillation I48.91 Acute and chronic respiratory failure with hypoxia J96.21
[2022-02-06] MEDS: FUROsemide 10 mg/mL SDV 10mL 80 MG IVP (10:32)
--- NOTE | 2022-02-06 12:01 | XR_ITS ---
WS: [id number] Exam: XR chest 1V portable [id number] Date/Time of Exam: 02/06/2022 12:01 PM Reason For Exam: SOB Comparison 02/05/2022. Bilateral basal pleural effusions are noted. Effusion on the left slightly improved. Cardiac enlargem ent unchanged. The lungs are fully expanded. Compressive atelectasis of both lower lobes. The mediast inum is not widened. Regional bony structures are intact. XR/XR chest 1V portable [id number] IMPRESSION: 1. Cardiac enlargement with bilateral basal pleural effusions. Effusion on the left shows slight improvement but no other significant change in the overall ap pearance the chest.
[2022-02-06] MEDS: dexmedeTOMIDine 0.9 % NaCL 400 MCG/100 ML PREMIX 7.2 MCG IV (13:10)
--- NOTE | 2022-02-06 13:32 | XR_ITS ---
WS: [id number] Exam: XR chest 1V portable [id number] Date/Time of Exam: 02/06/2022 1:47 PM Reason For Exam: SOB Comparison to the previous study performed earlier on the same day at 1218 hours. Cardiac enlargement with bibasal pleural effusions noted. No significant change since previous study. The lungs remain fully inflated. Compressive atelectasis of both lower lobes. The mediastinum is not widened. Monitoring leads superimpose the chest. XR/XR chest 1V portable [id number] IMPRESSION: 1. Cardiac enlargement with bibasal pleural effusions showing little change sin ce the last exam.
--- NOTE | 2022-02-06 13:44 | ECG_ITS ---
[facility] Test Date: 2022-02-06 Pat Name: Nitin Florentino Department: Room: ICU12 Gender: Male International Account Representative: : 1945 Requested By: Emigdio Thomas Order Number: [id number] Noemi MD: Parth Persaud M.D. Measurements Intervals [place] Rate: 101 P: [place]: QRS: 9 QRSD: 134 T: 161 QT: 377 QTc: 491 Interpretive Statements ATRIAL FIBRILLATION WITH RAPID VENTRICULAR RESPONSE INTRAVENTRICULAR CONDUCTION DELAY [130+ ms QRS DURATION] Compared to ECG 01/29/2022 21:13:22 Intraventricular conduction delay now present Left bundle-branch block no longer present Electronically Signed On 02-06-2022 18:56:30 CDT by Parth Persaud M.D. [id number]
[2022-02-06 13:47] LABS: ABG PCO2 39.9 mmHg (35-45); ABG PH Result 7.49 (7.35-7.45); Alveolar-Arterial Oxygen Gradi 11.3 mmHg (5-10); Base Excess ABG 6.8 mmol/L (-2.0-2.0); Blood Gas Allen Test Pos; Blood Gas Operator Identificat GD; Blood Gas Sample Site Radial, right; Blood Gas Sample Type Arterial; Carboxyhemoglobin 1.1 %THgb (0.4-20.1); HCO3 ABG 30.6 mmol/L (22-26); HGB O2 Sat 95.8 % (95-100); Ionized Calcium Level - ABG 1.2 mmol/L (1.1-1.4); Methemoglobin 0.4 % (0.4-1.5); Oxygen Device BIPAP; Oxygen Saturation ABG 97.2; PO2 ABG 78.4 mmHg (80.0-100.0); Potassium Level - ABG 4.5 mmol/L (3.5-5.0); Total Hemoglobin 9.2 g/dL (14-18)
[2022-02-06] MEDS: morphine 4 mg/mL SDV 1 mL 2 MG IVP ×2 (14:15→18:28)
[2022-02-06] MEDS: metoprolol tartrate 1 mg/1 mL SDV 5 mL 5 MG IVP (15:18)
--- NOTE | 2022-02-06 15:26 | PC.SOCIAL ---
IMM update IMM updated with patient. Copy Pg 2 provided. Verbalized an understanding. Initialled, dated, timed, and placed in chart.
[2022-02-06 15:42] LABS: Anti-Double Strand DNA AB <1 IU/mL; Jo-1 Antibody <1.0 NEG AI (<1.0 NEG); SM/RNP Antibodies <1.0 NEG AI (<1.0 NEG); SS-B/LA IGG <1.0 NEG AI (<1.0 NEG); Scleroderma Ab(Scl-70) Ab <1.0 NEG AI (<1.0 NEG); Ss-A/Ro Igg <1.0 NEG AI (<1.0 NEG)
--- NOTE | 2022-02-06 16:06 | P.PN_ITS ---
Subjective Subjective: During the day on examination patient was BiPAP dependent. His oxygen requirements and BiPAP went up and he required up to 80% FiO2 to maintain saturation over 90%. He required Levophed at 5 as well. He underwent bilateral chest tube placements after which his oxygenation and blood pressures improved. After chest tube placement patient was placed on 3 L nasal cannula. Precedex was weaned off. 2300 cc of bloody fluid was drained from bilateral chest tubes. Patient had an episode of atrial fibrillation with rapid ventricular response as well. Vitals/I&O/Wt Last Vital Signs Temp 97.2 F L 02/06/22 12:00 Pulse 104 H 02/06/22 15:52 Resp 18 02/06/22 14:46 BP 98/73 02/06/22 12:00 Pulse Ox 97 02/06/22 15:52 02/06/22 02/06/22 02/06/22 06:59 14:59 22:59 Intake Total 165.735 / 942.694 350 / 350 Output Total 950 / 3225 1950 / 1950 Balance -784.265 / -2282.306 -1600 / -1600 Weight last 48 hrs Weight 99.473 kg Weight 96.615 kg Physical Exam Const: COMMON NORMALS: patient oriented x3 HENMT: COMMON NORMALS: normocephalic and atraumatic HEAD & SCALP: normocephalic and atraumatic Chest: CHEST: Yes Symmetrical chest wall rise Resp: EFFORT & INSPECTION: Yes symmetric chest movement OTHER: Diminished air entry in lt lung martinez, rt lung field air entry has improved. Cardio: COMMON NORMALS: No gallops present (Cardio), No rub (Cardio) and Peripheral pulses 2+ throughout PERIPHERAL PULSES: Peripheral pulses 2+ throughout OTHER: Irregularly irregular rhythm, S1-S2 variable intensity GI: COMMON NORMALS: Normal to inspection, nondistended, normoactive bowel sounds present, Soft to palpation, non-tender, No hepatosplenomegaly present and no masses AUSCULTATION: Yes normoactive bowel sounds PALPATION: Yes Soft to palpation and Yes No hepatosplenomegaly present RECTAL EXAM: Yes deferred Extremity: OTHER: 2+ bilateral pitting edema in both the lower extremities up to the level of knees Neuro: COMMON NORMALS: patient oriented x3 Urinary Catheter Management: Patel: Cath Placed During This Visit: yes Reason for Continuing Indwelling Catheter: Accurate Measurement of Urinary Output in Critically Ill Patients Urinary Catheter Date of Insertion: 01/31/22 Urinary Catheter Time of Insertion: 11:45 Data : 02/07/22 02:07 02/07/22 02:07 Micro: Microbiology 02/02/22 15:20 Gram Stain - Final Ankle - Thoracentesis Body Fluid Culture - Final 01/31/22 11:27 Blood Culture - Final Blood NO GROWTH AFTER 5 DAYS 01/31/22 11:20 Blood Culture - Final Blood NO GROWTH AFTER 5 DAYS A&P Assessment and plan (1) Acute and chronic respiratory failure with hypoxia: Status: Acute (2) Heart failure with preserved ejection fraction: Status: Acute (3) Stenosis of left main coronary artery: Status: Acute (4) Bilateral pleural effusion: Status: Acute (5) Aortic stenosis: Status: Acute (6) Coronary artery disease: Status: Acute (7) Atrial fibrillation: Status: Acute (8) Anemia: Status: Acute (9) Shock: Status: Acute Plan Shock: Most likely cardiogenic. No clear source of infection. Already on Abx for multiple days. Bcx negative. Abx stopped on 02/06. Keep MAP over 65 mmhg. Acute on chronic respiratory failure : Multifactorial: Secondary to decompensated heart failure, symptomatic large bilateral pleural effusion, low clinical suspicion for pneumonia. For congestive heart failure: Preserved ejection fraction. Echocardiogram done earlier in the admission shows an EF of 64% with mild LVH, moderate aortic valve stenosis, mild biatrial enlargement, trace TR with PASP of 34,. Strict input for charting, daily weights. Patel catheterization. IV Lasix 80 mg twice daily. For symptomatic recurrent large bilateral pleural effusion: Hemorrhagic. Etiology unknown. Reccurent episodes. S/p B/l chest tube placement - 02/06. Thoracentesis done earlier in this admission shows around 1400 removal of hemorrhagic pleural fluid. Exudative in nature. Negative for malignancy. Negative for empyema. Recently in December 2021 was evaluated for tuberculosis. So far negative. Could be secondary to inflammatory versus autoimmune in nature. Patient does have history of rheumatoid arthritis in family. Check ESR and CRP WNL though patient has been on steroids. JEZ profile negative. Will repeat ESR, CRP. Check Hepatitis panel, HIV, complement levels, Aspergilus antigen in serum, LESLIE levels to rule out sarcoidosis. Patient might need a pleural biopsy to confirm. Peripheral smear and lymphoma flow cytometry to rule out lymphoma. Continue with Solu-Medrol. Will wean down to 40 mg IV daily. Patient will need right heart catheterization to rule out constrictive pericarditis. Appreciate cardiology and pulmonology recommendation. Low suspicion of pneumonia: No actual consolidation on imaging. Patient has recently received vancomycin and cefepime during hospitalization. MRSA negative. Leukocytosis most likely secondary to steroids. Hold off on antibiotics and monitor for fever or hemodynamic instability for now. #JHONNY on CKD stage III: Likely secondary to aggressive diuresis. Cannot rule out dry creatinine to be on the higher side. Avoid nephrotoxic drugs. Monitor BMP daily. Strict input output charting. #History of cartery disease: CAG : 99 % stenosis of mid LAD, left main 50% stenosis borderline significant on IVUS s/p?PCI to mid LAD. Currently cardiothoracic surgery as well as cardiology on board, to decide regarding the future of left main disease. Continue aspirin Plavix statin. Will need DAPT at least for a year #A. fib: Rate controlled. Continue amiodarone 200 mg p.o. daily AC on hold given need of procedure and hemorrhagic effusion. If needed can have digoxin load. #COPD: Wean Solu-Medrol 40 mg IV daily as above. Duo nebs Full code. Heparin for DVT prophylaxis for now. Protonix OPD prophylaxis. Attestations Medical Necessity Statement*: Needs further hospitalization for acute on chronic respiratory failure, b/l hemorrhagic pleural effusion Critical Care Time: The high probability of a clinically significant, sudden or life threatening deterioration of the patient's [cardiac, pulmonary, renal] system(s) required my full and direct attention, intervention and personal management. The critical care time is as shown. This time is in addition to time spent performing any reported procedures but includes the following: [x] Data and vital sign review and interpretation [x] Patient assessment, examination and intervention [x] Documentation [x] Medication orders and management Critical Care Time (min): 90 Coding Level of Care Code Acute Insurance Account Executive for [facility] Fwd Exam Detailed Diagnoses Anemia D64.9 Acute and chronic respiratory failure with hypoxia J96.21 Heart failure with preserved ejection fraction I50.30 Stenosis of left main coronary artery I25.10 Bilateral pleural effusion J90 Aortic stenosis I35.0 Coronary artery disease I25.10 Atrial fibrillation I48.91 Shock R57.9
--- NOTE | 2022-02-06 18:32 | P.PCN_ITS ---
Procedure/Consent Time out: Time Out Performed: Yes Consent: Additional Consent Information: Obtained from the patient Procedure Narrative: Name of the procedure: Right-sided chest tube placement under ultrasound guidance. Medications: Lidocaine 1% 10 mL. Description of the procedure: The ultrasonography was performed and a large right-sided pleural effusion was identified. There was visible fibrinous stranding. Asafe fluid pocket was identified with the ultrasound guidance and marked. The skin, subcutaneous tissue and the pleura was anesthetized with 1% lidocaine. Needle was advanced till flash back was noted. Bloody fluid was aspirated. Using Seldinger technique the right-sided chest tube was put in. The chest tube was secured with suture and transparent dressing. 1800 mL of bloody fluid was obtained. Sample: The right-sided pleural fluid was sent for cell count and differential, Gram stain culture, AFB stain and culture, fungal stain and culture, pH, glucose, L DH, total protein, triglyceride, cytology and adenosine deaminase level Complications: None. Acute Procedures Epistaxis Control: Time out performed: Yes
--- NOTE | 2022-02-06 18:38 | PM.ACPR ---
Procedure/Consent Time out: Time Out Performed: Yes Consent: Additional Consent Information: Obtained from the patient Procedure Narrative: Name of the procedure: Left-sided chest tube placement under ultrasound guidance. Medications: Lidocaine 1% 10 mL. Description of the procedure: The ultrasonography was performed and a large left-sided pleural effusion was identified. There was visible fibrinous stranding. A safe fluid pocket was identified with the ultrasound guidance and marked. The skin, subcutaneous tissue and the pleura was anesthetized with 1% lidocaine. Needle was advanced till flash back was noted. Bloody fluid was aspirated. Using Seldinger technique the left-sided chest tube was put in. The chest tube was secured with suture and transparent dressing. 500 mL of bloody fluid was obtained. Sample: The left-sided pleural fluid was sent for cell count and differential, Gram stain culture, AFB stain and culture, fungal stain and culture, pH, glucose, LDH, total protein, triglyceride, cytology and A.D.A. level. Complications: None. Acute Procedures Epistaxis Control: Time out performed: Yes
--- NOTE | 2022-02-06 18:42 | XR_ITS ---
WS: [email or web address] Exam: XR chest 1V portable [id number] Date/Time of Exam: 02/06/2022 6:54 PM Reason For Exam: Bilateral chest tubes Comparison 02/06/2022. Bibasal pleural effusions have improved slightly. Opaque tubing now visualized along the right and le ft diaphragms. The heart is enlarged and unchanged in size. Remaining lung martinez are clear. No pneum othorax noted. The superior mediastinum is not widened. Monitoring leads superimpose the chest. XR/XR chest 1V portable [id number] IMPRESSION: 1. Bibasal pleural effusions showing minimal improvement. Opaque tubes are now visualized along the right and left diaphragmatic regions. 2. Cardiac enlargement unchanged.
--- NOTE | 2022-02-06 19:19 | PC.NURSE ---
Chest tube Chest tube to bilateral chest inserted by Dr Shi. Chest tube to right side drained 1300ml of dark red and then clamped. Chest tube to left side drained 500ml of dark red and clamped. Pt tolerated well and able to come off bipap.
[2022-02-06 19:25] LABS: Body Fluid Polynuclear #Cells 8.969; Body Fluid WBC 11015 /uL; Monocytes # Body Fluid 2.046
[2022-02-06 19:31] LABS: Body Fluid WBC 4620 /uL
[2022-02-06 19:42] LABS: Apprearance, Body Fluid TURBID; Color, Body Fluid RED
[2022-02-06 19:42] LABS: Basophils % 0.1 %; Hematocrit 27.3 % (42.0-52.0); Hemoglobin 8.5 g/dL (11.7-16.6); Lymphocytes # 0.6 10^3/uL (0.8-4.8); Mean Corpuscular HGB Conc 31.1 g/dL (30.0-36.0); Mean Corpuscular Hemoglobin 30.2 pg (28.0-34.0); Mean Corpuscular Volume 97.2 fl (80-94); Mean Platelet Volume 10.1 fL (7.4-10.4); Monocytes # 1.9 10^3/uL (0.2-0.9); Neutrophils # 27.26 10^3/uL (1.8-7.7); Neutrophils % 88.2 %; Nucleated Red Blood Cells # 0.1 /100WBC; Nucleated Red Blood Cells % 0.2 %; Platelet Count 590 10^3/cmm (130-400); Red Blood Count 2.81 10^6/uL (4.1-5.3); Red Cell Distribution Width 15.1 % (12.1-15.1)
[2022-02-06 19:43] LABS: Apprearance, Body Fluid TURBID; Color, Body Fluid RED
[2022-02-06 20:11] LABS: LDH Pleural Fluid 478 U/L; Total Protein Pleural Fluid 3.1 g/dL; Total Protein Pleural Fluid 3.3 g/dL; Triglycerides, Pleural Fluid 34 mg/dL; Triglycerides, Pleural Fluid 38 mg/dL
[2022-02-06 20:12] LABS: LDH Pleural Fluid 782 U/L
[2022-02-06 20:22] LABS: White Blood Count 30.9 10^3/uL (4.0-10.0)
--- NOTE | 2022-02-06 21:08 | PC.NURSE ---
Shit assessment Patient oriented to name, , and location. Unable to answer the date or year. Difficulty finding words and lethargic due to precedex. PO medications Lipitor and Metoprolol not given due to lethargy. Patient received IVP metoprolol around 1500 today.
--- NOTE | 2022-02-06 21:54 | PC.NURSE ---
Updated Dr. Shi on patient's overall status. Reported vital signs, heart rhythm, IV drips, x ray and lab results, chest tube output, and plan for petroleum laboratory technician procedure tomorrow. Clarified order for Lasix, orders to hold PM dose.
[2022-02-07] VITALS (40 sets, daily range): BP systolic 95–143; BP diastolic 62–88; PULSE 77–122; RESP 11–31; TEMP 36.7; O2SAT 94–100
[2022-02-07 01:59] LABS: Add Urine Microscopic? YES; Bilirubin Urine Neg (Negative); Blood Urine 3+ (Negative); Glucose Urine UA Norm (Normal); Ketones Urine 1+ (Negative); Leukocyte Esterase Urine Negative (Negative); Nitrate Urine Negative (Negative); Protein Urine 1+ (Negative); Specific Gravity, Urine 1.025 (1.005-1.030); Urine Appearance Hazy (CLEAR); Urine Color Yellow (Yellow); Urobilinogen Urine Norm (Negative); pH Urine 5 (5-7)
[2022-02-07 02:20] LABS: Bacteria Urine TRACE /hpf; Hyaline Casts Urine 0-4 /lpf; Mucus Urine 2+ /hpf; RBC Urine 15-25 /hpf (0-2); Squamous Epithelial Cell Urine 0-4 /hpf (0-5); Uric Acid Crystals Urine 0-4 /hpf; WBC Urine 0-4 /hpf (0-5)
[2022-02-07 02:21] LABS: Add Urine Culture? No
[2022-02-07 02:58] LABS: Basophils % 0.1 %; Hematocrit 27.3 % (42.0-52.0); Hemoglobin 8.5 g/dL (11.7-16.6); Lymphocytes # 0.7 10^3/uL (0.8-4.8); Mean Corpuscular HGB Conc 31.1 g/dL (30.0-36.0); Mean Corpuscular Hemoglobin 30.1 pg (28.0-34.0); Mean Corpuscular Volume 96.8 fl (80-94); Monocytes % 8.5 %; Neutrophils # 20.26 10^3/uL (1.8-7.7); Neutrophils % 86.3 %; Nucleated Red Blood Cells # 0.1 /100WBC; Nucleated Red Blood Cells % 0.3 %; Platelet Count 500 10^3/cmm (130-400); Red Blood Count 2.82 10^6/uL (4.1-5.3); Red Cell Distribution Width 15.3 % (12.1-15.1); White Blood Count 23.5 10^3/uL (4.0-10.0)
[2022-02-07] MEDS: ipratropium-albuterol 3 mL Neb INHALATION ×4 (03:07→21:16)
[2022-02-07 03:22] LABS: Erythrocyte Sedimentation Rate 9 mm/hr (0-10)
[2022-02-07 03:29] LABS: Alanine Aminotransferase 29 U/L (0-41); Albumin Level 2.6 g/dL (3.5-5.2); Alkaline Phosphatase 62 IU/L (40-130); Anion Gap 17.5 (5-19); Aspartate Amino Transferase 20 U/L (0-40); Blood Urea Nitrogen 78 mg/dL (8-23); Calcium 8.3 mg/dL (8.5-10.5); Carbon Dioxide 26 mmol/L (22-29); Chloride 103 mmol/L (98-107); Globulin 3.1 g/dL (1.3-4.6); Glucose 123 mg/dL (65-115); Osmolality Calculated 319 mOsm/kg (285-295); Potassium 4.5 mmol/L (3.5-5.1); Sodium 142 mmol/L (136-145); Total Bilirubin 0.5 mg/dL (0.15-1.2); Total Protein 5.7 g/dL (6.6-8.7)
[2022-02-07 03:38] LABS: C Reactive Protein 7.2 mg/L (0.0-4.9); Complement C3 90 mg/dL (90-180); NT Pro B Type Natriuretic Pept 6794 pg/mL (0-450)
[2022-02-07 03:45] LABS: HIV 1 & 2 Antibody Non-Reactive (Non-Reactiv); HIV 1 & 2 Antigen Non-Reactive (Non-Reactiv)
[2022-02-07 03:52] LABS: Hepatitis B Core AB, Total Non-Reactive (Nonreactive); Hepatitis B Surface AB 3.5 (11.5-1000); Hepatitis B Surface Antigen Non-Reactive (Nonreactive); Hepatitis C Virus Antibody Non-Reactive (Nonreactive)
[2022-02-07] MEDS: amiodarone 200 mg Tablet PO (06:13)
[2022-02-07] MEDS: metoprolol tartrate 25 mg Tablet PO ×2 (07:15→20:28)
[2022-02-07] MEDS: pantoprazole DR 40 mg Tablet PO (07:15)
[2022-02-07] MEDS: potassium chloride ER 20 mEq Tablet 40 MEQ PO (07:17)
[2022-02-07] MEDS: famotidine 20 mg Tablet PO ×2 (07:18→18:33)
--- NOTE | 2022-02-07 09:26 | XR_ITS ---
WS: [email or web address] Exam: XR chest 1V portable [id number] Date/Time of Exam: 02/07/2022 9:41 AM Reason For Exam: SOB Compared to most recent study performed 02/06/2022. Bibasal pleural effusions showing little change since prior study. There is infiltrate in the right l ower lobe unchanged. Mild cardiac enlargement stable in appearance. No pneumothorax is seen. Small tu bes are identified in the region of the right and left diaphragms. Monitoring leads superimpose the c hest. XR/XR chest 1V portable [id number] IMPRESSION: 1. Chest radiograph showing no significant change since the last exam.
--- NOTE | 2022-02-07 09:32 | PC.CHAP ---
Pastoral Care Encounter/Spiritual Assessment Type of Contact [] Declined supervisor transcribing operators visit [] Patient/Family/Request visit [] Outpatient visit [] Follow-up visit [] Physician referral [] Code/Alert [x] Routine visit [] Staff referral [] Actively dying [] Patient sleeping [x] Family support [] [] Out of room [] Palliative care [] [] Receiving care in room [] Pre-surgical visit [] Trauma [] Long length of stay [x] ICU visit [] Other: Relational/Emotional Strength [] Patient feels connected with others/family/visitors/staff [] Distress [] Loneliness/isolation [] Abandonment Spirituality of Patient [] Person of Daxa [] Attends Roman Catholic of their [place] [] Believes in Prayer [] Reads Bible or Faith materials [] There are Spiritual issues to be addressed Cage Operator Interventions [x] Prayer [x] Active listening [x] Non-anxious presence [x] Spiritual/emotional support [] Crisis/trauma care [] Spiritual counseling [] Bereavement support [] Provided bereavement packet [] Provided Bible/devotional materials [] Provided toy/stuffed animal, coloring book to patient or family member [] Provided Communion [] Anointing/[place] [] Salvation [x] Completed spiritual assessment [] Other: Impact on Illness or Injury [] Angry [] Fearful [] Anxious [] Often cries [] Exhaustion [] Unable to work [] Unable to attend scientology [] Unable to walk/stand [] Unable to read [] Unable to drive [] Unable to eat/drink [] Unable to sleep [] Unable to be with family [] Patient intubated [] Other: Summary patient rested well, but doesnt feel there is any improvement... tired and fearful... Time spent with patient 10 min
[2022-02-07] MEDS: sodium chloride 0.45% 1,000 ML 50 ML IV ×2 (09:51→22:28)
[2022-02-07] MEDS: albumin 12.5 GM/50 ML VIAL IV (09:51)
--- NOTE | 2022-02-07 10:22 | US_ITS ---
WS: [id number] Complete ABDOMINAL ULTRASOUND HISTORY: left quadrant pain, possible hepatic congestion, AAA COMPARISON: Renal ultrasound 01/02/2022 Liver: 14.8 cm in length. Normal size liver. Liver is incompletely visualized. There is a large amoun t of bowel gas in the liver appears high riding into the rib cage. Portal Vein: Normal hepatopetal flow with monophasic waveform. Gallbladder: Poorly visualized gallbladder. Cannot exclude stones or sludge. Gallbladder wall thickness: 0.2 cm. Pancreas: Completely obscured by bowel gas. CBD: Not visualized. Right kidney: 11.3 cm x 4.6 cm x 5.0 cm. No mass, cortical thickening or hydronephrosis. Left kidney: 12.2 cm x 5.3 cm x 5.7 cm. No mass, cortical thickening or hydronephrosis. Spleen: Normal size and echogenicity. Aorta and IVC are not adequately visualized. No ascites. US/US abdomen complete* [id number] IMPRESSION: 1. Extremely limited abdominal ultrasound. Large amount of bowel gas and body habitus causing limitation. 2. Gallbladder is not adequately identified. 3. Liver appears normal size but otherwise poorly visualized. 4. Aorta and pancreas are not well visualized. 5. Consider follow-up evaluation with postcontrast CT of the abdomen and pelvi s.
--- NOTE | 2022-02-07 10:45 | P.PN_ITS ---
Subjective Subjective: Patient is still short of breath. Vitals/I&O/Wt Last Vital Signs Temp 98.1 F 02/07/22 08:00 Pulse 111 H 02/07/22 08:48 Resp 16 02/07/22 08:48 BP 120/80 02/07/22 08:00 Pulse Ox 98 02/07/22 08:48 02/06/22 02/07/22 02/07/22 22:59 06:59 14:59 Intake Total 214.201 / 564.201 38.862 / 603.063 Output Total 2850 / 4800 600 / 5400 Balance -2635.799 / -4235.799 -561.138 / -4796.937 Weight last 48 hrs Weight 211 lb 6 oz Weight 219 lb 4.8 oz Physical Exam Narrative: GENERAL: Patient is alert, awake and oriented x3. [] NECK: No jugular vein distension. [] HEENT: No cyanosis. No icterus. No pallor. [] HEART: Tachycardia, irregularly irregular, S1 and S2. LUNGS: Clear to auscultate bilaterally. [] ABDOMEN: Soft, nontender and nondistended. Positive bowel sounds. No guarding, rebound or tenderness. [] CENTRAL NERVOUS SYSTEM: Grossly nonfocal. [] EXTREMITIES: Lower extremities with 1+ edema bilaterally. Pulses palpable in the lower extremities, both dorsalis pedis and posterior tibial. [] Urinary Catheter Management: Patel: Cath Placed During This Visit: yes Reason for Continuing Indwelling Catheter: Accurate Measurement of Urinary Output in Critically Ill Patients Urinary Catheter Date of Insertion: 01/31/22 Urinary Catheter Time of Insertion: 11:45 Data : 02/08/22 05:43 02/08/22 03:10 Micro: Microbiology 02/06/22 18:10 Gram Stain - Final Pleural Fluid 02/06/22 18:10 Gram Stain - Final Pleural Fluid 02/02/22 15:20 Gram Stain - Final Ankle - Thoracentesis Body Fluid Culture - Final A&P Assessment and plan (1) Acute exacerbation of CHF (congestive heart failure): Status: Acute (2) Atrial fibrillation: Status: Acute (3) Acute and chronic respiratory failure with hypoxia: Status: Acute (4) CAD (coronary artery disease): Status: Acute (5) Bilateral pleural effusion: Status: Acute Plan Patient had recent PCI of mid LAD. Has significant left main stenosis as well with IVUS measurement of 5.8mm2. Has presented with respiratory distress His pleural effusion is exudative however is bilateral. Etiology is not clear. hold diuretics. He has bilateral chest tubes. We were planning on a right heart cath however patient is unable to lay down flat. Also if he have to look for constrictive physiology will need simultaneous right and left heart cath. That will need him to be more stable. Had thoracentesis x 2. He has atrial fibrillation with RVR however post drainage of pleural effusion, his heart rates are uncontrolled now. Dr Miranda evaluated patient and he is not a surgical candidate at this time. we will discuss percutaneous coronary intervention of left main artery later. 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 This has been discussed with the patient and family. Continue aspirin and Plavix. Normal LV systolic function on echocardiogram. Thank you for involving us with care of this patient. We will continue to follow. Please call with questions Attestations Medical Necessity Statement*: Care expected to cross 2 midnights. Coding Level of Care Code Acute Power Builder Developer for Reece Benton Diagnoses Acute exacerbation of CHF (congestive heart failure) I50.9 Atrial fibrillation I48.91 Acute and chronic respiratory failure with hypoxia J96.21 CAD (coronary artery disease) I25.10 Bilateral pleural effusion J90
[2022-02-07] MEDS: morphine 4 mg/mL SDV 1 mL 2 MG IVP ×2 (11:07→23:55)
--- NOTE | 2022-02-07 15:39 | P.PN_ITS ---
Subjective Subjective: Overnight patient has remained stable. He has remained off Levophed. Currently on 2 L nasal cannula saturating 96%. Has bilateral chest tubes. Additional 250 cc of bloody fluid was drained today. Patient is awake alert trying to have complete conversation. Patient denies any nausea vomiting, headache. Denies any shortness of breath during conversation. Denies any chest pain. Documented urine output of 3 L yesterday net 5 L negative Vitals/I&O/Wt Last Vital Signs Temp 98.1 F 02/07/22 12:00 Pulse 113 H 02/07/22 14:50 Resp 18 02/07/22 14:50 BP 120/80 02/07/22 12:00 Pulse Ox 97 02/07/22 14:50 02/07/22 02/07/22 02/07/22 06:59 14:59 22:59 Intake Total 38.862 / 603.063 Output Total 600 / 5400 Balance -561.138 / -4796.937 Weight last 48 hrs Weight 95.878 kg Weight 99.473 kg Physical Exam Const: COMMON NORMALS: patient oriented x3 HENMT: COMMON NORMALS: normocephalic and atraumatic HEAD & SCALP: normocephalic and atraumatic Chest: CHEST: Yes Symmetrical chest wall rise Resp: EFFORT & INSPECTION: Yes symmetric chest movement OTHER: Diminished air entry in lt lung martinez, rt lung field air entry has improved. Cardio: COMMON NORMALS: No gallops present (Cardio), No rub (Cardio) and Peripheral pulses 2+ throughout PERIPHERAL PULSES: Peripheral pulses 2+ throughout OTHER: Irregularly irregular rhythm, S1-S2 variable intensity GI: COMMON NORMALS: Normal to inspection, nondistended, normoactive bowel sounds present, Soft to palpation, non-tender, No hepatosplenomegaly present and no masses AUSCULTATION: Yes normoactive bowel sounds PALPATION: Yes Soft to palpation and Yes No hepatosplenomegaly present RECTAL EXAM: Yes deferred Extremity: OTHER: 2+ bilateral pitting edema in both the lower extremities up to the level of knees Neuro: COMMON NORMALS: patient oriented x3 Urinary Catheter Management: Patel: Cath Placed During This Visit: yes Reason for Continuing Indwelling Catheter: Accurate Measurement of Urinary Output in Critically Ill Patients Urinary Catheter Date of Insertion: 01/31/22 Urinary Catheter Time of Insertion: 11:45 Data : 02/07/22 02:07 02/07/22 02:07 Micro: Microbiology 02/06/22 18:10 Gram Stain - Final Pleural Fluid 02/06/22 18:10 Gram Stain - Final Pleural Fluid 02/02/22 15:20 Gram Stain - Final Ankle - Thoracentesis Body Fluid Culture - Final A&P Assessment and plan (1) Acute and chronic respiratory failure with hypoxia: Status: Acute (2) Heart failure with preserved ejection fraction: Status: Acute (3) Stenosis of left main coronary artery: Status: Acute (4) Bilateral pleural effusion: Status: Acute (5) Aortic stenosis: Status: Acute (6) Coronary artery disease: Status: Acute (7) Atrial fibrillation: Status: Acute (8) Anemia: Status: Acute (9) Shock: Status: Acute Plan Shock: Resolved. Off Levophed. Most likely cardiogenic. No clear source of infection. Already on Abx for multiple days. Bcx negative. Keep MAP over 65 mmhg. Acute on chronic respiratory failure : Multifactorial: Secondary to decompensated heart failure, symptomatic large bilateral pleural effusion, low clinical suspicion for pneumonia. For congestive heart failure: Preserved ejection fraction. Oxygen saturation improved after bilateral chest tube placements. Echocardiogram done earlier in the admission shows an EF of 64% with mild LVH, moderate aortic valve stenosis, mild biatrial enlargement, trace TR with PASP of 34,. Strict input for charting, daily weights. Patel catheterization. Hold off on any further diuresis for now. Patient looks intravascularly depleted. Start on gentle IV hydration with half NS at 50 cc/h after 500 cc of normal saline bolus. For symptomatic recurrent large bilateral pleural effusion: Hemorrhagic. Etiology unknown. Reccurent episodes. S/p B/l chest tube placement - 02/06. Thoracentesis done earlier in this admission shows around 1400 removal of hemorrhagic pleural fluid. Exudative in nature. Negative for malignancy. Negative for empyema. Recently in December 2021 was evaluated for tuberculosis. So far negative. Could be secondary to inflammatory versus autoimmune in nature. Patient does have history of rheumatoid arthritis in family. Check ESR and CRP WNL though patient has been on steroids. JEZ profile negative. Pleural fluid studies today shows predominant neutrophilia which is also present in studies few days ago but glucose on the lower side. For now restart Zosyn. Hepatitis panel, HIV, complement levels within normal limits. Aspergillus antigen, LESLIE level pending. Pending right heart catheterization to rule out constrictive pericarditis. Wean off Solu-Medrol further to 20 mg IV daily. Appreciate cardiology and pulmonology recommendation. Low suspicion of pneumonia: No actual consolidation on imaging. Patient has recently received vancomycin and cefepime during hospitalization. MRSA negative. Leukocytosis most likely secondary to steroids. Hold off on antibiotics and monitor for fever or hemodynamic instability for now. #JHONNY on CKD stage III: Likely secondary to aggressive diuresis. Cannot rule out dry creatinine to be on the higher side. Avoid nephrotoxic drugs. Monitor BMP daily. Strict input output charting. #History of cartery disease: CAG : 99 % stenosis of mid LAD, left main 50% stenosis borderline significant on IVUS s/p?PCI to mid LAD. Currently cardiothoracic surgery as well as cardiology on board, to decide regarding the future of left main disease. Continue aspirin Plavix statin. Will need DAPT at least for a year #A. fib: Rate controlled. Continue amiodarone 200 mg p.o. daily AC on hold given need of procedure and hemorrhagic effusion. If needed can have digoxin load. Could be secondary to intravascular depletion. IV fluid as above. Continue with metoprolol 25 mg twice daily. Depending on hemodynamics can increase the dose. #COPD: Wean Solu-Medrol 40 mg IV daily as above. Agustin garcia Full code. Heparin for DVT prophylaxis for now. Protonix OPD prophylaxis. Attestations Medical Necessity Statement*: Requires further hospitalization for management of acute on chronic respiratory failure, bilateral hemorrhagic pleural effusion requiring chest tube placement, JHONNY on CKD in a patient with left main disease, atrial fibrillation with rapid ventricular response Critical Care Time: The high probability of a clinically significant, sudden or life threatening deterioration of the patient's [cardiac, pulmonary system(s) required my full and direct attention, intervention and personal management. The critical care time is as shown. This time is in addition to time spent performing any reported procedures but includes the following: [x] Data and vital sign review and interpretation [x] Patient assessment, examination and intervention [x] Documentation [x] Medication orders and management Critical Care Time (min): 90 Coding Level of Care Code Acute Split Leather Department Supervisor for franchesca Benton Diagnoses Acute and chronic respiratory failure with hypoxia J96.21 Heart failure with preserved ejection fraction I50.30 Stenosis of left main coronary artery I25.10 Bilateral pleural effusion J90 Aortic stenosis I35.0 Coronary artery disease I25.10 Atrial fibrillation I48.91 Anemia D64.9 Shock R57.9
--- NOTE | 2022-02-07 16:23 | P.PN_ITS ---
Subjective Subjective: The patient was seen and examined. Resting comfortably in bed. Does not complain of any significant respiratory distress however complaining of fatigue and generalized sense of not feeling well. The pleural fluid analysis from [facility] is consistent with neutrophil predominant exudative pleural effusion with a significantly elevated LDH level. The glucose levels are low this would be consistent with placated pleural effusion. The gram stain was negative for any microorganisms. The patient had more than 3 L of pleural fluid outcome through the chest tubes. Since 7 AM the right-sided chest tube has drained approximately 250 cc and the left side has drained approximately 150 cc. The patient has hemorrhagic pleural effusion but does not have pneumothorax. His hemoglobin is stable. His white count is coming down. He is off of pressors. His creatinine is mildly elevated. The patient is receiving IV fluid and albumin. Medications: Reviewed: Yes Vitals/I&O/Wt Last Vital Signs Temp 98.1 F 02/07/22 12:00 Pulse 113 H 02/07/22 14:50 Resp 18 02/07/22 14:50 BP 120/80 02/07/22 12:00 Pulse Ox 97 02/07/22 14:50 02/07/22 02/07/22 02/07/22 06:59 14:59 22:59 Intake Total 38.862 / 603.063 Output Total 600 / 5400 Balance -561.138 / -4796.937 Weight last 48 hrs Weight 211 lb 6 oz Weight 219 lb 4.8 oz Physical Exam Narrative: General: Patient is awake alert and oriented, in no distress but appears to be tired Neck: No JVD Respiratory: Auscultation: Reduced breath sound at the very posterior lung bases, no wheezing or rhonchi Cardiovascular: Irregularly irregular rhythm, variable first heart sound, no murmur, bilateral pitting peripheral edema Abdomen: Soft, nontender, nondistended, positive bowel sound Musculoskeletal: No obvious joint deformity Skin: No rash Neuro: Mental status is normal, no gross motor deficit Urinary Catheter Management: Patel: Cath Placed During This Visit: yes Reason for Continuing Indwelling Catheter: Accurate Measurement of Urinary Output in Critically Ill Patients Urinary Catheter Date of Insertion: 01/31/22 Urinary Catheter Time of Insertion: 11:45 Data : 02/07/22 02:07 02/07/22 02:07 Micro: Microbiology 02/06/22 18:10 Gram Stain - Final Pleural Fluid 02/06/22 18:10 Gram Stain - Final Pleural Fluid Other data: Reviewed the patient's laboratory, microbiologic and radiologic data A&P Assessment and plan (1) Bilateral pleural effusion: FluidThe patient has bilateral hemorrhagic, neutrophil predominant exudative pleural effusion. Studies are consistent with complicated pleural effusion. Initial microbiologic work-up had been negative. Waiting for the final culture result. Would also waiting for the ADL level. The patient does not have any previous history of TB or exposure to TB. It is interesting considering the pleural fluid on previous studies are lymphocyte predominant. At this point, I would recommend starting broad-spectrum antibiotic with anaerobic coverage. Zosyn would be a good choice as the patient does not have any evidence of MRSA infection. We will also discontinue the steroid therapy. The patient is currently not on any pressors. The chest tube output continues to be significant. Over the next couple of days, if the patient does not have any significant reduction in the chest tube drainage he will likely need a pleural biopsy. At the same time, the patient is going to undergo right heart catheterization for evaluation of pulmonary artery occlusion pressure as well as any evidence of constrictive pericarditis, once the heart rate is better controlled We will either diurese the patient or not depending on the findings of the right heart catheterization. Status: Acute (2) Acute and chronic respiratory failure with hypoxia: His oxygen requirement has improved significantly. Currently the patient is using 2 L nasal cannula. I will continue to follow the patient. Status: Acute Attestations Medical Necessity Statement*: Will defer to the primary team Coding Level of Care Code Acute Timber Setter for Reece Benton Diagnoses Bilateral pleural effusion J90 Acute and chronic respiratory failure with hypoxia J96.21
[2022-02-07] MEDS: atorvastatin 40 mg Tablet PO (20:28)
[2022-02-07 21:13] LABS: Pleural Fld Adenosine Deami 30.9 U/L (<9.2)
[2022-02-07] MEDS: TRAMadol 50 mg Tablet PO (21:42)
--- NOTE | 2022-02-07 21:59 | NUR.SHIFT ---
Pt appears very flat and depressed, will follow commands, but minimal involvement. pt lungs sound dim, chest tube sites dressing sites appear intact. pt extremities are very cold and appear mottled, all pulses (radial, post tib and dorsal pedal) required dopplers to locate all sites were found, but faint. Also having difficulty obtaining a SPO2 reading on patient at this time. All extremities were wrapped with warm blankets.
[2022-02-08] VITALS (58 sets, daily range): BP systolic 50–114; BP diastolic 37–88; PULSE 60–139; RESP 9–33; TEMP 36.4–37; O2SAT 89–100
[2022-02-08] MEDS: ipratropium-albuterol 3 mL Neb INHALATION ×2 (02:43→09:08)
[2022-02-08 03:17] LABS: Glucose Point of Care 124 mg/dL (70-110)
[2022-02-08 03:53] LABS: Hematocrit 22.4 % (42.0-52.0); Hemoglobin 6.9 g/dL (11.7-16.6); Mean Corpuscular HGB Conc 30.8 g/dL (30.0-36.0); Mean Corpuscular Hemoglobin 30.4 pg (28.0-34.0); Mean Corpuscular Volume 98.7 fl (80-94); Mean Platelet Volume 10.5 fL (7.4-10.4); Platelet Count 452 10^3/cmm (130-400); Red Blood Count 2.27 10^6/uL (4.1-5.3); Red Cell Distribution Width 15.8 % (12.1-15.1)
[2022-02-08 04:15] LABS: Alanine Aminotransferase 98 U/L (0-41); Albumin Level 2.9 g/dL (3.5-5.2); Alkaline Phosphatase 50 IU/L (40-130); Anion Gap 14.9 (5-19); Aspartate Amino Transferase 62 U/L (0-40); Calcium 7.7 mg/dL (8.5-10.5); Carbon Dioxide 26 mmol/L (22-29); Chloride 104 mmol/L (98-107); Globulin 2.4 g/dL (1.3-4.6); Glucose 113 mg/dL (65-115); Osmolality Calculated 321 mOsm/kg (285-295); Potassium 4.9 mmol/L (3.5-5.1); Sodium 140 mmol/L (136-145); Total Bilirubin 0.8 mg/dL (0.15-1.2); Total Protein 5.3 g/dL (6.6-8.7)
[2022-02-08] MEDS: morphine 4 mg/mL SDV 1 mL 2 MG IVP ×2 (04:39→08:22)
[2022-02-08 04:50] LABS: Blood Urea Nitrogen 96 mg/dL (8-23); White Blood Count 34.5 10^3/uL (4.0-10.0)
[2022-02-08 04:51] LABS: Eosinophils 0 %; Platelet Estimate Normal (Normal); Total Cells Counted 100 (0-100)
[2022-02-08 04:52] LABS: Absolute Neutrophil 33.1 10^3/cmm (1.4-6.5); Absolute Segmented Neutrophil 33.1 10/cmm (1.6-7.1); Lymphocytes 2 %; Lymphocytes Absolute 0.7 10^3/cmm (1.2-3.4); Monocytes Absolute 0.7 10^3/cmm (0.1-0.6); Segmented Neutrophils 96 %
[2022-02-08 04:53] LABS: Anisocytosis Trace
[2022-02-08 06:04] LABS: Basophils # 0.1 10^3/uL (0.0-0.1); Basophils % 0.1 %; Hematocrit 23.2 % (42.0-52.0); Hemoglobin 7.2 g/dL (11.7-16.6); Lymphocytes # 1.3 10^3/uL (0.8-4.8); Lymphocytes % 3.7 %; Mean Corpuscular Hemoglobin 30.3 pg (28.0-34.0); Mean Corpuscular Volume 97.5 fl (80-94); Mean Platelet Volume 10.6 fL (7.4-10.4); Monocytes # 2.6 10^3/uL (0.2-0.9); Monocytes % 7.7 %; Neutrophils # 28.76 10^3/uL (1.8-7.7); Nucleated Red Blood Cells # 0.4 /100WBC; Nucleated Red Blood Cells % 1.2 %; Platelet Count 478 10^3/cmm (130-400); Red Blood Count 2.38 10^6/uL (4.1-5.3); Red Cell Distribution Width 15.9 % (12.1-15.1)
[2022-02-08 06:07] LABS: White Blood Count 33.9 10^3/uL (4.0-10.0)
[2022-02-08] MEDS: aspirin 81 mg EC Tablet PO (08:08)
[2022-02-08] MEDS: amiodarone 200 mg Tablet PO (08:08)
[2022-02-08] MEDS: metoprolol tartrate 25 mg Tablet PO (08:08)
[2022-02-08] MEDS: pantoprazole DR 40 mg Tablet PO (08:08)
[2022-02-08] MEDS: famotidine 20 mg Tablet PO (08:08)
[2022-02-08] MEDS: clopidogrel 75 mg Tablet PO (08:08)
--- NOTE | 2022-02-08 08:24 | ECG_ITS ---
[facility] Test Date: 2022-02-08 Pat Name: Nitin Florentino Department: Room: ICU12 Gender: Male Board Hammer Operator: : 1945 Requested By: Emigdio Thomas Order Number: [id number] Noemi MD: Lakshmi Rodrigues M.D. Measurements Intervals [place] Rate: 138 P: [place]: QRS: -28 QRSD: 153 T: 118 QT: 267 QTc: 405 Interpretive Statements ATRIAL FIBRILLATION WITH RAPID VENTRICULAR RESPONSE BORDERLINE LEFT AXIS DEVIATION [QRS AXIS < -20] RIGHT BUNDLE BRANCH BLOCK [120+ ms QRS DURATION, UPRIGHT V1, 40+ ms S IN I/aVL/V4/V5/V6] MARKED ST ELEVATION, CONSIDER SEPTAL INJURY [MARKED ST ELEVATION W/O NORMALLY INFLECTED T-WAVE IN V1/V2] ACUTE NV INTERPRETATION BASED ON A DEFAULT AGE OF 40 YEARS Compared to ECG 02/06/2022 13:51:27 Right bundle-branch block now present ST (T wave) deviation now present Intraventricular conduction delay no longer present Electronically Signed On 02-08-2022 16:45:30 CDT by Lakshmi Rodrigues M.D. [id number]
[2022-02-08] MEDS: propofol 1,000 MG/100 ML INJ 2.88 MG IV (08:36)
--- NOTE | 2022-02-08 08:46 | XR_ITS ---
WS: [id number] Exam: XR chest 1V portable [id number] Date/Time of Exam: 02/08/2022 8:49 AM Reason For Exam: Post intubation/ post code Comparison 02/07/2022. The lungs are fully expanded. Bibasal pleural effusions are noted. The heart is enlarged but unchange d in size. Endotracheal tube has been placed and ends at about the level of T4. Monitoring leads supe rimpose the chest. XR/XR chest 1V portable [id number] IMPRESSION: 1. Bibasal pleural effusions essentially unchanged. Cardiac enlargement unchang ed. 2. ET tube has been placed and is in satisfactory position.
--- NOTE | 2022-02-08 08:50 | PC.NURSE ---
CODE EVENT: Called to bedside of ICU 12. Upon responding to bedside found Dr. Dugan, Dr. Felix and code team in patient's room. Code in progress. Compressions appropriate rate and depth with adequate CCF. Bedside nursing reports PEA was underlying rhythm upon code being called. After 3 rounds of compressions and pulse found at pulse check. STAT type and screen with order to transfuse, STAT chest XRAY, magnesium level, CMP, CBC. Patient intubated during code situation by ED physician. Patient currently resting in bed with team at bedside. Family has been updated and are en route. High potential for label coder intervention due to likely STEMI. Patient on multiple drips as of now.
[2022-02-08 08:52] LABS: ABG PCO2 43.9 mmHg (35-45); ABG PH Result 7.32 (7.35-7.45); Arterial Blood Gas Hematocrit 19.4 % (42-52); Blood Gas Sample Site Femoral, left; Blood Gas Sample Type Arterial; Carboxyhemoglobin 0.8 %THgb (0.4-20.1); HCO3 ABG 22.8 mmol/L (22-26); HGB O2 Sat 98.8 % (95-100); Ionized Calcium Level - ABG 1.1 mmol/L (1.1-1.4); Oxygen Device AMBU; Oxygen Saturation ABG > 100.0; Potassium Level - ABG 5.4 mmol/L (3.5-5.0); Total Hemoglobin 6.3 g/dL (14-18)
[2022-02-08 08:57] LABS: Basophils # 0.1 10^3/uL (0.0-0.1); Basophils % 0.1 %; Hematocrit 21.1 % (42.0-52.0); Lymphocytes # 3.4 10^3/uL (0.8-4.8); Lymphocytes % 9.9 %; Mean Corpuscular HGB Conc 30.8 g/dL (30.0-36.0); Mean Corpuscular Hemoglobin 31.1 pg (28.0-34.0); Mean Platelet Volume 10.9 fL (7.4-10.4); Monocytes # 2.8 10^3/uL (0.2-0.9); Monocytes % 8.1 %; Neutrophils # 26.22 10^3/uL (1.8-7.7); Neutrophils % 76.6 %; Nucleated Red Blood Cells # 0.8 /100WBC; Nucleated Red Blood Cells % 2.3 %; Platelet Count 384 10^3/cmm (130-400); Red Blood Count 2.09 10^6/uL (4.1-5.3); Red Cell Distribution Width 15.8 % (12.1-15.1)
--- NOTE | 2022-02-08 09:16 | PC.SOCIAL ---
IMM not Updated Pt coded & ROSC was obtained. Pt is now intubated & on multiple drips. Pt is not expected to d/c in the next 24-48hrs.
[2022-02-08] MEDS: sodium chloride 0.9% 1,000 ML 999 ML IV (09:17)
[2022-02-08] MEDS: etomidate 10 ML 1 MG (09:20)
[2022-02-08 09:24] LABS: Alanine Aminotransferase 318 U/L (0-41); Albumin Level 2.5 g/dL (3.5-5.2); Alkaline Phosphatase 54 IU/L (40-130); Anion Gap 24.4 (5-19); Aspartate Amino Transferase 203 U/L (0-40); Calcium 7.5 mg/dL (8.5-10.5); Carbon Dioxide 22 mmol/L (22-29); Chloride 101 mmol/L (98-107); Globulin 2.3 g/dL (1.3-4.6); Glucose 142 mg/dL (65-115); Magnesium 3.3 mg/dL (1.7-2.3); Osmolality Calculated 326 mOsm/kg (285-295); Potassium 5.4 mmol/L (3.5-5.1); Sodium 142 mmol/L (136-145); Total Bilirubin 0.8 mg/dL (0.15-1.2); Total Protein 4.8 g/dL (6.6-8.7)
[2022-02-08 09:26] LABS: Blood Urea Nitrogen 95 mg/dL (8-23)
[2022-02-08] MEDS: EPINEPHrine 2.5 MG in sodium chloride 0.9% 250 ML 15 MG IV (09:40)
[2022-02-08 09:53] LABS: Hemoglobin 6.5 g/dL (11.7-16.6); White Blood Count 34.3 10^3/uL (4.0-10.0)
[2022-02-08 09:54] LABS: Slide Review Slide Review Perform
--- NOTE | 2022-02-08 10:36 | PC.NURSE ---
All blood VS pulled across from monitor.
--- NOTE | 2022-02-08 10:54 | PM.PN ---
Subjective Subjective: Patient was seen speech therapist early intervention and plan was to perform right heart cath. However patient had cardiac arrest prior to that and was intubated. Family decided to proceed with comfort care measures Vitals/I&O/Wt Last Vital Signs Temp 97.5 F L 02/08/22 10:11 Pulse 76 02/08/22 10:30 Resp 21 H 02/08/22 10:11 BP 50/41 02/08/22 09:30 Pulse Ox 96 02/08/22 10:30 02/07/22 02/08/22 02/08/22 22:59 06:59 14:59 Intake Total 1050 / 1050 50 / 1100 2590.120 / 2590.120 Output Total 850 / 850 440 / 1290 Balance 200 / 200 -390 / -190 2590.120 / 2590.120 Weight last 48 hrs Weight 211 lb 6 oz Physical Exam Narrative: GENERAL: Patient is alert, awake and oriented x3. [] NECK: No jugular vein distension. [] HEENT: No cyanosis. No icterus. No pallor. [] HEART: Tachycardia, irregularly irregular, S1 and S2. LUNGS: Clear to auscultate bilaterally. [] ABDOMEN: Soft, nontender and nondistended. Positive bowel sounds. No guarding, rebound or tenderness. [] CENTRAL NERVOUS SYSTEM: Grossly nonfocal. [] EXTREMITIES: Lower extremities with 1+ edema bilaterally. Pulses palpable in the lower extremities, both dorsalis pedis and posterior tibial. [] Urinary Catheter Management: Patel: Cath Placed During This Visit: yes Reason for Continuing Indwelling Catheter: Accurate Measurement of Urinary Output in Critically Ill Patients Urinary Catheter Date of Insertion: 01/31/22 Urinary Catheter Time of Insertion: 11:45 Data : 02/08/22 08:40 02/08/22 08:40 Micro: Microbiology 02/06/22 18:10 Gram Stain - Final Pleural Fluid Body Fluid Culture - Preliminary 02/06/22 18:10 Gram Stain - Final Pleural Fluid Body Fluid Culture - Preliminary A&P Assessment and plan (1) Acute exacerbation of CHF (congestive heart failure): Status: Acute (2) Atrial fibrillation: Status: Acute (3) Acute and chronic respiratory failure with hypoxia: Status: Acute (4) CAD (coronary artery disease): Status: Acute (5) Bilateral pleural effusion: Status: Acute Plan In order to evaluate right sided cardiac pressures, plan was to perform right heart cath today as appeared stable today. He was still short of breath. However he and had cardiac arrest requiring CPR and intubation. Family decided to proceed with comfort care measures. Thank you for involving us with care of the patient. Attestations Medical Necessity Statement*: Care expected to cross 2 midnights. Coding Level of Care Code Acute Flight Manager for [facility] Fwd Diagnoses Acute exacerbation of CHF (congestive heart failure) I50.9 Atrial fibrillation I48.91 Acute and chronic respiratory failure with hypoxia J96.21 CAD (coronary artery disease) I25.10 Bilateral pleural effusion J90
[2022-02-08] MEDS: morphine 4 mg/mL SDV 1 mL IVP (11:01)
--- NOTE | 2022-02-08 11:04 | PC.NURSE ---
Extubated per family wishes and MD orders at 1103. Restraints removed. Morphine given per orders. Family at bedside.
[2022-02-08 12:43] LABS: Angiotensin Converting Enzyme 18 U/L (9-67)
--- NOTE | 2022-02-08 17:50 | PC.NURSE ---
1743 Pt found to be without respirations and apical pulse. Asystole on monitor. MD notified. MTS notified per supervisor hospitality house.
--- NOTE | 2022-02-08 18:11 | PC.NURSE ---
Addendum entered by Kimberly Maya RN 02/08/22 18:12: Spoke with Orin Tello Original Note: Called MTS at 1811 awaiting a call back after further evaluation
--- NOTE | 2022-02-08 18:28 | PC.NURSE ---
Remaining fentanyl wasted na Harris RN.
--- NOTE | 2022-02-08 18:50 | P.DES_ITS ---
Discharge Providers DDS Date of Admission: 01/28/22 20:20 Date Summary Completed: 02/10/22 Attending Provider at Admission: Garland Reyes DO Time of : 17:43 Attending Provider at Discharge: MD JOAQUIN Magallanes Diagnoses Hospital Diagnoses (1) Acute exacerbation of CHF (congestive heart failure): (2) Atrial fibrillation: (3) Acute and chronic respiratory failure with hypoxia: (4) CAD (coronary artery disease): (5) Bilateral pleural effusion: Reason for Visit Reason for Visit Diff Breathing Summary Date and Time of Date of : 02/08/22 Time of : 17:43 Summary Summary: Patient was admitted on 01/28. Nitin Florentino is a 76 year old male with a past medical history of heart failure, atrial fibrillation, coronary artery disease.? The patient presented to the hospital on January 28 with worsening shortness of breath in addition to worsening bilateral lower extremity edema.? Upon admission, the patient was found to have bilateral pleural effusion and significant bilateral pitting edema.? He was diagnosed with acute decompensated heart failure and was started on appropriate therapy. However, his story is more interesting.? The patient tells me that he did not have any significant respiratory problems until last year.? He has extensive history of smoking and a previous diagnosis of COPD. The patient was initially hospitalized earlier this year in December with similar complaints.? At that time, the patient was found to have NSTEMI, bilateral pleural effusion thought to be in the presence of heart failure.? The patient was in respiratory failure at this time requiring noninvasive positive pressure ventilation.? He was found to be in A. fib with RVR.? An echocardiogram at this time revealed mild reduction in the ejection fraction. Patient eventually underwent cardiac catheterization during that hospitalization.? He was found to have moderate to severe 50% left main disease, critical mid LAD lesion with 99% occlusion.? The patient underwent a drug- eluting stent placement in the LAD on January 07.? The plan was for staged PCI or CABG for the left main disease.? The patient also underwent pleural fluid drainage from both right and left side.? The fluid was consistent with exudative pleural effusion.? The effusion was hemorrhagic but this was not hemothorax.? The patient was discharged from the hospital on January 09.? It appears that the patient was discharged on hydrochlorothiazide only according to the discharge summary. The patient presented back to the hospital on January 28 as mentioned above with worsening shortness of breath.? CT scan of the chest revealed large bilateral pleural effusion.? There are minimal pulmonary infiltrate.? There is also evidence of bilateral pleural thickening. The patient underwent right-sided thoracentesis which revealed hemorrhagic effusion.? The RBC count in the pleural fluid is not consistent with hemothorax.? The patient also has exudative pleural effusion on the right side.? Latest echocardiogram revealed an ejection fraction of 64%, mild left ventricular hypertrophy.? Increased biatrial size.? At least moderate aortic valve stenosis.? The peak velocity is 3.1 m/s with a peak gradient of 39.? E over E prime ratio was measured at 11. Patient was started on treatment with broad-spectrum antibiotics, diuretics and Solu-Medrol. His diuretics were started on and off given labile renal functions. Pulmonology and cardiology was consulted. He underwent thoracentesis and then eventually bilateral chest tube placement for recurrent hemorrhagic effusions. 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 Patient achieved ROSC post multiple cycles of CPR. Post CPR patient was on multiple vasopressors to maintain his mean arterial pressures over 65. Multiple goals of care discussions were done with the family. Family decided to make him comfort measures. Patient on 02/08 at 1743 and comfortable state with family at bedside. Additional Data Advance directives?: No Discharge Plan Discharge Patient Disposition: Condition: Stable Probable Cause of Probable cause of : Cardiac arrest DS Attestations Time Spent in /Discharge Care*: critical care time (Time spent mostly in [facility], managing cardiac, pulmonary, neurological, vent settings, sedation, multiple goals of care discussions) Critical Care Time (min): 90 Quality - AMI: AMI present?: No Quality - Stroke: CVA present?: No Quality - VTE: VTE present?: No Deep Vein Thrombosis/Pulmonary Embolism Present on Admission: No Coding Level of Care Code Acute [place] for [facility] Fwd Diagnoses Acute exacerbation of CHF (congestive heart failure) I50.9 Atrial fibrillation I48.91 Acute and chronic respiratory failure with hypoxia J96.21 CAD (coronary artery disease) I25.10 Bilateral pleural effusion J90
--- NOTE | 2022-02-08 18:54 | PC.NURSE ---
MTS called back and stated that pt is not eligible for donation and body is ok to release. House sup notified. Oncoming nurse notified.
--- NOTE | 2022-02-09 05:03 | PC.NURSE ---
[facility]
[2022-02-10 20:33] LABS: Pleural Fld Adenosine Deami 27.3 U/L (<9.2)
[2022-02-11 15:23] LABS: Aspergillus AG,EIA,Serum NOT DETECTED; Aspergillus Galactomannan Inde <0.50
== END 2022-02-08 19:30 | disposition expired | DRG 291 ==
LOC: ER 21:22 → MEDSURG 22:15 → CSU 01-29 21:20 → ICU 01-31 13:58
PROVIDERS: Emergency Medicine; Family Medicine; Internal Medicine; Internal Medicine Critical Care Medicine; Admitting Provider Internal Medicine; Emergency Provider Emergency Medicine; Visit Provider Student in an Organized Health Care Education/Training Program
DX: I13.0 Hypertensive heart and chronic kidney disease with heart failure and stage 1 through stage 4 chronic kidney disease, or unspecified chronic kidney disease (principal); I50.33 Acute on chronic diastolic (congestive) heart failure; J96.22 Acute and chronic respiratory failure with hypercapnia; J44.1 Chronic obstructive pulmonary disease with (acute) exacerbation; J90 Pleural effusion, not elsewhere classified; N17.9 Acute kidney failure, unspecified; N18.30 Chronic kidney disease, stage 3 unspecified; I46.9 Cardiac arrest, cause unspecified; I25.2 Old myocardial infarction; Z87.01 Personal history of pneumonia (recurrent); I25.10 Atherosclerotic heart disease of native coronary artery without angina pectoris; Z95.5 Presence of coronary angioplasty implant and graft; F17.210 Nicotine dependence, cigarettes, uncomplicated; D64.9 Anemia, unspecified; I48.91 Unspecified atrial fibrillation; E78.5 Hyperlipidemia, unspecified; E66.9 Obesity, unspecified; Z68.28 Body mass index [BMI] 28.0-28.9, adult; E87.6 Hypokalemia; I71.4 Abdominal aortic aneurysm, without rupture; I35.0 Nonrheumatic aortic (valve) stenosis; R57.0 Cardiogenic shock; D72.0 Genetic anomalies of leukocytes; Z51.5 Encounter for palliative care
CPT/HCPCS: 32555; 36415; 36416; 36430; 36592; 36600; 51702; 51798; 71045; 71250; 74176; 76604; 76700; 80048; 80051; 80053; 80202; 80503; 81001; 82042; 82164; 82330; 82465; 82575; 82607; 82728; 82746; 82805; 82945; 82962; 83516; 83540; 83550; 83615; 83735; 83880; 83986; 84145; 84156; 84157; 84300; 84311; 84439; 84443; 84478; 84484; 85007; 85025; 85610; 85651; 86038; 86140; 86160; 86200; 86225; 86235; 86403; 86431; 86705; 86706; 86709; 86803; 86850; 86900; 86920; 87015; 87040; 87070; 87075; 87086; 87106; 87116; 87205; 87206; 87305; 87340; 87426; 87449; 87641; 87801; 87806; 88108; 88305; 89050; 93005; 93306; 93970; 94002; 94640; 94660; 94799; 96372; 96374; 96375; 97110; 97163; 99285; C1751; C9113; J0171; J0692; J1644; J1650; J1940; J2060; J2270; J2543; J2704; J2920; J2930; J3010; J3370; J3480; J3490; J7030; J7050; P9040; P9047; P9058